=== PATIENT | female | born 1970 | race Caucasian/White ===

== ENCOUNTER 2021-10-17 14:28 | Emergency (ER) | payer OTHER, SELFPAY ==
--- NOTE | ~2021-10-17 | XR_ITS ---
EXAMINATION: XR chest 2V Exam Date/Time: 10/17/2021 14:57 CDT HISTORY: shortness of breath;recent pneumonia,hx of COPD,HTN, smoker Comparison: 08/11/2017. RESULT: Lines, tubes, and devices: None. Lungs and pleura: Emphysematous change, otherwise clear. Cardiomediastinal silhouette: Stable. Other: No acute osseous or upper abdominal finding. IMPRESSION: No acute cardiopulmonary process. Reviewed, dictated and finalized at location K.
[2021-10-17 14:29] VITALS: BP 114/78; PULSE 100; RESP 16; TEMP 36.3; O2SAT 100
[2021-10-17 14:40] VITALS: O2SAT 88; O2SAT 97
--- NOTE | 2021-10-17 14:40 | ECG_ITS ---
Measurements Intervals [place] Rate: 93 P: 73 TN: 129 QRS: 70 QRSD: 83 T: 65 QT: 357 QTc: 444 Interpretive Statements SINUS RHYTHM BASELINE ARTIFACT- I, III NORMAL ECG Electronically Signed On 10-17-2021 16:33:01 CDT by Levar Carbajal D.O.
[2021-10-17 14:52] LABS: Basophils Absolute Auto 0.1 K/mm3 (0.0-0.1); Basophils Percent Auto 1.5 % (0.2-1.2); Eosinophils Absolute Auto 0.4 K/mm3 (0-0.3); Eosinophils Percent Auto 8.9 % (0-4.4); Hematocrit 43.4 % (37.0-47.0); Hemoglobin 14.1 g/dL (12.0-15.0); Immature Granulocyte Absolute 0.01 K/mm3 (0.00-0.031); Immature Granulocyte Percent A 0.2 % (0-0.5); Immature Platelet Fraction Pct 10.4 % (0.9-11.2); Lymphocytes Absolute Auto 1.01 K/mm3 (0.9-3.2); Lymphocytes Percent Auto 21.4 % (18.3-44.2); Mean Corpuscular HGB Conc 32.5 g/dl (32-36); Mean Corpuscular Hemoglobin 31.1 pg (26-34); Mean Corpuscular Volume 95.8 fl (80-100); Mean Platelet Volume 11.5 fl (7.4-10.4); Monocytes Absolute Auto 0.4 K/mm3 (0.1-0.6); Monocytes Percent Auto 7.4 % (2.6-8.5); Neutrophils Absolute Auto 2.9 K/mm3 (1.3-6.7); Neutrophils Percent Auto 60.6 % (45.5-73.1); Platelet Count Result 132 k/mm3 (150-375); Red Blood Count 4.53 M/mm3 (4.2-5.4); White Blood Count 4.7 K/mm3 (4.5-10.0)
[2021-10-17 15:00] LABS: Alanine Aminotransferase 14 U/L (6-35); Alkaline Phosphatase 72 U/L (38-126); Anion Gap 6 mmol/L (8-16); Aspartate Amino Transferase 22 U/L (14-36); Bilirubin,Total 0.4 mg/dL (0.2-1.3); Blood Urea Nitrogen 8 mg/dL (7-17); Calcium 8.7 mg/dL (8.4-10.2); Carbon Dioxide 32 mmol/L (22-30); Chloride 105 mmol/L (98-107); Estimated CRCL calculation 61 ml/min; Estimated Glomerular Filt Rate > 60; Glucose 122 mg/dL (65-110); Potassium 3.8 mmol/L (3.4-5.0); Sodium 143 mmol/L (137-145)
[2021-10-17] MEDS: ALBUTEROL SULFATE NEB 2.5 MG/3 ML INH 15 MG INHALATION (15:10)
[2021-10-17] MEDS: IPRATROPIUM BR 0.02% INH SOLN 0.5 MG/2.5 ML VIAL 1 MG INHALATION (15:10)
[2021-10-17] MEDS: predniSONE 20 MG TABLET 40 MG PO (15:18)
[2021-10-17] MEDS: AZITHROMYCIN 250 MG TABLET 500 MG PO (15:18)
[2021-10-17 15:25] VITALS: PULSE 90
[2021-10-17 15:45] LABS: SARS-CoV-2 RNA PCR Negative
--- NOTE | 2021-10-17 16:49 | ED.SOB ---
HPI - SOB/Dyspnea General Chief Complaint: Upper Respiratory Infection Stated Complaint: short of breath Time Seen by Provider: 10/17/21 14:41 History of Present Illness HPI Narrative: 50-year-old female who states that the last 2 weeks she has been having productive cough, difficulty breathing. No fevers or chills, she says that someone at [place] told her she had pneumonia. She has not been able to take get any medications she says because the other doctor was needed did not want to give it to her Related Data Allergies Allergy/AdvReac Type Severity Reaction Status Date / Time bee venom protein (honey bee) Allergy Intermediate BREATHING Verified 10/17/21 14:41 DIFFICULTY Review of Systems Review of Systems: CONST: No fever. HEENT: No sore throat C/V: Chest tightness when she coughs RESP: Productive cough and wheezing GI: No nausea or vomiting : No dysuria. M/S: No joint pain. SKIN: No rash. NEURO: [No headache or focal numbness or weakness] PSYCH: [No depression] [facility] Past Medical History Medical History (Updated 10/17/21 @ 16:52 by Rita Villa MD) COPD (chronic obstructive pulmonary disease) Social History Social History (Updated 10/17/21 @ 16:52 by Rita Villa MD) Smoking status: Current every day smoker Exam Narrative: EXAMINATION OF ORGAN SYSTEMS/BODY AREAS: Constitutional: Vital signs per nursing GENERAL: Resting comfortably in bed HEAD: Normal with no signs of head trauma. EYES: EOMI, conjunctiva normal ENT: Hearing grossly intact LUNGS: Wheezing all lung geller HEART: [Regular rate and rhythm] ABD: [Soft], nontender EXT: Normal range of motion SKIN: [No rashes or lesions.] NEURO: [Alert and oriented x 3. No gross focal sensory or strength deficits.] PSYCH: Normal affect Course Vital Signs Vital signs: Vital Signs Temperature 97.3 F L 10/17/21 14:29 Pulse Rate 100 10/17/21 14:29 Respiratory Rate 16 10/17/21 14:29 Blood Pressure 114/78 10/17/21 14:29 Pulse Oximetry 100 10/17/21 14:29 Oxygen Delivery Room Air 10/17/21 14:29 Temperature 97.3 F L 10/17/21 14:29 Pulse Rate 90 10/17/21 15:25 Respiratory Rate 16 10/17/21 14:29 Blood Pressure 114/78 10/17/21 14:29 Pulse Oximetry 97 10/17/21 14:40 Oxygen Delivery Nasal Cannula 10/17/21 14:40 Oxygen Flow Rate 2 10/17/21 14:40 MDM - SOB/Dyspnea MDM Narrative Medical decision making narrative: ED COURSE AND MEDICAL DECISION MAKIN-year-old female with acute dyspnea and wheezing likely due to acute COPD exacerbation based on history and exam. Doubt ACS or PE as symptoms and exam were consistent with COPD. Patient hemodynamically stable. Nebulizer treatments are started and steroids given orally. Patient monitored in the ED for a couple of hours and on reevaluation is feeling significantly better. No respiratory distress or accessory muscle use. Good air movement bilateral lungs. Prescriptions for [albuterol and steroid course] provided. Azithromycin provided for COPD exacerbation. Patient is given strict return precautions and patient is discharged in stable/improved condition. Pulse oximetry interpretation: 94% on room air preintervention, 98% on room air post intervention Critical care time: None. Lab Data Result diagrams: 10/17/21 14:43 10/17/21 14:43 Labs: Lab Results 10/17/21 10/17/21 10/17/21 Range/Units 14:43 14:43 14:52 WBC 4.7 (4.5-10.0) K/mm3 RBC 4.53 (4.2-5.4) M/mm3 Hgb 14.1 (12.0-15.0) g/dL Hct 43.4 (37.0-47.0) % MCV 95.8 (80-100) fl MCH 31.1 (26-34) pg MCHC 32.5 (32-36) g/dl RDW 14.0 (11.5-14.5) % Plt Count 132 L (150-375) k/mm3 MPV 11.5 H (7.4-10.4) fl Immature Gran % (Auto) 0.2 (0-0.5) % Neut % (Auto) 60.6 (45.5-73.1) % Lymph % (Auto) 21.4 (18.3-44.2) % [place] % (Auto) 7.4 (2.6-8.5) % Eos % (Auto) 8.9 H (0-4.4) % Baso % (Auto) 1.5 H (0.2-1.2)
== END 2021-10-17 17:32 | disposition home or self-care (01) ==
PROVIDERS: Emergency Provider Emergency Medicine; PCP Internal Medicine
DX: J06.9 Acute upper respiratory infection, unspecified (principal); J44.1 Chronic obstructive pulmonary disease with (acute) exacerbation; Z20.822 Contact with and (suspected) exposure to COVID-19; F17.200 Nicotine dependence, unspecified, uncomplicated
CPT/HCPCS: 36415; 71046; 80053; 85025; 85055; 93005; 94640; 99284; A9270; C9803; J7512; U0003; U0005

== ENCOUNTER 2021-12-23 13:06 | Observation (INO) | payer OTHER, SELFPAY ==
[2021-12-23] VITALS (37 sets, daily range): BP systolic 96–140; BP diastolic 58–97; PULSE 69–106; RESP 12–30; TEMP 36.3–37.2; O2SAT 87–100; BMI 17.6
--- NOTE | ~2021-12-23 | XR_ITS ---
EXAMINATION: XR chest 2V DATE: 12/23/2021 13:51 INDICATION: Chest pain TECHNIQUE: Frontal and lateral views of the chest are obtained COMPARISON: 10/17/2021 FINDINGS: The lungs are free of acute opacities. There is moderate emphysema. No pleural effusion or pneumothorax. The cardiomediastinal silhouette is normal. There is mild thoracic spondylosis. IMPRESSION: 1. No acute cardiopulmonary abnormality. Reviewed, dictated and finalized at location A.
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
--- NOTE | 2021-12-23 13:18 | ECG_ITS ---
Measurements Intervals [place] Rate: 99 P: 79 [place]: 113 QRS: 80 QRSD: 82 T: 80 QT: 330 QTc: 425 Interpretive Statements SINUS RHYTHM WITH SHORT [place] INTERVAL BASELINE WANDER- V2 BORDERLINE T WAVE ABNORMALITY- ANTERIOR LEADS BORDERLINE ECG COMPARED TO ECG 10/17/2021 14:43:07 NO SIGNIFICANT CHANGES Electronically Signed On 12-23-2021 20:06:56 CDT by Levar Carbajal D.O.
[2021-12-23 13:32] LABS: Basophils Absolute Auto 0.1 K/mm3 (0.0-0.1); Basophils Percent Auto 0.7 % (0.2-1.2); Eosinophils Absolute Auto 0.4 K/mm3 (0-0.3); Hematocrit 43.4 % (37.0-47.0); Hemoglobin 14.4 g/dL (12.0-15.0); Immature Granulocyte Absolute 0.02 K/mm3 (0.00-0.031); Immature Granulocyte Percent A 0.3 % (0-0.5); Lymphocytes Absolute Auto 0.83 K/mm3 (0.9-3.2); Lymphocytes Percent Auto 11.4 % (18.3-44.2); Mean Corpuscular HGB Conc 33.2 g/dl (32-36); Mean Corpuscular Hemoglobin 31.2 pg (26-34); Mean Corpuscular Volume 93.9 fl (80-100); Mean Platelet Volume 11.3 fl (7.4-10.4); Monocytes Absolute Auto 0.8 K/mm3 (0.1-0.6); Monocytes Percent Auto 10.7 % (2.6-8.5); Neutrophils Absolute Auto 5.2 K/mm3 (1.3-6.7); Neutrophils Percent Auto 70.9 % (45.5-73.1); Platelet Count Result 173 k/mm3 (150-375); Red Blood Count 4.62 M/mm3 (4.2-5.4); Red Cell Distribution Width 13.9 % (11.5-14.5); White Blood Count 7.3 K/mm3 (4.5-10.0)
[2021-12-23 13:42] LABS: Prothrombin Time 12.9 Seconds (11.1-14.7)
[2021-12-23 13:43] LABS: Partial Thromboplastin Time 30.2 SECONDS (22.3-36.8)
[2021-12-23 13:47] LABS: Alanine Aminotransferase 14 U/L (6-35); Albumin Level 4.3 g/dL (3.5-5.1); Alkaline Phosphatase 68 U/L (38-126); Anion Gap 13 mmol/L (8-16); Aspartate Amino Transferase 22 U/L (14-36); Bilirubin,Total 0.6 mg/dL (0.2-1.3); Blood Urea Nitrogen 9 mg/dL (7-17); Calcium 8.9 mg/dL (8.4-10.2); Carbon Dioxide 26 mmol/L (22-30); Chloride 100 mmol/L (98-107); Estimated CRCL calculation 70 ml/min; Estimated Glomerular Filt Rate > 60; Glucose 103 mg/dL (65-110); Lipase 19 U/L (23-300); Potassium 3.7 mmol/L (3.4-5.0); Sodium 139 mmol/L (137-145)
[2021-12-23 13:59] LABS: Troponin I < 0.012 ng/mL (0.000-0.034)
[2021-12-23] MEDS: ONDANSETRON INJ 4 MG/2 ML VIAL IV PUSH (14:50)
[2021-12-23] MEDS: MORPHINE SULFATE (*CRX) 4 MG/ML INJ IV PUSH (14:50)
[2021-12-23 16:30] LABS: Erythrocyte Sedimentation Rate 21 mm/hr (0-20)
[2021-12-23 16:32] LABS: Troponin I < 0.012 ng/mL (0.000-0.034)
[2021-12-23 18:44] LABS: SARS-CoV-2 RNA PCR Negative
[2021-12-23 19:13] LABS: Troponin I < 0.012 ng/mL (0.000-0.034)
--- NOTE | 2021-12-23 20:19 | ADMGEN ---
This patient, Joya De Leon, was admitted to IMU Room 206-2009. Patient/family oriented to hospital policies and general routines including ID bracelet, bed and alarms, visiting hours, pain management, procedures, bathroom and other care routines, personal items, smoking policy, room service/diet, and visiting hours. Information on how to activate the Rapid Response Team has been discussed. Patient/Family are encouraged to report perceived risks to care and to ask questions if they do not understand what they are told or what they should do.
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
--- NOTE | 2021-12-23 21:09 | ADMGEN ---
This patient, Joya De Leon, was admitted to IMU Room 206-02. Patient/family oriented to hospital policies and general routines including ID bracelet, bed and alarms, visiting hours, pain management, procedures, bathroom and other care routines, personal items, smoking policy, room service/diet, and visiting hours. Information on how to activate the Rapid Response Team has been discussed. Patient/Family are encouraged to report perceived risks to care and to ask questions if they do not understand what they are told or what they should do.
[2021-12-24] VITALS (9 sets, daily range): BP systolic 97–114; BP diastolic 48–70; PULSE 70–93; RESP 14–16; TEMP 36.3–36.7; O2SAT 93–96
--- NOTE | 2021-12-24 | ECHO_ITS ---
Patient Info Name: Joya De Leon Age: 51 years : 1970 Gender: Female Ht: 65 in Wt: 103 lbs BSA: 1.45 m2 HR: 85 bpm BP: 110 / 70 mmHg Heart Rhythm: Sinus Rhythm Technical Quality: Fair Exam Date: 12/24/2021 11:58 AM Exam Location: [facility] Pulmonary Exam Room: [facility] Patient Status: Outpatient Admit Date: 12/23/2021 Staff Ordering Physician: Shruti Zuñiga DO Chemist Steroids: Evelyn Pickard RDCS Attending Provider: Dixon Kraft MD Referring Physician: Yogesh HERRON; Exam Type: CA echo doppler color flow Study Info Indications - pericarditis Complete two-dimensional, color flow and Doppler transthoracic echocardiogram is performed. Summary 1. Complete two-dimensional, color flow and Doppler transthoracic echocardiogram is performed. 2. Left ventricular systolic function is normal, estimated at 55-60%. 3. The left ventricular diastolic function is grade I diastolic dysfunction. 4. Right ventricular systolic function is normal. 5. There is small circumferential pericardial effusion. 6. No significant valvular disease. Left Ventricle Left ventricular chamber dimension is normal. Left ventricular systolic function is normal, estimated at 55-60%. There is no increased left ventricular wall thickness. The left ventricular diastolic function is grade I diastolic dysfunction. Right Ventricle Right ventricular chamber dimension is normal. Right ventricular systolic function is normal. Left Atria Left atrial chamber dimension is normal. Right Atria Right atrial chamber dimension is normal. Aortic Valve The aortic valve is not well visualized. There is no aortic valve stenosis. There is no aortic valve regurgitation. Pulmonic Valve The pulmonic valve is not well visualized. Mitral Valve The mitral valve has normal leaflets. There is no mitral valve stenosis. There is no mitral valve regurgitation. Tricuspid Valve The tricuspid valve leaflets are normal. There is no significant tricuspid valve stenosis. There is trace tricuspid valve regurgitation. Pericardium/Pleural There is small circumferential pericardial effusion. Inferior Vena Cava Dilated inferior vena cava with >50% collapse upon inspiration consistent with Empty right atrial pressure, Empty. Left Ventricular Outflow Tract Name Value Normal LVOT 2D LVOT Diameter 2.0 cm LVOT Doppler LVOT Peak Gradient 5 mmHg LVOT Mean Gradient 3 mmHg LVOT VTI 21 cm LVOT VTI/AV VTI Ratio 1.0 LVOT Stroke Volume 63 ml LVOT CO 15.6 l/min LVOT CI 10.8 l/min/m2 Pulmonic Valve Name Value Normal PV Doppler PV Peak Gradient 4 mmHg Josi
--- NOTE | 2021-12-24 05:43 | PC.NURSE ---
I HAVE MONITORED THE MEDICATION DISPENSING AND THE CHARTING DONE BY PURVI LY RN LICENSE PENDING AND I AGREE WITH EVERYTHING.
--- NOTE | 2021-12-24 08:02 | PM.IMPN ---
Progress Note: A&P Assessment and Plan (1) Acute pericardial effusion: Code(s): I30.9 - Acute pericarditis, unspecified Status: Acute Assessment and Plan: f/u echo, cardio c/s, cont NSAIDs (2) Chest pain: Code(s): R07.9 - Chest pain, unspecified Status: Acute Assessment and Plan: msk vs cardiac, cardio c/s pending, continue NSAIDs (3) Emphysematous COPD: Code(s): J43.9 - Emphysema, unspecified Status: Acute Assessment and Plan: stable (4) Narcotic abuse in remission: Code(s): F11.11 - Opioid abuse, in remission Status: Acute Assessment and Plan: Suboxone reordered while inpatient to prevent withdrawal Plan DVT prophylaxis with SCDs GI prophylaxis not indicated Code status full code Subjective Date/time seen: 12/24/21 08:02 Interval history: No overnight events noted. No chest pain or shortness of breath. No nausea, vomiting or diarrhea. No fevers or chills. Review of Systems Review of Systems: 12 point review of systems was assessed and was negative except as noted in the HPI Exam Narrative: General: No acute distress, alert and oriented per baseline HEENT: Atraumatic, normocephalic, mucous membranes moist CV: Regular rate and rhythm, S1, S2 Lungs: Clear to auscultation bilaterally, no rales or crackles noted, no wheezes, good air entry Abdomen: Soft, nontender, nondistended Extremities: Normal to inspection Skin: No rashes noted, no lesions or wounds seen Psych: Euthymic, normal affect Objective Data Vital Signs Vital Signs: Vital Signs - 24 hr 12/23/21 13:09 12/23/21 13:26 12/23/21 14:53 Temperature 99 F Pulse Rate 98 90 Respiratory Rate 25 H 16 Blood Pressure 140/97 H 125/87 Pulse Oximetry 98 98 92 Oxygen Delivery Room Air Room Air 12/23/21 18:07 12/23/21 13:14 12/23/21 13:15 Temperature Pulse Rate 89 Respiratory Rate 14 Blood Pressure 104/60 Pulse Oximetry 97 98 98 Oxygen Delivery 12/23/21 13:16 12/23/21 13:31 12/23/21 13:32 Temperature Pulse Rate 99 97 97 Respiratory Rate 16 14 16 Blood Pressure 140/97 H 125/87 Pulse Oximetry 100 95 95 Oxygen Delivery 12/23/21 13:53 12/23/21 14:00 12/23/21 14:15 Temperature Pulse Rate 95 98 95 Respiratory Rate 22 H 20 17 Blood Pressure Pulse Oximetry 93 95 93 Oxygen Delivery 12/23/21 14:37 12/23/21 14:53 12/23/21 15:11 Temperature Pulse Rate 90 91 94 Respiratory Rate 15 14 30 H Blood Pressure Pulse Oximetry 92 92 95 Oxygen Delivery 12/23/21 15:26 12/23/21 15:40 12/23/21 15:45 Temperature Pulse Rate 95 106 H 93 Respiratory Rate 15 19 15 Blood Pressure Pulse Oximetry 93 87 L 97 Oxygen Delivery 12/23/21 16:11 12/23/21 16:15 12/23/21 16:34 Temperature Pulse Rate 89 89 92 Respiratory Rate 16 15 14 Blood Pressure Pulse Oximetry 100 100 92 Oxygen Delivery 12/23/21 16:45 12/23/21 17:00 12/23/21 17:17 Temperature Pulse Rate 91 95 91 Respiratory Rate 14 13 15 Blood Pressure Pulse Oximetry 90 97 97 Oxygen Delivery 12/23/21 17:31 12/23/21 17:45 12/23/21 18:01 Temperature Pulse Rate 91 92 89 Respiratory Rate 13 15 13 Blood Pressure Pulse Oximetry 96 96 96 Oxygen Delivery 12/23/21 18:15 12/23/21 18:16 12/23/21 18:33 Temperature Pulse Rate 88 87 89 Respiratory Rate 13 13 12 Blood Pressure 96/76 L Pulse Oximetry 95 95 96 Oxygen Delivery 12/23/21 18:46 12/23/21 18:47 12/23/21 19:04 Temperature Pulse Rate 89 92 90 Respiratory Rate 13 20 18 Blood Pressure 108/81 108/81 Pulse Oximetry 97 97 Oxygen Delivery 12/23/21 19:57 12/23/21 20:10 12/23/21 23:45 Temperature 98.3 F 97.4 F L 98.2 F Pulse Rate 88 88 69 Respiratory Rate 16 16 16 Blood Pressure 102/86 105/77 105/58 L Pulse Oximetry 97 96 93 Oxygen Delivery 12/23/21 20:30 12/23/21 22:00 12/24/21 00:00 Temperature Pulse Rate 85 87 88
[2021-12-24] MEDS: NICOTINE (*PBKC) 14 MG PATCH 1 PATCH TRANSDERM (09:16)
[2021-12-24] MEDS: IBUPROFEN 600 MG TABLET PO (13:02)
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
[2021-12-24] MEDS: KETOROLAC 15 MG/ML VIAL (*BKC) IV PUSH (14:22)
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
== END 2021-12-24 18:00 | disposition home or self-care (01) ==
LOC: ANHED 16:10 → ANHIMU 12-24 08:27
PROVIDERS: Admitting Provider Internal Medicine; Emergency Provider Emergency Medicine; PCP Internal Medicine; Visit Provider Student in an Organized Health Care Education/Training Program
DX: I30.9 Acute pericarditis, unspecified (principal); R07.9 Chest pain, unspecified; J43.9 Emphysema, unspecified; F11.11 Opioid abuse, in remission; E11.9 Type 2 diabetes mellitus without complications; F17.210 Nicotine dependence, cigarettes, uncomplicated; R94.31 Abnormal electrocardiogram [ECG] [EKG]; F32.A Depression, unspecified; F41.9 Anxiety disorder, unspecified; I51.9 Heart disease, unspecified; F40.00 Agoraphobia, unspecified; Z20.822 Contact with and (suspected) exposure to COVID-19; Z86.19 Personal history of other infectious and parasitic diseases; Z87.01 Personal history of pneumonia (recurrent); Z79.51 Long term (current) use of inhaled steroids; Z79.82 Long term (current) use of aspirin; Z79.899 Other long term (current) drug therapy; Z82.49 Family history of ischemic heart disease and other diseases of the circulatory system
CPT/HCPCS: 36415; 71046; 71275; 74175; 80053; 83690; 84484; 85025; 85610; 85652; 85730; 93005; 93306; 96374; 96375; 99285; A9270; C9803; G0378; J1885; J2270; J2405; Q9967; U0003; U0005

== ENCOUNTER 2022-05-08 14:38 | Inpatient (IN) | payer OTHER, SELFPAY ==
[2022-05-08] VITALS (46 sets, daily range): BP systolic 72–116; BP diastolic 44–110; PULSE 90–113; RESP 13–25; TEMP 36.3–36.4; O2SAT 56–99; BMI 17.4
--- NOTE | ~2022-05-08 | XR_ITS ---
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 RESULT: Lines, tubes, and devices: None. Lungs and pleura: Lordotic and rotated positioning. Increased lung volume. Mid and lower lung reticul ar opacities bilaterally, with some reticulonodular opacities. Clear. Cardiomediastinal silhouette: Stable. Other: No acute osseous or upper abdominal finding. IMPRESSION: Pulmonary opacities likely represent interstitial pulmonary edema, overlying chronic emphysematous ch alex. Atypical infection/bronchitis could also be considered in the differential. Reviewed, dictated and finalized at location [facility]. L MACHINE BINDERY OPERATOR IMPRESSION: Pulmonary opacities likely represent interstitial pulmonary edema, overlying ch ronic emphysematous change. Atypical infection/bronchitis could also be conside red in the differential.
--- NOTE | ~2022-05-08 | CT_ITS ---
Clinical Indication: Hypoxia CT Scan of the Chest with Contrast: Technique: Contiguous sections were acquired throughout the chest after intravenous administration of 95 cc of Omnipaque 350. Dose reduction technique was used on this scan by utilizing automated exposu re control and iterative reconstruction technique. The dose-length product (DLP) was 164.56 mGy-cm. COMPARISON: 12/23/2021 Findings: Enlarged right hilar lymph node measures 2.3 x 1.6 cm (axial image 107). Mildly enlarged subcarinal a nd AP window lymph nodes are also present. No axillary lymphadenopathy. There is no filling defect in the pulmonary arterial tree to suggest pulmonary embolus. There is no evidence of aortic dissection or aneurysm. There is no evidence of pleural or pericardial effusion. Pleural-based pulmonary nodule at the right lung base measures 1.8 x 1.2 cm (axial image 197). There is severe COPD/emphysema throughout both lungs. No other consolidation or pulmonary nodule clearly id entified. Images through the upper abdomen reveal no abnormalities. Impression: No evidence of pulmonary embolus, aortic dissection, or aortic aneurysm. 1.8 x 1.2 cm pleural-based nodule at the right lung base. Neoplasm is suspected, although rounded ate lectasis could have a similar appearance. Consider PET scan and/or tissue sampling for further evalua tion. 2.3 x 1.6 cm right hilar lymph node, with mildly enlarged subcarinal AP window lymph nodes. No metast atic disease is suspected, versus the possibility of inflammatory/reactive lymph nodes. Again, consid er bronchoscopic tissue sampling to establish histologic diagnosis. Severe COPD/emphysema. Reviewed, dictated and finalized at [facility]. [employer] Impression: No evidence of pulmonary embolus, aortic dissection, or aortic aneurysm. 1.8 x 1.2 cm pleural-based nodule at the right lung base. Neoplasm is suspected , although rounded atelectasis could have a similar appearance. Consider PET sc an and/or tissue sampling for further evaluation. 2.3 x 1.6 cm right hilar lymph node, with mildly enlarged subcarinal AP window lymph nodes. No metastatic disease is suspected, versus the possibility of infl ammatory/reactive lymph nodes. Again, consider bronchoscopic tissue sampling to establish histologic diagnosis. Severe COPD/emphysema.
--- NOTE | 2022-05-08 14:48 | ECG_ITS ---
Measurements Intervals [place] Rate: 115 P: 80 MI: 114 QRS: 67 QRSD: 88 T: -1 QT: 336 QTc: 466 Interpretive Statements SINUS TACHYCARDIA WITH SHORT MI INTERVAL NONSPECIFIC T-WAVE CHANGES COMPARED TO ECG 12/23/2021 13:18:09 SINUS TACHYCARDIA NOW PRESENT Electronically Signed On 05-08-2022 18:42:29 INSTRUMENTAL TEACHER by Stephanie Kwok M.D.
[2022-05-08] MEDS: IPRATROPIUM BR 0.02% INH SOLN 0.5 MG/2.5 ML VIAL 1.5 MG INHALATION (14:51)
[2022-05-08] MEDS: ALBUTEROL SULFATE NEB 2.5 MG/3 ML INH 15 MG INHALATION (14:51)
[2022-05-08 15:05] LABS: Alveolar/Arterial O2 Gradient 275.6 mmHg; Base Excess ABG 6.3 mEq/l (+/-2.0); Fractional Inspired Oxygen 60 %; HCO3 ABG 35.4 mEq/l (22.0-26.0); Oxygen Content ABG 20.2 %vol (16.0-22.0); Oxygen Saturation ABG 93.3 % (95.0-100.0); Oxyhemoglobin 90.2 % THb (90.0-100.0); PO2 ABG 74.4 mmHg (80.0-100.0); PO2 FiO2 Ratio Arterial Blood 1.24 %; Total Hemoglobin 15.9 g/dL (12.0-18.0); pH ABG 7.318 (7.350-7.450)
[2022-05-08 15:08] LABS: Device NASAL CANNULA; Modified Allen's Test Pass; PCO2 ABG 70.7 mmHg (35.0-45.0); Site Drawn LEFT RADIAL
[2022-05-08 15:10] LABS: Basophils Absolute Auto 0.1 K/mm3 (0.0-0.1); Basophils Percent Auto 0.6 % (0.2-1.2); Eosinophils Absolute Auto 0.3 K/mm3 (0-0.3); Eosinophils Percent Auto 1.8 % (0-4.4); Hematocrit 49.8 % (37.0-47.0); Hemoglobin 15.7 g/dL (12.0-15.0); Immature Granulocyte Percent A 0.6 % (0-0.5); Lymphocytes Absolute Auto 0.67 K/mm3 (0.9-3.2); Lymphocytes Percent Auto 4.1 % (18.3-44.2); Mean Corpuscular HGB Conc 31.5 g/dl (32-36); Mean Corpuscular Volume 98.4 fl (80-100); Mean Platelet Volume 10.6 fl (7.4-10.4); Monocytes Absolute Auto 0.7 K/mm3 (0.1-0.6); Monocytes Percent Auto 4.4 % (2.6-8.5); Neutrophils Absolute Auto 14.3 K/mm3 (1.3-6.7); Neutrophils Percent Auto 88.5 % (45.5-73.1); Platelet Count Result 335 k/mm3 (150-375); Red Blood Count 5.06 M/mm3 (4.2-5.4); Red Cell Distribution Width 13.8 % (11.5-14.5); White Blood Count 16.2 K/mm3 (4.5-10.0)
[2022-05-08 15:22] LABS: Platelet Estimate Adequate (Adequate)
[2022-05-08 15:23] LABS: Alanine Aminotransferase 19 U/L (6-35); Albumin Level 4.5 g/dL (3.5-5.1); Alkaline Phosphatase 147 U/L (38-126); Anion Gap 8 mmol/L (8-16); Aspartate Amino Transferase 27 U/L (14-36); Bilirubin,Total 0.6 mg/dL (0.2-1.3); Blood Urea Nitrogen 11 mg/dL (7-17); Calcium 9.1 mg/dL (8.4-10.2); Carbon Dioxide 37 mmol/L (22-30); Chloride 94 mmol/L (98-107); Estimated CRCL calculation 47 ml/min; Estimated Glomerular Filt Rate > 60; Glucose 152 mg/dL (65-110); Potassium 3.8 mmol/L (3.4-5.0); Sodium 139 mmol/L (137-145)
[2022-05-08 15:24] LABS: Lactic Acid Reflex 2.7 mmol/L (0.7-2.0)
[2022-05-08 15:26] LABS: INR 1.1; Prothrombin Time 13.3 Seconds (11.1-14.7)
[2022-05-08 15:27] LABS: Partial Thromboplastin Time 28.1 SECONDS (22.3-36.8); Schistocytes None Seen (NORMAL)
--- NOTE | 2022-05-08 15:56 | ED.GENADULT ---
HPI - General Adult General Chief complaint: Altered Mental Status Stated complaint: ams/ D/T FENTANYL USE Time Seen by Provider: 05/08/22 14:44 History of Present Illness HPI narrative: Patient is a 51-year-old female who presents ER with shortness of breath and concern follow-up for mental status. Patient supposed be on home oxygen but does not have a condenser. Apparently she has also been using fentanyl. She used part of the button earlier this morning. Significant other reports that she did have some emesis earlier that was coming out of her mouth while she was confused. Patient presents stiles and not particularly responsive. Pulse oximeter in the 50s. History obtained from family not from patient. Related Data Allergies Allergy/AdvReac Type Severity Reaction Status Date / Time bee venom protein (honey bee) Allergy Intermediate BREATHING Verified 05/08/22 21:21 DIFFICULTY Review of Systems Review of Systems: All systems reviewed & are unremarkable except as noted in HPI and below (History obtained after patient perked up and was awake and receiving oxygen) Constitutional: Constitutional: Denies chills, Reports fatigue and Denies fever(s) Cardiovascular: Cardiovascular: Denies chest pain and Denies rapid heart rate Respiratory: Respiratory: Reports cough, Reports dyspnea and Reports wheezing Gastrointestinal: Gastrointestinal: Denies abdominal pain, Denies nausea and Denies vomiting PMFSH Past Medical History Medical History Agoraphobia Anxiety Depression Emphysematous COPD Hepatitis C virus infection cured after antiviral drug therapy Surgical History Surgical History No significant past surgical history Family History Family History Mother Cystic fibrosis Congestive heart failure Father Acute myocardial infarction Congestive heart failure Social History Social History Social History: She has smoked as much as a pack of cigarettes per day since she was teenager but cut down to half a pack of cigarettes per day 1 month ago. She is a recovering alcoholic but has not drink heavily since her late 20s. 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 She has 1 daughter and 1 son. Code status: Full code Surrogate decision maker: Marielena Hannah (daughter) Smoking packs per day: 0.5 Smoking cigarettes per day: 10.0 Years smoked: 39 Smoking pack-years: 19.50 Smoking status: Current every day smoker Tobacco type: cigarettes Second hand tobacco smoke exposure: Yes Alcohol intake: former Drinks per week: 30 Substance use: current Substance use type: opiates Other substance usage details: Fentanyl, Suboxone Last use: 05/08/22 Lack of Transportation: No Lack of Food: Never True Current Housing: I Do Not Have Housing Concerned About Future Housing: Decline to Answer Difficulty Paying Gas/Electric Bills: Decline to Answer Difficulty Paying for Meds: Decline to Answer Currently Unemployed: Decline to Answer Education: Decline to Answer Difficulty w/ Childcare or Family Care: Decline to Answer Additional living arrangements comments: She is currently living with family members. Additional occupation/education comments: She is currently unemployed. Spiritual care concerns: No Exam Narrative: GENERAL: Chronically ill-appearing, well-nourished, and moderate distress. HEAD: Normocephalic, atraumatic. EYES: PERRL and EOMI. ENT: Mucous membranes moist. NECK: Supple. CHEST: Diminished breath sounds throughout with the exception of the coarse breath sounds that are heard in the right middle and lower lobes. HEART: Tachycardic and regular. Normal peripheral pulses. A
[2022-05-08] MEDS: SODIUM CHLORIDE 0.9% IV 500 ML 999 ML (17:12)
[2022-05-08] MEDS: metroNIDAZOLE 500 MG/ISO 100ML 500 MG/100 ML BAG 100 MG IVPB ×2 (17:23→23:26)
--- NOTE | 2022-05-08 17:23 | PC.NURSE ---
pt took cpap off. standing at sink splashing into her mouth. monitor leads off. pt assisted back into bed and placed back on monitor.
[2022-05-08 18:08] LABS: Reflex Lactic Acid Yes or No Add Lactic
[2022-05-08 18:19] LABS: Alveolar/Arterial O2 Gradient 137.8 mmHg; Base Excess ABG 0.6 mEq/l (+/-2.0); Fractional Inspired Oxygen 40 %; HCO3 ABG 28.8 mEq/l (22.0-26.0); Oxygen Content ABG 17.2 %vol (16.0-22.0); Oxyhemoglobin 90.3 % THb (90.0-100.0); PO2 ABG 75.3 mmHg (80.0-100.0); PO2 FiO2 Ratio Arterial Blood 1.88 %; Total Hemoglobin 13.5 g/dL (12.0-18.0)
[2022-05-08 18:22] LABS: Device NON-INVASIVE VENT; Modified Allen's Test Pass; PCO2 ABG 62.7 mmHg (35.0-45.0); Site Drawn RIGHT RADIAL
[2022-05-08 18:23] LABS: Non-Invasive Expiratory Pressure 5 CMH2O; Non-Invasive Inspiratory Pressure 10 CMH2O; Non-Invasive Vent Rate 12 /MIN
--- NOTE | 2022-05-08 18:30 | PM.IMHP ---
H&P: HPI History of Present Illness Date/Time: 05/08/22 18:30 Chief Complaint: Shortness of breath and altered mental status. Narrative: This is a 51-year-old female smoker with COPD and polysubstance abuse who presented to the emergency department from home for evaluation of shortness of breath and altered mental status. She has a longstanding history of narcotic abuse and was clean and on Suboxone for quite some time before relapsing in November 2021. More recently she has been trying to cut back and hopes to once again quit and get back on Suboxone. Today she snorted a small amount of fentanyl which she got from a different source than usual and shortly thereafter her significant other noted that she seemed to be a bit confused. As the day progressed she started to feel more and more short of breath and she came in for evaluation. Initial SpO2 was 56% on room air and she was started on CPAP and was given a continuous nebulizer treatment with improvement in her shortness of breath. Initial ABG showed a pH of 7.318, pCO2 70.7, and bicarb 35.4. Chest x-ray showed chronic emphysematous changes and pulmonary opacities which may represent interstitial pulmonary edema or atypical infection/bronchitis. With further questioning she does endorse a cough productive of clear sputum which has been present for about 3 or 4 days and she indicates to me that she felt feverish several days ago but did not have a documented temperature. She also had nausea and couple of episodes of emesis the other day but that has since resolved. Due to her hypercarbia as she has been started on BiPAP and appears more comfortable. No sick contacts. She also denies headache, documented fever, chills, sweats, sinus congestion, sore throat, chest and pleuritic pain, sensations of racing heart, palpitations abdominal pain, and diarrhea. She is alert and oriented x4 at the time evaluation without focal findings. Review of Systems Review of Systems: Twelve systems were reviewed and are negative except for as per HPI. [facility] Past Medical History Medical History (Updated 05/08/22 @ 21:52 by Kiya Solorio PA-C) Agoraphobia Anxiety Deep venous thrombosis (2007) Depression Emphysematous COPD Hepatitis C virus infection cured after antiviral drug therapy Polysubstance abuse Tobacco dependence Surgical History Surgical History (Updated 05/08/22 @ 21:41 by Kiya Solorio PA-C) History of section Family History Family History Mother Cystic fibrosis Congestive heart failure Father Acute myocardial infarction Congestive heart failure Social History Social History (Updated 05/08/22 @ 21:44 by Kiya Solorio PA-C) Social History: She does not have a permanent residence. Stays with friends, family members, and significant other. She has 2 children, a son and daughter. Not currently working. She smoked a pack of cigarettes a day since she was a teenager. She is recovering alcoholic but has not drank heavily since her late 20s. She has a history of IV drug use many years ago. She continues to have problems with narcotic addiction, mainly snorting [place] all. She has been off and on Suboxone treatment since 2019. Code status: Full code Surrogate decision maker: Marielena Hannah (daughter). Lack of Transportation: No Lack of Food: Never True Current Housing: I Do Not Have Housing Concerned About Future Housing: Decline to Answer Difficulty Paying Gas/Electric Bills: Decline to Answer Difficulty Paying for Meds: Decline to Answer Currently Unemployed: Decline to Answer Education: Decline to Answer Difficulty w/ Childcare or Family Care: Decline to Answer Spiritual care concerns: No Meds Home Medications and Allergies Home Medications Medication Instructions Recorded Confirmed Type albuterol sulfate 90 mcg/actuation 2 inh inhalation QID PRN shortness 10/17
[2022-05-08 18:44] LABS: Influenza A QL RT-PCR Negative (Negative); Influenza B QL RT-PCR Negative (Negative); SARS-CoV-2 RNA PCR Negative
[2022-05-08] MEDS: NICOTINE (*PBKC) 14 MG PATCH 1 PATCH TRANSDERM (18:53)
[2022-05-08] MEDS: SODIUM CHLORIDE 0.9% IV 1,000 ML 125 ML IV CONT (19:18)
[2022-05-08] MEDS: IPRATROPIUM BR 0.02% INH SOLN 0.5 MG/2.5 ML VIAL INHALATION (19:41)
[2022-05-08] MEDS: ALBUTEROL SULFATE NEB 2.5 MG/3 ML INH INHALATION (19:41)
[2022-05-08 20:42] LABS: NT Pro B Type Natriuretic Pept 8570 pg/mL (19.9-100)
--- NOTE | 2022-05-08 21:15 | PC.NURSE ---
This patient, Joya De Leon, was admitted to IMU Room 211-01. Patient/family oriented to hospital policies and general routines including ID bracelet, bed and alarms, visiting hours, pain management, procedures, bathroom and other care routines, personal items, smoking policy, room service/diet, and visiting hours. Information on how to activate the Rapid Response Team has been discussed. Patient/Family are encouraged to report perceived risks to care and to ask questions if they do not understand what they are told or what they should do.
[2022-05-08 23:39] LABS: Base Excess ABG 3.3 mEq/l (+/-2.0); Carboxyhemoglobin 0.6 % THb (0-2.0); Fractional Inspired Oxygen 40 %; HCO3 ABG 29.7 mEq/l (22.0-26.0); Methemoglobin ABG 0.5 %THb (0-1.5); Oxygen Content ABG 17.6 %vol (16.0-22.0); Oxygen Saturation ABG 96.8 % (95.0-100.0); Oxyhemoglobin 95.1 % THb (90.0-100.0); PCO2 ABG 52.8 mmHg (35.0-45.0); PO2 ABG 93.5 mmHg (80.0-100.0); PO2 FiO2 Ratio Arterial Blood 2.34 %; Reduced Hemoglobin 3.8 %THb (0-5.0); Site Drawn RIGHT BRACHIAL; Total Hemoglobin 13.1 g/dL (12.0-18.0); pH ABG 7.368 (7.350-7.450)
[2022-05-08 23:40] LABS: Inspiratory Pressure 10 cmH2O
[2022-05-08 23:41] LABS: Expiratory Pressure 5 cmH2O
[2022-05-08 23:42] LABS: Device NON-INVASIVE VENT
[2022-05-08 23:55] LABS: Appearance Urine Clear (Clear); Bilirubin Urine 1+ (Negative); Blood Urine Negative (Negative); Color Urine Yellow (Yellow); Glucose Urine UA Negative (Negative); Ketones Urine Negative (Negative); Leukocyte Esterase Ur Negative LEU/UL (Negative); Nitrate Urine Negative (Negative); Protein Urine 2+ mg/dL (Negative); Specific Grav Ur >= 1.030 (1.001-1.035); Urobilinogen Urine 0.2 mg/dL (<2.0); pH Urine 5.5 (5.0-9.0)
[2022-05-08 23:59] LABS: Add Urine Microscopic? YES; Bacteria Urine Trace /hpf; Mucus Urine Moderate /lpf; Squamous Epithelial Cell Urine Many /hpf (Few)
[2022-05-09] VITALS (24 sets, daily range): BP systolic 105–143; BP diastolic 62–91; PULSE 80–111; RESP 18–20; TEMP 36.4–36.7; O2SAT 95–100; BMI 17.4
[2022-05-09] MEDS: ENOXAPARIN 60 MG/0.6 ML SYRINGE 45 MG SUB-Q (00:55)
[2022-05-09] MEDS: HYDROcodone/acetaminophen (*CRX) 5-325 MG TABLET 1 TAB PO ×3 (02:25→20:58)
[2022-05-09] MEDS: ONDANSETRON INJ 4 MG/2 ML VIAL IV PUSH ×2 (02:25→21:05)
[2022-05-09] MEDS: IPRATROPIUM BR 0.02% INH SOLN 0.5 MG/2.5 ML VIAL INHALATION ×3 (02:45→14:10)
[2022-05-09] MEDS: ALBUTEROL SULFATE NEB 2.5 MG/3 ML INH INHALATION ×3 (02:45→14:10)
[2022-05-09 04:32] LABS: Alanine Aminotransferase 14 U/L (6-35); Albumin Level 3.2 g/dL (3.5-5.1); Alkaline Phosphatase 90 U/L (38-126); Anion Gap 3 mmol/L (8-16); Aspartate Amino Transferase 20 U/L (14-36); Bilirubin,Total 0.4 mg/dL (0.2-1.3); Blood Urea Nitrogen 8 mg/dL (7-17); Calcium 7.6 mg/dL (8.4-10.2); Carbon Dioxide 30 mmol/L (22-30); Chloride 102 mmol/L (98-107); Estimated CRCL calculation 92 ml/min; Estimated Glomerular Filt Rate > 60; Glucose 112 mg/dL (65-110); Magnesium 1.8 mg/dL (1.6-2.3); Potassium 3.6 mmol/L (3.4-5.0); Sodium 135 mmol/L (137-145)
[2022-05-09] MEDS: SODIUM CHLORIDE 0.9% IV 1,000 ML 125 ML IV CONT ×2 (05:36→12:58)
[2022-05-09 06:18] LABS: Hematocrit 38.4 % (37.0-47.0); Hemoglobin 12.1 g/dL (12.0-15.0); Mean Corpuscular HGB Conc 31.5 g/dl (32-36); Mean Corpuscular Hemoglobin 30.6 pg (26-34); Mean Platelet Volume 10.6 fl (7.4-10.4); Platelet Count Result 191 k/mm3 (150-375); Red Blood Count 3.96 M/mm3 (4.2-5.4); Red Cell Distribution Width 13.7 % (11.5-14.5)
[2022-05-09 06:27] LABS: Thyroid Stimulating Hormone Reflex 0.845 uIU/mL (0.465-4.68)
[2022-05-09] MEDS: NICOTINE (*PBKC) 21 MG PATCH 1 PATCH TRANSDERM (09:21)
[2022-05-09] MEDS: metroNIDAZOLE 500 MG/ISO 100ML 500 MG/100 ML BAG 100 MG IVPB ×3 (09:22→23:38)
[2022-05-09] MEDS: LORazepam INJ (*CRX) 2 MG/ML VIAL 0.5 MG IV PUSH (12:57)
--- NOTE | 2022-05-09 13:36 | PM.IMPN ---
Progress Note: A&P Assessment and Plan (1) Acute respiratory failure with hypoxia and hypercapnia: Code(s): J96.01 - Acute respiratory failure with hypoxia; J96.02 - Acute respiratory failure with hypercapnia Status: Acute Assessment and Plan: SpO2 was in the 50s on presentation - patient was started on BiPAP due to hypercapnia and hypoxia - she has now been weaned to supplemental O2 per nasal cannula at 4 L and is maintaining adequate O2 saturations - suspect multifactorial respiratory failure secondary to narcotic use, pneumonia, COPD exacerbation, pulmonary edema - suspect some degree of chronic respiratory failure with polycythemia noted on labs - she will require home O2 eval prior to discharge - CTA of the chest is pending to rule out PE given hypoxia and history of DVT, though this is less likely at this time and patient is improving. patient was given 1 dose of therapeutic Lovenox on admission. Will await CTA results before administering any further anticoagulation - monitor O2 sats and wean oxygen as tolerated (2) Acute exacerbation of chronic obstructive pulmonary disease: Code(s): J44.1 - Chronic obstructive pulmonary disease with (acute) exacerbation Status: Acute Assessment and Plan: diffuse wheezing noted on exam - symptomatic improvement following albuterol and ipratropium nebs - given severity of wheezing, will add prednisone 40 mg daily - no changes in sputum production (3) Pneumonia: Code(s): J18.9 - Pneumonia, unspecified organism Status: Acute Assessment and Plan: CXR reveals pulmonary opacities which likely represent interstitial edema versus atypical infection - continue ceftriaxone, azithromycin, and Flagyl - supportive care to include bronchodilators, expectorants, incentive spirometry - COVID and influenza negative - urinary Legionella and pneumococcal antigens pending (4) Elevated brain natriuretic peptide (BNP) level: Code(s): R79.89 - Other specified abnormal findings of blood chemistry Status: Acute Assessment and Plan: BNP elevated at 8600 and CXR demonstrates findings of possible pulmonary edema - not a candidate for diuresis on admission given soft blood pressures - patient was rehydrated with IV fluids which will be discontinued at this time to avoid further volume overload as patient is now hemodynamically stable - echocardiogram is pending for further evaluation - monitor volume status (5) Transient confusion: Code(s): R41.0 - Disorientation, unspecified Status: Resolved Assessment and Plan: Likely secondary to narcotic use in addition to hypoxia /hypercapnia - patient is A&O x4 at this time (6) Polysubstance abuse: Code(s): F19.10 - Other psychoactive substance abuse, uncomplicated Status: Acute Assessment and Plan: Pt snorts fentanyl daily - endorses withdrawal symptoms - ativan as needed for anxiety/agitation - continue supportive care - care coordination to provided resources - patient was previously on Suboxone and will need follow-up with her PCP to consider restarting (7) Tobacco dependence: Code(s): F17.200 - Nicotine dependence, unspecified, uncomplicated Status: Acute Assessment and Plan: continue nicotine patch during admission Subjective Date/time seen: 05/09/22 13:36 Interval history: Date of service: 05/09/2022 Joya De Leon is a 51-year-old female with a history of did give abuse, tobacco dependence, hepatitis-C, COPD, anxiety, depression, DVT who is seen in follow-up for respiratory failure. patient admits to snorting fentanyl prior to presentation and following this was found by family to be confused and in respiratory distress. Patient states that she got her fentanyl from a different supplier and did not feel that it was clean. She has been using daily. states she stopped her Suboxone treatments 1-2 months
[2022-05-09] MEDS: predniSONE 20 MG TABLET 40 MG PO (15:13)
[2022-05-09] MEDS: LORazepam (*CRX) 1 MG TABLET PO ×2 (17:37→23:39)
--- NOTE | 2022-05-09 23:12 | ECHO_ITS ---
Patient Info Name: Joya De Leon Age: 51 years : 1970 Gender: Female Ht: 62 in Wt: 95 lbs BSA: 1.36 m2 HR: 107 bpm BP: 105 / 62 mmHg Heart Rhythm: Sinus Rhythm, Tachycardia Technical Quality: Fair Exam Date: 05/09/2022 2:18 PM Exam Location: [facility] Patient Status: Inpatient Admit Date: 05/08/2022 Staff Ordering Physician: Kiya Solorio PA-C Hospice/Home Health Aide: Ivanna Harrison RDCS Attending Provider: Celeste Heck DO Referring Physician: Osmin MCCAULEY; Exam Type: CA echo doppler color flow Study Info Indications - ELEVATED BNP - HYPOXIA Complete two-dimensional, color flow and Doppler transthoracic echocardiogram is performed. Summary 1. Complete two-dimensional, color flow and Doppler transthoracic echocardiogram is performed. 2. Normal left ventricular size and thickness with good contractility of all segments. Ejection fraction 65-70%. No segmental wall motion abnormalities. Normal diastolic function. Left ventricular strain is mildly diminished at -16% consistent with a degree of systolic dysfunction. 3. Mild right ventricular enlargement and hypokinesis. 4. Mild tricuspid regurgitation. 5. Mild pulmonary hypertension, RVSP 49 mmHg. 6. Mildly dilated inferior vena cava consistent with elevated right-sided pressures. 7. Sinus tachycardia. Left Ventricle Left ventricular chamber dimension is normal. Left ventricular systolic function is normal, estimated at 65-70%. There is no increased left ventricular wall thickness. Left ventricular septal wall motion is normal. The left ventricular diastolic function is normal. Global longitudinal strain is mildly elevated at -16 %. Right Ventricle Right ventricular chamber dimension is mildly enlarged. Right ventricular systolic function is reduced. Left Atria Left atrial chamber dimension is normal. Right Atria Right atrial chamber dimension is normal. Aortic Valve The aortic valve is trileaflet. There is no aortic valve sclerosis. There is no aortic valve stenosis. There is no aortic valve regurgitation. Pulmonic Valve The pulmonic valve is normal. There is no pulmonic valve stenosis. There is no pulmonic regurgitation. Mitral Valve The mitral valve has normal leaflets. There is no mitral valve stenosis. There is no mitral valve regurgitation. Tricuspid Valve The tricuspid valve leaflets are normal. There is no significant tricuspid valve stenosis. There is mild tricuspid valve regurgitation. Moderate pulmonary hypertension, estimated pulmonary arterial systolic pressure is 49 mmHg. Pericardium/Pleural The pericardium appears normal. There is no pericardial effusion. Inferior Vena Cava Dilated inferior vena cava with >50% collapse upon inspiration consistent with Empty right atrial pressure, 10 mmHg. Aorta The aortic root size at the sinus of Valsalva is normal. The prox ascending aorta size is normal. Left Ventricular Outflow Tract Name Value Normal LVOT 2D LVOT Diameter 1.9 cm LVOT Doppler LVOT Peak Gradient 10 mmHg LVOT Mean Gradient
--- NOTE | 2022-05-09 23:52 | PCRCNOTE ---
window of time for administration has passed. see next available administration.
[2022-05-10] VITALS (24 sets, daily range): BP systolic 133–145; BP diastolic 66–94; PULSE 86–115; RESP 18–20; TEMP 36.2–37.2; O2SAT 92–100
[2022-05-10] MEDS: IPRATROPIUM BR 0.02% INH SOLN 0.5 MG/2.5 ML VIAL INHALATION ×3 (02:26→13:10)
[2022-05-10] MEDS: ALBUTEROL SULFATE NEB 2.5 MG/3 ML INH INHALATION ×3 (02:26→13:10)
[2022-05-10] MEDS: HYDROcodone/acetaminophen (*CRX) 5-325 MG TABLET 1 TAB PO (04:27)
[2022-05-10 05:26] LABS: Hematocrit 35.2 % (37.0-47.0); Hemoglobin 11.6 g/dL (12.0-15.0); Mean Corpuscular Hemoglobin 30.9 pg (26-34); Mean Corpuscular Volume 93.9 fl (80-100); Mean Platelet Volume 10.8 fl (7.4-10.4); Platelet Count Result 205 k/mm3 (150-375); Red Blood Count 3.75 M/mm3 (4.2-5.4); Red Cell Distribution Width 13.6 % (11.5-14.5); White Blood Count 5.7 K/mm3 (4.5-10.0)
[2022-05-10 05:40] LABS: Anion Gap 2 mmol/L (8-16); Blood Urea Nitrogen 5 mg/dL (7-17); Calcium 8.3 mg/dL (8.4-10.2); Carbon Dioxide 35 mmol/L (22-30); Chloride 99 mmol/L (98-107); Estimated CRCL calculation 92 ml/min; Estimated Glomerular Filt Rate > 60; Glucose 120 mg/dL (65-110); Potassium 3.9 mmol/L (3.4-5.0); Sodium 136 mmol/L (137-145)
[2022-05-10] MEDS: NICOTINE (*PBKC) 21 MG PATCH 1 PATCH TRANSDERM (08:12)
[2022-05-10] MEDS: LORazepam (*CRX) 1 MG TABLET PO ×3 (08:12→20:10)
[2022-05-10] MEDS: predniSONE 20 MG TABLET 40 MG PO (08:13)
[2022-05-10] MEDS: metroNIDAZOLE 500 MG/ISO 100ML 500 MG/100 ML BAG 100 MG IVPB ×3 (08:14→23:53)
--- NOTE | 2022-05-10 09:52 | PM.IMPN ---
Progress Note: A&P Assessment and Plan (1) Acute respiratory failure with hypoxia and hypercapnia: Code(s): J96.01 - Acute respiratory failure with hypoxia; J96.02 - Acute respiratory failure with hypercapnia Status: Acute Assessment and Plan: SpO2 was in the 50s on presentation but has improved and she has been off BiPAP and on nasal cannula oxygen -she is currently on 3 L of oxygen. We tried to take her oxygen off this morning but her saturations dropped into the 70s - suspect multifactorial respiratory failure secondary to narcotic use, pneumonia, COPD exacerbation, pulmonary edema - suspect some degree of chronic respiratory failure with polycythemia noted on labs - she will require home O2 eval prior to discharge -CTA reviewed with Radiology. Dr. Bain states he does not think this is a neoplasm in suspect this is actually pneumonia. I agree since the patient is recently with her sick niece. Plan to repeat this in 6-8 weeks to ensure that abnormality has improved. If not, PCP may want to do a PET scan or biopsy -pneumococcal and mycoplasma antigen are pending. Will at RSV -will order pulmonary consult -continue albuterol, Atrovent, ceftriaxone, azithromycin and Flagyl (risk of aspiration due to drug use) (2) Acute exacerbation of chronic obstructive pulmonary disease: Code(s): J44.1 - Chronic obstructive pulmonary disease with (acute) exacerbation Status: Acute Assessment and Plan: diffuse wheezing noted on exam - symptomatic improvement following albuterol and ipratropium nebs -prednisone added 03/08. Would recommend tapering once she improves. - no changes in sputum production (3) Pneumonia: Code(s): J18.9 - Pneumonia, unspecified organism Status: Acute Assessment and Plan: As noted above - continue ceftriaxone, azithromycin, and Flagyl - supportive care to include bronchodilators, expectorants, incentive spirometry - COVID and influenza negative. Add RSV - urinary Legionella and pneumococcal antigens pending (4) Elevated brain natriuretic peptide (BNP) level: Code(s): R79.89 - Other specified abnormal findings of blood chemistry Status: Acute Assessment and Plan: BNP elevated at 8600 - echocardiogram is pending for further evaluation - monitor volume status (5) Transient confusion: Code(s): R41.0 - Disorientation, unspecified Status: Resolved Assessment and Plan: Likely secondary to narcotic use in addition to hypoxia /hypercapnia - patient is A&O x4 at this time (6) Polysubstance abuse: Code(s): F19.10 - Other psychoactive substance abuse, uncomplicated Status: Acute Assessment and Plan: Pt snorts fentanyl daily - endorses withdrawal symptoms - ativan as needed for anxiety/agitation - continue supportive care - care coordination to provided resources - patient was previously on Suboxone and will need follow-up with her PCP to consider restarting (7) Tobacco dependence: Code(s): F17.200 - Nicotine dependence, unspecified, uncomplicated Status: Acute Assessment and Plan: continue nicotine patch during admission Time Spent With Patient Time with patient: 25 - 35 minutes Subjective Date/time seen: 05/10/22 09:52 Interval history: Pt is a 51-year-old female here for respiratory failure secondary to pneumonia. Patient was seen today and states that her cough is getting better but she continues to have a cough. 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 Patient states that she also is anxious because she is afraid where her family will think about her doing fentanyl again. She has no thoughts of harming herself and states that she has a place to live and resources outpatient. She has no history of sleep apnea. No chest pain today. Review of Systems Review of Systems: All systems reviewed & are unremarkable exce
[2022-05-10 14:57] LABS: RSV RNA, RT-PCR Negative (Negative)
--- NOTE | 2022-05-10 17:31 | PC.NURSE ---
agree with student documentation assessment at 08 and 12 by rome britt student nurse from [facility]
--- NOTE | 2022-05-10 18:44 | PM.CNPUL ---
Assessment and Plan Assessment and plan (1) Acute respiratory failure with hypoxia and hypercapnia: Code(s): J96.01 - Acute respiratory failure with hypoxia; J96.02 - Acute respiratory failure with hypercapnia Status: Acute Assessment and Plan: Acute episode is better, pCO2 normal. Some of this may have been worsened by opioid with hypoventilation, but there is underlying chronic respiratory acidosis. Continue to treat COPD, arrange O2 for out patient use, out patient PET scan, tobacco cessation, cardiopulmonary rehab. Alpha-1 testing. (2) Acute exacerbation of chronic obstructive pulmonary disease: Code(s): J44.1 - Chronic obstructive pulmonary disease with (acute) exacerbation Status: Acute Assessment and Plan: She has severe COPD with diffuse areas of loss of lung tissue in the apices and bases. She is not on controller medications at this time. She is on short-acting albuterol and ipratropium. start COPD controller therapy which we will plan to continue as an out patient, Trelegy One puff daily, stop ipratropium nebs, and get PFTs maybe down the road alpha 1 testing; not ideal while sick but this is our chance to obtain testing (3) Lung nodule, solitary: Code(s): R91.1 - Solitary pulmonary nodule Status: Acute Assessment and Plan: 1.8 x 1.2 cm pleural-based nodule right lung base suspected bronchogenic carcinoma; she said that she would want to know if she has lung cancer. She also has subcarinal and AP window lymph nodes . Heavy smoker; she is at risk for lung cancer. PET scan as out patient We can follow this in the office when she returns for follow up. Bronchoscopy is not going to be able to get access to this nodule. She is at an increased risk for CT guided bx because of her need for O2 and COPD. (4) Tobacco dependence: Code(s): F17.200 - Nicotine dependence, unspecified, uncomplicated Status: Acute Assessment and Plan: Last tobacco was on the day of admission She is on nicotine replacement therapy, patches I spent 3 minutes talking to her about nicotine replacement and tobacco cessation. Patient is in discomfort from opioid with oral and this is not a good receptive time for her to discuss tobacco cessation Plan Out patient work up of RLL nodule which is suspicious for cancer, out patient PET scan COPD management- start triple long acting therapy; Simone is on formulary in the hospital, however with her insurance coverage, she may be required use Symbicort and Spiriva upon discharge. Stop ipratropium with LAMA in Trelegy. Tobacco cessation. Needs O2 evaluation before discharge; she needs O2 at baseline; she had polycythemia on admission, probably due to longstanding hypoxemia. She has compensatory metabolic alkalosis which suggests that she has had some chronic respiratory acid osis. She has mild pulmonary hypertension which is secondary to her underlying lung disease. Prednisone taper. Antibiotics- appropriate; she is able to take oral now, and had no positive urine antigens. She may have aspirated as a factor but hte real issue is the opioid use and loss of consciousness, so swallow study may not be essential. History of Present Illness History of Present Illness Consult date: 05/12/22 Requesting physician: Jewell Manuel PA-C Chief complaint: aspiration pneumonia,acute respiratory failure,hyp Narrative: Patient was seen 05/12/2022 at 10 am NEW: Joya De Leon is a 51-year-old female admitted with decreased level of consciousness
[2022-05-10] MEDS: ACETAMINOPHEN 325 MG TABLET 650 MG PO (20:10)
[2022-05-10] MEDS: diphenhydrAMINE HCl CAP 25 MG CAPSULE PO (20:45)
[2022-05-10] MEDS: ONDANSETRON INJ 4 MG/2 ML VIAL IV PUSH (21:53)
[2022-05-11] VITALS (20 sets, daily range): BP systolic 138–149; BP diastolic 73–97; PULSE 80–114; RESP 16–20; TEMP 36.6–36.9; O2SAT 90–100
[2022-05-11] MEDS: LORazepam INJ (*CRX) 2 MG/ML VIAL 1 MG IV PUSH ×4 (02:16→22:40)
[2022-05-11 05:58] LABS: Alveolar/Arterial O2 Gradient 46.4 mmHg; Base Excess ABG 9.2 mEq/l (+/-2.0); Carboxyhemoglobin 1.1 % THb (0-2.0); Fractional Inspired Oxygen 21 %; HCO3 ABG 32.5 mEq/l (22.0-26.0); Methemoglobin ABG 0.3 %THb (0-1.5); Oxygen Content ABG 17.7 %vol (16.0-22.0); Oxygen Saturation ABG 92.3 % (95.0-100.0); Oxyhemoglobin 89.3 % THb (90.0-100.0); PCO2 ABG 39.3 mmHg (35.0-45.0); PO2 ABG 56.3 mmHg (80.0-100.0); PO2 FiO2 Ratio Arterial Blood 2.68 %; Reduced Hemoglobin 9.3 %THb (0-5.0); Total Hemoglobin 14.1 g/dL (12.0-18.0)
[2022-05-11 05:59] LABS: Device ROOM AIR; Modified Allen's Test Pass; Site Drawn RIGHT RADIAL
[2022-05-11 06:18] LABS: Basophils Percent Auto 0.2 % (0.2-1.2); Hematocrit 38.5 % (37.0-47.0); Immature Granulocyte Absolute 0.09 K/mm3 (0.00-0.031); Immature Granulocyte Percent A 0.9 % (0-0.5); Lymphocytes Absolute Auto 0.76 K/mm3 (0.9-3.2); Lymphocytes Percent Auto 7.5 % (18.3-44.2); Mean Corpuscular HGB Conc 33.8 g/dl (32-36); Mean Corpuscular Volume 91.7 fl (80-100); Mean Platelet Volume 11.2 fl (7.4-10.4); Monocytes Absolute Auto 0.6 K/mm3 (0.1-0.6); Monocytes Percent Auto 5.6 % (2.6-8.5); Neutrophils Absolute Auto 8.8 K/mm3 (1.3-6.7); Neutrophils Percent Auto 85.8 % (45.5-73.1); Platelet Count Result 279 k/mm3 (150-375); Red Cell Distribution Width 13.8 % (11.5-14.5); White Blood Count 10.2 K/mm3 (4.5-10.0)
[2022-05-11 06:32] LABS: Anion Gap 3 mmol/L (8-16); Blood Urea Nitrogen 8 mg/dL (7-17); CRP 2.9 mg/dL (<1.0); Calcium 8.4 mg/dL (8.4-10.2); Carbon Dioxide 32 mmol/L (22-30); Chloride 96 mmol/L (98-107); Estimated CRCL calculation 76 ml/min; Estimated Glomerular Filt Rate > 60; Glucose 104 mg/dL (65-110); Potassium 3.2 mmol/L (3.4-5.0); Sodium 131 mmol/L (137-145)
[2022-05-11 06:34] LABS: Hemoglobin A1C 5.5 % (<5.7)
[2022-05-11 07:30] LABS: pH ABG 7.535 (7.350-7.450)
[2022-05-11] MEDS: predniSONE 20 MG TABLET 40 MG PO (08:25)
[2022-05-11] MEDS: NICOTINE (*PBKC) 21 MG PATCH 1 PATCH TRANSDERM (08:26)
[2022-05-11] MEDS: metroNIDAZOLE 500 MG/ISO 100ML 500 MG/100 ML BAG 100 MG IVPB (08:29)
[2022-05-11] MEDS: LOPERAMIDE HCL 2 MG CAPSULE PO ×2 (12:12→18:29)
[2022-05-11] MEDS: KCL 20 MEQ/SW 100 ML 100 ML 50 MEQ IVPB (13:00)
[2022-05-11] MEDS: IPRATROPIUM BR 0.02% INH SOLN 0.5 MG/2.5 ML VIAL INHALATION ×2 (14:02→20:21)
[2022-05-11] MEDS: ALBUTEROL SULFATE NEB 2.5 MG/3 ML INH INHALATION ×2 (14:02→20:21)
--- NOTE | 2022-05-11 16:18 | PM.IMPN ---
Progress Note: A&P Assessment and Plan (1) Acute respiratory failure with hypoxia and hypercapnia: Code(s): J96.01 - Acute respiratory failure with hypoxia; J96.02 - Acute respiratory failure with hypercapnia Status: Acute Assessment and Plan: SpO2 was in the 50s on presentation but has improved and she has been off BiPAP and on nasal cannula oxygen -she is currently on 2 L supplemental oxygen. she has not been able to tolerate previous attempts to wean oxygen. - suspect multifactorial respiratory failure secondary to narcotic use, pneumonia, COPD exacerbation, pulmonary edema - suspect some degree of chronic respiratory failure with polycythemia noted on labs - she will require home O2 eval prior to discharge - CTA evaluated which reveals severe COPD/ emphysema with no evidence of PE, pleural base nodule at the right lung base concerning for neoplasm versus rounded atelectasis and enlarged right hilar lymph node. Previous provider reviewed results with radiologist who feels that this nodule is more likely attributed to pneumonia rather than neoplasm. will need repeat CT scan in 6-8 weeks to ensure resolution. If persistent, patient may require PET scan or biopsy - appreciate pulmonology consultation and recommendations (2) Acute exacerbation of chronic obstructive pulmonary disease: Code(s): J44.1 - Chronic obstructive pulmonary disease with (acute) exacerbation Status: Acute Assessment and Plan: diffuse wheezing noted on exam - symptomatic improvement following albuterol and ipratropium nebs - continue prednisone started on 03/08 - no changes in sputum production (3) Pneumonia: Code(s): J18.9 - Pneumonia, unspecified organism Status: Acute Assessment and Plan: As noted above - continue ceftriaxone, azithromycin, and Flagyl ( patient at risk for aspiration given drug use) - supportive care to include bronchodilators, expectorants, incentive spirometry - COVID, influenza, RSV negative. - urinary Pneumococcal antigen negative. pending (4) Elevated brain natriuretic peptide (BNP) level: Code(s): R79.89 - Other specified abnormal findings of blood chemistry Status: Acute Assessment and Plan: BNP elevated at 8600 - echocardiogram Completed which revealed EF of 65-70% with left ventricular strain consistent with degree of systolic dysfunction - patient appears euvolemic on exam - monitor volume status (5) Transient confusion: Code(s): R41.0 - Disorientation, unspecified Status: Resolved Assessment and Plan: Likely secondary to narcotic use in addition to hypoxia /hypercapnia - patient is A&O x4 at this time (6) Polysubstance abuse: Code(s): F19.10 - Other psychoactive substance abuse, uncomplicated Status: Acute Assessment and Plan: Pt snorts fentanyl daily - endorses withdrawal symptoms - ativan as needed for anxiety/agitation - continue supportive care - care coordination to provide resources - patient was previously on Suboxone and hopes to restart this with her primary care provider. - patient has been evaluated by [facility] with referral for inpatient rehab services pending (7) Tobacco dependence: Code(s): F17.200 - Nicotine dependence, unspecified, uncomplicated Status: Acute Assessment and Plan: continue nicotine patch during admission (8) Fall: Code(s): W19.XXXA - Unspecified fall, initial encounter Status: Acute Assessment and Plan: patient had mechanical fall out of bed today. - Fortunately no injury sustained. did not hit head. No LOC - implement fall precautions patient endorses weakness and will proceed with PT/OT eval Subjective Date/time seen: 05/11/22 16:18 Interval history: Date of service: 05/10/2022 Joya De Leon is a 51-year-old female with a history of did give abuse, tobacco depe
[2022-05-11 16:19] LABS: Pneumococcal Antigen Urine Not Detected (Not Detected)
[2022-05-11] MEDS: AMOXICILLIN/CLAVULANATE K 875-125 MG TAB 1 TABLET PO (20:35)
[2022-05-11] MEDS: ONDANSETRON INJ 4 MG/2 ML VIAL IV PUSH (20:35)
[2022-05-11] MEDS: AZITHROMYCIN 250 MG TABLET 500 MG PO (20:35)
[2022-05-12] VITALS (18 sets, daily range): BP systolic 135–153; BP diastolic 86–102; PULSE 79–107; RESP 16–24; TEMP 36.6–37.2; O2SAT 91–97
[2022-05-12] MEDS: LOPERAMIDE HCL 2 MG CAPSULE PO (02:28)
[2022-05-12] MEDS: ONDANSETRON INJ 4 MG/2 ML VIAL IV PUSH (02:28)
[2022-05-12] MEDS: LORazepam INJ (*CRX) 2 MG/ML VIAL 1 MG IV PUSH ×3 (05:13→17:47)
[2022-05-12 05:28] LABS: Hematocrit 40.6 % (37.0-47.0); Hemoglobin 13.5 g/dL (12.0-15.0); Mean Corpuscular HGB Conc 33.3 g/dl (32-36); Mean Corpuscular Hemoglobin 30.8 pg (26-34); Mean Corpuscular Volume 92.5 fl (80-100); Mean Platelet Volume 10.7 fl (7.4-10.4); Platelet Count Result 288 k/mm3 (150-375); Red Blood Count 4.39 M/mm3 (4.2-5.4); White Blood Count 8.9 K/mm3 (4.5-10.0)
[2022-05-12 05:45] LABS: Anion Gap 2 mmol/L (8-16); Blood Urea Nitrogen 11 mg/dL (7-17); Calcium 8.4 mg/dL (8.4-10.2); Carbon Dioxide 32 mmol/L (22-30); Chloride 98 mmol/L (98-107); Estimated CRCL calculation 65 ml/min; Estimated Glomerular Filt Rate > 60; Glucose 106 mg/dL (65-110); Potassium 3.1 mmol/L (3.4-5.0); Sodium 132 mmol/L (137-145)
[2022-05-12] MEDS: IPRATROPIUM BR 0.02% INH SOLN 0.5 MG/2.5 ML VIAL INHALATION (08:26)
[2022-05-12] MEDS: predniSONE 20 MG TABLET 40 MG PO (09:55)
[2022-05-12] MEDS: NICOTINE (*PBKC) 21 MG PATCH 1 PATCH TRANSDERM (09:55)
[2022-05-12] MEDS: AMOXICILLIN/CLAVULANATE K 875-125 MG TAB 1 TABLET PO ×2 (09:55→20:21)
[2022-05-12 13:20] LABS: Mycoplasma IgM Antibody Titer 61 U/mL (<770)
--- NOTE | 2022-05-12 13:48 | PCOTNOTE ---
Attempted to see pt. for occupational therapy evaluation. Pt. refuses to participate at this time, and states she will not get out of bed until she is given Suboxone. Nursing aware.
[2022-05-12] MEDS: ALBUTEROL SULFATE NEB 2.5 MG/3 ML INH INHALATION ×2 (15:21→20:27)
[2022-05-12] MEDS: ACETAMINOPHEN 325 MG TABLET 650 MG PO (16:13)
--- NOTE | 2022-05-12 16:26 | PM.IMPN ---
Progress Note: A&P Assessment and Plan (1) Acute respiratory failure with hypoxia and hypercapnia: Code(s): J96.01 - Acute respiratory failure with hypoxia; J96.02 - Acute respiratory failure with hypercapnia Status: Acute Assessment and Plan: SpO2 was in the 50s on presentation but has improved and she has been off BiPAP and on nasal cannula oxygen -she is currently on 1 L supplemental oxygen. she has not been able to tolerate previous attempts to wean oxygen and has had episodes of desaturation with activity - suspect multifactorial respiratory failure secondary to narcotic use, pneumonia, COPD exacerbation, pulmonary edema - suspect some degree of chronic respiratory failure with polycythemia noted on labs And chronic respiratory acidosis on ABG - she will require home O2 eval prior to discharge - CTA evaluated which reveals severe COPD/ emphysema with no evidence of PE, pleural base nodule at the right lung base concerning for neoplasm versus rounded atelectasis and enlarged right hilar lymph node. Previous provider reviewed results with radiologist who feels that this nodule is more likely attributed to pneumonia rather than neoplasm, however she is at risk for lung cancer given her smoking history. She will need an outpatient PET scan per pulmonology recommendations. Not a candidate for bronchoscopy as this will not be able to access the nodule. - appreciate pulmonology consultation and recommendations (2) Acute exacerbation of chronic obstructive pulmonary disease: Code(s): J44.1 - Chronic obstructive pulmonary disease with (acute) exacerbation Status: Acute Assessment and Plan: diffuse wheezing noted on exam - symptomatic improvement following albuterol and ipratropium nebs - continue prednisone started on 03/08. will plan to discontinue tomorrow after 5 days of therapy - started on Trelegy once daily per pulmonology recommendations - will need outpatient PFTs (3) Pneumonia: Code(s): J18.9 - Pneumonia, unspecified organism Status: Acute Assessment and Plan: As noted above - patient was treated with IV ceftriaxone, azithromycin and Flagyl, given her risk of aspiration due to drug use - last dose of azithromycin is today - IV ceftriaxone and Flagyl have been discontinued and patient has been transition to p.o. Augmentin continue ceftriaxone, azithromycin, and Flagyl ( patient at risk for aspiration given drug use) - supportive care to include bronchodilators, expectorants, incentive spirometry - COVID, influenza, RSV negative. - urinary pneumococcal antigen negative. Legionella antigen pending (4) Elevated brain natriuretic peptide (BNP) level: Code(s): R79.89 - Other specified abnormal findings of blood chemistry Status: Acute Assessment and Plan: BNP elevated at 8600 - echocardiogram Completed which revealed EF of 65-70% with left ventricular strain consistent with degree of systolic dysfunction - patient appears euvolemic on exam - monitor volume status (5) Transient confusion: Code(s): R41.0 - Disorientation, unspecified Status: Resolved Assessment and Plan: Likely secondary to narcotic use in addition to hypoxia /hypercapnia - patient is A&O x4 at this time (6) Polysubstance abuse: Code(s): F19.10 - Other psychoactive substance abuse, uncomplicated Status: Acute Assessment and Plan: Pt snorts fentanyl daily - endorses withdrawal symptoms - ativan as needed for anxiety/agitation - continue supportive care - care coordination to provide resources - patient was previously on Suboxone and hopes to restart this with her primary care provider. - patient has been evaluated by [facility] with referral for inpatient rehab services pending (7) Tobacco dependence: Code(s): F17.200 - Nicotine dependence, unspecified, uncomplicated Status: Acute Assessm
--- NOTE | 2022-05-12 17:21 | PC.NURSE ---
Significant other Nicholas Garcia, phone [phone]
--- NOTE | 2022-05-12 18:13 | PC.NURSE ---
This patient, Joya De Leon, was transferred to [ 325] on 05/12/22 at 1813. Personal belongings sent with patient. Report given to [ Evelyn PIZARRO]. Appropriate documentation sent with patient.
[2022-05-12] MEDS: AZITHROMYCIN 250 MG TABLET 500 MG PO (20:22)
[2022-05-12] MEDS: POTASSIUM CHLORIDE 20 MEQ TABLET 40 MEQ PO (22:43)
[2022-05-13] VITALS (14 sets, daily range): BP systolic 123–129; BP diastolic 90–97; PULSE 87–128; RESP 14–24; TEMP 36.3–37.1; O2SAT 91–94
[2022-05-13 07:18] LABS: Legionella pneumophila Ag Ur Not Detected (Not Detected)
[2022-05-13 07:28] LABS: Hematocrit 46.8 % (37.0-47.0); Mean Corpuscular HGB Conc 34.2 g/dl (32-36); Mean Corpuscular Hemoglobin 30.5 pg (26-34); Mean Corpuscular Volume 89.3 fl (80-100); Mean Platelet Volume 10.3 fl (7.4-10.4); Platelet Count Result 317 k/mm3 (150-375); Red Blood Count 5.24 M/mm3 (4.2-5.4); Red Cell Distribution Width 13.8 % (11.5-14.5); White Blood Count 11.7 K/mm3 (4.5-10.0)
[2022-05-13 07:44] LABS: Anion Gap 4 mmol/L (8-16); Blood Urea Nitrogen 9 mg/dL (7-17); Calcium 8.7 mg/dL (8.4-10.2); Carbon Dioxide 30 mmol/L (22-30); Chloride 98 mmol/L (98-107); Estimated CRCL calculation 78 ml/min; Estimated Glomerular Filt Rate > 60; Glucose 101 mg/dL (65-110); Potassium 3.7 mmol/L (3.4-5.0); Sodium 132 mmol/L (137-145)
[2022-05-13] MEDS: ALBUTEROL SULFATE NEB 2.5 MG/3 ML INH INHALATION ×3 (08:13→21:18)
[2022-05-13] MEDS: NICOTINE (*PBKC) 21 MG PATCH 1 PATCH TRANSDERM (08:26)
[2022-05-13] MEDS: HYDROcodone/acetaminophen (*CRX) 5-325 MG TABLET 1 TAB PO ×2 (08:26→20:37)
[2022-05-13] MEDS: predniSONE 20 MG TABLET 40 MG PO (08:26)
[2022-05-13] MEDS: AMOXICILLIN/CLAVULANATE K 875-125 MG TAB 1 TABLET PO ×2 (08:26→20:36)
[2022-05-13] MEDS: LORazepam INJ (*CRX) 2 MG/ML VIAL 1 MG IV PUSH ×2 (08:32→20:37)
[2022-05-13] MEDS: FLUTICASONE/UMECLIDIN/VILANTER 100-62.5-25 MCG ELLIPTA 1 PUFF INHALATION (13:38)
--- NOTE | 2022-05-13 14:21 | HOMEO2EVAL ---
Evaluation was performed at [facility] Home Oxygen Evaluation RC: Home Oxygen (O2) Evaluation Start: 05/13/22 08:25 Freq: ONCE Status: Active Protocol: RPE Activity Type Activity Date Activity User E-sign Co-sign Detail Recorded Client Recorded Date Recorded By Document 05/13/22 13:15 [email or web address] [email or web address] 05/13/22 14:21 GABRIELE Document 05/13/22 13:20 GABRIELE [email or web address] 05/13/22 14:21 GABRIELE Document 05/13/22 13:30 GABRIELE [email or web address] 05/13/22 14:21 GABRIELE 05/13/22 05/13/22 05/13/22 13:15 13:20 13:30 Home O2 Evaluation [Oxygen] -Test Phase Resting Exercise Resting -Oxygen Delivery Room Air Room Air Room Air [Pulse Oximetry] -Pulse Oximetry (90-100 %) 94 92 93 [Pulse Rate] -Pulse Rate (60-100 beats/min) 101 H 128 H 98 [Exercise] -Ambulation Distance (feet) 300 -Ambulation Distance (meters) 91.43 [Comments] -Home Oxygen Evaluation Comments No home O2 needed at this time [Charges] -Treatment Charges O2 Evaluation - Inpatient
--- NOTE | 2022-05-13 14:22 | PCRCNOTE ---
Home o2 eval completed, no home o2 needed. RN notified
--- NOTE | 2022-05-13 16:05 | PM.IMPN ---
Progress Note: A&P Assessment and Plan (1) Acute respiratory failure with hypoxia and hypercapnia: Code(s): J96.01 - Acute respiratory failure with hypoxia; J96.02 - Acute respiratory failure with hypercapnia Status: Acute Assessment and Plan: SpO2 was in the 50s on presentation but has improved and she has been off BiPAP and on nasal cannula oxygen -she has been sick testing to room air and is maintaining adequate O2 sats - suspect multifactorial respiratory failure secondary to narcotic use, pneumonia, COPD exacerbation, pulmonary edema - suspect some degree of chronic respiratory failure with polycythemia noted on labs And chronic respiratory acidosis on ABG - home O2 eval completed today with ongoing oxygen requirements - CTA evaluated which reveals severe COPD/emphysema with no evidence of PE, pleural based nodule at the right lung base concerning for neoplasm versus rounded atelectasis and enlarged right hilar lymph node. Previous provider reviewed results with radiologist who feels that this nodule is more likely attributed to pneumonia rather than neoplasm, however she is at risk for lung cancer given her smoking history. She will need an outpatient PET scan per pulmonology recommendations. Not a candidate for bronchoscopy as this will not be able to access the nodule. - appreciate pulmonology consultation and recommendations (2) Acute exacerbation of chronic obstructive pulmonary disease: Code(s): J44.1 - Chronic obstructive pulmonary disease with (acute) exacerbation Status: Acute Assessment and Plan: diffuse wheezing noted on exam on presentation - symptomatic improvement following albuterol and ipratropium nebs - completed 5 day course of prednisone - started on Trelegy once daily per pulmonology recommendations - will need outpatient PFTs (3) Pneumonia: Code(s): J18.9 - Pneumonia, unspecified organism Status: Acute Assessment and Plan: As noted above - patient was treated with IV ceftriaxone, azithromycin and Flagyl, given her risk of aspiration due to drug use - completed 5 days of azithromycin on 05/12 - IV ceftriaxone and Flagyl have been discontinued and patient has been transitioned to p.o. Augmentin - supportive care to include bronchodilators, expectorants, incentive spirometry - COVID, influenza, RSV negative. - urinary pneumococcal and legionella antigens negative (4) Elevated brain natriuretic peptide (BNP) level: Code(s): R79.89 - Other specified abnormal findings of blood chemistry Status: Acute Assessment and Plan: BNP elevated at 8600 - echocardiogram completed which revealed EF of 65-70% with left ventricular strain consistent with degree of systolic dysfunction - patient appears euvolemic on exam - monitor volume status (5) Transient confusion: Code(s): R41.0 - Disorientation, unspecified Status: Resolved Assessment and Plan: Likely secondary to narcotic use in addition to hypoxia /hypercapnia - patient is A&O x4 at this time (6) Polysubstance abuse: Code(s): F19.10 - Other psychoactive substance abuse, uncomplicated Status: Acute Assessment and Plan: Pt snorts fentanyl daily - endorses withdrawal symptoms - ativan as needed for anxiety/agitation - continue supportive care - care coordination to provide resources - patient was previously on Suboxone and hopes to restart this with her primary care provider. - patient has been evaluated by [facility] with referral for inpatient rehab services pending. Awaiting further information with hopeful plans to discharge to inpatient facility (7) Tobacco dependence: Code(s): F17.200 - Nicotine dependence, unspecified, uncomplicated Status: Acute Assessment and Plan: continue nicotine patch during admission (8) Fall: Code(s): W19.XXXA - Unspecified fall, initial encounter
--- NOTE | 2022-05-13 16:12 | PM.PNPUL ---
Progress Note: A&P Assessment and Plan (1) Acute respiratory failure with hypoxia and hypercapnia: Code(s): J96.01 - Acute respiratory failure with hypoxia; J96.02 - Acute respiratory failure with hypercapnia Status: Acute Assessment and Plan: Resolved. Now on room air. Home O2 study shows she does not need O2 with rest or exertion. Most of this episode was overdose with snorted fentanyl. She has chronic respiratory acidosis. Continue to treat COPD, does not need O2 for out patient use out patient PET scan, tobacco cessation, cardiopulmonary rehab after discharge and follow up in the office Alpha-1 testing was sent. (2) Acute exacerbation of chronic obstructive pulmonary disease: Code(s): J44.1 - Chronic obstructive pulmonary disease with (acute) exacerbation Status: Acute Assessment and Plan: She has severe COPD with diffuse areas of loss of lung tissue in the apices and bases. She is not on controller medications at this time. She is on short-acting albuterol and ipratropium. continue COPD controller therapy which we will plan to continue as an out patient, Trelegy One puff daily, no ipratropium nebs, and get PFTs maybe down the road alpha 1 testing; not ideal while sick but this is our chance to obtain testing (3) Lung nodule, solitary: Code(s): R91.1 - Solitary pulmonary nodule Status: Acute Assessment and Plan: 1.8 x 1.2 cm pleural-based nodule right lung base suspected bronchogenic carcinoma; she said that she would want to know if she has lung cancer. She also has subcarinal and AP window lymph nodes . Heavy smoker; she is at risk for lung cancer. PET scan as out patient We can follow this in the office when she returns for follow up. Bronchoscopy is not going to be able to get access to this nodule. She is at an increased risk for CT guided bx because of her need for O2 and COPD. (4) Tobacco dependence: Code(s): F17.200 - Nicotine dependence, unspecified, uncomplicated Status: Acute Assessment and Plan: Last tobacco was on the day of admission She is on nicotine replacement therapy, patches Plan Out patient work up of RLL nodule which is suspicious for cancer, out patient PET scan COPD management- continue triple long acting therapy; Simone is on formulary in the hospital, however with her insurance coverage, she may be required use Symbicort and Spiriva upon discharge. Tobacco cessation; this is mueller to her recovery. She has compensatory metabolic alkalosis which suggests that she has had some chronic respiratory acid osis. She has mild pulmonary hypertension which is secondary to her underlying lung disease. Prednisone taper. Antibiotics- appropriate; she is able to take oral now, and had no positive urine antigens. She may have aspirated as a factor but the real issue is the opioid use and loss of consciousness, so swallow study may not be essential. d/w Mary Petty PA-C Patient might be going to inpatient rehab tomorrow Subjective Date/time seen: 05/13/22 16:12 Interval history: Hospital follow up : Joya De Leon is a 51-year-old female is seen in follow up for lung nodule ion the right base, COPD. She had a Home O2 study today Feb 17dya, required NO supplemental O2 at rest or with exertion. She was admitted with acute hypercapnic hypoxemic respiratory failure after snorting fentanyl, was unconscious, has aspiration pneumonia; treated with Narcan and placed on BiPAP with supplemental oxygen.? finally, she is weaned off O2.
[2022-05-13] MEDS: ACETAMINOPHEN 325 MG TABLET 650 MG PO (20:36)
[2022-05-14] VITALS (11 sets, daily range): BP systolic 116–137; BP diastolic 81–95; PULSE 78–104; RESP 16–20; TEMP 36.1–37.2; O2SAT 91–100
[2022-05-14] MEDS: ALBUTEROL SULFATE NEB 2.5 MG/3 ML INH INHALATION ×4 (03:11→21:28)
[2022-05-14] MEDS: LORazepam INJ (*CRX) 2 MG/ML VIAL 1 MG IV PUSH ×4 (05:41→22:11)
[2022-05-14 07:45] LABS: Hematocrit 47.3 % (37.0-47.0); Hemoglobin 15.8 g/dL (12.0-15.0); Mean Corpuscular HGB Conc 33.4 g/dl (32-36); Mean Corpuscular Hemoglobin 30.3 pg (26-34); Mean Corpuscular Volume 90.6 fl (80-100); Mean Platelet Volume 10.6 fl (7.4-10.4); Platelet Count Result 265 k/mm3 (150-375); Red Blood Count 5.22 M/mm3 (4.2-5.4); White Blood Count 8.2 K/mm3 (4.5-10.0)
[2022-05-14 07:56] LABS: Anion Gap 5 mmol/L (8-16); Blood Urea Nitrogen 12 mg/dL (7-17); Calcium 8.7 mg/dL (8.4-10.2); Carbon Dioxide 29 mmol/L (22-30); Chloride 98 mmol/L (98-107); Estimated CRCL calculation 77 ml/min; Estimated Glomerular Filt Rate > 60; Glucose 91 mg/dL (65-110); Potassium 3.4 mmol/L (3.4-5.0); Sodium 132 mmol/L (137-145)
[2022-05-14] MEDS: AMOXICILLIN/CLAVULANATE K 875-125 MG TAB 1 TABLET PO ×2 (08:27→21:00)
[2022-05-14] MEDS: NICOTINE (*PBKC) 21 MG PATCH 1 PATCH TRANSDERM (08:28)
[2022-05-14] MEDS: FLUTICASONE/UMECLIDIN/VILANTER 100-62.5-25 MCG ELLIPTA 1 PUFF INHALATION (09:00)
[2022-05-14] MEDS: LOPERAMIDE HCL 2 MG CAPSULE PO (11:50)
--- NOTE | 2022-05-14 14:23 | PM.IMPN ---
Progress Note: A&P Assessment and Plan (1) Acute respiratory failure with hypoxia and hypercapnia: Code(s): J96.01 - Acute respiratory failure with hypoxia; J96.02 - Acute respiratory failure with hypercapnia Status: Acute Assessment and Plan: SpO2 was in the 50s on presentation and patient required BiPAP initially -patient has been weaned to room air and is maintaining adequate O2 sats -O2 eval completed on 05/13/2022 and patient has no ongoing oxygen requirements - suspect multifactorial respiratory failure secondary to narcotic use, pneumonia, COPD exacerbation, pulmonary edema - suspect some degree of chronic respiratory failure with polycythemia noted on labs And chronic respiratory acidosis on ABG - home O2 eval completed today with ongoing oxygen requirements - CTA evaluated which reveals severe COPD/emphysema with no evidence of PE, pleural based nodule at the right lung base concerning for neoplasm versus rounded atelectasis and enlarged right hilar lymph node. Previous provider reviewed results with radiologist who feels that this nodule is more likely attributed to pneumonia rather than neoplasm, however she is at risk for lung cancer given her smoking history. She will need an outpatient PET scan per pulmonology recommendations. Not a candidate for bronchoscopy as this will not be able to access the nodule. - appreciate pulmonology consultation and recommendations (2) Acute exacerbation of chronic obstructive pulmonary disease: Code(s): J44.1 - Chronic obstructive pulmonary disease with (acute) exacerbation Status: Acute Assessment and Plan: diffuse wheezing noted on exam on presentation - symptomatic improvement following albuterol and ipratropium nebs - completed 5 day course of prednisone on 05/13 - started on Trelegy once daily per pulmonology recommendations - will need outpatient PFTs (3) Pneumonia: Code(s): J18.9 - Pneumonia, unspecified organism Status: Acute Assessment and Plan: As noted above - patient was treated with IV ceftriaxone, azithromycin and Flagyl, given her risk of aspiration due to drug use - completed 5 days of azithromycin on 05/12 - IV ceftriaxone and Flagyl have been discontinued and patient has been transitioned to p.o. Augmentin to complete a 7 day course - supportive care to include bronchodilators, expectorants, incentive spirometry - COVID, influenza, RSV negative. - urinary pneumococcal and legionella antigens negative (4) Elevated brain natriuretic peptide (BNP) level: Code(s): R79.89 - Other specified abnormal findings of blood chemistry Status: Acute Assessment and Plan: BNP elevated at 8600 - echocardiogram completed which revealed EF of 65-70% with left ventricular strain consistent with degree of systolic dysfunction - patient is euvolemic on exam - monitor volume status (5) Transient confusion: Code(s): R41.0 - Disorientation, unspecified Status: Resolved Assessment and Plan: Likely secondary to narcotic use in addition to hypoxia /hypercapnia - patient is A&O x4 at this time (6) Polysubstance abuse: Code(s): F19.10 - Other psychoactive substance abuse, uncomplicated Status: Acute Assessment and Plan: Pt snorts fentanyl daily -previously endorsed withdrawal symptoms - ativan as needed for anxiety/agitation - continue supportive care - care coordination to provide resources - patient was previously on Suboxone and hopes to restart this with her primary care provider. - patient has been evaluated by [facility] with referral for inpatient rehab services pending. Awaiting further information with hopeful plans to discharge to inpatient facility pending bed availability (7) Tobacco dependence: Code(s): F17.200 - Nicotine dependence, unspecified, uncomplicated Status: Acute Assessment and Plan: continue nicotine pa
[2022-05-15] VITALS (8 sets, daily range): BP systolic 101–114; BP diastolic 70–80; PULSE 90–106; RESP 16–20; TEMP 36.1–36.6; O2SAT 94–100
[2022-05-15] MEDS: ALBUTEROL SULFATE NEB 2.5 MG/3 ML INH INHALATION ×3 (01:42→21:15)
[2022-05-15] MEDS: LORazepam INJ (*CRX) 2 MG/ML VIAL 1 MG IV PUSH ×4 (03:45→20:39)
[2022-05-15] MEDS: AMOXICILLIN/CLAVULANATE K 875-125 MG TAB 1 TABLET PO (09:02)
[2022-05-15] MEDS: NICOTINE (*PBKC) 21 MG PATCH 1 PATCH TRANSDERM (09:02)
[2022-05-15] MEDS: FLUTICASONE/UMECLIDIN/VILANTER 100-62.5-25 MCG ELLIPTA 1 PUFF INHALATION (10:30)
--- NOTE | 2022-05-15 14:35 | PM.IMPN ---
Progress Note: A&P Assessment and Plan (1) Acute respiratory failure with hypoxia and hypercapnia: Code(s): J96.01 - Acute respiratory failure with hypoxia; J96.02 - Acute respiratory failure with hypercapnia Status: Acute Assessment and Plan: SpO2 was in the 50s on presentation and patient required BiPAP initially -patient has been weaned to room air and is maintaining adequate O2 sats -O2 eval completed on 05/13/2022 and patient has no ongoing oxygen requirements - suspect multifactorial respiratory failure secondary to narcotic use, pneumonia, COPD exacerbation, pulmonary edema - suspect some degree of chronic respiratory failure with polycythemia noted on labs And chronic respiratory acidosis on ABG - home O2 eval completed today with ongoing oxygen requirements - CTA evaluated which reveals severe COPD/emphysema with no evidence of PE, pleural based nodule at the right lung base concerning for neoplasm versus rounded atelectasis and enlarged right hilar lymph node. Previous provider reviewed results with radiologist who feels that this nodule is more likely attributed to pneumonia rather than neoplasm, however she is at risk for lung cancer given her smoking history. She will need an outpatient PET scan per pulmonology recommendations. Not a candidate for bronchoscopy as this will not be able to access the nodule. - appreciate pulmonology consultation and recommendations (2) Acute exacerbation of chronic obstructive pulmonary disease: Code(s): J44.1 - Chronic obstructive pulmonary disease with (acute) exacerbation Status: Acute Assessment and Plan: diffuse wheezing noted on exam on presentation - symptomatic improvement following albuterol and ipratropium nebs - completed 5 day course of prednisone on 05/13 - started on Trelegy once daily per pulmonology recommendations - will need outpatient PFTs (3) Pneumonia: Code(s): J18.9 - Pneumonia, unspecified organism Status: Acute Assessment and Plan: As noted above - patient was treated with IV ceftriaxone, azithromycin and Flagyl, given her risk of aspiration due to drug use - completed 5 days of azithromycin on 05/12 - IV ceftriaxone and Flagyl have been discontinued and patient has been transitioned to p.o. Augmentin to complete a 7 day course - supportive care to include bronchodilators, expectorants, incentive spirometry - COVID, influenza, RSV negative. - urinary pneumococcal and legionella antigens negative (4) Elevated brain natriuretic peptide (BNP) level: Code(s): R79.89 - Other specified abnormal findings of blood chemistry Status: Acute Assessment and Plan: BNP elevated at 8600 - echocardiogram completed which revealed EF of 65-70% with left ventricular strain consistent with degree of diastolic dysfunction - patient is euvolemic on exam - monitor volume status (5) Transient confusion: Code(s): R41.0 - Disorientation, unspecified Status: Resolved Assessment and Plan: Likely secondary to narcotic use in addition to hypoxia /hypercapnia - patient is A&O x4 at this time (6) Polysubstance abuse: Code(s): F19.10 - Other psychoactive substance abuse, uncomplicated Status: Acute Assessment and Plan: Pt snorts fentanyl daily -previously endorsed withdrawal symptoms - ativan as needed for anxiety/agitation - continue supportive care - care coordination to provide resources - patient has been evaluated by [facility] with referral for inpatient rehab services pending. Awaiting further information with hopeful plans to discharge to inpatient facility pending bed availability (7) Tobacco dependence: Code(s): F17.200 - Nicotine dependence, unspecified, uncomplicated Status: Acute Assessment and Plan: continue nicotine patch during admission (8) Fall: Code(s): W19.XXXA - Unspecified fall, initial enco
--- NOTE | 2022-05-15 16:27 | PCRCNOTE ---
Window of time for administration has passed. See next scheduled administration.
[2022-05-16 05:54] LABS: Hematocrit 48.6 % (37.0-47.0); Hemoglobin 15.9 g/dL (12.0-15.0); Immature Platelet Fraction Pct 14.3 % (0.9-11.2); Mean Corpuscular HGB Conc 32.7 g/dl (32-36); Mean Corpuscular Hemoglobin 30.8 pg (26-34); Mean Corpuscular Volume 94.2 fl (80-100); Mean Platelet Volume 11.5 fl (7.4-10.4); Platelet Count Result 121 k/mm3 (150-375); Red Blood Count 5.16 M/mm3 (4.2-5.4); Red Cell Distribution Width 14.5 % (11.5-14.5); White Blood Count 7.5 K/mm3 (4.5-10.0)
[2022-05-16] MEDS: LORazepam INJ (*CRX) 2 MG/ML VIAL 1 MG IV PUSH (05:57)
[2022-05-16 06:00] VITALS: BP 112/75; PULSE 87; RESP 14; TEMP 36.2; O2SAT 94
[2022-05-16 06:06] LABS: Anion Gap 7 mmol/L (8-16); Blood Urea Nitrogen 11 mg/dL (7-17); Calcium 8.7 mg/dL (8.4-10.2); Carbon Dioxide 22 mmol/L (22-30); Chloride 104 mmol/L (98-107); Estimated CRCL calculation 64 ml/min; Estimated Glomerular Filt Rate > 60; Glucose 90 mg/dL (65-110); Potassium 3.8 mmol/L (3.4-5.0); Sodium 133 mmol/L (137-145)
[2022-05-16] MEDS: NICOTINE (*PBKC) 21 MG PATCH 1 PATCH TRANSDERM (08:48)
[2022-05-16] MEDS: FLUTICASONE/UMECLIDIN/VILANTER 100-62.5-25 MCG ELLIPTA 1 PUFF INHALATION (09:20)
[2022-05-16 09:21] VITALS: O2SAT 94
--- NOTE | 2022-05-16 12:40 | PM.DS ---
DS: Admitting Diagnosis Discharge Date 05/16/2022 Admitting Diagnosis Acute respiratory failure DS: Discharge Diagnosis Discharge Diagnosis (1) Acute respiratory failure with hypoxia and hypercapnia: Code(s): J96.01 - Acute respiratory failure with hypoxia; J96.02 - Acute respiratory failure with hypercapnia Status: Acute Assessment and Plan: SpO2 was in the 50s on presentation and patient required BiPAP initially -patient was weaned to room air and maintained adequate O2 sats -O2 eval completed on 05/13/2022 and patient had no ongoing oxygen requirements - suspect multifactorial respiratory failure secondary to narcotic use, pneumonia, COPD exacerbation, pulmonary edema - suspect some degree of chronic respiratory failure with polycythemia noted on labs and chronic respiratory acidosis on ABG - CTA evaluated which reveaed severe COPD/emphysema with no evidence of PE, pleural based nodule at the right lung base concerning for neoplasm versus rounded atelectasis and enlarged right hilar lymph node. Previous provider reviewed results with radiologist who feels that this nodule is more likely attributed to pneumonia rather than neoplasm, however she is at risk for lung cancer given her smoking history. She will need an outpatient PET scan per pulmonology recommendations. Not a candidate for bronchoscopy as this will not be able to access the nodule. - seen in consultation by pulmonology during admission. She will need outpatient follow-up for PET scan and PFTs (2) Acute exacerbation of chronic obstructive pulmonary disease: Code(s): J44.1 - Chronic obstructive pulmonary disease with (acute) exacerbation Status: Acute Assessment and Plan: diffuse wheezing noted on exam on presentation - symptomatic improvement following albuterol and ipratropium nebs - completed 5 day course of prednisone on 05/13 - started on Trelegy once daily per pulmonology recommendations - will need outpatient PFTs (3) Pneumonia: Code(s): J18.9 - Pneumonia, unspecified organism Status: Acute Assessment and Plan: As noted above - patient was treated with IV ceftriaxone, azithromycin and Flagyl, given her risk of aspiration due to drug use - completed 5 days of azithromycin on 05/12 - IV ceftriaxone and Flagyl discontinued and patient was transitioned to p.o. Augmentin and completed a 7 day course - supportive care provided to include bronchodilators, expectorants, incentive spirometry - COVID, influenza, RSV negative. - urinary pneumococcal and legionella antigens negative (4) Elevated brain natriuretic peptide (BNP) level: Code(s): R79.89 - Other specified abnormal findings of blood chemistry Status: Acute Assessment and Plan: BNP elevated at 8600 - echocardiogram completed which revealed EF of 65-70% with left ventricular strain consistent with degree of diastolic dysfunction - patient remained euvolemic on exam (5) Transient confusion: Code(s): R41.0 - Disorientation, unspecified Status: Resolved Assessment and Plan: Resolved - Likely secondary to narcotic use in addition to hypoxia /hypercapnia (6) Polysubstance abuse: Code(s): F19.10 - Other psychoactive substance abuse, uncomplicated Status: Acute Assessment and Plan: Pt snorts fentanyl daily - endorsed withdrawal symptoms during admission and supportive care was provided -patient evaluated by care coordination and by [facility]. Referral made for inpatient rehab at [facility]. Patient agreeable. No bed available and patient opted for return home with her daughter while awaiting bed placement. (7) Tobacco dependence: Code(s): F17.200 - Nicotine dependence, unspecified, uncomplicated Status: Acute Assessment and Plan: Nicotine patch provided during admission -smoking cessation is imperative. -patient motivated to quit smo
--- NOTE | 2022-05-16 13:10 | PCNFU ---
Nutrition Follow-Up Complete: Suboptimal po intake related to reduced appetite as evidenced by pt report and noted weight loss with a low BMI Goal:PO intake greater than 50% of meals and supplements Pt current nutrition is Heart Healthy, Ensure Enlive BID. Nutrition recommendation: Continue with current plan of care Last recorded weight is 44 kg - stable. Bowel Motility: +BM 05/15 Labs Reviewed: NA:133, Cr:0.6 Meds Noted: zofran Skin: WNL Additional Notes: pt continues on a heart healthy diet, intake good at 75-100% most meals. Wt stable, supplements in place, possible Discharge today. Monitor intake, wt, labs. Follow up in 7 days.
== END 2022-05-16 13:15 | disposition home or self-care (01) | DRG 133 ==
LOC: ANHED 17:30 → ANHIMU 20:45 → ANH3MEDSUR 05-12 18:13
PROVIDERS: Physician Assistant; Admitting Provider Student in an Organized Health Care Education/Training Program; Emergency Provider Emergency Medicine; PCP Internal Medicine; Visit Provider Physician Assistant
DX: J96.21 Acute and chronic respiratory failure with hypoxia (principal); J69.0 Pneumonitis due to inhalation of food and vomit; J96.22 Acute and chronic respiratory failure with hypercapnia; J43.9 Emphysema, unspecified; F11.13 Opioid abuse with withdrawal; Z20.822 Contact with and (suspected) exposure to COVID-19; F32.A Depression, unspecified; F41.9 Anxiety disorder, unspecified; D75.1 Secondary polycythemia; R91.1 Solitary pulmonary nodule; W06.XXXA Fall from bed, initial encounter; F17.210 Nicotine dependence, cigarettes, uncomplicated; W19.XXXA Unspecified fall, initial encounter; Z86.19 Personal history of other infectious and parasitic diseases; Z86.718 Personal history of other venous thrombosis and embolism; Z68.1 Body mass index [BMI] 19.9 or less, adult
CPT/HCPCS: 36415; 36600; 71045; 71275; 80048; 80053; 81001; 82375; 82805; 83036; 83050; 83605; 83735; 83880; 84443; 85025; 85027; 85055; 85610; 85730; 86140; 86738; 87040; 87086; 87449; 87634; 87636; 87899; 93005; 93306; 94618; 94640; 94668; 96365; 96367; 97161; 99291; A9270; J0456; J0696; J1650; J2060; J2405; J3480; J7030; J7040; J7512; Q9967

== ENCOUNTER 2022-06-21 09:24 | Inpatient (IN) | payer OTHER, SELFPAY ==
[2022-06-21] VITALS (19 sets, daily range): BP systolic 85–131; BP diastolic 46–86; PULSE 85–102; RESP 13–27; TEMP 36.3–37.8; O2SAT 87–100; BMI 16.9
--- NOTE | ~2022-06-21 | XR_ITS ---
Clinical Indication: Shortness of breath PA and lateral views of the chest: Comparison: 05/08/2022 Findings: COPD pattern is present. Questionable minimal residual haziness in the right lung base.. C ardiomediastinal silhouette is within normal limits. Bones and soft tissues are unremarkable. Impression: COPD. Possible minimal residual haziness the right lung base. Bibasilar airspace disease is improved from p rior exam. Reviewed, dictated and finalized at location M. Impression: COPD. Possible minimal residual haziness the right lung base. Bibasilar airspace dise ase is improved from prior exam.
--- NOTE | ~2022-06-21 | CT_ITS ---
CT Scan of the Chest without Contrast: Clinical Indication: Right lower lobe pulmonary nodule Technique: Contiguous sections were acquired throughout the chest without intravenous contrast. Dose reduction technique was used on this scan by utilizing automated exposure control and iterative recon struction technique. The dose-length product (DLP) was 165.04 mGy-cm. COMPARISON: 05/09/2022 Findings: There is no evidence of any significant mediastinal, hilar or axillary lymphadenopathy. The mediastin al soft tissues appear normal. There is no evidence of pleural or pericardial effusion. Previously noted right basilar pulmonary nodule is noted completely resolved, compatible with resolve d infection/atelectasis. Severe emphysema again noted. Images through the upper abdomen reveal no abnormalities. Impression: Right basilar pulmonary nodule is nearly completely resolved, therefore consistent with resolving inf ection/atelectasis. Severe emphysema. Reviewed, dictated and finalized at [facility]. Impression: Right basilar pulmonary nodule is nearly completely resolved, therefore consist ent with resolving infection/atelectasis. Severe emphysema.
--- NOTE | 2022-06-21 09:26 | ECG_ITS ---
Measurements Intervals [place] Rate: 97 P: 81 AR: 118 QRS: 83 QRSD: 84 T: 119 QT: 354 QTc: 450 Interpretive Statements SINUS RHYTHM WITH SHORT AR INTERVAL RSR' IN V1 OR V2, PROBABLY NORMAL VARIANT BORDERLINE ST-T WAVE ABNORMALITY- INF/HIGH LAT LEADS BASELINE ARTIFACT- II, III BORDERLINE ECG COMPARED TO ECG 05/08/2022 14:50:05 SINUS RHYTHM NOW PRESENT Electronically Signed On 06-21-2022 10:25:33 CDT by Levar Carbajal D.O.
[2022-06-21 09:51] LABS: Basophils Percent Auto 0.3 % (0.2-1.2); Eosinophils Percent Auto 0.3 % (0-4.4); Hematocrit 39.8 % (37.0-47.0); Hemoglobin 12.5 g/dL (12.0-15.0); Immature Granulocyte Absolute 0.01 K/mm3 (0.00-0.031); Immature Granulocyte Percent A 0.3 % (0-0.5); Immature Platelet Fraction Pct 10.2 % (0.9-11.2); Lymphocytes Absolute Auto 0.67 K/mm3 (0.9-3.2); Lymphocytes Percent Auto 19.6 % (18.3-44.2); Mean Corpuscular HGB Conc 31.4 g/dl (32-36); Mean Corpuscular Hemoglobin 30.2 pg (26-34); Mean Corpuscular Volume 96.1 fl (80-100); Mean Platelet Volume 11.3 fl (7.4-10.4); Monocytes Absolute Auto 0.2 K/mm3 (0.1-0.6); Neutrophils Absolute Auto 2.6 K/mm3 (1.3-6.7); Neutrophils Percent Auto 74.5 % (45.5-73.1); Platelet Count Result 114 k/mm3 (150-375); Red Blood Count 4.14 M/mm3 (4.2-5.4); Red Cell Distribution Width 14.8 % (11.5-14.5); White Blood Count 3.4 K/mm3 (4.5-10.0)
[2022-06-21 09:59] LABS: Anion Gap 5 mmol/L (8-16); Blood Urea Nitrogen 6 mg/dL (7-17); Carbon Dioxide 34 mmol/L (22-30); Chloride 100 mmol/L (98-107); Sodium 139 mmol/L (137-145)
[2022-06-21 10:00] LABS: Alanine Aminotransferase 18 U/L (6-35); Albumin Level 4.4 g/dL (3.5-5.1); Alkaline Phosphatase 59 U/L (38-126); Aspartate Amino Transferase 27 U/L (14-36); Bilirubin,Total 0.6 mg/dL (0.2-1.3); Calcium 8.8 mg/dL (8.4-10.2); Estimated CRCL calculation 81 ml/min; Estimated Glomerular Filt Rate > 60; Glucose 101 mg/dL (65-110)
[2022-06-21 10:31] LABS: Influenza A QL RT-PCR Negative (Negative); Influenza B QL RT-PCR Negative (Negative); RSV RNA, RT-PCR Negative (Negative); SARS-CoV-2 RNA PCR Negative
--- NOTE | 2022-06-21 11:41 | ED.SOB ---
HPI - SOB/Dyspnea General Chief Complaint: Shortness of Breath/Dyspnea Stated Complaint: low O2, High HR Time Seen by Provider: 06/21/22 11:19 History of Present Illness HPI Narrative: 51-year-old female presents to the emergency room today for complaints of wheezing and shortness of breath that has been more severe since yesterday. She has been having a lot of problems with shortness of breath and wheezing since her admission in April. She denies having any fever or chills. She has a pulse oximeter at home and says that her O2 sats are dropping down to 82% at times. She does have nebulizer at home and did give herself a breathing treatment this morning around 330. She says that she quit smoking after her admission in April and is using nicotine patches. She does not have home oxygen at this point. Related Data Allergies Allergy/AdvReac Type Severity Reaction Status Date / Time bee venom protein (honey bee) Allergy Intermediate BREATHING Verified 05/08/22 21:21 DIFFICULTY Review of Systems Review of Systems: CONSTITUTIONAL: Denies fever, chills, or sweats. EYES: Denies visual changes, redness, or discharge. ENT: Denies rhinorrhea, congestion, sore throat, or otalgia. CARDIOVASCULAR: Denies chest pain, palpitations, or edema. RESPIRATORY: as per HPI GASTROINTESTINAL: Denies abdominal pain, nausea, vomiting, or diarrhea. GENITOURINARY: Denies dysuria or hematuria. SKIN: Denies rash or itching. MUSCULOSKELETAL: Denies back pain, joint pain, or myalgia. NEUROLOGIC: Denies headache, numbness, dizziness, or weakness. PSYCHIATRIC: Denies anxiety or depression. [facility] Past Medical History Medical History Agoraphobia Anxiety Deep venous thrombosis (2007) Depression Emphysematous COPD Hepatitis C virus infection cured after antiviral drug therapy Polysubstance abuse Tobacco dependence Surgical History Surgical History History of section Family History Family History Mother Cystic fibrosis Congestive heart failure Father Acute myocardial infarction Congestive heart failure Social History Social History (Reviewed 06/21/22 @ 14:05 by CALVIN Ornelas Social History: She does not have a permanent residence. Stays with friends, family members, and significant other. She has 2 children, a son and daughter. Not currently working. She smoked a pack of cigarettes a day since she was a teenager. She is recovering alcoholic but has not drank heavily since her late 20s. She has a history of IV drug use many years ago. She continues to have problems with narcotic addiction, mainly snorting [place] all. She has been off and on Suboxone treatment since 2019. Code status: Full code Surrogate decision maker: Marielena Hannah (daughter). Lack of Transportation: No Lack of Food: Never True Current Housing: I Do Not Have Housing Concerned About Future Housing: Decline to Answer Difficulty Paying Gas/Electric Bills: Decline to Answer Difficulty Paying for Meds: Decline to Answer Currently Unemployed: Decline to Answer Education: Decline to Answer Difficulty w/ Childcare or Family Care: Decline to Answer Spiritual care concerns: No Exam Narrative: GENERAL: Well-appearing, well-nourished, and in no acute distress. HEAD: Normocephalic, atraumatic. EYES: PERRLA and EOMI. NECK: Supple. No adenopathy or masses. No carotid bruits or JVD CHEST: expiratory wheezing noted bilaterally, respirations non-labored at rest HEART: Regular rate and rhythm. No murmur heard. Normal peripheral pulses. ABDOMEN: Soft, nontender, nondistended, normal active bowel sounds. EXTREMITIES: Normal range of motion. No edema. SKIN: Warm, dry, no rash. NEURO: No focal deficits. Alert and oriented x3. PSYCH: Normal mood and affect.
[2022-06-21] MEDS: LEVALBUTEROL NEB 1.25 MG/3 ML INHALATION ×2 (12:14→19:58)
[2022-06-21] MEDS: IPRATROPIUM BR 0.02% INH SOLN 0.5 MG/2.5 ML VIAL INHALATION ×2 (12:14→19:58)
[2022-06-21] MEDS: ACETAMINOPHEN 325 MG TABLET 650 MG PO (12:17)
[2022-06-21] MEDS: methylPREDNISolone SOD SUCC 125 MG VIAL IV PUSH (12:20)
[2022-06-21] MEDS: SODIUM CHLORIDE 0.9% IV 1,000 ML 999 ML IV CONT (12:21)
[2022-06-21 12:31] LABS: NT Pro B Type Natriuretic Pept 403 pg/mL (19.9-100); Troponin I < 0.012 ng/mL (0.000-0.034)
--- NOTE | 2022-06-21 15:00 | PM.IMHP ---
H&P: HPI History of Present Illness Date/Time: 06/21/22 15:00 Chief Complaint: Shortness of breath. Narrative: This is a 51-year-old female with COPD and history of polysubstance abuse presented to the emergency department for evaluation of shortness of breath. She is known to myself and the hospitalist service from an admission in mid April 2022 for acute respiratory failure with hypoxia and hypercapnia secondary to acute COPD exacerbation. She was treated with BiPAP and weaned from oxygen; oxygen evaluation completed a few days before discharge showed no ongoing oxygen requirements. Chest CT at that time revealed severe COPD/emphysema and a pleural place nodule at the right lung base and outpatient PET scan was recommended. Since that time she quit smoking and purportedly stopped using narcotics; she has been on low-dose Suboxone since that time. Now that she and her significant other are clean, there are no longer homeless and they have been staying with her brother and niece. Her niece is in grade school and has frequent URI symptoms. Over the last week the patient has developed a subjective fever, chills, sweats, runny nose, and cough productive of clear phlegm. She has also had increasing dyspnea and wheezing on lesser and lesser exertion. Her rescue inhaler and nebulizer treatments have not afforded much benefit. She has been taking tele home for her symptoms but nothing else. SpO2 was 87% on room air on arrival to triage and she is currently on 2 L nasal cannula. Temperature was 100.1?, blood pressure was stable. Pertinent labs include a WBC count of 3.4, hemoglobin 12.5, hematocrit 39.8, platelets 114, normal electrolytes, serum carbon dioxide 34, troponin less than 0.012, proBNP 403. She tested negative for influenza, RSV, and COVID. Chest x-ray showed possible minimal residual haziness in the right lung base though bibasilar airspace disease is improved from radiographs taken last month. In the ED she was given a dose of Solu-Medrol 125 mg IV push and a nebulizer treatment with some improvement. She is being admitted in this setting for further treatment of COPD exacerbation in the setting of probable viral infection. Currently she has no specific complaints aside from that of fatigue. She denies headache, neck ache, sore throat, chest pain, pleuritic pain, nausea, vomiting, and diarrhea. Review of Systems Review of Systems: Twelve systems were reviewed and are negative except for as per HPI. [facility] Past Medical History Medical History Agoraphobia Anxiety Deep venous thrombosis (2007) Depression Emphysematous COPD Hepatitis C virus infection cured after antiviral drug therapy Polysubstance abuse Tobacco dependence Surgical History Surgical History History of section Family History Family History Mother Cystic fibrosis Congestive heart failure Father Acute myocardial infarction Congestive heart failure Social History Social History (Updated 06/21/22 @ 15:20 by Kiya Solorio PA-C) Social History: Currently staying with her brother and niece. She has 2 children, a son and daughter. Not currently working. She smoked a pack of cigarettes a day since she was a teenager and quit in April 2022. She is recovering alcoholic but has not drank heavily since her late 20s. She has a history of IV drug use many years ago. She continues to have problems with narcotic addiction but has been sober since April 2022 and she is currently on low-dose Suboxone. Code status: Full code Surrogate decision maker: Marielena Hannah (daughter). Lack of Transportation: No Lack of Food: Never True Current Housing: I Do Not Have Housing Concerned About Future Housing: Decline to Answer Difficulty Paying Gas/Electric Bills: Decline to Answer Difficul
--- NOTE | 2022-06-21 16:08 | ADMGEN ---
This patient, Joya De Leon, was admitted to [facility] Surg Room 302-01. Patient/family oriented to hospital policies and general routines including ID bracelet, bed and alarms, visiting hours, pain management, procedures, bathroom and other care routines, personal items, smoking policy, room service/diet, and visiting hours. Information on how to activate the Rapid Response Team has been discussed. Patient/Family are encouraged to report perceived risks to care and to ask questions if they do not understand what they are told or what they should do.
[2022-06-21] MEDS: methylPREDNISolone SOD SUCC 40 MG VIAL IV PUSH (17:13)
[2022-06-21] MEDS: AZITHROMYCIN 250 MG TABLET 500 MG PO (17:13)
[2022-06-21] MEDS: guaiFENesin 12 HR 600 MG TABCR PO (20:15)
[2022-06-21] MEDS: LORazepam (*CRX) 1 MG TABLET PO (22:08)
[2022-06-22] VITALS (11 sets, daily range): BP systolic 104–125; BP diastolic 69–92; PULSE 85–99; RESP 16–22; TEMP 36–36.2; O2SAT 91–96
[2022-06-22] MEDS: methylPREDNISolone SOD SUCC 40 MG VIAL IV PUSH ×5 (01:00→23:51)
[2022-06-22] MEDS: IPRATROPIUM BR 0.02% INH SOLN 0.5 MG/2.5 ML VIAL INHALATION ×4 (02:00→19:33)
[2022-06-22] MEDS: LEVALBUTEROL NEB 1.25 MG/3 ML INHALATION ×4 (02:00→19:33)
[2022-06-22 06:08] LABS: Anion Gap 6 mmol/L (8-16); Blood Urea Nitrogen 8 mg/dL (7-17); Calcium 8.9 mg/dL (8.4-10.2); Carbon Dioxide 28 mmol/L (22-30); Chloride 104 mmol/L (98-107); Estimated CRCL calculation 125 ml/min; Estimated Glomerular Filt Rate > 60; Glucose 152 mg/dL (65-110); Potassium 3.6 mmol/L (3.4-5.0); Sodium 138 mmol/L (137-145)
[2022-06-22 06:20] LABS: Hemoglobin 11.4 g/dL (12.0-15.0); Immature Platelet Fraction Pct 11.3 % (0.9-11.2); Mean Corpuscular HGB Conc 31.7 g/dl (32-36); Mean Corpuscular Hemoglobin 30.7 pg (26-34); Mean Platelet Volume 11.9 fl (7.4-10.4); Platelet Count Result 111 k/mm3 (150-375); Red Blood Count 3.71 M/mm3 (4.2-5.4); Red Cell Distribution Width 14.6 % (11.5-14.5); White Blood Count 2.9 K/mm3 (4.5-10.0)
[2022-06-22 07:14] LABS: Thyroid Stimulating Hormone Reflex 0.279 uIU/mL (0.465-4.68)
[2022-06-22 07:42] LABS: Free T4 Free Thyroxine Reflex 0.92 ng/dL (0.78-2.19)
[2022-06-22 08:41] LABS: Total Triiodothyronine (T3) 0.78 NG/ML (0.97-1.69)
[2022-06-22] MEDS: ENOXAPARIN 40 MG/0.4 ML SYRINGE SUB-Q (08:56)
[2022-06-22] MEDS: AZITHROMYCIN 250 MG TABLET PO (08:56)
[2022-06-22] MEDS: guaiFENesin 12 HR 600 MG TABCR PO ×2 (08:56→20:54)
--- NOTE | 2022-06-22 16:16 | PM.IMPN ---
Progress Note: A&P Assessment and Plan (1) Acute exacerbation of COPD with asthma: Code(s): J44.1 - Chronic obstructive pulmonary disease with (acute) exacerbation; J45.901 - Unspecified asthma with (acute) exacerbation Status: Acute (2) Viral upper respiratory infection: Code(s): J06.9 - Acute upper respiratory infection, unspecified Status: Acute (3) Hypoxia: Code(s): R09.02 - Hypoxemia Status: Acute (4) Thrombocytopenia: Code(s): D69.6 - Thrombocytopenia, unspecified Status: Acute Plan The patient presented to the emergency department for evaluation of shortness of breath and URI symptoms as detailed in HPI. Labs, imaging, EKG, and all reports were personally reviewed. SpO2 was 87% on room air and she is currently on 2 L nasal cannula and maintaining her sats in the mid 90s. Workup today is consistent with viral URI and acute COPD exacerbation. Continue scheduled bronchodilators and Solu-Medrol. Chest x-ray shows improving infiltrates compared to radiographs obtained last month and I do not think she has active bacterial pneumonia. Given increasing shortness of breath and productive cough however she has been started on azithromycin. Wean oxygen as tolerated. May need home O2 evaluation prior to discharge. Platelet count is mildly low at 114,000 which is a new finding for her. May very well be related to viral infection. Monitor for now. Her home medications will be reviewed and resumed as appropriate. 06/22/2022 interval history: Patient is a 51-year-old female ex-smoker now presents with a cough and shortness of breath is found to have a severe COPD patient is treated with methylprednisone and bronchodilator, x-rays also suspicious and patient is being treated azithromycin and Rocephin, patient states feeling little better compared to when she arrived, will continue present management and reassess tomorrow and further recommendation to follow Subjective Date/time seen: 06/22/22 16:16 HPI-Narrative: This is a 51-year-old female with COPD and history of polysubstance abuse presented to the emergency department for evaluation of shortness of breath. She is known to myself and the hospitalist service from an admission in mid April 2022 for acute respiratory failure with hypoxia and hypercapnia secondary to acute COPD exacerbation. She was treated with BiPAP and weaned from oxygen; oxygen evaluation completed a few days before discharge showed no ongoing oxygen requirements. Chest CT at that time revealed severe COPD/emphysema and a pleural place nodule at the right lung base and outpatient PET scan was recommended. Since that time she quit smoking and purportedly stopped using narcotics; she has been on low-dose Suboxone since that time. Now that she and her significant other are clean, there are no longer homeless and they have been staying with her brother and niece. Her niece is in grade school and has frequent URI symptoms. Over the last week the patient has developed a subjective fever, chills, sweats, runny nose, and cough productive of clear phlegm. She has also had increasing dyspnea and wheezing on lesser and lesser exertion. Her rescue inhaler and nebulizer treatments have not afforded much benefit. She has been taking tele home for her symptoms but nothing else. SpO2 was 87% on room air on arrival to triage and she is currently on 2 L nasal cannula. Temperature was 100.1?, blood pressure was stable. Pertinent labs include a WBC count of 3.4, hemoglobin 12.5, hematocrit 39.8, platelets 114, normal electrolytes, serum carbon dioxide 34, troponin less than 0.012, proBNP 403. She tested negative for influenza, RSV, and COVID. Chest x-ray showed possible minimal residual haziness in the right lung base though bibasilar airspace disease is improved from radiographs taken last month. In the ED she was given a dose of Solu-Medrol 125 mg IV push and a nebulizer treatment with some improvement. She is being admitte
[2022-06-22] MEDS: FLUTICASONE/SALMETEROL 115-21 MCG INHALER 1 PUFF 2 PUFF INHALATION (19:33)
[2022-06-22] MEDS: LORazepam (*CRX) 1 MG TABLET PO (20:57)
[2022-06-23] VITALS (15 sets, daily range): BP systolic 114–123; BP diastolic 59–80; PULSE 65–99; RESP 18–20; TEMP 36.2–36.4; O2SAT 82–97; BMI 17.2
[2022-06-23] MEDS: methylPREDNISolone SOD SUCC 40 MG VIAL IV PUSH (05:58)
[2022-06-23] MEDS: FLUTICASONE/SALMETEROL 115-21 MCG INHALER 1 PUFF 2 PUFF INHALATION (07:42)
[2022-06-23] MEDS: IPRATROPIUM BR 0.02% INH SOLN 0.5 MG/2.5 ML VIAL INHALATION ×4 (07:42→19:34)
[2022-06-23] MEDS: LEVALBUTEROL NEB 1.25 MG/3 ML INHALATION ×4 (07:42→19:35)
[2022-06-23 08:02] LABS: Hematocrit 35.7 % (37.0-47.0); Hemoglobin 11.4 g/dL (12.0-15.0); Mean Corpuscular HGB Conc 31.9 g/dl (32-36); Mean Corpuscular Hemoglobin 31.1 pg (26-34); Mean Corpuscular Volume 97.5 fl (80-100); Mean Platelet Volume 11.9 fl (7.4-10.4); Platelet Count Result 148 k/mm3 (150-375); Red Blood Count 3.66 M/mm3 (4.2-5.4); Red Cell Distribution Width 15.1 % (11.5-14.5); White Blood Count 10.4 K/mm3 (4.5-10.0)
[2022-06-23 08:11] LABS: Anion Gap 6 mmol/L (8-16); Blood Urea Nitrogen 16 mg/dL (7-17); Calcium 8.7 mg/dL (8.4-10.2); Carbon Dioxide 31 mmol/L (22-30); Chloride 102 mmol/L (98-107); Estimated CRCL calculation 82 ml/min; Estimated Glomerular Filt Rate > 60; Glucose 119 mg/dL (65-110); Magnesium 2.3 mg/dL (1.6-2.3); Sodium 139 mmol/L (137-145)
[2022-06-23] MEDS: AZITHROMYCIN 250 MG TABLET PO (08:19)
[2022-06-23] MEDS: NICOTINE (*PBKC) 21 MG PATCH 21 PATCH TRANSDERM (08:19)
[2022-06-23] MEDS: ASPIRIN 81 MG ENTERIC TABLET PO (08:19)
[2022-06-23] MEDS: guaiFENesin 12 HR 600 MG TABCR PO ×2 (08:19→20:42)
[2022-06-23] MEDS: ENOXAPARIN 40 MG/0.4 ML SYRINGE SUB-Q (08:20)
--- NOTE | 2022-06-23 09:25 | PM.CNPUL ---
Assessment and Plan Assessment and plan (1) Acute exacerbation of COPD with asthma: Code(s): J44.1 - Chronic obstructive pulmonary disease with (acute) exacerbation; J45.901 - Unspecified asthma with (acute) exacerbation Status: Acute Assessment and Plan: patient with a 20 pack year history of tobacco use, quit to 02/2023, emphysema on her CT scan of the chest, I have no PFTs. home O2 assessment on 05/13/2022 demonstrated rest room air saturation 94%. Exercise room air saturation 92%. ABG on room air on 05/11/2022 was 7.54/39/56. Echocardiogram on 05/09/2022 with an LVEF of 65-70, mild right ventricular enlargement and hypokinesis, mild tricuspid regurgitation with RVSP of 49. Baseline she can walk 1 block. This is her 2nd inpatient hospitalization for COPD exacerbation since 05/08/2022 Currently patient presents with worsening shortness of breath, wheezing, phlegm production, chills over the last 6 weeks and acutely worse over the last 3-4 days. Patient is treated with steroids, bronchodilators and azithromycin and is improved and back to her baseline at this time. I do believe this is a COPD exacerbation. The patient currently has wheezing and I will decrease her steroids from Solu-Medrol 40 Q 6 to 20 q.6h. she is clinically improved. I will increase levalbuterol 1.25 mg and ipratropium 0.5 mg nebulized from q.6 hours to q.4 hours. patient is on azithromycin (started 06/21, day 3) and I will continue this. Currently the patient is on room air, I will perform overnight oximetry on room air tonight. Will repeat home O2 assessment prior to discharge. I will send alpha 1 anti trypsin phenotype and level. patient is not smoking and currently not exposed to secondhand smoke as her significant other smokes outside. Will follow with you. (2) Lung nodule, solitary: Code(s): R91.1 - Solitary pulmonary nodule Status: Acute Assessment and Plan: 05/09/2022 CT compared to 12/23/2021: Enlarged right hilar lymph node measures 2.3 x 1.6 cm (axial image 107). Mildly enlarged subcarinal and AP window lymph nodes are also present. No axillary lymphadenopathy. There is no filling defect in the pulmonary arterial tree to suggest pulmonary embolus. There is no evidence of aortic dissection or aneurysm. There is no evidence of pleural or pericardial effusion. Pleural-based pulmonary nodule at the right lung base measures 1.8 x 1.2 cm (axial image 197). There is severe COPD/emphysema throughout both lungs. No other consolidation or pulmonary nodule clearly identified. I will repeat CT scan of the chest without contrast to reassess her right lower lobe nodule and lymphadenopathy. History of Present Illness History of Present Illness Consult date: 06/23/22 Chief complaint: COPD Exacerbation Narrative: 06/23/2022: This is a new pulmonary consult for COPD exacerbation with hypoxemia 51-year-old with a history of tobacco use, substance abuse, COPD with severe emphysema on her CT scan from 12/23/2021 presented to the emergency room on 328 with 2 days worsening shortness of breath, dyspnea on exertion, wheezing and saturations 82% measured at home. Patient presented to the emergency room with expiratory wheezes, room air saturations 87%, white blood cell count 3.4 with eosinophils 0.3%, creatinine 0.5, BNP 403, troponin negative, influenza, [place] id and RSV RT PCR studies negative and a chest x-ray that demonstrated improved bibasilar infiltrates. Patient was treated for COPD exacerbation with Solu-Medrol, bronchodilators and ceftriaxone and azithromycin. Patient felt better on 06/22 and remained on 2 L nasal cannula oxygen. Of note, patient was previously admitted 05/08/2022 through 05/16/2022 for altered mental status, hypercarbic and hypoxemic respiratory failure after snorting fentanyl ( 7.32/71/74 on 8 L nasal cannula). Pulmonary was consulted. CT angiogram was negative for PE and there is a pleural base
[2022-06-23] MEDS: methylPREDNISolone SOD SUCC 40 MG VIAL 20 MG IV PUSH ×2 (11:05→17:31)
--- NOTE | 2022-06-23 14:40 | PM.IMPN ---
Progress Note: A&P Assessment and Plan (1) Acute exacerbation of COPD with asthma: Code(s): J44.1 - Chronic obstructive pulmonary disease with (acute) exacerbation; J45.901 - Unspecified asthma with (acute) exacerbation Status: Acute (2) Viral upper respiratory infection: Code(s): J06.9 - Acute upper respiratory infection, unspecified Status: Acute (3) Hypoxia: Code(s): R09.02 - Hypoxemia Status: Acute (4) Thrombocytopenia: Code(s): D69.6 - Thrombocytopenia, unspecified Status: Acute Plan The patient presented to the emergency department for evaluation of shortness of breath and URI symptoms as detailed in HPI. Labs, imaging, EKG, and all reports were personally reviewed. SpO2 was 87% on room air and she is currently on 2 L nasal cannula and maintaining her sats in the mid 90s. Workup today is consistent with viral URI and acute COPD exacerbation. Continue scheduled bronchodilators and Solu-Medrol. Chest x-ray shows improving infiltrates compared to radiographs obtained last month and I do not think she has active bacterial pneumonia. Given increasing shortness of breath and productive cough however she has been started on azithromycin. Wean oxygen as tolerated. May need home O2 evaluation prior to discharge. Platelet count is mildly low at 114,000 which is a new finding for her. May very well be related to viral infection. Monitor for now. Her home medications will be reviewed and resumed as appropriate. 06/23/2022 interval history: Patient is a 51-year-old female ex-smoker now presents with a cough and shortness of breath is found to have a severe COPD patient is treated with methylprednisone and bronchodilator, x-rays also suspicious for pneumonia and patient is being treated azithromycin and Rocephin, patient states feeling little better compared to when she arrived, however continue to desaturate with ambulating to bath room and requires sometime to catch her breath, will consult hide washer further recommendation, will continue present management and reassess tomorrow and further recommendation to follow Subjective Date/time seen: 06/23/22 14:40 06/23/2022 interval history: Patient is a 51-year-old female ex-smoker now presents with a cough and shortness of breath is found to have a severe COPD patient is treated with methylprednisone and bronchodilator, x-rays also suspicious for pneumonia and patient is being treated azithromycin and Rocephin, patient states feeling little better compared to when she arrived, however continue to desaturate with ambulating to bath room and requires sometime to catch her breath, will consult hide washer further recommendation, will continue present management and reassess tomorrow and further recommendation to follow Exam Narrative: Under nourished Patient is comfortable, NAD HEENT: eyes are clear and none icteric LUNGS: Bilateral poor air entry with rhonchi and wheezing HEART: RR S1S2 ABD: Not distended. Lower extremities: no edema SKIN: nonjaundiced Neuro: grossly intact. Objective Data Vital Signs Vital Signs: Vital Signs - 24 hr 06/22/22 19:41 06/22/22 19:41 06/22/22 20:00 Temperature Pulse Rate 92 92 94 Respiratory Rate 18 18 18 Blood Pressure Pulse Oximetry 94 Oxygen Delivery Nasal Cannula Oxygen Flow Rate 2 Fraction of Inspired Oxygen 06/22/22 22:00 06/22/22 20:00 06/23/22 05:15 Temperature 97.0 F L 97.2 F L Pulse Rate 91 91 80 Respiratory Rate 16 16 18 Blood Pressure 104/69 120/77 Pulse Oximetry 91 91 97 Oxygen Delivery Nasal Cannula Oxygen Flow Rate 2 Fraction of Inspired Oxygen 06/23/22 07:47 06/23/22 07:48 06/23/22 07:58 Temperature Pulse Rate 73 83 Respiratory Rate 18 18 Blood Pressure Pulse Oximetry 96 Oxygen Delivery Nasal Cannula Oxygen Flow Rate 2 Fraction of Inspired Oxygen 06/23/22 08:19 06/23/22 08:25 06/23/22 10:16 Temperature Pulse Rate
[2022-06-23] MEDS: LORazepam (*CRX) 1 MG TABLET PO (20:42)
[2022-06-23] MEDS: ALPRAZolam (*CRX) 0.5 MG TABLET PO (20:42)
[2022-06-24] VITALS (15 sets, daily range): BP systolic 130–143; BP diastolic 81–92; PULSE 78–96; RESP 16–20; TEMP 36.1–36.9; O2SAT 86–93
[2022-06-24] MEDS: methylPREDNISolone SOD SUCC 40 MG VIAL 20 MG IV PUSH ×3 (00:08→13:27)
[2022-06-24] MEDS: IPRATROPIUM BR 0.02% INH SOLN 0.5 MG/2.5 ML VIAL INHALATION ×3 (05:03→12:34)
[2022-06-24] MEDS: LEVALBUTEROL NEB 1.25 MG/3 ML INHALATION ×3 (05:03→12:34)
[2022-06-24 07:51] LABS: Hematocrit 35.7 % (37.0-47.0); Hemoglobin 11.3 g/dL (12.0-15.0); Mean Corpuscular HGB Conc 31.7 g/dl (32-36); Mean Corpuscular Hemoglobin 30.7 pg (26-34); Mean Platelet Volume 11.3 fl (7.4-10.4); Platelet Count Result 166 k/mm3 (150-375); Red Blood Count 3.68 M/mm3 (4.2-5.4); Red Cell Distribution Width 15.2 % (11.5-14.5); White Blood Count 9.9 K/mm3 (4.5-10.0)
[2022-06-24 08:13] LABS: Anion Gap 6 mmol/L (8-16); Blood Urea Nitrogen 19 mg/dL (7-17); Calcium 8.7 mg/dL (8.4-10.2); Carbon Dioxide 30 mmol/L (22-30); Chloride 102 mmol/L (98-107); Estimated CRCL calculation 80 ml/min; Estimated Glomerular Filt Rate > 60; Glucose 123 mg/dL (65-110); Magnesium 2.3 mg/dL (1.6-2.3); Potassium 3.7 mmol/L (3.4-5.0); Sodium 138 mmol/L (137-145)
[2022-06-24] MEDS: AZITHROMYCIN 250 MG TABLET PO (08:43)
[2022-06-24] MEDS: ASPIRIN 81 MG ENTERIC TABLET PO (08:43)
[2022-06-24] MEDS: ENOXAPARIN 40 MG/0.4 ML SYRINGE SUB-Q (08:43)
[2022-06-24] MEDS: guaiFENesin 12 HR 600 MG TABCR PO (08:43)
--- NOTE | 2022-06-24 09:52 | PM.PNPUL ---
Progress Note: A&P Assessment and Plan (1) Acute exacerbation of COPD with asthma: Code(s): J44.1 - Chronic obstructive pulmonary disease with (acute) exacerbation; J45.901 - Unspecified asthma with (acute) exacerbation Status: Acute Assessment and Plan: patient with a 20 pack year history of tobacco use, quit to 02/2023, emphysema on her CT scan of the chest, I have no PFTs. home O2 assessment on 05/13/2022 demonstrated rest room air saturation 94%. Exercise room air saturation 92%. ABG on room air on 05/11/2022 was 7.54/39/56. Echocardiogram on 05/09/2022 with an LVEF of 65-70, mild right ventricular enlargement and hypokinesis, mild tricuspid regurgitation with RVSP of 49. Baseline she can walk 1 block. This is her 2nd inpatient hospitalization for COPD exacerbation since 05/08/2022 Currently patient presents with worsening shortness of breath, wheezing, phlegm production, chills over the last 6 weeks and acutely worse over the last 3-4 days. Patient is treated with steroids, bronchodilators and azithromycin and is improved and back to her baseline at this time. I do believe this is a COPD exacerbation. The patient currently has wheezing and I will decrease her steroids from Solu-Medrol 40 Q 6 to 20 q.6h. she is clinically improved. I will increase levalbuterol 1.25 mg and ipratropium 0.5 mg nebulized from q.6 hours to q.4 hours. patient is on azithromycin (started 06/21, day 3) and I will continue this. Currently the patient is on room air, I will perform overnight oximetry on room air tonight. Will repeat home O2 assessment prior to discharge. I will send alpha 1 anti trypsin phenotype and level. patient is not smoking and currently not exposed to secondhand smoke as her significant other smokes outside. 06/24 The patient tells me that she is breathing back at her baseline. She has no cough, a small amount of phlegm, no hemoptysis and no wheezing. Room air saturations are 89%. White blood cell count 9.9 creatinine 0.5. Patient had an overnight oximetry on room air with an average saturation of 85%, low saturation 80%, time with saturation less than or equal to 88% was 362 minutes, oxygen desaturation index was 1.5. Alpha 1 phenotype and level are pending. From a pulmonary perspective patient is ready to be discharged on these Pulmonary medications: Prednisone 40 mg PO Q day X 3 days Azithromycin 250 mg PO Q day X 1 day Dulera 100-5 at 2 puffs b.i.d.. Muscarinic antagonist that insurance will cover (incruse ellipta 62.5 at 1 puffs Q day, spireva 18 mics at 1 puff Q day or spireva respimat 2.5 mics at 2 puff Q day) Rescue albuterol 2 puffs q.4 hours p.r.n. shortness of breath or wheezing Oxygen at rest and with ambulation per formal home O2 assessment which I have ordered Oxygen 3 L nasal cannula at night. Patient should follow up with her previously scheduled pulmonary appointment on 07/12 at 11:30 a.m. She will need outpatient PFTs and an overnight oximetry on 3 L to ensure adequate oxygenation. Discussed with Dr. Delgadillo, call with questions (2) Lung nodule, solitary: Code(s): R91.1 - Solitary pulmonary nodule Status: Acute Assessment and Plan: 05/09/2022 CT compared to 12/23/2021: Enlarged right hilar lymph node measures 2.3 x 1.6 cm (axial image 107). Mildly enlarged subcarinal and AP window lymph nodes are also present. No axillary lymphadenopathy. There is no filling defect in the pulmonary arterial tree to suggest pulmonary embolus. There is no evidence of aortic dissection or aneurysm. There is no evidence of pleural or pericardial effusion. Pleural-based pulmonary nodule at the right lung base measures 1.8 x 1.2 cm (axial image 197). There is severe COPD/emphysema throughout both lungs. No other consolidation or pulmonary nodule clearly identified. I will repeat CT scan of the chest without contrast to reassess her right lower lobe nodule and lymphadenopathy.
[2022-06-24] MEDS: NICOTINE (*PBKC) 21 MG PATCH 1 PATCH TRANSDERM (10:41)
[2022-06-24] MEDS: ALPRAZolam (*CRX) 0.5 MG TABLET PO (10:44)
--- NOTE | 2022-06-24 13:13 | HOMEO2EVAL ---
Evaluation was performed at [facility] Home Oxygen Evaluation RC: Home Oxygen (O2) Evaluation Start: 06/24/22 09:51 Freq: ONCE Status: Active Protocol: RPE Activity Type Activity Date Activity User E-sign Co-sign Detail Recorded Client Recorded Date Recorded By Document 06/24/22 12:45 DJO [email or web address] 06/24/22 13:13 DJO Document 06/24/22 12:50 [email or web address] [email or web address] 06/24/22 13:13 DJO Document 06/24/22 12:52 [email or web address] [email or web address] 06/24/22 13:13 DJO Document 06/24/22 12:53 [email or web address] [email or web address] 06/24/22 13:13 DJO Document 06/24/22 13:00 [email or web address] [email or web address] 06/24/22 13:13 DJO 06/24/22 06/24/22 06/24/22 12:45 12:50 12:52 Home O2 Evaluation [Oxygen] -Test Phase Resting Exercise Exercise -Oxygen Delivery Room Air Room Air Nasal Cannula -Oxygen Flow Rate (L/min) 1 [Pulse Oximetry] -Pulse Oximetry (90-100 %) 91 86 L 87 L [Pulse Rate] -Pulse Rate (60-100 beats/min) 78 96 [Comments] -Home Oxygen Evaluation Comments [Charges] -Treatment Charges O2 Evaluation - Inpatient 06/24/22 06/24/22 12:53 13:00 Home O2 Evaluation [Oxygen] -Test Phase Exercise Resting -Oxygen Delivery Nasal Cannula Room Air -Oxygen Flow Rate (L/min) 2 [Pulse Oximetry] -Pulse Oximetry (90-100 %) 90 92 [Pulse Rate] -Pulse Rate (60-100 beats/min) 82 [Comments] -Home Oxygen Evaluation Comments Pt requires 2 Liters home O2 with activity/ exertion [Charges] -Treatment Charges
--- NOTE | 2022-06-24 13:33 | PCRCNOTE ---
Home O2 eval done, set up with [facility]. tank in room for transport home
--- NOTE | 2022-06-24 13:36 | PM.DS ---
DS: Admitting Diagnosis Discharge Date 06/24/2022 Admitting Diagnosis Short of breath DS: Discharge Diagnosis Discharge Diagnosis (1) Acute exacerbation of COPD with asthma: Code(s): J44.1 - Chronic obstructive pulmonary disease with (acute) exacerbation; J45.901 - Unspecified asthma with (acute) exacerbation Status: Acute (2) Viral upper respiratory infection: Code(s): J06.9 - Acute upper respiratory infection, unspecified Status: Acute (3) Hypoxia: Code(s): R09.02 - Hypoxemia Status: Acute (4) Thrombocytopenia: Code(s): D69.6 - Thrombocytopenia, unspecified Status: Acute Plan The patient presented to the emergency department for evaluation of shortness of breath and URI symptoms as detailed in HPI. Labs, imaging, EKG, and all reports were personally reviewed. SpO2 was 87% on room air and she is currently on 2 L nasal cannula and maintaining her sats in the mid 90s. Workup today is consistent with viral URI and acute COPD exacerbation. Continue scheduled bronchodilators and Solu-Medrol. Chest x-ray shows improving infiltrates compared to radiographs obtained last month and I do not think she has active bacterial pneumonia. Given increasing shortness of breath and productive cough however she has been started on azithromycin. Wean oxygen as tolerated. May need home O2 evaluation prior to discharge. Platelet count is mildly low at 114,000 which is a new finding for her. May very well be related to viral infection. Monitor for now. Her home medications will be reviewed and resumed as appropriate. 06/23/2022 interval history: Patient is a 51-year-old female ex-smoker now presents with a cough and shortness of breath is found to have a severe COPD patient is treated with methylprednisone and bronchodilator, x-rays also suspicious for pneumonia and patient is being treated azithromycin and Rocephin, patient states feeling little better compared to when she arrived, however continue to desaturate with ambulating to bath room and requires sometime to catch her breath, will consult residential instructor further recommendation, will continue present management and reassess tomorrow and further recommendation to follow DS: Summary Hospital Course Reason for hospitalization: Shortness of breath. Narrative: This is a 51-year-old female with COPD and history of polysubstance abuse presented to the emergency department for evaluation of shortness of breath. She is known to myself and the hospitalist service from an admission in mid April 2022 for acute respiratory failure with hypoxia and hypercapnia secondary to acute COPD exacerbation. She was treated with BiPAP and weaned from oxygen; oxygen evaluation completed a few days before discharge showed no ongoing oxygen requirements. Chest CT at that time revealed severe COPD/emphysema and a pleural place nodule at the right lung base and outpatient PET scan was recommended. Since that time she quit smoking and purportedly stopped using narcotics; she has been on low-dose Suboxone since that time. Now that she and her significant other are clean, there are no longer homeless and they have been staying with her brother and niece. Her niece is in grade school and has frequent URI symptoms. Over the last week the patient has developed a subjective fever, chills, sweats, runny nose, and cough productive of clear phlegm. She has also had increasing dyspnea and wheezing on lesser and lesser exertion. Her rescue inhaler and nebulizer treatments have not afforded much benefit. She has been taking tele home for her symptoms but nothing else. SpO2 was 87% on room air on arrival to triage and she is currently on 2 L nasal cannula. Temperature was 100.1?, blood pressure was stable. Pertinent labs include a WBC count of 3.4, hemoglobin 12.5, hematocrit 39.8, platelets 114, normal electrolytes, serum carbon dioxide 34, troponin less than 0.012, proBNP 403. She tested negative for influenza, RSV, a
[2022-06-28 20:36] LABS: Alpha-1-Antitrypsin, QN 179 mg/dL (83-199)
== END 2022-06-24 16:00 | disposition home or self-care (01) | DRG 140 ==
LOC: ANHED 14:08 → ANH3MEDSUR 15:24
PROVIDERS: Emergency Medicine; Internal Medicine Pulmonary Disease; Physician Assistant; Admitting Provider Chiropractor; Emergency Provider Nurse Practitioner Family; PCP Internal Medicine; Visit Provider Family Medicine
DX: J43.9 Emphysema, unspecified (principal); J18.9 Pneumonia, unspecified organism; J45.901 Unspecified asthma with (acute) exacerbation; J06.9 Acute upper respiratory infection, unspecified; R09.02 Hypoxemia; R91.1 Solitary pulmonary nodule; Z20.822 Contact with and (suspected) exposure to COVID-19; Z86.718 Personal history of other venous thrombosis and embolism; Z86.19 Personal history of other infectious and parasitic diseases; Z59.01 Sheltered homelessness; Z87.891 Personal history of nicotine dependence; Z68.1 Body mass index [BMI] 19.9 or less, adult
CPT/HCPCS: 36415; 71046; 71250; 80048; 80053; 82103; 82104; 83735; 83880; 84439; 84443; 84480; 84484; 85025; 85027; 85055; 87070; 87077; 87186; 87205; 87637; 93005; 94618; 94640; 94668; 94762; 96361; 96372; 96374; 96376; 99285; A9270; G0378; G0379; J1650; J2920; J2930; J7030

== ENCOUNTER 2023-01-19 14:17 | Outpatient (CLI) | payer OTHER, SELFPAY ==
--- NOTE | 2023-01-19 | ECG_ITS ---
Measurements Intervals Elliott Rate: 66 P: 82 NV: 141 QRS: 77 QRSD: 83 T: 72 QT: 399 QTc: 418 Interpretive Statements SINUS RHYTHM T-WAVE INVERSION PRESENT IN V2 WHICH MAY BE A FEMININE VARIANT IS NEW COMPARED TO THE PRIOR TRACING. COMPARED TO ECG 06/21/2022 09:33:34 OTHERWISE nO SIGNIFICANT CHANGES Electronically Signed On 01-19-2023 19:58:48 CDT by Stephanie Kwok M.D.
--- NOTE | ~2023-01-19 | XR_ITS ---
XR chest 2V 01/19/2023 14:39 Indication: Pneumonia Procedure: 2 view chest Comparison: Comparison to multiple prior studies sequentially, with oldest reviewed study dated 10/17. Findings: Heart size normal. No focal air space disease, pulmonary edema, pleural effusion or suspect ed pneumothorax. The lungs are hyperinflated which is consistent with, but not diagnostic of chronic obstructive pulmonary disease. No acute osseous abnormality. Impression: 1: No acute cardiopulmonary disease. Reviewed, dictated and finalized at location L. Impression: 1: No acute cardiopulmonary disease.
== END 2023-01-19 14:18 | disposition home or self-care (01) ==
PROVIDERS: PCP Internal Medicine; Visit Provider Internal Medicine
DX: R07.9 Chest pain, unspecified (principal)
CPT/HCPCS: 71046; 93005

== ENCOUNTER 2023-03-28 05:25 | Inpatient (IN) | payer OTHER, SELFPAY ==
[2023-03-28] VITALS (14 sets, daily range): BP systolic 98–126; BP diastolic 68–80; PULSE 79–108; RESP 16–30; TEMP 36.2–37.8; O2SAT 91–96
--- NOTE | ~2023-03-28 | CT_ITS ---
EXAMINATION: CTA chest PE protocol DATE: 03/31/2023 15:22 INDICATION: Pulmonary emboli. TECHNIQUE: Computed tomography angiography (CTA) of the chest was performed with 100 mL Omnipaque-350 intravenous contrast timed to evaluate the pulmonary arteries. Coronal maximum intensity projection 3D-reconstructions were created by the technologist. Automated exposure control and iterative reconst ruction technique were employed. The dose-length product was 169.21 mGy-cm. COMPARISON: Chest CT 06/23/2022 FINDINGS: There is severe emphysema. No pleural effusion. The heart size is normal. There is a chroni c trace pericardial effusion. There is no pulmonary embolus. There is moderate cervical spondylosis a nd mild thoracic spondylosis. IMPRESSION: 1. No pulmonary embolus. 2. Severe emphysema. Reviewed, dictated and finalized at location E. ATION OFFICER
--- NOTE | ~2023-03-28 | XR_ITS ---
Clinical Indication: Shortness of breath PA and lateral views of the chest: Comparison: 01/19/2023 Findings: The lungs are clear, without evidence of focal consolidation or pleural effusion. Probable COPD. Cardiomediastinal silhouette is within normal limits. Bones and soft tissues are unremarkable. Impression: COPD. Reviewed, dictated and finalized at location . OR QUALITATIVE RESEARCHER Impression: COPD.
--- NOTE | 2023-03-28 05:30 | ECG_ITS ---
Measurements Intervals [place] Rate: 108 P: 76 HI: 122 QRS: 77 QRSD: 100 T: 76 QT: 312 QTc: 419 Interpretive Statements SINUS TACHYCARDIA INCOMPLETE RIGHT BUNDLE BRANCH BLOCK DELAYED PRECORDIAL R/S TRANSITION BASELINE WANDER- I, V3, V6 ABNORMAL ECG COMPARED TO ECG 01/19/2023 14:55:45 SINUS TACHYCARDIA NOW PRESENT Electronically Signed On 03-28-2023 7:35:14 [employer]NT FI[employer]FIGHTER by Levar Carbajal D.O.
[2023-03-28 05:52] LABS: Basophils Percent Auto 0.5 % (0.2-1.2); Eosinophils Percent Auto 0.2 % (0-4.4); Hematocrit 44.8 % (37.0-47.0); Hemoglobin 14.1 g/dL (12.0-15.0); Immature Granulocyte Absolute 0.01 K/mm3 (0.00-0.031); Immature Granulocyte Percent A 0.2 % (0-0.5); Immature Platelet Fraction Pct 11.4 % (0.9-11.2); Lymphocytes Percent Auto 4.7 % (18.3-44.2); Mean Corpuscular HGB Conc 31.5 g/dl (32-36); Mean Corpuscular Hemoglobin 31.1 pg (26-34); Mean Corpuscular Volume 98.9 fl (80-100); Mean Platelet Volume 11.3 fl (7.4-10.4); Monocytes Absolute Auto 0.2 K/mm3 (0.1-0.6); Monocytes Percent Auto 5.4 % (2.6-8.5); Neutrophils Absolute Auto 3.8 K/mm3 (1.3-6.7); Platelet Count Result 109 k/mm3 (150-375); Red Blood Count 4.53 M/mm3 (4.2-5.4); Red Cell Distribution Width 13.1 % (11.5-14.5); White Blood Count 4.3 K/mm3 (4.5-10.0)
[2023-03-28 05:59] LABS: Alanine Aminotransferase 13 U/L (6-35); Albumin Level 4.1 g/dL (3.5-5.1); Alkaline Phosphatase 67 U/L (38-126); Anion Gap 8 mmol/L (8-16); Aspartate Amino Transferase 26 U/L (14-36); Bilirubin,Total 0.7 mg/dL (0.2-1.3); Blood Urea Nitrogen 3 mg/dL (7-17); Calcium 8.6 mg/dL (8.4-10.2); Carbon Dioxide 28 mmol/L (22-30); Chloride 101 mmol/L (98-107); Estimated CRCL calculation 101 ml/min; Estimated Glomerular Filt Rate > 60; Glucose 125 mg/dL (65-110); Sodium 137 mmol/L (137-145)
[2023-03-28 06:26] LABS: Influenza A QL RT-PCR Negative (Negative); Influenza B QL RT-PCR Negative (Negative); RSV RNA, RT-PCR Positive (Negative); SARS-CoV-2 RNA PCR Negative (Negative)
--- NOTE | 2023-03-28 07:11 | PC.NURSE ---
Report given to JUAREZ Jamison at this time.
--- NOTE | 2023-03-28 07:32 | ED.SOB ---
HPI - SOB/Dyspnea General Chief Complaint: Shortness of Breath/Dyspnea Stated Complaint: ambrose, sob Time Seen by Provider: 03/28/23 07:25 Source: patient and family Mode of arrival: EMS Limitations: no limitations History of Present Illness HPI Narrative: 52 years old white female, history of of COPD, does not take oxygen at home. Came to the ED by ambulance complaining of shortness of breath, headache, body aches, coughing started 3 days ago. Patient quit smoking yesterday. Related Data Home Medications Medication Instructions Recorded Confirmed aspirin 81 mg capsule 81 mg PO DAILY 06/21/22 11/29/22 mometasone-formoterol HFA 100 2 inh inhalation BID 06/21/22 11/29/22 mcg-5 mcg/actuation aerosol inhaler (Dulera) buprenorphine 8 mg-naloxone 2 mg 4 film sublingual DAILY 07/12/22 11/29/22 sublingual film amoxicillin 875 mg-potassium tablet PO 11/29/22 11/29/22 clavulanate 125 mg tablet lorazepam 1 mg tablet mg PO 11/29/22 11/29/22 paroxetine HCl 20 mg tablet mg PO 11/29/22 11/29/22 Allergies Allergy/AdvReac Type Severity Reaction Status Date / Time bee venom protein (honey bee) Allergy Intermediate BREATHING Verified 03/28/23 05:35 DIFFICULTY Review of Systems Review of Systems: All systems reviewed & are unremarkable except as noted in HPI and below PMFSH Past Medical History Medical History Agoraphobia Anxiety Deep venous thrombosis (2007) Depression Emphysematous COPD Hepatitis C virus infection cured after antiviral drug therapy Polysubstance abuse Tobacco dependence Surgical History Surgical History History of section Family History Family History Mother Cystic fibrosis Congestive heart failure Father Acute myocardial infarction Congestive heart failure Social History Social History Social History: Currently staying with her brother and niece. She has 2 children, a son and daughter. Not currently working. She smoked a pack of cigarettes a day since she was a teenager and quit in April 2022. She is recovering alcoholic but has not drank heavily since her late 20s. She has a history of IV drug use many years ago. She continues to have problems with narcotic addiction but has been sober since April 2022 and she is currently on low-dose Suboxone. Code status: Full code Surrogate decision maker: Marielena Hannah (daughter). 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: [employer]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 Gender identity (if verbalized by the patient): Female Sexual Orientation (if Verbalized by the Patient): Straight or Heterosexual Spiritual care concerns: No Exam Narrative: General appearance: Well-developed, malnourished Skin: Normal color Head: Normocephalic, nontraumatic Eyes: Clear conjunctiva ENT: Oropharynx normal, ears normal, nose normal Neck: Supple, nontender Chest and respiratory: Severe diminution of air entry bilaterally, scattered wheezing Heart: Regular rate/rhythm Abdomen: Soft, nontender, no organomegaly, quiet bowel sounds Vascular: Normal peripheral pulses, normal capillary refill. Musculoskeletal: Normal range of motion, nontender back Neurologic: Alert
[2023-03-28 08:27] LABS: Alveolar/Arterial O2 Gradient 62.3 mmHg; Base Excess ABG 4.8 mEq/l (+/-2.0); Fractional Inspired Oxygen 28 %; HCO3 ABG 32.5 mEq/l (22.0-26.0); Oxygen Content ABG 18.4 %vol (16.0-22.0); Oxyhemoglobin 89.8 % THb (90.0-100.0); PO2 ABG 64.8 mmHg (80.0-100.0); PO2 FiO2 Ratio Arterial Blood 2.31 %; Total Hemoglobin 14.6 g/dL (12.0-18.0); pH ABG 7.341 (7.350-7.450)
[2023-03-28 08:28] LABS: Device NASAL CANNULA; Modified Allen's Test Pass; PCO2 ABG 61.5 mmHg (35.0-45.0); Site Drawn LEFT RADIAL
[2023-03-28] MEDS: methylPREDNISolone SOD SUCC 125 MG VIAL IV PUSH (08:56)
[2023-03-28] MEDS: ACETAMINOPHEN 500 MG TABLET 1000 MG PO (09:08)
[2023-03-28] MEDS: IPRATROPIUM BR 0.02% INH SOLN 0.5 MG/2.5 ML VIAL INHALATION ×3 (09:26→22:21)
[2023-03-28] MEDS: ALBUTEROL SULFATE NEB 2.5 MG/3 ML INH INHALATION ×3 (09:26→22:21)
[2023-03-28] MEDS: methylPREDNISolone SOD SUCC 125 MG VIAL 60 MG IV PUSH ×2 (12:04→18:41)
--- NOTE | 2023-03-28 12:34 | PC.NURSE ---
Lunch tray ordered for patient
--- NOTE | 2023-03-28 14:08 | PC.NURSE ---
Notified RN of admission assessment.
--- NOTE | 2023-03-28 15:12 | PM.IMHP ---
H&P: HPI History of Present Illness Date/Time: 03/28/23 15:15 Chief Complaint: Shortness of breath. Narrative: This is a 52-year-old female smoker with history of chronic obstructive pulmonary disease and polysubstance abuse (clean for nearly a year if not longer) who presented to the emergency department for evaluation of shortness of breath. The patient provides the following history. She has not been feeling well for 3 days with generalized malaise, body aches, headache, cough, sore throat, and increasing shortness of breath from her baseline. She has not had a fever to her knowledge but temperature on arrival was 100.1? F. She has a portable oxygen tank at home and noted that her SpO2 was in the 80s on her usual 2 L and she called 911. She denies chest pain, pleuritic pain, syncope, near syncope, vomiting (though she does have dry heaves), and diarrhea. Preliminary workup in the ED was significant for a WBC count of 4.3, platelet 109, and is pretty unremarkable CMP. She tested positive for RSV. ABG showed a pH of 7.341, pCO2 61.5, PO2 64.8, bicarb 32.5. Chest x-ray showed evidence of COPD. Interventions thus far include IV methylprednisolone and a DuoNeb which have helped. She is being admitted in this setting for further treatment. She tells me that she quit smoking as of last week. Review of Systems Review of Systems: Twelve systems were reviewed and are negative except for as per HPI. [facility] Past Medical History Medical History Agoraphobia Anxiety Deep venous thrombosis (2007) Depression Emphysematous COPD Hepatitis C virus infection cured after antiviral drug therapy Polysubstance abuse Tobacco dependence Surgical History Surgical History History of section Family History Family History Mother Cystic fibrosis Congestive heart failure Father Acute myocardial infarction Congestive heart failure Social History Social History (Updated 03/29/23 @ 01:00 by Kiya Solorio PA-C) Social History: Currently staying with her boyfriend in a trailer. She has 2 children, a son and daughter. Not currently working. She smoked a pack of cigarettes a day since she was a teenager and quit lastly. She is recovering alcoholic but has not drank heavily since her late 20s. She has a history of IV drug use many years ago but has been sober since April 2022. Surrogate decision maker: Marielena Hannah (daughter). Code status: Full code Smoking packs per day: 1 Smoking cigarettes per day: 20.0 Years smoked: 37 Smoking pack-years: 37.00 Smoking status: Former smoker Tobacco type: cigarettes Smoking end date: 04/28/22 Alcohol intake: never Substance use: former Substance use type: does not use Other substance usage details: fentanyl Do You Feel Safe in your Home?: No Lack of Transportation: YES Lack of Food: Sometimes True Current Housing: I Have Housing Concerned About Future Housing: YES Difficulty Paying Gas/Electric Bills: YES Difficulty Paying for Meds: No Currently Unemployed: No Education: High School Diploma/GED Difficulty w/ Childcare or Family Care: No Living arrangements: other Additional living arrangements comments: significant other Occupation/Education: unemployed Spiritual care concerns: No Meds Home Medications and Allergies Home Medications Medication Instructions Recorded Confirmed Type albuterol sulfate 2.5 mg/3 mL 2.5 mg (3 mL) inhalation Q6H PRN 05/17/22 03/28/23 Rx (0.083 %) solution for nebulization shortness of breath or wheezing #75 mL aspirin 81 mg capsule 81 mg PO DAILY 06/21/22 03/28/23 History albuterol sulfate 90 mcg/actuation 1 inh inhalation Q4-6H PRN 06/24/22 03/28/23 Rx breath activated powder shortness of breath or wheezing #1 inhaler,sen
[2023-03-28] MEDS: guaiFENesin 12 HR 600 MG TABCR PO (20:32)
[2023-03-29] VITALS (17 sets, daily range): BP systolic 80–141; BP diastolic 50–78; PULSE 82–114; RESP 16–22; TEMP 36.5–36.8; O2SAT 91–99
[2023-03-29] MEDS: methylPREDNISolone SOD SUCC 125 MG VIAL 60 MG IV PUSH ×5 (00:40→23:23)
[2023-03-29] MEDS: ALBUTEROL SULFATE NEB 2.5 MG/3 ML INH INHALATION ×4 (04:20→20:11)
[2023-03-29] MEDS: IPRATROPIUM BR 0.02% INH SOLN 0.5 MG/2.5 ML VIAL INHALATION ×4 (04:20→20:10)
[2023-03-29 06:56] LABS: Hematocrit 43.9 % (37.0-47.0); Hemoglobin 13.7 g/dL (12.0-15.0); Mean Corpuscular HGB Conc 31.2 g/dl (32-36); Mean Corpuscular Hemoglobin 31.1 pg (26-34); Mean Corpuscular Volume 99.8 fl (80-100); Mean Platelet Volume 12.3 fl (7.4-10.4); Platelet Count Result 112 k/mm3 (150-375); Red Cell Distribution Width 12.9 % (11.5-14.5); White Blood Count 7.2 K/mm3 (4.5-10.0)
[2023-03-29 07:18] LABS: Anion Gap 14 mmol/L (8-16); Blood Urea Nitrogen 9 mg/dL (7-17); Calcium 9.2 mg/dL (8.4-10.2); Carbon Dioxide 28 mmol/L (22-30); Chloride 98 mmol/L (98-107); Estimated CRCL calculation 101 ml/min; Estimated Glomerular Filt Rate > 60; Glucose 150 mg/dL (65-110); Magnesium 1.8 mg/dL (1.6-2.3); Potassium 3.6 mmol/L (3.4-5.0); Sodium 140 mmol/L (137-145)
--- NOTE | 2023-03-29 07:46 | PM.IMPN ---
Progress Note: A&P Assessment and Plan (1) Respiratory failure with hypoxia and hypercapnia: Code(s): J96.91 - Respiratory failure, unspecified with hypoxia; J96.92 - Respiratory failure, unspecified with hypercapnia Status: Acute (2) COPD (chronic obstructive pulmonary disease): Code(s): J44.9 - Chronic obstructive pulmonary disease, unspecified Status: Acute (3) Thrombocytopenia: Code(s): D69.6 - Thrombocytopenia, unspecified Status: Acute (4) Acute respiratory failure with hypoxia and hypercapnia: Code(s): J96.01 - Acute respiratory failure with hypoxia; J96.02 - Acute respiratory failure with hypercapnia Status: Acute (5) COPD exacerbation: Code(s): J44.1 - Chronic obstructive pulmonary disease with (acute) exacerbation Status: Acute (6) Tobacco abuse disorder: Code(s): Z72.0 - Tobacco use Status: Acute Plan Respiratory failure with hypoxia an hypercapnia: ABG, still with hypoxia hypercapnia -continuous SpO2 monitoring -pulmonology consult prior to discharge for outpatient formal PFTs Respiratory failure Chronic obstructive pulmonary disease with acute exacerbation -continue scheduled bronchodilators -continue Solu-Medrol continue Augmentin p.o RSV: Positive as evidenced by viral PCR -continue telemetry monitoring -oxygen titration therapy maintain SpO2 above 93% Thrombocytopenia: Platelet count low/ stable - monitor CBC,CMP daily Tobacco dependence: - order nicotine patch q 24 hrs p.r.n continue home medications: clonazepam p.r.n. for anxiety VTE Prophylaxis VTE prophylaxis: pharmacologic ordered (Monitor platelets daily) Subjective Date/time seen: 03/29/23 07:46 Interval history: Chief Complaint: Shortness of breath. Narrative: This is a 52-year-old female smoker with history of chronic obstructive pulmonary disease and polysubstance abuse (clean for nearly a year if not longer) who presented to the emergency department for evaluation of shortness of breath. The patient provides the following history. She has not been feeling well for 3 days with generalized malaise, body aches, headache, cough, sore throat, and increasing shortness of breath from her baseline. She has not had a fever to her knowledge but temperature on arrival was 100.1? F. She has a portable oxygen tank at home and noted that her SpO2 was in the 80s on her usual 2 L and she called 911. She denies chest pain, pleuritic pain, syncope, near syncope, vomiting (though she does have dry heaves), and diarrhea. Preliminary workup in the ED was significant for a WBC count of 4.3, platelet 109, and is pretty unremarkable CMP. She tested positive for RSV. ABG showed a pH of 7.341, pCO2 61.5, PO2 64.8, bicarb 32.5. Chest x-ray showed evidence of COPD. Interventions thus far include IV methylprednisolone and a DuoNeb which have helped. She is being admitted in this setting for further treatment. She tells me that she quit smoking as of last week. 03/29/2022: pt seen this a.m by the bedside, she denies any overnight events. Denies any SOB, chest pain, n/v at this time. She reports continued chronic cough this a.m, admits to hx of smoking, request a nicotine patch, pt states she may have some increased anxiety with hospital course, and has requested Ativan. p.r.n for anxiety. Review of Systems Review of Systems: Twelve systems were reviewed and are negative except for as per HPI. Exam Narrative: General:?Thin female sitting up in bed in no distress. Weight: 49 kg. BMI: 20.4. HEENT:??PERRL, EOMI. Sclera anicteric.? Oral mucosa moist. Neck:??Supple. No lymphadenopathy or JVD. Respiratory:?She has conversational dyspnea, speaking in 3 to 4 word sentences. He does not appear in acute respiratory distress. Lung sounds are diminished throughout with diffuse and expiratory wheezing and prolonged expiratory phase. Cardiovascular:?Regular rate and rhythm with normal
[2023-03-29] MEDS: AMOXICILLIN/CLAVULANATE K 875-125 MG TAB 1 TABLET PO ×2 (09:28→20:30)
[2023-03-29] MEDS: guaiFENesin 12 HR 600 MG TABCR PO ×2 (09:28→20:30)
[2023-03-29] MEDS: ASPIRIN 81 MG CHEWABLE TABLET PO (09:28)
[2023-03-29] MEDS: NICOTINE (*PBKC) 21 MG PATCH 1 PATCH TRANSDERM (12:43)
[2023-03-29 13:36] LABS: Anion Gap 7 mmol/L (8-16); Blood Urea Nitrogen 10 mg/dL (7-17); Calcium 9.4 mg/dL (8.4-10.2); Carbon Dioxide 34 mmol/L (22-30); Chloride 96 mmol/L (98-107); Estimated CRCL calculation 101 ml/min; Estimated Glomerular Filt Rate > 60; Glucose 190 mg/dL (65-110); Potassium 3.6 mmol/L (3.4-5.0); Sodium 137 mmol/L (137-145)
[2023-03-29] MEDS: SODIUM CHLORIDE 0.9% IV 500 ML IV CONT (13:52)
--- NOTE | 2023-03-29 14:46 | PCRCNOTE ---
Window of time for administration has passed. See next scheduled administration.
[2023-03-29 21:17] LABS: Glucose Point of Care 292 mg/dl (65-105)
[2023-03-30] VITALS (16 sets, daily range): BP systolic 100–111; BP diastolic 56–72; PULSE 70–105; RESP 16–22; TEMP 36.1–36.5; O2SAT 95–99
[2023-03-30] MEDS: IPRATROPIUM BR 0.02% INH SOLN 0.5 MG/2.5 ML VIAL INHALATION ×5 (01:10→20:29)
[2023-03-30] MEDS: ALBUTEROL SULFATE NEB 2.5 MG/3 ML INH INHALATION ×5 (01:10→20:29)
[2023-03-30] MEDS: methylPREDNISolone SOD SUCC 125 MG VIAL 60 MG IV PUSH (05:31)
[2023-03-30 05:59] LABS: Glucose Point of Care 150 mg/dl (65-105)
[2023-03-30] MEDS: FLUTICASONE PROPIONATE 0.05% NA SPR 16 GM BTL (*BKC) 1 SPRAY NASAL (06:45)
[2023-03-30 07:21] LABS: Hematocrit 42.3 % (37.0-47.0); Hemoglobin 13.2 g/dL (12.0-15.0); Immature Platelet Fraction Pct 12.5 % (0.9-11.2); Mean Corpuscular HGB Conc 31.2 g/dl (32-36); Mean Corpuscular Hemoglobin 31.3 pg (26-34); Mean Corpuscular Volume 100.2 fl (80-100); Platelet Count Result 134 k/mm3 (150-375); Red Blood Count 4.22 M/mm3 (4.2-5.4); Red Cell Distribution Width 13.3 % (11.5-14.5); White Blood Count 11.7 K/mm3 (4.5-10.0)
[2023-03-30 07:36] LABS: Alanine Aminotransferase 15 U/L (6-35); Albumin Level 3.8 g/dL (3.5-5.1); Alkaline Phosphatase 57 U/L (38-126); Anion Gap 9 mmol/L (8-16); Aspartate Amino Transferase 19 U/L (14-36); Bilirubin,Total 0.4 mg/dL (0.2-1.3); Blood Urea Nitrogen 16 mg/dL (7-17); Calcium 9.1 mg/dL (8.4-10.2); Carbon Dioxide 34 mmol/L (22-30); Chloride 97 mmol/L (98-107); Estimated CRCL calculation 83 ml/min; Estimated Glomerular Filt Rate > 60; Glucose 147 mg/dL (65-110); Potassium 4.1 mmol/L (3.4-5.0); Sodium 140 mmol/L (137-145)
[2023-03-30 07:56] LABS: Band Neutrophils Percent 17 % (0-6); Lymphocytes Absolute Manual 0.11 K/mm3 (1.1-4.5); Neutrophils Absolute Manual 11.58 K/mm3 (1.7-7.2); Neutrophils Percent Manual 82 % (46-73); Total Cells Counted 100
[2023-03-30 07:57] LABS: Schistocytes None Seen (NORMAL)
[2023-03-30] MEDS: AMOXICILLIN/CLAVULANATE K 875-125 MG TAB 1 TABLET PO ×2 (08:15→21:58)
[2023-03-30] MEDS: ENOXAPARIN 40 MG/0.4 ML SYRINGE SUB-Q (08:16)
[2023-03-30] MEDS: NICOTINE (*PBKC) 21 MG PATCH 1 PATCH TRANSDERM (08:20)
[2023-03-30] MEDS: ASPIRIN 81 MG CHEWABLE TABLET PO (08:20)
[2023-03-30] MEDS: guaiFENesin 12 HR 600 MG TABCR PO ×2 (08:20→21:58)
[2023-03-30] MEDS: clonazePAM (*CRX) 0.5 MG TABLET 1 MG PO (08:55)
[2023-03-30 11:12] LABS: Glucose Point of Care 132 mg/dl (65-105)
[2023-03-30] MEDS: predniSONE 20 MG TABLET 60 MG PO (12:47)
[2023-03-30 17:25] LABS: Glucose Point of Care 165 mg/dl (65-105)
--- NOTE | 2023-03-30 18:00 | PM.IMPN ---
Progress Note: A&P Assessment and Plan (1) Respiratory failure with hypoxia and hypercapnia: Code(s): J96.91 - Respiratory failure, unspecified with hypoxia; J96.92 - Respiratory failure, unspecified with hypercapnia Status: Acute (2) Narcotic abuse in remission: Code(s): F11.11 - Opioid abuse, in remission Status: Acute (3) Tobacco dependence: Code(s): F17.200 - Nicotine dependence, unspecified, uncomplicated Status: Acute (4) Polysubstance abuse: Code(s): F19.10 - Other psychoactive substance abuse, uncomplicated Status: Acute (5) Respiratory syncytial virus (RSV): Code(s): B33.8 - Other specified viral diseases Status: Acute (6) COPD exacerbation: Code(s): J44.1 - Chronic obstructive pulmonary disease with (acute) exacerbation Status: Acute Plan Plan resolved: Respiratory failure with hypoxia an hypercapnia:? pt is currently back to baseline chronic O2 use -continuous SpO2 monitoring -pulmonology consult prior to discharge for outpatient formal PFTs Respiratory failure Chronic obstructive pulmonary disease with acute exacerbation -continue scheduled bronchodilators -deescalate steroids to p.o., in preparation for discharge ?continue Augmentin p.o RSV:??Positive as evidenced by? viral PCR -continue telemetry monitoring -oxygen titration therapy maintain SpO2 above 93% ?Thrombocytopenia:? Hemoglobin stable, platelet count 134 - monitor CBC,CMP daily Tobacco dependence: - order nicotine patch q 24 hrs p.r.n continue home medications: clonazepam p.r.n. for anxiety VTE Prophylaxis VTE prophylaxis: pharmacologic ordered (Monitor platelets daily) Patient has improved, will plan to discharge patient to home in the a.m. with PT recommendations Subjective Date/time seen: 03/30/23 18:00 Interval history: Narrative: This is a 52-year-old female smoker with history of chronic obstructive pulmonary disease and polysubstance abuse (clean for nearly a year if not longer) who presented to the emergency department for evaluation of shortness of breath. The patient provides the following history. She has not been feeling well for 3 days with generalized malaise, body aches, headache, cough, sore throat, and increasing shortness of breath from her baseline. She has not had a fever to her knowledge but temperature on arrival was 100.1? F. She has a portable oxygen tank at home and noted that her SpO2 was in the 80s on her usual 2 L and she called 911. She denies chest pain, pleuritic pain, syncope, near syncope, vomiting (though she does have dry heaves), and diarrhea. Preliminary workup in the ED was significant for a WBC count of 4.3, platelet 109, and is pretty unremarkable CMP. She tested positive for RSV. ABG showed a pH of 7.341, pCO2 61.5, PO2 64.8, bicarb 32.5. Chest x-ray showed evidence of COPD. Interventions thus far include IV methylprednisolone and a DuoNeb which have helped. She is being admitted in this setting for further treatment. She tells me that she quit smoking as of last week. 03/29/2023:?pt seen this a.m by the bedside, she denies any overnight events. Denies any SOB, chest pain, n/v at this time.? She reports continued chronic cough? this a.m, admits to hx of smoking, request a nicotine patch, pt states she may have some increased anxiety with hospital course, and has requested Ativan. p.r.n for anxiety. 03/30/2023: pt seen today, she is up in the bed, in no acute distress, she denies any overnight events. Reports she is concerned for weakness and would like assistance with a shower today, in order to see if she will be able to do at home without any injury. she denies any dizziness, SOB, chest pain, n/v. Pt reports she would prefer to be evaluated prior to being discharged at this time. Review of Systems Review of Systems: Twelve systems were reviewed and are negative except for as per HPI. Exam Narrative: General:?Thin fema
[2023-03-30] MEDS: hydrOXYzine HCL 12.5 MG TABLET PO (21:58)
[2023-03-31] VITALS (16 sets, daily range): BP systolic 120–134; BP diastolic 82–90; PULSE 74–102; RESP 18–22; TEMP 36.3–36.4; O2SAT 93–98
[2023-03-31] MEDS: ALBUTEROL SULFATE NEB 2.5 MG/3 ML INH INHALATION ×6 (01:42→20:31)
[2023-03-31] MEDS: IPRATROPIUM BR 0.02% INH SOLN 0.5 MG/2.5 ML VIAL INHALATION ×6 (01:42→20:36)
[2023-03-31] MEDS: hydrOXYzine HCL 12.5 MG TABLET PO (05:29)
[2023-03-31 05:43] LABS: Basophils Percent Auto 0.3 % (0.2-1.2); Hematocrit 39.9 % (37.0-47.0); Hemoglobin 12.6 g/dL (12.0-15.0); Immature Granulocyte Absolute 0.36 K/mm3 (0.00-0.031); Lymphocytes Absolute Auto 1.21 K/mm3 (0.9-3.2); Lymphocytes Percent Auto 10.1 % (18.3-44.2); Mean Corpuscular HGB Conc 31.6 g/dl (32-36); Mean Corpuscular Hemoglobin 31.3 pg (26-34); Mean Platelet Volume 11.4 fl (7.4-10.4); Monocytes Absolute Auto 0.5 K/mm3 (0.1-0.6); Monocytes Percent Auto 3.8 % (2.6-8.5); Neutrophils Absolute Auto 9.9 K/mm3 (1.3-6.7); Neutrophils Percent Auto 82.8 % (45.5-73.1); Platelet Count Result 145 k/mm3 (150-375); Red Blood Count 4.03 M/mm3 (4.2-5.4); Red Cell Distribution Width 13.3 % (11.5-14.5)
[2023-03-31 06:05] LABS: Alanine Aminotransferase 14 U/L (6-35); Albumin Level 3.6 g/dL (3.5-5.1); Alkaline Phosphatase 59 U/L (38-126); Anion Gap 6 mmol/L (8-16); Aspartate Amino Transferase 18 U/L (14-36); Bilirubin,Total 0.3 mg/dL (0.2-1.3); Blood Urea Nitrogen 19 mg/dL (7-17); Carbon Dioxide 36 mmol/L (22-30); Chloride 98 mmol/L (98-107); Estimated CRCL calculation 70 ml/min; Estimated Glomerular Filt Rate > 60; Glucose 98 mg/dL (65-110); Potassium 4.2 mmol/L (3.4-5.0); Sodium 140 mmol/L (137-145)
[2023-03-31 08:30] LABS: Glucose Point of Care 130 mg/dl (65-105)
[2023-03-31] MEDS: ASPIRIN 81 MG CHEWABLE TABLET PO (08:58)
[2023-03-31] MEDS: guaiFENesin 12 HR 600 MG TABCR PO ×2 (08:58→20:01)
[2023-03-31] MEDS: AMOXICILLIN/CLAVULANATE K 875-125 MG TAB 1 TABLET PO ×2 (08:58→20:01)
[2023-03-31] MEDS: ENOXAPARIN 40 MG/0.4 ML SYRINGE SUB-Q (09:03)
[2023-03-31] MEDS: NICOTINE (*PBKC) 21 MG PATCH 1 PATCH TRANSDERM (09:03)
[2023-03-31] MEDS: clonazePAM (*CRX) 0.5 MG TABLET 1 MG PO (09:08)
--- NOTE | 2023-03-31 11:51 | P.DS_ITS ---
DS: Admitting Diagnosis Discharge Date 03/31/2023 DS: Summary Time Spent with Patient Time attestation: Total time spent providing and/or coordinating discharge services: DS: Data Data Completed and Pending Labs on day of discharge: Labs from last 24 hours 03/31/23 03/30/23 03/29/23 05:14 17:20 23:20 WBC 12.0 H RBC 4.03 L Hgb 12.6 Hct 39.9 MCV 99.0 MCH 31.3 MCHC 31.6 L RDW 13.3 Plt Count 145 L MPV 11.4 H Immature Gran % (Auto) 3.0 H Neut % (Auto) 82.8 H Lymph % (Auto) 10.1 L [place] % (Auto) 3.8 Eos % (Auto) 0.0 Baso % (Auto) 0.3 Lymph # (Auto) 1.21 [place] # (Auto) 0.5 Eos # (Auto) 0.0 Baso # (Auto) 0.0 Abs Immat Gran (auto) 0.36 H Absolute Neuts (auto) 9.9 H Absolute Nucleated RBC 0.0 Nucleated RBC % 0.0 Sodium 140 Potassium 4.2 Chloride 98 Carbon Dioxide 36 H Anion Gap 6 L BUN 19 H Creatinine 0.60 L Estim Creat Clear Calc 70 Estimated GFR > 60 Glucose 98 POC Capillary Glucose 165 H 130 H Calcium 9.0 Total Bilirubin 0.3 AST 18 ALT 14 Alkaline Phosphatase 59 Total Protein 6.0 L Albumin 3.6 Discharge Plan Discharge Discharge Medications: No Action aspirin 81 mg Capsule 81 mg PO DAILY levalbuterol HCl 1.25 mg/3 mL Solution For Nebulization 1.25 mg inhalation Q4HRT Qty: 75 0RF albuterol sulfate 90 mcg/actuation aero powdr breath act w/sensor 1 inh inhalation Q4-6H PRN (Reason: shortness of breath or wheezing) Qty: 1 0RF albuterol sulfate 2.5 mg /3 mL (0.083 %) solution for nebulization 2.5 mg inhalation Q6H PRN (Reason: shortness of breath or wheezing) Qty: 75 0RF estradiol 0.01 % (0.1 mg/gram) cream 1 g vaginal 2XW PRN (Reason: Pain) Rx Instructions: for pain during sex clonazepam 1 mg tablet 1 mg PO DAILY PRN (Reason: Anxiety) nitroglycerin 0.4 mg tablet, sublingual 0.4 mg sublingual Q5MIN MDD 3 fluticasone propionate 50 mcg/actuation [place],Suspension 1 spray INTRANASAL DAILY PRN (Reason: Dryness) phenazopyridine 200 mg PO DAILY Date of admission: 03/28/23 10:14 Primary Care Provider: Aroldo Salvador Admitting Provider: Celeste Heck Attending physician on admission: Celeste Heck Condition: Guarded Prognosis
[2023-03-31] MEDS: predniSONE 20 MG TABLET 60 MG PO (13:01)
--- NOTE | 2023-03-31 14:42 | PM.IMPN ---
Progress Note: A&P Assessment and Plan (1) Respiratory failure with hypoxia and hypercapnia: Code(s): J96.91 - Respiratory failure, unspecified with hypoxia; J96.92 - Respiratory failure, unspecified with hypercapnia Status: Acute (2) Narcotic abuse in remission: Code(s): F11.11 - Opioid abuse, in remission Status: Acute (3) Tobacco dependence: Code(s): F17.200 - Nicotine dependence, unspecified, uncomplicated Status: Acute (4) Polysubstance abuse: Code(s): F19.10 - Other psychoactive substance abuse, uncomplicated Status: Acute (5) Respiratory syncytial virus (RSV): Code(s): B33.8 - Other specified viral diseases Status: Acute (6) COPD exacerbation: Code(s): J44.1 - Chronic obstructive pulmonary disease with (acute) exacerbation Status: Acute Plan Plan resolved: Respiratory failure with hypoxia an hypercapnia:? pt is currently back to baseline chronic O2 use -continuous SpO2 monitoring -pulmonology consult prior to discharge for outpatient formal PFTs Respiratory failure: History of emphysema Chronic obstructive pulmonary disease with acute exacerbation -continue scheduled bronchodilators -deescalate steroids to p.o., in preparation for discharge ?continue Augmentin p.o RSV:??Positive as evidenced by? viral PCR -continue telemetry monitoring -oxygen titration therapy maintain SpO2 above 93% ?Thrombocytopenia:? Hemoglobin stable, platelet count 134 - monitor CBC,CMP daily Tobacco dependence: - order nicotine patch q 24 hrs p.r.n continue home medications: clonazepam p.r.n. for anxiety VTE Prophylaxis VTE prophylaxis: pharmacologic ordered (Monitor platelets daily) CT reveals severe emphysema, would like to consult pulmonology for outpatient plan and recommendation Patient has improved, will plan to discharge patient to home in the a.m. physical therapy revealed patient is independent and safe for discharge. I added sputum culture for collection Subjective Date/time seen: 03/31/23 14:42 Interval history: Interval history: Narrative: This is a 52-year-old female smoker with history of chronic obstructive pulmonary disease and polysubstance abuse (clean for nearly a year if not longer) who presented to the emergency department for evaluation of shortness of breath. The patient provides the following history. She has not been feeling well for 3 days with generalized malaise, body aches, headache, cough, sore throat, and increasing shortness of breath from her baseline. She has not had a fever to her knowledge but temperature on arrival was 100.1? F. She has a portable oxygen tank at home and noted that her SpO2 was in the 80s on her usual 2 L and she called 911. She denies chest pain, pleuritic pain, syncope, near syncope, vomiting (though she does have dry heaves), and diarrhea. Preliminary workup in the ED was significant for a WBC count of 4.3, platelet 109, and is pretty unremarkable CMP. She tested positive for RSV. ABG showed a pH of 7.341, pCO2 61.5, PO2 64.8, bicarb 32.5. Chest x-ray showed evidence of COPD. Interventions thus far include IV methylprednisolone and a DuoNeb which have helped. She is being admitted in this setting for further treatment. She tells me that she quit smoking as of last week. 03/29/2023:?pt seen this a.m by the bedside, she denies any overnight events. Denies any SOB, chest pain, n/v at this time.? She reports continued chronic cough? this a.m, admits to hx of smoking, request a nicotine patch, pt states she may have some increased anxiety with hospital course, and has requested Ativan. p.r.n for anxiety. 03/30/2023:?pt seen today, she is up in the bed, in no acute distress, she denies any overnight events. Reports she is concerned for weakness and would like assistance with a shower today, in order to see if she will be able to do at home without any injury. she denies any dizziness, SOB, chest pain, n/v. Pt repor
--- NOTE | 2023-03-31 21:22 | PC.NURSE ---
informed LUDIN Sarmiento that patient is requesting xanax for anxiety and to help her sleep, no Xanax ordered, awaiting LUDIN Sarmiento to possible order something of the patient.
[2023-03-31] MEDS: MELATONIN 3 MG TABLET PO (22:29)
[2023-04-01] VITALS (14 sets, daily range): BP systolic 112–125; BP diastolic 72–83; PULSE 66–94; RESP 14–22; TEMP 35.8–36.4; O2SAT 87–98
[2023-04-01] MEDS: IPRATROPIUM BR 0.02% INH SOLN 0.5 MG/2.5 ML VIAL INHALATION ×4 (00:26→11:13)
[2023-04-01] MEDS: ALBUTEROL SULFATE NEB 2.5 MG/3 ML INH INHALATION ×4 (00:26→11:13)
[2023-04-01 06:33] LABS: Basophils Absolute Auto 0.1 K/mm3 (0.0-0.1); Basophils Percent Auto 0.9 % (0.2-1.2); Hematocrit 38.5 % (37.0-47.0); Hemoglobin 12.2 g/dL (12.0-15.0); Immature Granulocyte Absolute 0.49 K/mm3 (0.00-0.031); Immature Granulocyte Percent A 6.3 % (0-0.5); Immature Platelet Fraction Pct 11.3 % (0.9-11.2); Lymphocytes Absolute Auto 1.24 K/mm3 (0.9-3.2); Lymphocytes Percent Auto 15.9 % (18.3-44.2); Mean Corpuscular HGB Conc 31.7 g/dl (32-36); Mean Corpuscular Hemoglobin 31.4 pg (26-34); Mean Corpuscular Volume 99.2 fl (80-100); Mean Platelet Volume 11.6 fl (7.4-10.4); Monocytes Absolute Auto 0.4 K/mm3 (0.1-0.6); Monocytes Percent Auto 5.4 % (2.6-8.5); Neutrophils Absolute Auto 5.6 K/mm3 (1.3-6.7); Neutrophils Percent Auto 71.5 % (45.5-73.1); Platelet Count Result 135 k/mm3 (150-375); Red Blood Count 3.88 M/mm3 (4.2-5.4); Red Cell Distribution Width 13.2 % (11.5-14.5); White Blood Count 7.8 K/mm3 (4.5-10.0)
[2023-04-01 06:36] LABS: Alanine Aminotransferase 13 U/L (6-35); Albumin Level 3.3 g/dL (3.5-5.1); Alkaline Phosphatase 57 U/L (38-126); Anion Gap 4 mmol/L (8-16); Aspartate Amino Transferase 18 U/L (14-36); Bilirubin,Total 0.4 mg/dL (0.2-1.3); Blood Urea Nitrogen 18 mg/dL (7-17); Calcium 8.5 mg/dL (8.4-10.2); Carbon Dioxide 36 mmol/L (22-30); Chloride 96 mmol/L (98-107); Estimated CRCL calculation 83 ml/min; Estimated Glomerular Filt Rate > 60; Glucose 91 mg/dL (65-110); Sodium 136 mmol/L (137-145)
[2023-04-01 08:51] LABS: Atypical Lymphocytes Present; Platelet Estimate Decreased (Adequate); Schistocytes None Seen (NORMAL)
[2023-04-01] MEDS: ENOXAPARIN 40 MG/0.4 ML SYRINGE SUB-Q (09:22)
[2023-04-01] MEDS: AMOXICILLIN/CLAVULANATE K 875-125 MG TAB 1 TABLET PO (09:22)
[2023-04-01] MEDS: guaiFENesin 12 HR 600 MG TABCR PO (09:22)
[2023-04-01] MEDS: ASPIRIN 81 MG CHEWABLE TABLET PO (09:24)
[2023-04-01] MEDS: NICOTINE (*PBKC) 21 MG PATCH 1 PATCH TRANSDERM (09:24)
[2023-04-01] MEDS: predniSONE 20 MG TABLET 60 MG PO (09:24)
[2023-04-01] MEDS: clonazePAM (*CRX) 0.5 MG TABLET 1 MG PO (09:27)
--- NOTE | 2023-04-01 12:27 | PM.CNPUL ---
Assessment and Plan Assessment and plan (1) Acute on chronic respiratory failure with hypoxia and hypercapnia: Code(s): J96.21 - Acute and chronic respiratory failure with hypoxia; J96.22 - Acute and chronic respiratory failure with hypercapnia Status: Acute Assessment and Plan: This patient has had hypercapnic episodes in the past. On this admission her bicarbonate was elevated showing that she has chronic hypercapnia. She was hypoxemic. On 2 L her PO2 was in the 60s. At home she tells me she has not been using oxygen regularly. Her last office visit in June she was supposed to use 2 L with exertion and did not need oxygen at rest but currently she is worse. She was admitted on March 28, has improved significantly, I saw her today March. She can go home on oxygen 2 L at rest with her saturation currently 92% and 2 L with exertion. She has not exerted herself in the hospital. If her saturation drops below 88% she in turn this up to 3 L a minute. We will follow her up in the office with PFTs, repeat home oxygen evaluation, alpha-1 antitrypsin testing and referral for cardiopulmonary rehab. She has asymmetric severe emphysema, she might be a candidate for surgical intervention, possibly endobronchial valve, depending on what she wants to consider. Stopping smoking is a prerequisite for any surgical evaluation. (2) COPD (chronic obstructive pulmonary disease): Code(s): J44.9 - Chronic obstructive pulmonary disease, unspecified Status: Acute Assessment and Plan: Longstanding severe COPD, now with exacerbation due to RSV. no PFTs in the system. She has not been on controller medication prior to this admission. In the spring she was using Dulera 100, 2 puffs twice a day and Spiriva HandiHaler 18 mcg 1 puff daily. These are covered by her insurance so these need to be restarted. She may continue to use her albuterol rescue inhaler q.6 hours p.r.n. shortness of breath. (3) Respiratory syncytial virus (RSV): Code(s): B33.8 - Other specified viral diseases Status: Acute Assessment and Plan: (+) RSV swab on admission; she has continued wheezing which is often seen with RSV. She does not have infiltrates on CXR or CT A. There is no specific treatment, supportive care. (4) Tobacco dependence: Code(s): F17.200 - Nicotine dependence, unspecified, uncomplicated Status: Acute Assessment and Plan: Long history of smoking, smokes cigarettes up until 2 days prior to this admission, smaller amount, 3-4 per day. She has smoked since her teens. Talked about tobacco cessation 3-5 minutes; avoiding second hand smoke from her significant other Juan who smokes, wants to quit but not maybe ready to do so yet. (5) Emphysematous COPD: Code(s): J43.9 - Emphysema, unspecified Status: Acute Plan Ok to go home on these medications 1) Prednisone 60 mg tomorrow, decrease to 50 mg Q am starting MondayApr 03, decreased for 10 mg every 3 days until complete. Controller medication: she was not taking any controller medication for COPD at home, only albuterol when short of breath. Previously has used Dulera 100, 2 puffs bid and Spiriva Handihaler 18 mcg once a day 2) mometasone-formoterol HFA 100 mcg-5 mcg/actuation aerosol inhaler (Dulera) 2 inh inhalation BID ; she was on it in the spring. tiotropium bromide 18 mcg capsule with inhalation device (Spiriva with HandiHaler) 1 cap inhalation DAILY #30 inhalations ; was o nthis in the spring albuterol sulfate 90 mcg/actuation breath activated powder inhaler,sensor 1 inh inhalation Q4-6H PRN shortness of breath or wheezing #1 ea - continue using p.r.n. 3) office
--- NOTE | 2023-04-01 14:40 | PM.DS ---
DS: Admitting Diagnosis Discharge Date 04/01/2023 Admitting Diagnosis Acute hypoxic respiratory failure DS: Discharge Diagnosis Discharge Diagnosis (1) Acute on chronic respiratory failure with hypoxia and hypercapnia: Code(s): J96.21 - Acute and chronic respiratory failure with hypoxia; J96.22 - Acute and chronic respiratory failure with hypercapnia Status: Acute (2) Emphysematous COPD: Code(s): J43.9 - Emphysema, unspecified Status: Acute (3) Respiratory syncytial virus (RSV): Code(s): B33.8 - Other specified viral diseases Status: Acute (4) COPD exacerbation: Code(s): J44.1 - Chronic obstructive pulmonary disease with (acute) exacerbation Status: Acute (5) Tobacco abuse disorder: Code(s): Z72.0 - Tobacco use Status: Acute (6) Severe persistent reactive airways dysfunction syndrome with acute exacerbation: Code(s): J68.3 - Other acute and subacute respiratory conditions due to chemicals, gases, fumes and vapors Status: Acute DS: Summary Hospital Course Reason for hospitalization: This is a 52-year-old female smoker with history of chronic obstructive pulmonary disease and polysubstance abuse (clean for nearly a year if not longer) who presented to the emergency department for evaluation of shortness of breath.? Hospital Course: ?The patient provides the following history. She has not been feeling well for 3 days with generalized malaise, body aches, headache, cough, sore throat, and increasing shortness of breath from her baseline. She has not had a fever to her knowledge but temperature on arrival was 100.1? F. She has a portable oxygen tank at home and noted that her SpO2 was in the 80s on her usual 2 L and she called 911. She denies chest pain, pleuritic pain, syncope, near syncope, vomiting (though she does have dry heaves), and diarrhea. Preliminary workup in the ED was significant for a WBC count of 4.3, platelet 109, and is pretty unremarkable CMP. She tested positive for RSV. ABG showed a pH of 7.341, pCO2 61.5, PO2 64.8, bicarb 32.5. Chest x-ray showed evidence of COPD. Interventions thus far include IV methylprednisolone and a DuoNeb which have helped. She is being admitted in this setting for further treatment. She tells me that she quit smoking as of last week. 03/29/2022:?pt seen this a.m by the bedside, she denies any overnight events. Denies any SOB, chest pain, n/v at this time.? She reports continued chronic cough? this a.m, admits to hx of smoking, request a nicotine patch, pt states she may have some increased anxiety with hospital course, and has requested Ativan. p.r.n for anxiety. 03/30/2023:?pt seen today, she is up in the bed, in no acute distress, she denies any overnight events. Reports she is concerned for weakness and would like assistance with a shower today, in order to see if she will be able to do at home without any injury. she denies any dizziness, SOB, chest pain, n/v. Pt reports she would prefer to be evaluated prior to being discharged at this time. 03/31/2023:??Patient seen by the bedside this morning, she is resting with eyes closed, she denies any overnight events.? During exam patient with moderate coughing episode, wet nonproductive cough is appreciated.? She denies any chest pain, nausea vomiting or shortness of breath at this time. pt was seen and evaluated by pulmonary see HPI below: (1) Acute on chronic respiratory failure with hypoxia and hypercapnia: ?Code(s): J96.21 - Acute and chronic respiratory failure with hypoxia; J96.22 - Acute and chronic respiratory failure with hypercapnia ?Status:?Acute ?Assessment and Plan: This patient has had hypercapnic episodes in the past.? On this admission her bicarbonate was elevated showing that she has chronic hypercapnia.? She was hypoxemic.? On 2 L her PO2 was in the 60s.? At home she tells me she has not been using oxygen regularly.? Her last office visit in June she was suppose
--- NOTE | 2023-04-01 15:43 | PCRCNOTE ---
HOME OXYGEN EVALUATION COMPLETE. PT. REQUIRES 1LPM OXYGEN WITH ACTIVITY. R.N. NOTIFIED OF RESULTS.
--- NOTE | 2023-04-01 17:02 | HOMEO2EVAL ---
Evaluation was performed at [facility] Home Oxygen Evaluation RC: Home Oxygen (O2) Evaluation Start: 04/01/23 14:42 Freq: ONCE Status: Active Protocol: RPE Activity Type Activity Date Activity User E-sign Co-sign Detail Recorded Client Recorded Date Recorded By Document 04/01/23 15:05 [facility] [email or web address] 04/01/23 15:43 [facility] Document 04/01/23 15:08 [facility] [email or web address] 04/01/23 15:43 [facility] Document 04/01/23 15:11 [facility] [email or web address] 04/01/23 15:43 [facility] 04/01/23 04/01/23 04/01/23 15:05 15:08 15:11 Home O2 Evaluation [Oxygen] -Test Phase Resting Exercise Exercise -Oxygen Delivery Room Air Room Air Nasal Cannula -Oxygen Flow Rate (L/min) 1 -Fraction of Inspired Oxygen (%) 21 21 [Pulse Oximetry] -Pulse Oximetry (90-100 %) 91 87 L 91 [Pulse Rate] -Pulse Rate (60-100 beats/min) 87 90 89 [Evaluation] -Activity Tolerance Good Good [Exercise] -Ambulation Distance (feet) 200 -Ambulation Distance (meters) 60.95 [Comments] -Home Oxygen Evaluation Comments PLACED ON 1LPM PT. REQUIRES O2 VIA NASAL 1LPM OXYGEN CANNULA. WITH ACTIVITY. [Charges] -Evaluation Charges O2 Evaluation by ISELA
--- NOTE | 2023-04-01 18:00 | PCRCNOTE ---
Window of time for administration has passed. See next scheduled administration.
--- NOTE | 2023-04-01 18:24 | PCRCNOTE ---
HOME OXYGEN EVALUATION RESULTS AND NEW ORDER WERE FAXED TO [facility]. PT. ALREADY HAD A TANK TO DISCHARGE WITH AND ANOTHER ONE AT HOME. PT. ALSO BARBOSA A CONCENTRATOR AT HOME. SPOKE WITH THE ANSWERING SERVICE (DARLENE); WHO STATED WOULD RELAY THE MESSAGE..
--- NOTE | 2023-04-01 18:44 | PC.NURSE ---
Pt is A&O4 female who discharged home with self care. Pt had visitor at bed side that took her home in private vehicle. Pt was educated on discharge instructions. Pt verbalizes understanding. Pt IV was removed, tip intact, pt tolerated well. Pt to go home on 1L O2 with activity and room air at rest. Pt was monitored for any changes in status while here.
== END 2023-04-01 18:05 | disposition home or self-care (01) | DRG 133 ==
LOC: ANHED 08:46 → ANH3MEDSUR 10:54
PROVIDERS: Emergency Medicine; Physician Assistant; Admitting Provider Student in an Organized Health Care Education/Training Program; Emergency Provider Emergency Medicine; PCP Internal Medicine; Visit Provider Nurse Practitioner
DX: J96.91 Respiratory failure, unspecified with hypoxia (principal); J96.22 Acute and chronic respiratory failure with hypercapnia; J96.21 Acute and chronic respiratory failure with hypoxia; B97.4 Respiratory syncytial virus as the cause of diseases classified elsewhere; J43.9 Emphysema, unspecified; J68.3 Other acute and subacute respiratory conditions due to chemicals, gases, fumes and vapors; D69.6 Thrombocytopenia, unspecified; F41.9 Anxiety disorder, unspecified; F32.A Depression, unspecified; F11.11 Opioid abuse, in remission; R19.7 Diarrhea, unspecified; Z79.82 Long term (current) use of aspirin; Z99.81 Dependence on supplemental oxygen; Z87.891 Personal history of nicotine dependence; Z20.822 Contact with and (suspected) exposure to COVID-19; Z86.718 Personal history of other venous thrombosis and embolism
CPT/HCPCS: 36415; 36600; 71046; 71275; 80048; 80053; 82805; 82948; 83735; 85025; 85027; 85055; 87070; 87077; 87186; 87205; 87637; 93005; 94618; 94640; 94667; 96374; 97161; 99285; A9270; J1650; J2930; J7040; J7512; Q9967

== ENCOUNTER 2023-05-18 14:19 | Observation (INO) | payer OTHER, SELFPAY ==
[2023-05-18] VITALS (15 sets, daily range): BP systolic 101–124; BP diastolic 64–81; PULSE 85–96; RESP 15–24; TEMP 36.4–36.9; O2SAT 90–100; BMI 18.7
--- NOTE | ~2023-05-18 | XR_ITS ---
EXAMINATION: XR chest 2V DATE: 05/18/2023 15:23 INDICATION: Shortness of breath and weakness TECHNIQUE: PA and lateral views of the chest were obtained. COMPARISON: Chest radiograph dated 03/28/[address] dated 03/31/2023 FINDINGS: Upper expansion of lungs with increased lucency and architectural distortion in the upper lung zones and mild flattening of the diaphragm consistent with severe emphysema better appreciated on the prior CT. No focal airspace opacities, pulmonary edema, pleural effusion or pneumothorax. Heart size is no rmal. Mild thoracic spondylosis. IMPRESSION: 1. Severe emphysema. No other acute cardiopulmonary disease. Reviewed, dictated and finalized at location A. ORATE DEVELOPMENT ANALYST
--- NOTE | ~2023-05-18 | US_ITS ---
US right upper quadrant INDICATION: Nausea. PROCEDURE: Realtime right upper abdominal ultrasound. COMPARISON: No prior studies for comparison. FINDINGS: The pancreas is normal without focal mass or pancreatic ductal dilation. Liver echotexture is normal without focal mass or intrahepatic biliary dilatation. There is normal directional flow i n the portal vein. The gallbladder is normal without stones, gallbladder wall thickening or pericholecystic fluid. Gallb ladder is contracted. Common bile duct measures 2 mm. No sonographic Morgan's sign. Right renal echo texture is normal without hydronephrosis, contour deforming mass or renal calculi. IMPRESSION: 1: Normal limited abdominal ultrasound. Reviewed, dictated and finalized at location A. MAN OR SUPERVISOR AND OPERATOR
--- NOTE | 2023-05-18 14:53 | ECG_ITS ---
Measurements Intervals [place] Rate: 89 P: 81 VT: 130 QRS: 80 QRSD: 86 T: 77 QT: 359 QTc: 437 Interpretive Statements SINUS RHYTHM NORMAL ELECTROCARDIOGRAM COMPARED TO ECG 03/28/2023 05:34:23 HEART RATE IS SLIGHTLY REDUCED AND INCOMPLETE RIGHT BUNDLE CONDUCTION IS NOT SEEN Electronically Signed On 05-19-2023 12:19:08 OPERATIONS RESEARCH ENGINEER by Vj Rowe M.D.
[2023-05-18 15:23] LABS: Basophils Percent Auto 0.9 % (0.2-1.2); Eosinophils Absolute Auto 0.1 K/mm3 (0-0.3); Eosinophils Percent Auto 1.8 % (0-4.4); Hematocrit 45.9 % (37.0-47.0); Hemoglobin 14.4 g/dL (12.0-15.0); Immature Granulocyte Absolute 0.01 K/mm3 (0.00-0.031); Immature Granulocyte Percent A 0.3 % (0-0.5); Immature Platelet Fraction Pct 11.2 % (0.9-11.2); Lymphocytes Absolute Auto 0.69 K/mm3 (0.9-3.2); Lymphocytes Percent Auto 20.5 % (18.3-44.2); Mean Corpuscular HGB Conc 31.4 g/dl (32-36); Mean Corpuscular Hemoglobin 31.1 pg (26-34); Mean Corpuscular Volume 99.1 fl (80-100); Mean Platelet Volume 11.6 fl (7.4-10.4); Monocytes Absolute Auto 0.4 K/mm3 (0.1-0.6); Monocytes Percent Auto 12.2 % (2.6-8.5); Neutrophils Absolute Auto 2.2 K/mm3 (1.3-6.7); Neutrophils Percent Auto 64.3 % (45.5-73.1); Platelet Count Result 115 k/mm3 (150-375); Red Blood Count 4.63 M/mm3 (4.2-5.4); Red Cell Distribution Width 13.7 % (11.5-14.5); White Blood Count 3.4 K/mm3 (4.5-10.0)
--- NOTE | 2023-05-18 15:38 | ED.SOB ---
HPI - SOB/Dyspnea General Chief Complaint: Shortness of Breath/Dyspnea Stated Complaint: nausea Time Seen by Provider: 05/18/23 15:15 Source: patient and family Mode of arrival: ambulatory Limitations: no limitations History of Present Illness HPI Narrative: 52 years old white female came to the emergency room by private car complaining of shortness of breath, chest tightness, headache, coughing, weakness, nausea been going since April 01 since she was diagnosed of RSV. Patient was hospitalized at that time and was discharge with constant nausea. History of COPD, hypoglycemia, CVA, patient does smoke cigarettes, denies alcohol or drug use. Related Data Home Medications Medication Instructions Recorded Confirmed aspirin 81 mg capsule 81 mg PO DAILY 06/21/22 03/28/23 estradiol 0.01% (0.1 mg/gram) 1 g vaginal 2XW PRN Pain 03/28/23 03/28/23 vaginal cream fluticasone propionate 50 1 spray intranasal DAILY PRN 03/28/23 03/28/23 mcg/actuation nasal Dryness spray,suspension nitroglycerin 0.4 mg sublingual 0.4 mg sublingual Q5MIN 03/28/23 03/28/23 tablet phenazopyridine 200 mg PO DAILY 03/28/23 03/28/23 Allergies Allergy/AdvReac Type Severity Reaction Status Date / Time bee venom protein (honey bee) Allergy Intermediate BREATHING Verified 03/28/23 13:22 DIFFICULTY Review of Systems Review of Systems: All systems reviewed & are unremarkable except as noted in HPI and below PMFSH Past Medical History Medical History Agoraphobia Anxiety Deep venous thrombosis (2007) Depression Emphysematous COPD Hepatitis C virus infection cured after antiviral drug therapy Polysubstance abuse Tobacco dependence Surgical History Surgical History History of section Family History Family History Mother Cystic fibrosis Congestive heart failure Father Acute myocardial infarction Congestive heart failure Social History Social History Social History: Currently staying with her boyfriend in a trailer. She has 2 children, a son and daughter. Not currently working. She smoked a pack of cigarettes a day since she was a teenager and quit lastly. She is recovering alcoholic but has not drank heavily since her late 20s. She has a history of IV drug use many years ago but has been sober since April 2022. Surrogate decision maker: Marielena Hannah (daughter). Code status: Full code Smoking packs per day: 1 Smoking cigarettes per day: 20.0 Years smoked: 37 Smoking pack-years: 37.00 Smoking status: Former smoker Tobacco type: cigarettes Smoking end date: 04/28/22 Alcohol intake: never Substance use: former Substance use type: does not use Other substance usage details: fentanyl Do You Feel Safe in your Home?: No Lack of Transportation: YES Lack of Food: Sometimes True Current Housing: I Have Housing Concerned About Future Housing: YES Difficulty Paying Gas/Electric Bills: YES Difficulty Paying for Meds: No Currently Unemployed: No Education: High School Diploma/GED Difficulty w/ Childcare or Family Care: No Living arrangements: other Additional living arrangements comments: significant other Occupation/Education: unemployed Spiritual care concerns: No Exam Narrative: General appearance: Well-developed, well-nourished Skin: Normal color Head: Normocephalic, nontraumatic Eyes: Clear conjunctiva ENT: Oropharynx normal, ears normal, nose normal Neck: Supple, nontender Chest and respiratory: Airway patent, no respiratory distress, no accessory muscle use severe diffuse wheezing and rhonchi bilaterally with diminution of air entry Heart: Regular rate/rhythm Abdomen: Soft, nontender, no organomegaly, quiet bowel sounds Vascular: Normal peripheral pulse
[2023-05-18] MEDS: IPRATROPIUM 0.5 MG/ALBUTEROL SULFATE 2.5 MG AMPUL.NEB 3 ML INHALATION ×4 (15:53→21:05)
[2023-05-18 15:59] LABS: Alveolar/Arterial O2 Gradient 35.5 mmHg; Base Excess ABG 3.4 mEq/l (+/-2.0); Fractional Inspired Oxygen 21 %; HCO3 ABG 29.4 mEq/l (22.0-26.0); PCO2 ABG 50.4 mmHg (35.0-45.0); PO2 ABG 53.9 mmHg (80.0-100.0); PO2 FiO2 Ratio Arterial Blood 2.57 %; Total Hemoglobin 13.4 g/dL (12.0-18.0); pH ABG 7.384 (7.350-7.450)
[2023-05-18 16:00] LABS: Device ROOM AIR; Modified Allen's Test Pass; Oxygen Saturation ABG 87.1 % (95.0-100.0); Oxyhemoglobin 84.9 % THb (90.0-100.0); Site Drawn LEFT RADIAL
[2023-05-18] MEDS: methylPREDNISolone SOD SUCC 125 MG VIAL IV PUSH (16:17)
[2023-05-18 16:31] LABS: Prothrombin Time 13.3 Seconds (11.1-14.7)
[2023-05-18 16:32] LABS: Partial Thromboplastin Time 31.8 SECONDS (22.3-36.8)
[2023-05-18 16:33] LABS: D Dimer 0.39 ug/mL (<0.48)
[2023-05-18 16:37] LABS: Alanine Aminotransferase 16 U/L (6-35); Albumin Level 3.9 g/dL (3.5-5.1); Alkaline Phosphatase 62 U/L (38-126); Anion Gap 6 mmol/L (8-16); Aspartate Amino Transferase 23 U/L (14-36); Bilirubin,Total 0.4 mg/dL (0.2-1.3); Blood Urea Nitrogen 10 mg/dL (7-17); Calcium 8.8 mg/dL (8.4-10.2); Carbon Dioxide 28 mmol/L (22-30); Chloride 104 mmol/L (98-107); Estimated CRCL calculation 86 ml/min; Estimated Glomerular Filt Rate > 60; Glucose 111 mg/dL (65-110); Potassium 3.7 mmol/L (3.4-5.0); Sodium 138 mmol/L (137-145)
[2023-05-18 16:43] LABS: NT Pro B Type Natriuretic Pept 259 pg/mL (19.9-100); Troponin I < 0.012 ng/mL (0.000-0.034)
[2023-05-18 17:06] LABS: Influenza A QL RT-PCR Negative (Negative); Influenza B QL RT-PCR Negative (Negative); RSV RNA, RT-PCR Negative (Negative); SARS-CoV-2 RNA PCR Negative (Negative)
--- NOTE | 2023-05-18 23:13 | ADMGEN ---
This patient, Joya De Leon, was admitted to [facility] Surg Room 315-01. Patient/family oriented to hospital policies and general routines including ID bracelet, bed and alarms, visiting hours, pain management, procedures, bathroom and other care routines, personal items, smoking policy, room service/diet, and visiting hours. Information on how to activate the Rapid Response Team has been discussed. Patient/Family are encouraged to report perceived risks to care and to ask questions if they do not understand what they are told or what they should do.
[2023-05-19] VITALS (12 sets, daily range): BP systolic 93–124; BP diastolic 59–84; PULSE 82–103; RESP 16–20; TEMP 35.9–37.5; O2SAT 90–96
[2023-05-19] MEDS: methylPREDNISolone SOD SUCC 125 MG VIAL 60 MG IV PUSH ×2 (00:39→06:15)
[2023-05-19] MEDS: IPRATROPIUM 0.5 MG/ALBUTEROL SULFATE 2.5 MG AMPUL.NEB 3 ML INHALATION ×4 (02:30→20:27)
--- NOTE | 2023-05-19 08:41 | PM.IMHP ---
H&P: HPI History of Present Illness Date/Time: 05/19/23 08:41 Chief Complaint: Shortness of breath Narrative: 52 years old white female came to the emergency room by private car complaining of shortness of breath, chest tightness, headache, coughing, weakness, nausea been going since April 01 since she was diagnosed of RSV.? Patient was hospitalized at that time and was discharge with constant nausea.? History of COPD, hypoglycemia, CVA, patient does smoke cigarettes, denies alcohol or drug use. Nausea is somewhat better today. Still has breathing issue with shortness of breath and cough Review of Systems Review of Systems: - CONSTITUTIONAL: Denies weight loss, fever and chills. - HEENT: Denies changes in vision and hearing - RESPIRATORY: Denies SOB and cough. - CV: Denies palpitations and CP. - GI: Denies abdominal pain, nausea, vomiting and diarrhea. - : Denies dysuria and urinary frequency. - MSK: Denies myalgia and joint pain. - SKIN: Denies rash and pruritus. - NEUROLOGICAL: Denies headache and syncope. - PSYCHIATRIC: Denies recent changes in mood. Denies anxiety and depression. [facility] Past Medical History Medical History Agoraphobia Anxiety Deep venous thrombosis (2007) Depression Emphysematous COPD Hepatitis C virus infection cured after antiviral drug therapy Polysubstance abuse Tobacco dependence Surgical History Surgical History History of section Family History Family History Mother Cystic fibrosis Congestive heart failure Father Acute myocardial infarction Congestive heart failure Social History Social History Social History: Currently staying with her boyfriend in a trailer. She has 2 children, a son and daughter. Not currently working. She smoked a pack of cigarettes a day since she was a teenager and quit lastly. She is recovering alcoholic but has not drank heavily since her late 20s. She has a history of IV drug use many years ago but has been sober since April 2022. Surrogate decision maker: Marielena Hannah (daughter). Code status: Full code Smoking packs per day: 1 Smoking cigarettes per day: 20.0 Years smoked: 37 Smoking pack-years: 37.00 Smoking status: Former smoker Tobacco type: cigarettes Smoking end date: 04/28/22 Alcohol intake: never Substance use: never Substance use type: does not use Other substance usage details: fentanyl Do You Feel Safe in your Home?: No Lack of Transportation: YES Lack of Food: Sometimes True Current Housing: I Have Housing Concerned About Future Housing: YES Difficulty Paying Gas/Electric Bills: YES Difficulty Paying for Meds: No Currently Unemployed: No Education: High School Diploma/GED Difficulty w/ Childcare or Family Care: No Living arrangements: other Additional living arrangements comments: significant other Occupation/Education: unemployed Spiritual care concerns: No Meds Home Medications and Allergies Home Medications Medication Instructions Recorded Confirmed Type aspirin 81 mg capsule 81 mg PO DAILY 06/21/22 05/19/23 History albuterol sulfate 90 mcg/actuation 1 inh inhalation Q4-6H PRN 06/24/22 05/19/23 Rx breath activated powder shortness of breath or wheezing #1 inhaler,sensor ea fluticasone propionate 50 1 spray intranasal DAILY PRN 03/28/23 05/19/23 History mcg/actuation nasal Dryness spray,suspension nitroglycerin 0.4 mg sublingual 0.4 mg sublingual Q5MIN 03/28/23 05/19/23 History tablet clonazepam 1 mg tablet 1 mg PO DAILY PRN Anxiety #7 tabs 04/01/23 05/19/23 Rx guaifenesin 600 mg tablet, 600 mg PO Q12HR #30 tabs 04/01/23 05/19/23 Rx extended release 12 hr (Mucus Relief ER) mometasone-formoterol HFA 100 2 pu
[2023-05-19] MEDS: NICOTINE (*PBKC) 21 MG PATCH 1 PATCH TRANSDERM (10:15)
[2023-05-19 13:18] LABS: Appearance Urine Cloudy (Clear); Bacteria Urine Rare /hpf; Bilirubin Urine Negative (Negative); Blood Urine Negative (Negative); Color Urine Yellow (Yellow); Glucose Urine UA 1+ mg/dL (Negative); Ketones Urine Trace mg/dL (Negative); Leukocyte Esterase Ur Negative LEU/UL (NEGATIVE); Nitrate Urine Negative (Negative); Non Pathogenic Casts 0-2; Protein Urine Negative (Negative); RBC Urine 0-2 /hpf (0-2); Squamous Epithelial Cell Urine None seen /hpf (Few); Urobilinogen Urine 0.2 mg/dL (<2.0); WBC Urine 0-5 /hpf (0-3)
[2023-05-19 13:55] LABS: Add Urine Microscopic? YES
[2023-05-19] MEDS: ASPIRIN 81 MG CHEWABLE TABLET PO (17:12)
[2023-05-19] MEDS: predniSONE 20 MG TABLET 60 MG PO (17:12)
[2023-05-19] MEDS: FLUTICASONE/SALMETEROL 115-21 MCG INHALER 1 PUFF 2 PUFF INHALATION (20:27)
[2023-05-19] MEDS: guaiFENesin 12 HR 600 MG TABCR PO (20:48)
[2023-05-19] MEDS: clonazePAM (*CRX) 0.5 MG TABLET 1 MG PO (20:48)
[2023-05-20] VITALS (8 sets, daily range): BP systolic 97–103; BP diastolic 68–75; PULSE 80–97; RESP 16–20; TEMP 36.4–36.6; O2SAT 92–97
[2023-05-20] MEDS: IPRATROPIUM 0.5 MG/ALBUTEROL SULFATE 2.5 MG AMPUL.NEB 3 ML INHALATION ×3 (02:49→13:06)
[2023-05-20] MEDS: ACETAMINOPHEN 500 MG TABLET 1000 MG PO (06:11)
[2023-05-20 06:15] LABS: Basophils Percent Auto 0.1 % (0.2-1.2); Hematocrit 40.1 % (37.0-47.0); Hemoglobin 12.7 g/dL (12.0-15.0); Immature Granulocyte Absolute 0.14 K/mm3 (0.00-0.031); Immature Granulocyte Percent A 0.9 % (0-0.5); Lymphocytes Absolute Auto 0.69 K/mm3 (0.9-3.2); Lymphocytes Percent Auto 4.6 % (18.3-44.2); Mean Corpuscular HGB Conc 31.7 g/dl (32-36); Mean Corpuscular Hemoglobin 31.3 pg (26-34); Mean Corpuscular Volume 98.8 fl (80-100); Monocytes Absolute Auto 0.5 K/mm3 (0.1-0.6); Monocytes Percent Auto 3.2 % (2.6-8.5); Neutrophils Absolute Auto 13.8 K/mm3 (1.3-6.7); Neutrophils Percent Auto 91.2 % (45.5-73.1); Platelet Count Result 148 k/mm3 (150-375); Red Blood Count 4.06 M/mm3 (4.2-5.4); Red Cell Distribution Width 13.9 % (11.5-14.5); White Blood Count 15.1 K/mm3 (4.5-10.0)
[2023-05-20 06:23] LABS: Alanine Aminotransferase 16 U/L (6-35); Alkaline Phosphatase 58 U/L (38-126); Anion Gap 5 mmol/L (8-16); Aspartate Amino Transferase 19 U/L (14-36); Bilirubin,Total 0.4 mg/dL (0.2-1.3); Blood Urea Nitrogen 15 mg/dL (7-17); Calcium 9.4 mg/dL (8.4-10.2); Carbon Dioxide 29 mmol/L (22-30); Chloride 103 mmol/L (98-107); Estimated CRCL calculation 88 ml/min; Estimated Glomerular Filt Rate > 60; Glucose 119 mg/dL (65-110); Magnesium 2.2 mg/dL (1.6-2.3); Potassium 4.3 mmol/L (3.4-5.0); Sodium 137 mmol/L (137-145)
[2023-05-20 07:02] LABS: Hypochromasia 1+ (NORMAL); Schistocytes None Seen (NORMAL)
[2023-05-20] MEDS: UMECLIDINIUM BROMIDE 62.5 MCG ELLIPTA 1 PUFF INHALATION (07:28)
[2023-05-20] MEDS: FLUTICASONE/SALMETEROL 115-21 MCG INHALER 1 PUFF 2 PUFF INHALATION (07:47)
[2023-05-20] MEDS: guaiFENesin 12 HR 600 MG TABCR PO (07:50)
[2023-05-20] MEDS: ASPIRIN 81 MG CHEWABLE TABLET PO (07:50)
[2023-05-20] MEDS: NICOTINE (*PBKC) 21 MG PATCH 1 PATCH TRANSDERM (07:51)
[2023-05-20] MEDS: predniSONE 20 MG TABLET 60 MG PO (07:51)
[2023-05-20] MEDS: clonazePAM (*CRX) 0.5 MG TABLET 1 MG PO (09:51)
--- NOTE | 2023-05-20 13:33 | PM.DS ---
DS: Admitting Diagnosis Discharge Date 05/20/2023 Admitting Diagnosis Shortness of breath DS: Discharge Diagnosis Discharge Diagnosis (1) Acute exacerbation of chronic obstructive pulmonary disease: Code(s): J44.1 - Chronic obstructive pulmonary disease with (acute) exacerbation Status: Acute DS: Summary Hospital Course Hospital Course: Patient presented with shortness of breath.? She has underlying history of COPD.? She was hypoxic in room air 87% needing oxygen supplementation.? Chest x-ray with severe emphysema with no acute abnormality.? Treated at COPD exacerbation with Solu-Medrol and DuoNeb with improvement.? Labs unremarkable D-dimer negative troponin negative BNP 259 RSV COVID influenza negative ABG 7.38/50/53/29.? Pulmonary consultation on 04/01/2023 reviewed.? She had hypercapnic episodes in the past.? She was sent home on home oxygen she has asymmetric severe emphysema she might be a candidate for surgical intervention continued tobacco abuse. She had RSV infection in March 2023.? Echo 05/09/2022:? EF 65-70% normal diastolic function.? Mild pulmonary hypertension with RVSP of 49 mm Hg mild right ventricular enlargement and hypokinesis.? Mild TR. Nausea on and off.? Intermittent pain and right upper quadrant. This resolved with supportive treatment Improved clinically and was switched to oral steroid have be sent home on it. Time Spent with Patient Time attestation: Total time spent providing and/or coordinating discharge services: 35 minutes Exam Narrative: General appearance: Well-developed, well-nourished Skin: Normal color Head: Normocephalic, nontraumatic Eyes: Clear conjunctiva ENT: Oropharynx normal, ears normal, nose normal Neck: Supple, nontender Chest and respiratory: Airway patent, no respiratory distress, no accessory muscle use bilaterally with diminution of air entry Heart: Regular rate/rhythm Abdomen: Soft, nontender, no organomegaly, quiet bowel sounds Vascular: Normal peripheral pulses, normal capillary refill. Musculoskeletal: Normal range of motion, nontender back Neurologic: Alert and oriented ?3, TOOL INSPECTOR is normal as tested, no gross motor deficit DS: Data Data Completed and Pending Labs on day of discharge: Labs from last 24 hours 05/20/23 05/19/23 05:39 13:04 WBC 15.1 H RBC 4.06 L Hgb 12.7 Hct 40.1 MCV 98.8 MCH 31.3 MCHC 31.7 L RDW 13.9 Plt Count 148 L MPV 12.0 H Immature Gran % (Auto) 0.9 H Neut % (Auto) 91.2 H Lymph % (Auto) 4.6 L [place] % (Auto) 3.2 Eos % (Auto) 0.0 Baso % (Auto) 0.1 L Lymph # (Auto) 0.69 L [place] # (Auto) 0.5 Eos # (Auto) 0.0 Baso # (Auto) 0.0 Abs Immat Gran (auto) 0.14 H Absolute Neuts (auto) 13.8 H Absolute Nucleated RBC 0.0 Nucleated RBC % 0.0 Platelet Estimate Slightly decreased Hypochromasia 1+ Schistocytes None seen Sodium 137 Potassium 4.3 Chloride 103 Carbon Dioxide 29 Anion Gap 5 L BUN 15 D Creatinine 0.50 L Estim Creat Clear Calc 88 Estimated GFR > 60 Glucose 119 H Calcium 9.4 Magnesium 2.2 Total Bilirubin 0.4 AST 19 ALT 16 Alkaline Phosphatase 58 Total Protein 7.0 Albumin 4.0 Urine Color Yellow Urine Appearance Cloudy H Urine pH 6.0 Ur Specific [place] 1.020 Urine Protein Negative Urine Glucose (UA) 1+ H Urine Ketones Trace H Ur Blood (Man) Negative Urine Nitrate Negative Urine Bilirubin Negative Urine Urobilinogen 0.2 Ur Leukocyte Esterase Negative Urine RBC 0-2 Urine WBC 0-5 Ur Squamous Epith Cells None seen Urine Bacteria Rare Urine Casts 0-2 Preliminary micro results at discharge 05/18/23 16:07 Blood Culture - Preliminary Blood 05/18/23 16:06 Blood Culture - Preliminary Blood Imaging Radiologist's impression: ITS Impressions Chest X-Ray 05/18/23 15:34 IMPRESSION: 1. Severe emphysema. No other acute cardiopulmonary disease. Discharge Plan Discharge
== END 2023-05-20 14:45 | disposition home or self-care (01) ==
LOC: ANHED 17:50 → ANH3MEDSUR 22:13
PROVIDERS: Emergency Medicine; Admitting Provider Family Medicine; Emergency Provider Emergency Medicine; PCP Internal Medicine; Visit Provider Internal Medicine
DX: J44.1 Chronic obstructive pulmonary disease with (acute) exacerbation (principal); F41.9 Anxiety disorder, unspecified; F32.A Depression, unspecified; F10.21 Alcohol dependence, in remission; F19.11 Other psychoactive substance abuse, in remission; Z86.718 Personal history of other venous thrombosis and embolism; Z86.73 Personal history of transient ischemic attack (TIA), and cerebral infarction without residual deficits; Z87.891 Personal history of nicotine dependence; Z79.51 Long term (current) use of inhaled steroids; Z79.82 Long term (current) use of aspirin; Z79.52 Long term (current) use of systemic steroids; Z79.890 Hormone replacement therapy; Z79.899 Other long term (current) drug therapy
CPT/HCPCS: 36415; 36600; 71046; 76705; 80053; 81001; 82805; 83735; 83880; 84484; 85025; 85055; 85380; 85610; 85730; 87040; 87637; 93005; 94640; 96374; 99285; A9270; G0378; G0379; J2930; J7512

== ENCOUNTER 2023-06-25 10:29 | Emergency (ER) | payer OTHER, SELFPAY ==
--- NOTE | ~2023-06-25 | CT_ITS ---
EXAMINATION: CT brain wo con DATE: 06/25/2023 11:34 INDICATION: Right occipital headache. Dizziness. TECHNIQUE: Computed tomography (CT) of the head was performed without intravenous contrast. The mA wa s adjusted according to patient size. Iterative reconstruction technique was employed. Exam dose: 52 9.67 mGy-cm total exam DLP. COMPARISON: July 12, 2016 CT brain FINDINGS: No intracranial mass lesion or hemorrhage, midline shift or mass effect or cerebrovascular accident is detected. Normal ventricular size. The there is mildly compressive thickening of the sphenoid sinuses. The remaining included paranasal sinuses, largely excluding the maxillary sinuses, are unremarkable. The mastoid air cells are normally developed and aerated. No fracture or bone destruction of the cranial vault. IMPRESSION: No significant intracranial abnormality Reviewed, dictated and finalized at [facility]. Reviewed, dictated and finalized at location A.
--- NOTE | ~2023-06-25 | XR_ITS ---
XR chest 2V DATE: 06/25/2023 11:08 INDICATION: Chest pain. COPD. TECHNIQUE: PA and lateral views COMPARISON: May 18, 2023 2 view chest March 31, 2023 CTA chest FINDINGS: Prominent emphysematous changes are noted particularly in the upper lung zones bilateral up per lobe bullous change. Patchy mild infiltrates are suggested in the mid and lower lung zones. Small pleural effusions are suggested. Normal heart size. No hilar or mediastinal enlargement. Osteopenia. IMPRESSION: Bullous emphysema Mild infiltrate and/or atelectasis in the mid and lower lung zones Osteopenia Reviewed, dictated and finalized at location A.
--- NOTE | 2023-06-25 10:34 | ECG_ITS ---
Measurements Intervals [place] Rate: 91 P: 70 ND: 131 QRS: 70 QRSD: 88 T: 66 QT: 347 QTc: 427 Interpretive Statements SINUS RHYTHM BASELINE ARTIFACT- V5 NORMAL ECG COMPARED TO ECG 05/18/2023 15:01:32 NO SIGNIFICANT CHANGES Electronically Signed On 06-25-2023 11:03:18 CDT by Levar Carbajal D.O.
[2023-06-25 10:40] VITALS: BP 117/61; PULSE 94; RESP 17; TEMP 36.9; O2SAT 99
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
[2023-06-25 10:59] LABS: Basophils Absolute Auto 0.1 K/mm3 (0.0-0.1); Basophils Percent Auto 0.4 % (0.2-1.2); Eosinophils Percent Auto 0.1 % (0-4.4); Hematocrit 40.6 % (37.0-47.0); Hemoglobin 12.9 g/dL (12.0-15.0); Immature Granulocyte Absolute 0.06 K/mm3 (0.00-0.031); Immature Granulocyte Percent A 0.4 % (0-0.5); Lymphocytes Absolute Auto 0.81 K/mm3 (0.9-3.2); Lymphocytes Percent Auto 5.8 % (18.3-44.2); Mean Corpuscular HGB Conc 31.8 g/dl (32-36); Mean Corpuscular Hemoglobin 30.9 pg (26-34); Mean Corpuscular Volume 97.4 fl (80-100); Mean Platelet Volume 11.3 fl (7.4-10.4); Monocytes Absolute Auto 0.7 K/mm3 (0.1-0.6); Monocytes Percent Auto 4.9 % (2.6-8.5); Neutrophils Absolute Auto 12.3 K/mm3 (1.3-6.7); Neutrophils Percent Auto 88.4 % (45.5-73.1); Platelet Count Result 182 k/mm3 (150-375); Red Blood Count 4.17 M/mm3 (4.2-5.4); Red Cell Distribution Width 13.4 % (11.5-14.5)
[2023-06-25 11:10] LABS: Alanine Aminotransferase 14 U/L (6-35); Alkaline Phosphatase 94 U/L (38-126); Anion Gap 6 mmol/L (4-12); Aspartate Amino Transferase 17 U/L (14-36); Bilirubin,Total 0.6 mg/dL (0.2-1.3); Blood Urea Nitrogen 8 mg/dL (7-17); Calcium 9.2 mg/dL (8.4-10.2); Carbon Dioxide 33 mmol/L (22-30); Chloride 97 mmol/L (98-107); Estimated CRCL calculation 153 ml/min; Estimated Glomerular Filt Rate > 60; Glucose 169 mg/dL (65-110); Lipase 26 U/L (23-300); Potassium 3.6 mmol/L (3.4-5.0); Sodium 136 mmol/L (137-145)
[2023-06-25 11:14] LABS: Partial Thromboplastin Time 37.6 Seconds (22.3-36.8)
[2023-06-25 11:21] LABS: Troponin I < 0.012 ng/mL (0.000-0.034)
[2023-06-25 12:12] VITALS: BP 111/75; PULSE 89; RESP 18; TEMP 36.6; O2SAT 99
== END 2023-06-25 12:21 | disposition home or self-care (01) ==
PROVIDERS: Emergency Provider Emergency Medicine; PCP Internal Medicine
DX: F41.1 Generalized anxiety disorder (principal); F32.A Depression, unspecified; J44.9 Chronic obstructive pulmonary disease, unspecified; Z86.718 Personal history of other venous thrombosis and embolism; Z87.442 Personal history of urinary calculi
CPT/HCPCS: 36415; 70450; 71046; 80053; 83690; 84484; 85025; 85610; 85730; 93005; 99284

== ENCOUNTER 2023-07-21 10:22 | Outpatient (CLI) | payer OTHER, SELFPAY ==
[2023-07-21 10:40] VITALS: PULSE 96; O2SAT 92
[2023-07-21 10:43] VITALS: PULSE 113; O2SAT 86
[2023-07-21 10:44] VITALS: O2SAT 87
[2023-07-21 10:46] VITALS: PULSE 118; O2SAT 90
[2023-07-21 10:55] VITALS: PULSE 91; O2SAT 93
--- NOTE | 2023-07-21 12:01 | HOMEO2EVAL ---
Evaluation was performed at [facility] Home Oxygen Evaluation RC: Home Oxygen (O2) Evaluation Start: 07/21/23 11:58 Freq: Status: Active Protocol: RPE Activity Type Activity Date Activity User E-sign Co-sign Detail Recorded Client Recorded Date Recorded By Document 07/21/23 10:40 GABRIELE [email or web address] 07/21/23 12:01 GABRIELE Document 07/21/23 10:43 GABRIELE [email or web address] 07/21/23 12:01 GABRIELE Document 07/21/23 10:44 GABRIELE [email or web address] 07/21/23 12:01 GABRIELE Document 07/21/23 10:46 GABRIELE [email or web address] 07/21/23 12:01 GABRIELE Document 07/21/23 10:55 GABRIELE [email or web address] 07/21/23 12:01 GABRIELE 07/21/23 07/21/23 07/21/23 10:40 10:43 10:44 Home O2 Evaluation [Oxygen] -Test Phase Resting Exercise Exercise -Oxygen Delivery Room Air Room Air Nasal Cannula -Oxygen Flow Rate (L/min) 1 [Pulse Oximetry] -Pulse Oximetry (90-100 %) 92 86 L 87 L [Pulse Rate] -Pulse Rate (60-100 beats/min) 96 113 H [Comments] -Home Oxygen Evaluation Comments [Charges] -Evaluation Charges O2 Evaluation by Pulmonary 07/21/23 07/21/23 10:46 10:55 Home O2 Evaluation [Oxygen] -Test Phase Exercise Resting -Oxygen Delivery Nasal Cannula Room Air -Oxygen Flow Rate (L/min) 2 [Pulse Oximetry] -Pulse Oximetry (90-100 %) 90 93 [Pulse Rate] -Pulse Rate (60-100 beats/min) 118 H 91 [Comments] -Home Oxygen Evaluation Comments Pt requires 2 L home O2 with activity [Charges] -Evaluation Charges
--- NOTE | 2023-07-21 12:02 | PCRCNOTE ---
Home O2 eval faxed to office staff, increase in needs from 1 l with activity to 2 l with activity
--- NOTE | 2023-07-21 14:03 | WPDPFTINT ---
PFT Procedure Performed PFT Procedure Performed Spirometry with Pre/Post Bronchodilator Plethysmography (Lung Vol) Diffusing Cap (DLCO) Flow Vol Loop PFT Interpretation This is a pulmonary function test with pre and post-bronchodilator spirometry, plethysmography and diffusing capacity. The test was performed and results interpreted in accordance with the 2019 and 2005 ATS/ERS Task Force guidelines respectively using the Global Lung Function Initiative-2012 reference equations. Patient demonstrated good effort and cooperation. Reproducibility criteria were met. The quality of the pre bronchodilator spirometry maneuver was Grade A and post bronchodilator spirometry maneuver was Grade A. Findings: Spirometry: There is decreased maximal expiratory airflow at all lung volumes with concave expiratory flow tracing. The contour the inspiratory flow tracing is normal. The pre bronchodilator FVC is 2.07 L, 68% predicted. The pre bronchodilator FEV1 is 0.59 L, 24% predicted. The pre bronchodilator FEV1: FVC ratio is 28%. The post bronchodilator FVC is 2.11 L, representing a 2% increase. The post bronchodilator FEV1 is 0.62 L, representing a 5% increase. The post bronchodilator FEV1: FVC ratio is 29%. Plethysmography: The total lung capacity is 5.38 L, 117% predicted. The functional residual capacity is 3.96 L, 115% predicted. The residual volume is 2.99 L, 178% predicted. The residual volume: Total lung capacity ratio is 56%. Diffusing capacity: The diffusing capacity unadjusted for hemoglobin and carboxyhemoglobin is 5.6, 26% predicted. The diffusing capacity adjusted for alveolar volume is 2.32, 49% predicted. Impression: There is a very severe obstructive abnormality. There is no significant improvement after inhaling a single dose of albuterol. The increase in residual volume to total lung volume ratio is consistent with hyperinflation from an obstructive abnormality. The diffusing capacity unadjusted for hemoglobin and carboxyhemoglobin is severely decreased and remains moderately decreased when adjusted for alveolar volume. There are no prior studies for comparison
== END 2023-07-21 10:23 | disposition home or self-care (01) ==
LOC: ANHPFT 10:24
PROVIDERS: PCP Internal Medicine; Visit Provider Internal Medicine Critical Care Medicine
DX: J44.9 Chronic obstructive pulmonary disease, unspecified (principal); Z99.81 Dependence on supplemental oxygen; R94.2 Abnormal results of pulmonary function studies
CPT/HCPCS: 94060; 94618; 94726; 94729

== ENCOUNTER 2023-11-28 13:30 | Outpatient (RCR) | payer OTHER, SELFPAY ==
[2023-08-01 09:24] VITALS: PULSE 82
== END 2023-11-28 23:59 | disposition home or self-care (01) ==
LOC: ANHCPREHAB 13:30
PROVIDERS: PCP Internal Medicine; Visit Provider Internal Medicine Critical Care Medicine
DX: J44.9 Chronic obstructive pulmonary disease, unspecified (principal)
CPT/HCPCS: 94625

== ENCOUNTER 2023-12-29 13:30 | Outpatient (RCR) | payer OTHER, SELFPAY | END 2024-03-18 07:44 | disposition home or self-care (01) | LOC: ANHCPREHAB 13:30 | PROVIDERS: PCP Internal Medicine; Visit Provider Internal Medicine Critical Care Medicine | DX: J44.9 Chronic obstructive pulmonary disease, unspecified (principal) | CPT/HCPCS: 94625 ==

== ENCOUNTER 2024-06-16 12:04 | Emergency (ER) | payer OTHER, SELFPAY ==
[2024-06-16] VITALS (11 sets, daily range): BP systolic 95–142; BP diastolic 58–95; PULSE 67–84; RESP 12–22; TEMP 36.5–36.7; O2SAT 93–98
--- NOTE | ~2024-06-16 | XR_ITS ---
CHEST RADIOGRAPH, PA AND LATERAL CLINICAL HISTORY: chest pain . COMPARISON: 06/25/2023 TECHNIQUE: PA and lateral views of the chest. FINDINGS The cardiomediastinal silhouette is unremarkable. The lungs are clear. Improved aeration when compared with previous examination dated 06/25/2023 IMPRESSION: No focal infiltrate or effusion. Reviewed, dictated and finalized at location A.
--- OUTSIDE RECORDS SUMMARY | 2024-06-16 12:07 | XMS_ITS ---
Author Organization [facility] Address [address] [place] [address] Care Team Providers Care Radiation Protection Specialist Name Role Phone Aroldo Salvador Primary Care Provider Alfredo Godinez Unavailable [phone] May Hernandez Unavailable [phone] Medications Medication SIG (Take, Route, Fr equency, Duration) Notes Start Date End Date Status hydrOXYzine HCl 25 MG 1-2 tablets Orally at bedtime for 30 days As needed 02/06/2024 Active PARoxetine HCl 10 MG 1 tablet in the mor nathanael Orally Once a day for 30 days 02/09/2023 Active Social History Sex Assigned At : Social History Observation Description Sex Assigned At Female Encounters Encounter Location Date Provider Diagnosis [facility] [address] [place] [address] 02/06/2024 May Hernandez Major depression F32.9 Assessments Encounter Date Diagnosis (ICD Code) Assessment Notes Treatment Notes Treatment Clinical Notes Section Notes 02/06/2024 Major depression (ICD-10 - F32.9) Plan Of Treatment Medication Medication Name Sig Start Date Stop Date Notes hydrOXYzine HCl 25 MG 1-2 tablets Orally at bedtime for 30 days 02/06/2024 PARoxetine HCl 10 MG 1 tablet in the mor nathanael Orally Once a day for 30 days 02/09/2023 Progress Notes * Joya BALDERRAMA ADOB:[birth year] (53 yo F)Acc No.[id number]:02/06/2024 Patient: Joya JAY :1970 A ge:53 Y S ex:Female Address:[address] [place] [address], [id number] * Refills Start PARoxetine HCl Tablet, 10 MG, Orally, 30 Tablet, 1 tablet in the morning, Once a day, 30 days, Refills=0 Start hydrOXYzine HCl Tablet, 25 MG, Orally, 60, 1-2 tablets, at bedtime, 30 days, Refills=0 * true * Date: Generated for Cong shepard/Chloe/Akshatitting on: 0 06/16/2024 12:07 PM CDT
--- OUTSIDE RECORDS SUMMARY | 2024-06-16 12:07 | XMS_ITS | CONTINUITY OF CARE DOCUMENT ---
Author Name sandy delgado Address Unknown Organization [facility] Address [address] [place] [address] Phone [phone] Care Team Providers Care Contingents Supervisor Name Role Phone sandy delgado Unavailable Unavailable INSURANCE PROVIDERS Payer name Policy type / Coverage type [place] red [employer] Medicaid 0 [id number]
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
--- OUTSIDE RECORDS SUMMARY | 2024-06-16 12:07 | XMS_ITS | Patient Health Record ---
Author Organization [facility], [facility] Address [address] [place] [address] Care Team Providers Care Lan Support Specialist Name Role Phone Bertram Galindo Unavailable [phone] Reason For Referral No Information Medications Medication SIG (Take, Route, Fr equency, Duration) Notes Start Date End Date Status [place] 5-325mg take 1 tablet by ora ORAL 06/30/2014 Active KlonoPIN 0.5mg take 1 Tablet by ora ORAL 5 Active Problems Problem Type SNOMED Code ICD Code Onset Dates Problem Status W/U Status Risk Notes Problem Viral hepatitis type C (17550329) Unspecified viral hepatitis C without hepatic coma (070.70) 0 confirmed Prince Problem Acute alcoholic intoxication in alcoholism (912204750) Other and unspecified alcohol dependence, unspecified drunkenness (303.90) 0 confirmed Prince Problem Nondependent mixed drug abuse (142267595) Other, mixed, or unspecified nondependent drug abuse, unspecified (305.90) 0 confirmed Prince Problem Exposure to sexually transmissible disorder (event) (984899961) Contact with or exposure to venereal diseases (V01.6) 0 confirmed Prince Plan Of Treatment No Information Insurance Providers Payer Name Payer Address Payer Phone Subscriber Number Group Number Insured Name Patient Relationship to Insured Coverage Start Date Coverage End Date [facility] [address] [phone] [id number] Joya De Leon Self - patient is the insured
--- NOTE | 2024-06-16 12:09 | ECG_ITS ---
Test Date: 2024-06-16 12:14:51 Measurements Intervals Orestes Rate: 76 P: 79 NM: 135 QRS: 78 QRSD: 84 T: 74 QT: 386 QTc: 434 Interpretive Statements SINUS RHYTHM No previous ECG available for comparison Electronically Signed On 06-16-2024 13:36:28 CDT by Evita Dumont M.D.
[2024-06-16 12:30] LABS: Eosinophils Absolute Auto 0.1 K/mm3 (0-0.3); Eosinophils Percent Auto 2.4 % (0-4.4); Hematocrit 44.3 % (37.0-47.0); Hemoglobin 14.4 g/dL (12.0-15.0); Immature Granulocyte Absolute 0.01 K/mm3 (0.00-0.031); Immature Granulocyte Percent A 0.3 % (0-0.5); Immature Platelet Fraction Pct 8.8 % (0.9-11.2); Lymphocytes Absolute Auto 0.56 K/mm3 (0.9-3.2); Mean Corpuscular HGB Conc 32.5 g/dl (32-36); Mean Corpuscular Hemoglobin 31.2 pg (26-34); Mean Corpuscular Volume 95.9 fl (80-100); Mean Platelet Volume 11.5 fl (7.4-10.4); Monocytes Absolute Auto 0.3 K/mm3 (0.1-0.6); Monocytes Percent Auto 9.5 % (2.6-8.5); Neutrophils Percent Auto 67.8 % (45.5-73.1); Platelet Count Result 113 k/mm3 (150-375); Red Blood Count 4.62 M/mm3 (4.2-5.4); Red Cell Distribution Width 13.2 % (11.5-14.5); White Blood Count 2.9 K/mm3 (4.5-10.0)
[2024-06-16 12:37] LABS: Alanine Aminotransferase 15 U/L (6-35); Albumin Level 4.4 g/dL (3.5-5.1); Alkaline Phosphatase 86 U/L (38-126); Anion Gap 8 mmol/L (4-12); Aspartate Amino Transferase 23 U/L (14-36); Bilirubin,Total 0.5 mg/dL (0.2-1.3); Blood Urea Nitrogen 8 mg/dL (7-17); Calcium 9.3 mg/dL (8.4-10.2); Carbon Dioxide 31 mmol/L (22-30); Chloride 99 mmol/L (98-107); Estimated CRCL calculation 66 ml/min; Estimated Glomerular Filt Rate > 60; Glucose 90 mg/dL (65-110); Lipase 41 U/L (23-300); Sodium 138 mmol/L (137-145)
[2024-06-16 12:45] LABS: INR 0.9; Partial Thromboplastin Time 28.5 Seconds (22.3-36.8); Prothrombin Time 12.7 Seconds (11.1-14.7)
[2024-06-16 12:49] LABS: Troponin I < 0.012 ng/mL (0.000-0.034)
--- NOTE | 2024-06-16 15:08 | ED.CHESTPAIN ---
HPI - Chest Pain General Chief Complaint: Chest Pain Stated Complaint: chest pain x4d Time Seen by Provider: 06/16/24 15:07 Source: patient Mode of arrival: ambulatory Limitations: no limitations History of Present Illness HPI narrative: 53 YEARS OLD WHITE FEMALE CAME TO THE ED WITH LEFT CHEST ACHING AND DISCOMFORT STARTED 4 DAYS AGO, IS STEADY, DENIES AGGRAVATING OR RELIEVING FACTORS, FEVER, CHILLS, NAUSEA, VOMITING, SHORTNESS OF BREATH. Related Data Home Medications ?Medication ?Instructions ?Recorded ?Confirmed ?Last Taken ?Type aspirin 81 mg capsule 81 mg PO DAILY 06/21/22 09/06/23 03/27/23 History fluticasone propionate 50 1 spray intranasal DAILY PRN 03/28/23 09/06/23 03/28/23 History mcg/actuation nasal Dryness spray,suspension nitroglycerin 0.4 mg sublingual 0.4 mg sublingual Q5MIN 03/28/23 09/06/23 Unknown History tablet Allergies Allergy/AdvReac Type Severity Reaction Status Date / Time bee venom protein (honey bee) Allergy Intermediate BREATHING Verified 06/16/24 12:05 DIFFICULTY Review of Systems Review of Systems: All systems reviewed & are unremarkable except as noted in HPI and below PMFSH Past Medical History Medical History Tobacco dependence Deep venous thrombosis (2007) Polysubstance abuse Hepatitis C virus infection cured after antiviral drug therapy Emphysematous COPD Agoraphobia Depression Anxiety Surgical History Surgical History History of section Family History Family History Mother Cystic fibrosis Congestive heart failure Father Acute myocardial infarction Congestive heart failure Social History Social History Social History: Currently staying with her boyfriend in a trailer. She has 2 children, a son and daughter. Not currently working. She smoked a pack of cigarettes a day since she was a teenager and quit lastly. She is recovering alcoholic but has not drank heavily since her late 20s. She has a history of IV drug use many years ago but has been sober since April 2022. Surrogate decision maker: Marielenalucie Hannah (daughter). Code status: Full code Smoking packs per day: 1 Smoking cigarettes per day: 20.0 Years smoked: 37 Smoking pack-years: 37.00 Smoking status: Former smoker Tobacco type: cigarettes Second hand tobacco smoke exposure: Yes (significant other) Smoking end date: 04/28/22 Alcohol intake: never Substance use: never Substance use type: does not use Other substance usage details: fentanyl Do You Feel Safe in your Home?: No Lack of Transportation: YES Lack of Food: Sometimes True Current Housing: I Have Housing Concerned About Future Housing: YES Difficulty Paying Gas/Electric Bills: YES Difficulty Paying for Meds: No Currently Unemployed: No Education: High School Diploma/GED Difficulty w/ Childcare or Family Care: No Living arrangements: other Additional living arrangements comments: significant other Occupation/Education: unemployed Spiritual care concerns: No Exam Narrative: CONSTITUTIONAL: DENIES FEVER, CHILLS, OR SWEATS. EYES: DENIES VISUAL CHANGES, REDNESS, OR DISCHARGE. ENT: DENIES RHINORRHEA, CONGESTION, SORE THROAT, OR OTALGIA. CARDIOVASCULAR: DENIES CHEST PAIN, PALPITATIONS, OR EDEMA. RESPIRATORY: DENIES COUGH OR DYSPNEA. GASTROINTESTINAL: DENIES ABDOMINAL PAIN, NAUSEA, VOMITING, OR DIARRHEA. GENITOURINARY: DENIES DYSURIA OR HEMATURIA. SKIN: LEFT UPPER CHEST AND LEFT UPPER BACK RASH. MUSCULOSKELETAL: DENIES BACK PAIN, JOINT PAIN, OR MYALGIA. NEUROLOGIC: DENIES HEADACHE, NUMBNESS, OR WEAKNESS. PSYCHIATRIC: DENIES ANXIETY OR DEPRESSION. Course Vital Signs Vital signs: Vital Signs Temperature 36.7 C 06/16/24 12:23 Pulse Rate 72 06/16/24 12:23 Respiratory Rate 15 06/16/24 12:23 Blood Pressure 131/77 06/16/24 12:23 Pulse Oximetry 96 06/16/24 12:23 Temperature 36.5 C 06/16/24 12:26 Pulse Rate 70 06/16/24 17:04 Respiratory Rate 17 06/16/24 17:04 Blood Pressure 125/95 H 06/16/24 16:03 Pulse Oximetry 93 06/16/24 17:04 Oxygen Delivery Room Air 06/16/24 15:09 MDM - Chest Pain MDM Narrative Medical decision making narrative: PATIENT PRESENTS WITH LEFT CHEST PAIN, STEADY FOR THE LAST 4 DAYS VITAL SIGNS ARE STABLE PHYSICAL EXAMINATION SHOWING RASH AT THE LEFT CHEST AND LEFT UPPER BACK AND LEFT ARM BED CONSISTENT WITH SHINGLES DIFFERENTIAL DIAGNOSIS SHINGLES, LESS LIKELY CORONARY ARTERY DISEASE, PNEUMONIA, PLEURISY, CHEST WALL MUSCLE PAIN BLOOD WORKUP TODAY INCLUDES CBC, CMP, TROPONIN SHOWED NO WBC OF 2.9 CONSISTENT WITH VIRAL INFECTION, PLATELET 113, D-DIMER 0.76, OTHERWISE WITHIN NORMAL LIMIT CHEST X-RAY SHOWED NO ACUTE ABNORMALITIES EKG SHOWED NORMAL SINUS RHYTHM, NO PREVIOUS EKG AVAILABLE FOR COMPARISON DIAGNOSIS IS SHINGLES DISCHARGED ON VALTREX, COMMON LOTION [id number], TYLENOL, IBUPROFEN NEEDED THE PT WAS DISCHARGED TO HOME.THE PT,S CONDITION UPON DISCHARGE WAS FAIR,EDUCATION WAS PROVIDED TO THE PT IN REFERENCE TO THE FINAL IMPRESSION,DISCHARGE STUDY RESULTS,TREATMENT,PROGNOSIS AND NEED FOR FOLLOW UP . Differential Diagnosis Differential diagnosis: Likely other ( ABOVE) Medical Records Data Attestation: I reviewed the patient's medical records. Lab Data Attestation: I reviewed the patient's lab results. 06/16/24 12:21 06/16/24 12:21 Labs: Lab Results 06/16/24 06/16/24 Range/Units 12:21 15:41 WBC 2.9 L (4.5-10.0) K/mm3 RBC 4.62 (4.2-5.4) M/mm3 Hgb 14.4 (12.0-15.0) g/dL Hct 44.3 (37.0-47.0) % MCV 95.9 (80-100) fl MCH 31.2 (26-34) pg MCHC 32.5 (32-36) g/dl RDW 13.2 (11.5-14.5) % Plt Count 113 L (150-375) k/mm3 MPV 11.5 H (7.4-10.4) fl Immature Gran % (Auto) 0.3 (0-0.5) % Neut % (Auto) 67.8 (45.5-73.1) % Lymph % (Auto) 19.0 (18.3-44.2) % Haakon % (Auto) 9.5 H (2.6-8.5) % Eos % (Auto) 2.4 (0-4.4) % Baso % (Auto) 1.0 (0.2-1.2) % Lymph # (Auto) 0.56 L (0.9-3.2) K/mm3 Haakon # (Auto) 0.3 (0.1-0.6) K/mm3 Eos # (Auto) 0.1 (0-0.3) K/mm3 Baso # (Auto) 0.0 (0.0-0.1) K/mm3 Abs Immat Gran (auto) 0.01 (0.00-0.031) K/mm3 Absolute Neuts (auto) 2.0 (1.3-6.7) K/mm3 Absolute Nucleated RBC 0.000 (0.0-0.012) K/mm3 Nucleated RBC % 0.0 (0.0-0.2) % % Immature Plt Fraction 8.8 (0.9-11.2) % PT 12.7 (11.1-14.7) Seconds INR 0.9 APTT 28.5 (22.3-36.8) Seconds D-Dimer 0.76 H (<0.48) ug/mL Sodium 138 (137-145) mmol/L Potassium 4.0 (3.4-5.0) mmol/L Chloride 99 (98-107) mmol/L Carbon Dioxide 31 H (22-30) mmol/L Anion Gap 8 (4-12) mmol/L BUN 8 (7-17) mg/dL Creatinine 0.64 L (0.7-1.0) mg/dL Estim Creat Clear Calc 66 ml/min Estimated GFR > 60 (59 - ) Glucose 90 (65-110) mg/dL Calcium 9.3 (8.4-10.2) mg/dL Total Bilirubin 0.5 (0.2-1.3) mg/dL AST 23 (14-36) U/L ALT 15 (6-35) U/L Alkaline Phosphatase 86 (38-126) U/L Troponin I < 0.012 < 0.012 (0.000-0.034) ng/mL Total Protein 7.0 (6.3-8.2) g/dL Albumin 4.4 (3.5-5.1) g/dL Lipase 41 (23-300) U/L Imaging Data Radiologist's impression: Impressions Chest X-Ray 06/16/24 13:53 IMPRESSION: No focal infiltrate or effusion. ECG Data EKG #1: Attestation: I personally reviewed and interpreted this ECG as follows: ECG completion date: 06/16/24 ECG completion time: 17:35 Interpretation: NORMAL SINUS RHYTHM AT 76 BEATS PER MINUTE, NO PREVIOUS EKG AVAILABLE FOR COMPARISON Critical Care Time Critical Care Time Critical Care Time: No Discharge Plan Discharge Clinical Impression: Gabrieleramirezgeorge Patient Disposition: Home, Self-Care Condition: Stable Instructions: Charles (ED) Additional Instructions: RETURN IF SYMPTOMS ARE WORSENING , CALL YOUR FAMILY PHYSICIAN FOR APPOINTMENT, TAKE TYLENOL, IBUPROFEN NEEDED FOR ACHES AND PAIN, CONTINUE HOME MEDICATIONS. [id number] CALAMINE LOTION Patient Language: Italian Prescriptions: New valacyclovir [Valtrex] 1 gram tablet 1,000 mg PO Q8H Qty: 21 0RF No Action fluticasone fur. 100 mcg-umeclid 62.5 mcg-vilant 25 mcg inhalat.powder 100-62.5-25 mcg blister with device 0RF aspirin 81 mg Capsule 81 mg PO DAILY albuterol sulfate 90 mcg/actuation aero powdr breath act w/sensor 1 inh inhalation Q4-6H PRN (Reason: shortness of breath or wheezing) Qty: 1 0RF nitroglycerin 0.4 mg tablet, sublingual 0.4 mg sublingual Q5MIN MDD 3 fluticasone propionate 50 mcg/actuation [place],Suspension 1 spray INTRANASAL DAILY PRN (Reason: Dryness) guaifenesin [Mucus Relief ER] 600 mg Tablet Extended Release 12hr 600 mg PO Q12HR Qty: 30 0RF clonazepam 1 mg tablet 1 mg PO DAILY PRN (Reason: Anxiety) Qty: 7 0RF [place] Nasal 0.65 % aerosol,spray 2 spray intranasal Q4H PRN (Reason: nasal congestion) Qty: 44 0RF Serevent Diskus 50 mcg/dose blister with device 2 inh inhalation Q12H Qty: 60 5RF Rx Instructions: Rinse and spit after use. Anoro Ellipta 62.5-25 mcg/actuation blister with device 1 inh inhalation Q24H 30 Days Qty: 60 5RF estradiol 0.01 % (0.1 mg/gram) cream 1 g vaginal 2XW PRN (Reason: Pain) Qty: 42.5 0RF Follow-up/Referrals: Aroldo Salvador MD [Primary Care Provider] - Quality HEART score for chest pain patients History: slightly suspicious ECG: normal Age: > 45 and < 65 years Risk factors: 1 or 2 risk factors Troponin: < or = to 1x normal limit Heart score: 2
--- NOTE | 2024-06-16 15:13 | ECG_ITS ---
Test Date: 2024-06-16 15:16:31 Measurements Intervals Norris Rate: 65 P: 82 MI: 146 QRS: 79 QRSD: 92 T: 76 QT: 415 QTc: 434 Interpretive Statements SINUS RHYTHM WITH SINUS ARRHYTHMIA Compared to ECG 06/16/2024 12:14:51 No significant changes Electronically Signed On 06-17-2024 16:33:33 CDT by Gilmer Barrientos M.D.
--- NOTE | 2024-06-16 15:25 | PC.NURSE ---
stuck patient x2 for 3 hour troponin level. patient is difficult draw, JUAREZ Browne notified and will try to obtain blood sample.
--- OUTSIDE RECORDS SUMMARY | 2024-06-16 15:26 | XMS_ITS | Patient Health Record ---
Author Organization [facility] Address [address] [place] [address] Care Team Providers Care Client Solutions Specialist Name Role Phone Madeleine Aroldo Primary Care Provider Alfredo Godinez Unavailable [phone] May Hernandez Unavailable [phone] Lauerl Rangel Unavailable [phone] Allergies No Known Allergies Reason For Referral No Information Medications Medication SIG (Take, Route, Frequency, Duration) Notes Start Date End Date Status Levalbuterol HCl 0.63 MG/3ML 3 mL as needed Inhalation every 6 hrs shortness of breath Active Albuterol Sulfate HFA 108 (90 Base) MCG/ACT 2 puff Inhalation every 4 hrs shortness of breath Active Mometasone Furo-Formoterol Fum 50-5 MCG/ACT 2 puffs Inhalation Twice a day 05/08/2023 Active hydrOXYzine HCl 25 MG 1-2 tablets Orally at bedtime for 30 days As needed 02/06/2024 Active LORazepam 0.5 MG 1 tablet Orally twice a day As needed anxiety Not-Taking Aspirin 81 81 MG 1 tablet Orally Once a day Active PARoxetine HCl 10 MG 1 tablet in the mor nathanael Orally Once a day for 30 days 02/09/2023 Active Immunizations Vaccine Route Administration Date Status Comme nts Tdap IM Intramuscular 11/05/2020 Administered Pt ricardo erated injection well. Pt voiced no questions or concerns. Social History Tobacco Use: Social History Observation Description Date Details (start date - stop date) Never Smoker NA - NA Sex Assigned At : Social History Observation Description Sex Assigned At Female Dont use, Tobacco Use/Smoking Question Answer Notes Are you a former smoker When did you start smoking? 03/27/2023 Alcohol Screen (Audit-C) Question Answer Notes Did you have a drink containing alcohol in the p ast year? No Tobacco Control (Standard) Question Answer Notes Tobacco use: Nonsmoker Section Notes: Problems Problem Type SNOMED Code ICD Code Onset Dates Problem Status W/U Status Risk Notes Problem Tobacco user (511110831) Nicotine dependence, unspecified, uncomplicated (F17.200) Active confirmed Problem 192964466 Migraine without aura, not intractable, without status migrainosus (G43.009) Active confirmed Problem 2995395596293 Chronic obstructive pulmonary disease with (acute) exacerbation (J44.1) Active confirmed Problem 098533398 Unspecified asth ma with (acute) exacerbation (J45.901) Active confirmed Problem 949312969 Other intermodal dispatcher (current) drug therapy (Z79.899) Active confirmed Problem Insomnia (663179767) Insomnia (G47.00) Active confirmed Problem Anxiety (59495187) Anxiety (F41.9) 020 Active confirmed Problem Generalized anxiety disorder (31435677) RAHEEM (generalized anxiety disorder) (F41.1) Active confirmed Problem 961246691 Panic disorder (F41.0) Active confirmed per history Problem 695623329 Hepatitis C antibody test positive (R76.8) Active confirmed Problem Bipolar disorder (53166592) Bipolar disorder (F31.9) 021 Active confirmed Problem 65408619 Chronic fatigue (R53.82) Active confirmed Problem Physical examination, complete (27661214) Physical exam (Z00.00) Active confirmed Problem Tobacco user (692511670) Cigarette nicotine dependence without complication (F17.210) Active confirmed Problem Major depressive disorder (838454513) MDD (major depressive disorder) (F32.9) Active confirmed Problem Gastroesophageal reflux disease (586269177) Gastroesophageal reflux disease, esophagitis presence not specified (K21.9) Active confirmed Problem 93750376 Chronic obstructive pulmonary disease, unspecified COPD type (J44.9) Active confirmed Problem 98381094 Dysphagia, unspecified type (R13.10) Active confirmed Problem Adjustment disorder (95430557) Trauma and stressor-related disorder (F43.9) Active confirmed Problem Tobacco use (593294027) Tobacco use disorder (F17.200) Active confirmed Problem 31818553 Oropharyngeal dysphagia (R13.12) Active confirmed Problem Mental disorder caused by drug (418513625) Opioid use disorder (F11.99) Active confirmed Problem 28536915 Myalgia (M79.10) 019 Active confirmed Problem 526660195 History of drug abuse (F19.11) Active confirmed Vital Signs Heart Rate 88 /min 01/23/2024 Respiratory Rate 16 /min 01/23/2024 Blood pressure diastolic 80 mm Hg 01/23/2024 Oximetry 93 % 01/23/2024 Height 61 in 01/23/2024 Blood pressure systolic 122 mm Hg 01/23/2024 Weight 114.2 lbs 01/23/2024 BMI 21.58 kg/m2 01/23/2024 Encounters Encounter Location Date Provider Diagnosis [facility] [address] [place] [address] 08/11/2023 Aroldo Salvador Chronic obstructive pulmonary disease with (acute) exacerbation J44.1 and Nicotine dependence, unspecified, uncomplicated F17.[address] [place] [address] 01/23/2024 Aroldo Salvador 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 and Leg cramps R25.2 [facility] [address], [place] [address] 02/06/2024 May Hernandez RAHEEM (generalized anxiety disorder) F41.1 ; MDD (major depressive disorder) F32.9 and Insomnia G47.00 [facility] [address], [place] [address] 10/04/2023 Aroldo Salvador [facility] [address], [place] [address] 01/22/2024 Aroldo Salvador [facility] [address], [place] [address] 01/23/2024 Laurel Rangel [facility] [address], [place] [address] 02/06/2024 May Hernandez Major depression F32.9 Assessments Encounter Date Diagnosis (ICD Code) Assessment Notes Treatment Notes Treatment Clinical Notes Section Notes 01/23/2024 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 AVOID JAW CLAMPING AND TEETH GRINDING. 02/06/2024 RAHEEM (generalized anxiety disorder) (ICD-10 - F41.1) 02/06/2024 MDD (major depressive disorder) (ICD-10 - F32.9) Restart Paroxetine. Antidepressant education - reviewed side effects which may include increased risk of suicide, anxiety, sleep disturbance, nausea, dry mouth, increased bruising, sexual dysfunction, igor, wt gain, and serotonin syndrome. Call for problems with medication, side effects or need for dosage change. 02/06/2024 Major depression (ICD-10 - F32.9) 08/11/2023 Nicotine dependence, unspecified, uncomplicated (ICD-10 - F17.200) 08/11/2023 Chronic obstructive pulmonary disease with (acute) exacerbation (ICD-10 - J44.1) 01/23/2024 Leg cramps (ICD-10 - R25.2) BEDTIME STRETCHES AND PRN SUGAR FREE TONIC WATER 1/2-1 CUP 02/06/2024 Insomnia (ICD-10 - G47.00) Begin hydroxyzine. Take as prescribed. Reviewed purpose (reduce anxiety and/or promote sleep), benefits, and risks - including sedation and dry mouth. Call for problems with medication, side effects or need for dosage change. 02/06/2024 Other May self-administer medications or be administered own oral medications per [place] protocols. Provided informed consent with understanding of [...] May Hernandez PMHNP-BC to: [x] consider utilizing therapist/counselor /outreach and education social worker/psychologist , referral given [] continue with therapist/counselor /outreach and education social worker/psychologist Psychoeducation: -Treatment options discussed in detail with patient/guardian verbalizing understanding of treatment rationales. -Side effects and benefits of all medications prescribed discussed at length between psychiatric prescribing provider and patient/guardian along with the risks associated of [id number] interactions, including but not limited to prescription [...] engaged in treatment plan with May Hernandez [facility]. -Perceiving complete understanding of rationale by patient/guardian and willingness to adhere to formulated plan of care by prescriber with patient/guardian buy-in, willingness to participate actively in plan of care and willing to take charge of own care. -Although geared for female patients, all patients/guardians are informed by prescribing provider of risks of medications that could potentially be taken by female/women within their [place] of influence and that women who use [...] a should occur, to consult with provider, FELT MACHINE MECHANIC and/or Nurse Bus And Trolley Dispatcher to determine if prescribed medications should or should not be continued. -Instructions regarding both the medical/pharmacolog ical and non-pharmacologic aspects of the treatments employed [...] handling stress, was discussed. Plan Of Treatment No Information Insurance Providers Payer Name Payer Address Payer Phone Subscriber Number Group Number Insured Name Patient Relationship to Insured Coverage Start Date Coverage End Date [facility] Attn Claims Department [address] [address] [id number] Moises Joya Self - patient is the insured 9 [facility] [employer] [employer] Attn Claims Department [address] [address] [id number] CindyweslyStephanieJoya Self - patient is the insured 9 [employer] Attn Claims Department [address] [address] [id number] CindyweslyStephanieJoya Self - patient is the insured 0 [facility] [employer] [employer] [employer] Attn Claims Department [address] [address] [id number] Moises Joya Self - patient is the insured 2 Medical (General) History Medical History History ICD Code Anxiety Panic Hepatitis C GERD COPD substance abuse- heroine adenomatous colon polyp Addisons disease Surgical History Surgery Date(Month/Year) c section Hospitalization History Reason Date(Month/Year) Pneumonia 04/2022 Respiratory failure 04/2022 [place] - paranoia 07/03/2020 childhood hospitalizations for behaviors
--- OUTSIDE RECORDS SUMMARY | 2024-06-16 15:27 | XMS_ITS | CONTINUITY OF CARE DOCUMENT ---
Author Name sandy delgado Address Unknown Organization [facility] Address [address] [place] [address] Phone [phone] Care Team Providers Care Software Developer Manager Name Role Phone sandy delgado Unavailable Unavailable INSURANCE PROVIDERS Payer name Policy type / Coverage type [place] red [employer] Medicaid 0 [id number]
[2024-06-16 15:29] LABS: D Dimer 0.76 ug/mL (<0.48)
[2024-06-16 16:13] LABS: Troponin I < 0.012 ng/mL (0.000-0.034)
== END 2024-06-16 17:38 | disposition home or self-care (01) ==
PROVIDERS: Emergency Medicine; Emergency Provider Emergency Medicine; PCP Internal Medicine
DX: B02.9 Zoster without complications (principal); Z79.82 Long term (current) use of aspirin; Z86.718 Personal history of other venous thrombosis and embolism; F41.8 Other specified anxiety disorders; Z87.891 Personal history of nicotine dependence
CPT/HCPCS: 36415; 71046; 80053; 83690; 84484; 85025; 85055; 85380; 85610; 85730; 93005; 99284

== ENCOUNTER 2024-08-01 19:08 | Inpatient (IN) | payer OTHER, SELFPAY ==
[2024-08-01] VITALS (32 sets, daily range): BP systolic 93–130; BP diastolic 55–90; PULSE 82–110; RESP 10–28; TEMP 36.9; O2SAT 85–100
--- NOTE | ~2024-08-01 | XR_ITS ---
EXAMINATION: XR chest 1V portable DATE: 08/05/2024 09:22 INDICATION: COPD TECHNIQUE: frontal view of the chest was obtained. COMPARISON: Chest radiograph and CT dated 08/01/2024 FINDINGS: Severe emphysema with increased lucency and architectural distortion in the bilateral upper lung zone s. No focal airspace opacities, pulmonary edema, pleural effusion or pneumothorax. The cardiomediasti nal silhouette is normal. Visualized bones and soft tissues are unremarkable. IMPRESSION: 1. Emphysema Reviewed, dictated and finalized at location A. IMPRESSION: 1. Emphysema
--- NOTE | ~2024-08-01 | XR_ITS ---
CHEST RADIOGRAPH, PA AND LATERAL CLINICAL HISTORY: sob . COMPARISON: 06/16/2024 TECHNIQUE: PA and lateral views of the chest. FINDINGS The cardiomediastinal silhouette is unremarkable. Hyperexpansion is present. The lungs are clear. IMPRESSION: No focal infiltrate or effusion. Reviewed, dictated and finalized at location A.
--- NOTE | ~2024-08-01 | CT_ITS ---
EXAMINATION: CTA chest PE protocol DATE: 08/01/2024 21:32 CDT INDICATION: Shortness of breath TECHNIQUE: Computed tomographic angiography (CTA) of the chest was performed with 100 mL Omnipaque-35 0 intravenous contrast. The dose-length product was 240.17 mGy-cm. Maximum intensity projection 3D-re constructions of the aorta and other arteries were constructed by the technologist on a separate work station. COMPARISON: 03/31/2023 FINDINGS/OBSERVATIONS: PULMONARY ARTERIES: No filling defect is identified within the main or proximal pulmonary artery. The main pulmonary artery is not enlarged. THORACIC AORTA: No aneurysmal dilatation or dissection is present. The great vessels are intact LUNGS: Severe panlobular bullous emphysematous disease is identified, consistent with patient's histo ry. MEDIASTINUM: No morphologically suspicious or pathologically enlarged lymph nodes are identified with in the mediastinum or bilateral axilla. BONES OF THE CHEST: No acute fracture. No significant degenerative disease. No lytic or blastic lesions. HEART: The heart is of normal size, without pericardial effusion. IMPRESSION: No pulmonary embolus. No thoracic aortic dissection. Severe panlobular bullous emphysema, as detailed above. Reviewed, dictated and finalized at location A.
--- NOTE | ~2024-08-01 | CT_ITS ---
Non-contrast Head CT History: CVA COMPARISON: 08/01/2024 Technique: Axial non-contrast imaging of the brain was performed. Dose reduction technique was used on this scan by utilizing automated exposure control and iterative reconstruction technique. The dose -length product (DLP) was 908.00 mGy-cm. Findings: There is no evidence of intracranial hemorrhage, mass lesion, or acute infarct. Brain par enchyma appears normal. The ventricles and subarachnoid spaces are normal in size. The calvarium ap pears normal. The visualized paranasal sinuses and mastoid air cells are clear. Impression: No significant abnormality seen. Reviewed, dictated and finalized at location . Impression: No significant abnormality seen.
--- NOTE | ~2024-08-01 | CT_ITS ---
History: Shortness of breath and altered mental status PROCEDURE: CT head without contrast. COMPARISON: 06/25/2023 TECHNIQUE: Axial imaging of the head performed from the skull base to the vertex without IV contrast. Sagittal a nd coronal reformations obtained. DLP: 605 mGy-cm FINDINGS: The ventricles are normal in size, shape and position. There is no mass, mass effect or midline shift. There is no abnormal extra-axial fluid collection or intracranial hemorrhage. Visualized paranasal sinuses are clear. The mastoid air cells are well aerated. No acute displaced fractures within the overlying cranium. Impression: No acute intracranial hemorrhage or suspicious mass effect. Reviewed, dictated and finalized at location A. Impression: No acute intracranial hemorrhage or suspicious mass effect.
--- OUTSIDE RECORDS SUMMARY | 2024-08-01 19:10 | XMS_ITS | Patient Health Record ---
Author Organization [facility], [facility] Address [address] [place] [address] Care Team Providers Care Electron Beam Welder Setter Name Role Phone Bertram Galindo Unavailable [phone] Reason For Referral No Information Medications Medication SIG (Take, Route, Fr equency, Duration) Notes Start Date End Date Status [place] 5-325mg take 1 tablet by ora ORAL 06/30/2014 Active KlonoPIN 0.5mg take 1 Tablet by ora ORAL 5 Active Problems Problem Type SNOMED Code ICD Code Onset Dates Problem Status W/U Status Risk Notes Problem Viral hepatitis type C (82384745) Unspecified viral hepatitis C without hepatic coma (070.70) 0 confirmed [place] Problem Acute alcoholic intoxication in alcoholism (064102732) Other and unspecified alcohol dependence, unspecified drunkenness (303.90) 0 confirmed [place] Problem Nondependent mixed drug abuse (491963891) Other, mixed, or unspecified nondependent drug abuse, unspecified (305.90) 0 confirmed [place] Problem Exposure to sexually transmissible disorder (event) (837431581) Contact with or exposure to venereal diseases (V01.6) 0 confirmed [place] Plan Of Treatment No Information Insurance Providers Payer Name Payer Address Payer Phone Subscriber Number Group Number Insured Name Patient Relationship to Insured Coverage Start Date Coverage End Date [facility] [address] [phone] [id number] Joya De Leon Self - patient is the insured
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
--- OUTSIDE RECORDS SUMMARY | 2024-08-01 19:11 | XMS_ITS | CONTINUITY OF CARE DOCUMENT ---
Author Name sandy delgado Address Unknown Organization [facility] Address [address] [place] [address] Phone [phone] Care Team Providers Care Catia Designer Name Role Phone sandy delgado Unavailable Unavailable INSURANCE PROVIDERS Payer name Policy type / Coverage type [place] red libertarian [employer]ILY [employer] Medicaid 0 [id number]
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
--- NOTE | 2024-08-01 19:18 | ECG_ITS ---
Test Date: 2024-08-01 19:20:05 Measurements Intervals [place] Rate: 87 P: 84 DE: 138 QRS: 80 QRSD: 86 T: 82 QT: 347 QTc: 419 Interpretive Statements SINUS RHYTHM POSSIBLE LEFT ATRIAL ENLARGEMENT [-0.1mV P-WAVE IN V1/V2] Compared to ECG 06/16/2024 15:16:31 Sinus arrhythmia no longer present Electronically Signed On 08-02-2024 12:08:29 CDT by Evita Dumont M.D.
--- OUTSIDE RECORDS SUMMARY | 2024-08-01 19:25 | XMS_ITS | CONTINUITY OF CARE DOCUMENT ---
Author Name sandy delgado Address Unknown Organization [facility] Address [address] [address] [place] [address] Phone [phone] Care Team Providers Care Surgical Assistant Name Role Phone sandy delgado Unavailable Unavailable INSURANCE PROVIDERS Payer name Policy type / Coverage type [place] red green party ID [employer] AND FAMILY SERVICES Medicaid 0 [id number]
[2024-08-01 19:49] LABS: Basophils Percent Auto 0.3 % (0.2-1.2); Hematocrit 44.7 % (37.0-47.0); Immature Granulocyte Absolute 0.01 K/mm3 (0.00-0.031); Immature Granulocyte Percent A 0.3 % (0-0.5); Immature Platelet Fraction Pct 10.9 % (0.9-11.2); Lymphocytes Absolute Auto 0.48 K/mm3 (0.9-3.2); Lymphocytes Percent Auto 14.6 % (18.3-44.2); Mean Corpuscular HGB Conc 31.3 g/dl (32-36); Mean Corpuscular Hemoglobin 30.8 pg (26-34); Mean Corpuscular Volume 98.5 fl (80-100); Mean Platelet Volume 11.9 fl (7.4-10.4); Monocytes Absolute Auto 0.3 K/mm3 (0.1-0.6); Monocytes Percent Auto 8.2 % (2.6-8.5); Neutrophils Absolute Auto 2.5 K/mm3 (1.3-6.7); Neutrophils Percent Auto 76.6 % (45.5-73.1); Platelet Count Result 124 k/mm3 (150-375); Red Blood Count 4.54 M/mm3 (4.2-5.4); Red Cell Distribution Width 13.2 % (11.5-14.5); White Blood Count 3.3 K/mm3 (4.5-10.0)
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
[2024-08-01 20:10] LABS: Alanine Aminotransferase 18 U/L (6-35); Albumin Level 4.2 g/dL (3.5-5.1); Alkaline Phosphatase 70 U/L (38-126); Anion Gap 8 mmol/L (4-12); Aspartate Amino Transferase 26 U/L (14-36); Bilirubin,Total 0.5 mg/dL (0.2-1.3); Blood Urea Nitrogen 9 mg/dL (7-17); Carbon Dioxide 33 mmol/L (22-30); Chloride 96 mmol/L (98-107); Estimated CRCL calculation 99 ml/min; Estimated Glomerular Filt Rate > 60; Glucose 119 mg/dL (65-110); Potassium 3.7 mmol/L (3.4-5.0); Sodium 137 mmol/L (137-145)
[2024-08-01] MEDS: IPRATROPIUM 0.5 MG/ALBUTEROL SULFATE 2.5 MG AMPUL.NEB 3 ML INHALATION ×3 (20:16→20:17)
[2024-08-01] MEDS: methylPREDNISolone SOD SUCC 125 MG VIAL IV PUSH (20:16)
[2024-08-01] MEDS: SODIUM CHLORIDE 0.9% IV 1,000 ML 999 ML IV CONT (20:17)
[2024-08-01 20:30] LABS: Creatine Kinase 34 U/L (30-135); Magnesium 1.9 mg/dL (1.6-2.3)
[2024-08-01 20:43] LABS: Troponin I < 0.012 ng/mL (0.000-0.034)
[2024-08-01 20:44] LABS: Lactic Acid Reflex 1.1 mmol/L (0.7-2.0)
[2024-08-01 20:49] LABS: Prothrombin Time 13.4 Seconds (11.1-14.7)
[2024-08-01 20:50] LABS: Partial Thromboplastin Time 32.5 Seconds (22.3-36.8)
[2024-08-01 20:58] LABS: D Dimer 0.74 ug/mL (<0.48)
[2024-08-02] VITALS (56 sets, daily range): BP systolic 86–138; BP diastolic 50–93; PULSE 81–108; RESP 12–30; TEMP 36.1–36.9; O2SAT 92–100; BMI 19.1
[2024-08-02 01:09] LABS: Alveolar/Arterial O2 Gradient 62.6 mmHg; Base Excess ABG -0.2 mEq/l (+/-2.0); Device NASAL CANNULA; Fractional Inspired Oxygen 28 %; HCO3 ABG 27.2 mEq/l (22.0-26.0); Modified Allen's Test Pass; Oxygen Content ABG 18.2 %vol (16.0-22.0); Oxygen Saturation ABG 92.4 % (95.0-100.0); Oxyhemoglobin 91.3 % THb (90.0-100.0); PO2 FiO2 Ratio Arterial Blood 2.54 %; Site Drawn LEFT RADIAL; Total Hemoglobin 14.2 g/dL (12.0-18.0); pH ABG 7.304 (7.350-7.450)
[2024-08-02] MEDS: IPRATROPIUM 0.5 MG/ALBUTEROL SULFATE 2.5 MG AMPUL.NEB 3 ML INHALATION ×4 (01:45→20:52)
--- NOTE | 2024-08-02 02:11 | PC.NURSE ---
pt ambulatory with steady gait to use bathroom and provide ua/uds. pt mildly wheezy after ambulation back to bed.
[2024-08-02] MEDS: SODIUM CHLORIDE 0.9% IV 1,000 ML 999 ML IV CONT (02:16)
[2024-08-02 02:22] LABS: Add Urine Microscopic? NO; Appearance Urine Clear (Clear); Bilirubin Urine Negative (Negative); Blood Urine Negative (Negative); Color Urine Yellow (Yellow); Glucose Urine UA Negative (Negative); Ketones Urine Negative (Negative); Leukocyte Esterase Ur Negative LEU/UL (Negative); Nitrate Urine Negative (Negative); Protein Urine Negative (Negative); Specific Grav Ur > 1.045 (1.001-1.035); pH Urine 5.5 (5.0-9.0)
[2024-08-02 02:37] LABS: Amphetamine Screen Urine Negative (Negative); Barbiturate Screen Urine Negative (Negative); Benzodiazepines Screen Urine Positive (Negative); Cannabinoid Screen Urine Negative (Negative); Cocaine Screen Urine Negative (Negative); Methadone Screen Urine Negative (Negative); Opiate Screen Urine Negative (Negative); Phencyclidine Screen Urine Negative (Negative)
[2024-08-02] MEDS: SODIUM CHLORIDE 0.9% IV 1,000 ML 125 ML IV CONT ×2 (02:53→11:59)
[2024-08-02 02:55] LABS: Influenza A QL RT-PCR Negative (Negative); Influenza B QL RT-PCR Negative (Negative); RSV RNA, RT-PCR Negative (Negative); SARS-CoV-2 RNA PCR Negative (Negative)
[2024-08-02] MEDS: ALBUMIN HUMAN 25% 25 GM/100 ML 100 ML IVPB (03:03)
--- NOTE | 2024-08-02 08:05 | P.HP_ITS ---
H&P: HPI History of Present Illness Date/Time: 08/02/24 08:05 Chief Complaint: Shortness of breath Narrative: Is a 53-year-old female with a past medical history of COPD,CVA, anxiety, spoke chronic smoker yesterday here due to shortness of breath and altered mental status for past couple of days. Patient is a poor historian. Initially patient reported she is not a smoker and quit smoking last year May 2023 due to prolonged hospitalization due to COPD exacerbation. Later patient confessed to smoking few cigarettes daily. Patient also has a past medical history of CVA. Pertinent ED labs: WBC 3.3, hemoglobin 14, hematocrit 44.7, platelet 124, sodium 137, potassium 3.7, chloride 96, her med dioxide 33, creatinine 0.4, GFR greater than 60 ABG: PH is 7.3, CO2 56, O2 71, HC03 27.2 Chest CTA: No pulmonary embolus. No thoracic aortic dissection. Severe panlobular bullous emphysema Head CT:No significant abnormality seen As mentioned above patient is a poor historian. Metabolic encephalopathy possibly due to CO2 retention. Order Vitamin B12,TSH,ammonia,Syphilis and HIV to rule out infectious and other metabolic causes. Patient reports she use 2L O2 baseline. In regards to pulmonary medication patient unable to verify the medication.Discussed with pulmonology and will treated as COPD exacerbation and will be placed on AVAPS tonight and ABG in the morning. Review of Systems Review of Systems: All systems reviewed & are unremarkable except as noted in HPI and below Constitutional: Constitutional: Reports no additional constitutional complaints Eyes: Eyes: Reports no additional eye complaints ENT: Reports system reviewed and no additional complaints, except as documented Cardiovascular: Cardiovascular: Reports no additional cardiovascular complaints Respiratory: Respiratory: Reports no additional respiratory complaints Gastrointestinal: Gastrointestinal: Reports no additional gastrointestinal complaints Musculoskeletal: Musculoskeletal: Reports no additional musculoskeletal complaints Neurologic: Reports system reviewed and no additional complaints, except as documented Psychiatric: Psychiatric: Reports no additional psychiatric complaints Endocrine: Endocrine: Reports no additional endocrine complaints Hematologic/Lymphatic: Hematologic/Lymphatic: Reports no additional hematologic/lymphatic complaints Allergic/Immunologic: Allergic/Immunologic: Reports no additional allergic/immunologic complaints [facility] Past Medical History Medical History Tobacco dependence Deep venous thrombosis (2007) Polysubstance abuse Hepatitis C virus infection cured after antiviral drug therapy Emphysematous COPD Agoraphobia Depression Anxiety Surgical History Surgical History History of section Family History Family History (Updated 08/02/24 @ 04:36 by Keon Tidwell RN) Mother Congestive heart failure Cystic fibrosis COPD (chronic obstructive pulmonary disease) Father Acute myocardial infarction Congestive heart failure Social History Social History Social History: Currently staying with her boyfriend in a trailer. She has 2 children, a son and daughter. Not currently working. She smoked a pack of cigarettes a day since she was a teenager and quit lastly. She is recovering alcoholic but has not drank heavily since her late 20s. She has a history of IV drug use many years ago but has been sober since April 2022. Surrogate decision maker: Marielena Hannah (daughter). Code status: Full code Smoking packs per day: 2 Smoking cigarettes per day: 40.0 Years smoked: 39 Smoking pack-years: 78.00 Smoking status: Former smoker Tobacco type: cigarettes Second hand tobacco smoke exposure: Yes (significant other) Smoking end date: 04/28/22 Alcohol intake: never Substance use: never Substance use type: does not use Other substance usage details: fentanyl Do You Feel Safe in your Home?: Yes Lack of Transportation: No Lack of Food: Sometimes True Current Housing: I Have Housing Concerned About Future Housing: No Difficulty Paying Gas/Electric Bills: YES Difficulty Paying for Meds: YES Currently Unemployed: No Education: Grade School Difficulty w/ Childcare or Family Care: No Living arrangements: other Additional living arrangements comments: significant other Occupation/Education: unemployed Spiritual care concerns: No Meds Home Medications and Allergies Home Medications Medication Instructions Recorded Confirmed Type aspirin 81 mg capsule 81 mg PO DAILY 06/21/22 08/02/24 History albuterol sulfate 90 mcg/actuation 1 inh inhalation Q4-6H PRN 06/24/22 08/02/24 Rx breath activated powder shortness of breath or wheezing #1 inhaler,sensor ea fluticasone propionate 50 1 spray intranasal DAILY PRN 03/28/23 08/02/24 History mcg/actuation nasal Dryness spray,suspension nitroglycerin 0.4 mg sublingual 0.4 mg sublingual Q5MIN 03/28/23 08/02/24 History tablet clonazepam 1 mg tablet 1 mg PO DAILY PRN Anxiety #7 tabs 04/01/23 08/02/24 Rx fluticasone fur. 100 mcg-umeclid 100-62.5-25 mcg Blister With 09/06/23 08/02/24 Sample 62.5 mcg-vilant 25 mcg Device#1 Samples inhalat.powder (Trelegy Ellipta) umeclidinium 62.5 mcg-vilanterol 1 inh inhalation Q24H COPD 1 month 09/07/23 08/02/24 Rx 25 mcg/actuation powdr for #60 ea inhalation (Anoro Ellipta) estradiol 0.01% (0.1 mg/gram) 1 g vaginal 2XW PRN Pain #42.5 03/11/24 08/02/24 Rx vaginal cream grams valacyclovir 1 gram tablet 1,000 mg PO Q8H #21 tabs 06/16/24 08/02/24 Rx (Valtrex) Allergies Allergy/AdvReac Type Severity Reaction Status Date / Time bee venom protein (honey bee) Allergy Intermediate BREATHING Verified 08/01/24 19:09 DIFFICULTY Vital Signs Vital Signs - 24 hr 08/01/24 19:14 08/01/24 19:18 08/01/24 19:20 Temperature 98.4 F Pulse Rate 90 88 Respiratory Rate 10 L 13 Blood Pressure 130/90 Pulse Oximetry 96 93 95 Oxygen Delivery Room Air Nasal Cannula Oxygen Flow Rate 2 08/01/24 19:30 08/01/24 19:31 08/01/24 19:58 Temperature Pulse Rate 93 91 99 Respiratory Rate 16 28 H Blood Pressure 104/80 Pulse Oximetry 96 96 85 L Oxygen Delivery Oxygen Flow Rate 08/01/24 20:00 08/01/24 20:02 08/01/24 20:15 Temperature Pulse Rate 91 91 84 Respiratory Rate 14 16 14 Blood Pressure 113/79 Pulse Oximetry 92 92 95 Oxygen Delivery Oxygen Flow Rate 08/01/24 20:17 08/01/24 20:20 08/01/24 20:21 Temperature Pulse Rate 87 86 82 Respiratory Rate 17 15 16 Blood Pressure 99/69 L Pulse Oximetry 93 96 Oxygen Delivery Oxygen Flow Rate 08/01/24 20:30 08/01/24 20:31 08/01/24 20:52 Temperature Pulse Rate 84 83 94 Respiratory Rate 16 17 15 Blood Pressure 107/68 Pulse Oximetry 100 100 97 Oxygen Delivery Oxygen Flow Rate 08/01/24 21:10 08/01/24 21:15 08/01/24 21:36 Temperature Pulse Rate 104 H 96 103 H Respiratory Rate 23 H 28 H 15 Blood Pressure 115/71 Pulse Oximetry 90 100 100 Oxygen Delivery Oxygen Flow Rate 08/01/24 21:40 08/01/24 21:45 08/01/24 22:00 Temperature Pulse Rate 87 110 H 95 Respiratory Rate 16 26 H 17 Blood Pressure Pulse Oximetry 98 Oxygen Delivery Oxygen Flow Rate 08/01/24 22:01 08/01/24 22:15 08/01/24 22:30 Temperature Pulse Rate 98 94 95 Respiratory Rate 12 12 14 Blood Pressure 101/67 Pulse Oximetry 98 99 Oxygen Delivery Oxygen Flow Rate 08/01/24 22:31 08/01/24 22:45 08/01/24 23:00 Temperature Pulse Rate 97 98 93 Respiratory Rate 14 22 H 21 H Blood Pressure 93/55 L Pulse Oximetry Oxygen Delivery Oxygen Flow Rate 08/01/24 23:01 08/01/24 23:15 08/01/24 23:30 Temperature Pulse Rate 89 90 96 Respiratory Rate 14 17 23 H Blood Pressure 98/64 L Pulse Oximetry 97 Oxygen Delivery Oxygen Flow Rate 08/01/24 23:31 08/01/24 23:45 08/02/24 00:00 Temperature Pulse Rate 96 91 90 Respiratory Rate 17 13 20 Blood Pressure 103/80 Pulse Oximetry Oxygen Delivery Oxygen Flow Rate 08/02/24 00:01 08/02/24 00:15 08/02/24 00:56 Temperature Pulse Rate 90 89 88 Respiratory Rate 16 17 30 H Blood Pressure 103/67 Pulse Oximetry Oxygen Delivery Oxygen Flow Rate 08/02/24 01:00 08/02/24 01:01 08/02/24 01:15 Temperature Pulse Rate 90 93 87 Respiratory Rate 21 H 19 13 Blood Pressure 86/62 L Pulse Oximetry 96 97 99 Oxygen Delivery Oxygen Flow Rate 08/02/24 01:16 08/02/24 01:30 08/02/24 01:31 Temperature Pulse Rate 89 86 88 Respiratory Rate 18 12 15 Blood Pressure 86/50 L Pulse Oximetry 98 99 99 Oxygen Delivery Oxygen Flow Rate 08/02/24 01:45 08/02/24 01:48 08/02/24 01:49 Temperature Pulse Rate 93 89 84 Respiratory Rate 28 H 24 H 15 Blood Pressure 101/64 Pulse Oximetry 100 Oxygen Delivery Oxygen Flow Rate 08/02/24 02:00 08/02/24 02:01 08/02/24 02:07 Temperature Pulse Rate 95 93 102 H Respiratory Rate 24 H 16 24 H Blood Pressure Pulse Oximetry 99 100 92 Oxygen Delivery Oxygen Flow Rate 08/02/24 02:08 08/02/24 02:09 08/02/24 02:15 Temperature Pulse Rate 101 H 99 97 Respiratory Rate 28 H 23 H 25 H Blood Pressure 125/68 97/61 L Pulse Oximetry 98 99 99 Oxygen Delivery Oxygen Flow Rate 08/02/24 02:16 08/02/24 02:17 08/02/24 02:30 Temperature Pulse Rate 96 91 91 Respiratory Rate 22 H 22 H 13 Blood Pressure 92/57 L Pulse Oximetry 98 97 Oxygen Delivery Oxygen Flow Rate 08/02/24 02:31 08/02/24 02:45 08/02/24 02:46 Temperature Pulse Rate 91 91 93 Respiratory Rate 13 12 17 Blood Pressure 86/56 L Pulse Oximetry 98 98 98 Oxygen Delivery Oxygen Flow Rate 08/02/24 03:00 08/02/24 03:01 08/02/24 03:15 Temperature Pulse Rate 96 94 89 Respiratory Rate 16 15 17 Blood Pressure 86/58 L Pulse Oximetry 99 99 97 Oxygen Delivery Oxygen Flow Rate 08/02/24 03:15 08/02/24 03:21 08/02/24 03:30 Temperature Pulse Rate 89 87 86 Respiratory Rate 21 H 14 18 Blood Pressure 96/73 L 93/60 L Pulse Oximetry 96 97 98 Oxygen Delivery BiPAP Oxygen Flow Rate 08/02/24 03:31 08/02/24 03:43 08/02/24 03:45 Temperature 97.9 F Pulse Rate 86 87 88 Respiratory Rate 13 16 13 Blood Pressure 93/60 L Pulse Oximetry 97 96 98 Oxygen Delivery Oxygen Flow Rate 08/02/24 03:46 08/02/24 04:10 08/02/24 04:20 Temperature 97.2 F L Pulse Rate 85 91 81 Respiratory Rate 14 23 H 16 Blood Pressure 93/62 L 108/62 Pulse Oximetry 98 96 92 Oxygen Delivery BiPAP Oxygen Flow Rate 08/02/24 05:00 08/02/24 06:00 Temperature Pulse Rate 81 Respiratory Rate Blood Pressure Pulse Oximetry 92 Oxygen Delivery Nasal Cannula Oxygen Flow Rate 2 Exam Narrative: GENERAL: Ill-appearing, well-nourished, non-toxic, in no acute distress. HEAD: Normocephalic, atraumatic. NECK: Supple. No adenopathy, no masses. RESPIRATORY: Airway patent, respirations mildly labored. Wheezing to all lobes, + rales, - rhonchi CARDIOVASCULAR: Regular rate and rhythm without murmurs, rubs, or gallops. Peripheral pulses 2+ and equal bilaterally. ABDOMINAL: Soft, nontender, nondistended, no hepatosplenomegaly. Normoactive BS. MUSCULOSKELETAL: Moves all extremities. Strength/ROM intact without gross deformities. SKIN: Warm, dry, normal color. No rashes. NEURO: A&O X3. Speech clear. Cranial nerves II-XII intact. No ataxic movements. Periods of intermittent confusion. PSYCHIATRIC: Appropriate mood and affect. Normal interaction. Const: General: cooperative, healthy appearing and comfortable Orientation/consciousness: oriented to person, oriented to place and oriented to time Other: no distress HENMT: Head: normal to inspection Ears: hearing grossly normal bilaterally Eyes: General: appearance normal, both eyes and all related structures Neck: Neck: normal visual inspection Chest: Chest palpation & inspection: normal inspection of the chest Resp: Effort & Inspection: normal respiratory effort and able to speak in complete sentences Auscultation: no crackles, no rales, no rhonchi, wheezes and diminished lung sounds Cardio: Jugular venous distension: no JVD GI: Inspection: normal to inspection Skin: General skin exam: normal color Neuro: General: oriented to person, oriented to place and oriented to time Extrem: General: normal to inspection Psych: Appearance: grossly normal H&P: Results Labs Labs: Short CBC 08/01/24 Range/Units 19:39 WBC 3.3 L (4.5-10.0) K/mm3 Hgb 14.0 (12.0-15.0) g/dL Hct 44.7 (37.0-47.0) % Plt Count 124 L (150-375) k/mm3 BMP 08/01/24 19:39 Sodium 137 Potassium 3.7 Chloride 96 L Carbon Dioxide 33 H BUN 9 Creatinine 0.42 L Glucose 119 H Calcium 9.0 Cardiac Enzymes 08/01/24 Range/Units 19:39 Total Creatine Kinase 34 (30-135) U/L Troponin I < 0.012 (0.000-0.034) ng/mL Liver Function 08/01/24 Range/Units 19:39 Total Bilirubin 0.5 (0.2-1.3) mg/dL AST 26 (14-36) U/L ALT 18 (6-35) U/L Alkaline Phosphatase 70 (38-126) U/L Albumin 4.2 (3.5-5.1) g/dL Urine 08/02/24 Range/Units 02:08 Urine Color Yellow (Yellow) Urine Appearance Clear (Clear) Urine pH 5.5 (5.0-9.0) Ur Specific [place] > 1.045 H (1.001-1.035) Urine Protein Negative (Negative) mg/dL Urine Glucose (UA) Negative (Negative) mg/dL Assessment and Plan Assessment and plan (1) Acute exacerbation of chronic obstructive pulmonary disease: Code(s): J44.1 - Chronic obstructive pulmonary disease with (acute) exacerbation Status: Acute Assessment and Plan: -Last exacerbation May 2023 -CVA comorbid condition -Pulmonology workup with as OP -Home 2L O2 -Chronic Smoking Hx,1PPD -COPD Exacerbation requiring BiPAP at ED -Gold grade 4 group E COPD -ECHO ordered -Started on Azithromycin -Negative for Influenza and COVID -Ordered Nasal MRSA -Methylprednisone 60 mg IV q 6hrs -On Guaifenesin -Methylprednisone 20mg IV q 6HRS -Cornet flutter valve -CT chest: panlobular emphysema (2) Respiratory failure with hypoxia and hypercapnia: Code(s): J96.91 - Respiratory failure, unspecified with hypoxia; J96.92 - Respiratory failure, unspecified with hypercapnia Status: Acute Assessment and Plan: Unable to tolearte BiPAP AVAPS mode and adjusted the settings to come for resulting in a rate of 14, tidal volume 450, EPAP 5, minimal inspiratory pressure 6, maximum inspiratory pressure 25, inspiratory time 1.0, rise of 5 and 28% FiO2. AVAPS settings as above and obtain an ABG prior to removal and an overnight oximetry. (3) Tobacco dependence: Code(s): F17.200 - Nicotine dependence, unspecified, uncomplicated Status: Acute Assessment and Plan: Nicotine patch (4) Metabolic encephalopathy: Code(s): G93.41 - Metabolic encephalopathy Status: Acute Assessment and Plan: Ordered B12, TSH, ammonia, syphilis, HIV Order urine drug screen CT negative Possibly due to hypercapnia Neurochecks q.4 hours Hospitalist MIPS Advance Care Plan I have confirmed that the patient's Advanced Care Plan is present, code status is documented, or surrogate decision maker is listed in patient medical record.: Yes Medication Reconciliation I have utilized all available resources to obtain, update and review the patients current medications (includes all prescriptions, OTC, herbals, cannabis, and nutritional supplements).: Yes
[2024-08-02] MEDS: UMECLIDINIUM/VILANTEROL 62.5-25 MCG ELLIPTA 1 PUFF INHALATION (09:03)
[2024-08-02] MEDS: ASPIRIN 81 MG ENTERIC TABLET PO (09:13)
[2024-08-02] MEDS: valACYclovir HCL 500 MG TABLET 1000 MG PO ×2 (09:13→13:45)
--- NOTE | 2024-08-02 09:38 | P.CONPL_ITS ---
Assessment and Plan Assessment and plan (1) Acute exacerbation of chronic obstructive pulmonary disease: Code(s): J44.1 - Chronic obstructive pulmonary disease with (acute) exacerbation Status: Acute Assessment and Plan: Gold grade 4 group E COPD patient with 76 pack years, quit 05/2024, alpha 1 anti trypsin genotype MM. PFT 07/21/2023: shows very severe obstruction, FEV1 is 0.59 L, 24% predicted. FEV1:FVC raio 28%, TLC is 117% predicted. RV is 2.99 L, 178% predicted. RV/TLC is 56%. DLCO Uncorrected 26%, DLCO corrected for alveolar volume 47%. CT scan of the chest from 02/10/2017 with panlobular emphysema more severe at the apices and CT scan more recently on 08/01/2024 with progression of severe panlobular emphysema worse in the apices. Chronic hypoxemic respiratory failure requiring 2 L nasal cannula at rest and with activity. ABG on room air 05/18/2023 with pH 7.38/50.4/54. 08/02/2024: Patient presented to the hospital with COPD exacerbation with hypoxemic and hypercarbic respiratory failure with a blood gas of 7.30/56/71 and treated with BiPAP, steroids, and bronchodilators. CT angiogram of the chest negative for PE or focal consolidations. No evidence of fluid overload on exam. The patient remains confused. She tells me in spells her last name, knows she is at [facility], tells me it is July 07, 2024, knows Estefany is the POTUS, name is a pen, cap and hold her correctly. Overall she says that she is breathing about the same as yesterday. Her cough is the same, shortness of breath is the same, minimal phlegm that is white with no blood. She says she is not wheezing. When I enter the room she was on 2 L nasal cannula with saturations 94%. I decreased her to room air and after 11 minutes her saturations were 89% and I returned her to 2 L. Plan: I will continue to treat for COPD exacerbation. She still has wheezing at this time. I will place her on Solu-Medrol 20 mg IV q.6, day 2 of steroids. I will occur increase her DuoNebs to q.4 hours. I will discontinue Anoro Ellipta she is on maximal doses of beta agonist and muscarinic antagonist with the DuoNebs q.4 hours. Patient has difficulty expectorating and I will add guaifenesin 1200 mg p.o. b.i.d. and a Cornet flutter valve. Will add azithromycin to treat possible tracheobronchitis. No evidence of pneumonia on CT scan. Pulmonary inpatient services will resume on 08/05/2024. Call with questions. Discussed with Dr. Finney. (2) Respiratory failure with hypoxia and hypercapnia: Code(s): J96.91 - Respiratory failure, unspecified with hypoxia; J96.92 - Respiratory failure, unspecified with hypercapnia Status: Acute Assessment and Plan: patient with gold grade 4 group E COPD with hypoxic respiratory failure requiring 2 L nasal cannula at night. Patient presented to the hospital 08/02/24 with COPD and blood gas on 2 L 7.30/56/71. Previous ABG 05/18/2023 with pH of 7.38/50/54. 08/02/2024: patient wore BiPAP last night but said it was uncomfortable due to pressures and she could not sleep with the machine on. Her settings were rate of 18, pressures 12/6. The patient could not tolerate BiPAP and I placed her on noninvasive ventilation with the AVAPS mode and adjusted the settings to come for resulting in a rate of 14, tidal volume 450, EPAP 5, minimal inspiratory pressure 6, maximum inspiratory pressure 25, inspiratory time 1.0, rise of 5 and 28% FiO2. Plan: The patient feels she will need the noninvasive ventilation tonight. AVAPS settings as above and obtain an ABG prior to removal and an overnight oximetry. (3) Cognitive changes: Code(s): R41.89 - Other symptoms and signs involving cognitive functions and awareness Status: Acute Assessment and Plan: The patient remains confused. She tells me in spells her last name, knows she is at [facility], tells me it is July 07, 2024, knows Estefany is the POTUS, name is a pen, cap and hold her correctly. the patient also told me she was concerned that somebody was trying to poison her at home. I asked her if she was in physical danger and she told me the doctors may be looking in 1 direction but the danger may be directly behind me. Patient would not elaborate when I asked her for more details. I have asked dilated this conversation to the patient's bedside nurse, charge nurse and memory care program resident. History of Present Illness History of Present Illness Consult date: 08/02/24 Chief complaint: COPD exacerbation Narrative: this is a new pulmonary consult for COPD exacerbation 53-year-old with a history of DVT 2007, depression, anxiety, polysubstance abuse, hepatitis-C virus cured with treatment, COPD with hypoxemic respiratory failure on 2 L nasal cannula. 09/06/2023: patient followed in the Pulmonary [facility] in last seen on 09/06/2023: she presented with a next empty oxygen tank. She looked amazing, not sick, more coherent in pulmonary rehab for the last month. She is lifting weights and using a treadmill. Feels better using oxygen. using trelegy 100. Usually wears 2 L nasal cannula Tobacco use: 2 packs per day from age 15 to May of 2024, 76 pack year, exposed to secondhand smoke from her mother. Denies vaping, she did snort cocaine for multiple years last use 2007. Denies vaping. Since the last visit, she had PFT 07/21/2023; 07/21/2023 PFT shows extremely severe COPD, FEV1 is 0.59 L, 24% predicted. TLC is 117% predicted. RV is 2.99 L, 178% predicted. RV/TLC is 56%. DLCO 26%. CAT score = 9/40; this is a low score, consistent with few COPD symptoms. She never coughs. She has very minimal sputum production. She has no chest tightness. She is somewhat short of breath walking up hills or flight of stairs. She is just barely limited doing activities around her home. She is confident leaving her home despite her lung condition. She sleeps mostly soundly but wakes with a dry mouth. She has more energy on this visit than she had previously. Plan: Continue trelegy 100 (samples given), Serevent and Anoro will prescribe to because trilogy was denied. Smoked for years, tells me she quit smoking tobacco in early March 2023; Her significant other, Nicholas, smokes tobacco and marijuana, usually outside, not in the house. She needs to avoid all exposure to smoke including second hand smokes as well as particulate matter from smoke. 12/29/2023: completed pulmonary rehab, session 35, exercise 42 minutes on 2 L oxygen with saturations 94%. MTS 4.12 for 30 minutes and 4.25 for 3 minutes on the treadmill. 08/01/2024: Patient presented to the emergency room with altered mental status, shortness of breath, Coughing, wheezing, chest pain. Patient tells me she was exposed to sick grandchildren on July 25, 2024. She had been ill for the last several days and she was sleeping for 3 days straight. Endorsed only using oxygen at night. Blood pressure 130/90, heart rate 90, room air saturation 96%. Mildly labored with wheezing all lobes. Periods of intermittent confusion. White blood cell count 3.3, eosinophils 0%, platelets 124, creatinine 0.42, serum bicarb 33, lactic acid 1.1, troponin negative, COVID, influenza, RSV RT PCR studies negative, urine tox screen positive for benzodiazepines (on clonazepam 1 mg PO Q day PRN). ABG on 2 L nasal cannula 7.30/56/71. CT angiogram of the chest showed no pulmonary embolism, severe panlobular bullous emphysema throughout all lung geller and worse in the apices (progression of emphysema since 01/31/2017). Patient was treated for COPD exacerbation with Solu-Medrol, bronchodilators, and noninvasive ventilation with BiPAP rate of 18, pressures 12/6 and 28% FiO2. 08/02/24: The patient remains confused. She tells me in spells her last name, knows she is at [facility], tells me it is July 07, 2024, knows Estefany is the POTUS, name is a pen, cap and hold her correctly. Overall she says that she is breathing about the same as yesterday. Her cough is the same, shortness of breath is the same, minimal phlegm that is white with no blood. She says she is not wheezing. When I enter the room she was on 2 L nasal cannula with saturations 94%. I decreased her to room air and after 11 minutes her saturations were 89% and I returned her to 2 L. DATA: 08/01/24: EXAMINATION: CTA chest PE protocol INDICATION: Shortness of breath COMPARISON: 03/31/2023 FINDINGS/OBSERVATIONS: PULMONARY ARTERIES: No filling defect is identified within the main or proximal pulmonary artery. The main pulmonary artery is not enlarged. THORACIC AORTA: No aneurysmal dilatation or dissection is present. The great vessels are intact LUNGS: Severe panlobular bullous emphysematous disease is identified, consistent with patient's history. MEDIASTINUM: No morphologically suspicious or pathologically enlarged lymph nodes are identified within the mediastinum or bilateral axilla. BONES OF THE CHEST: No acute fracture. No significant degenerative disease. No lytic or blastic lesions. HEART: The heart is of normal size, without pericardial effusion. IMPRESSION: No pulmonary embolus. No thoracic aortic dissection. Severe panlobular bullous emphysema, as detailed above. 07/21/2023 PFT: This is a pulmonary function test with pre and post-bronchodilator spirometry, plethysmography and diffusing capacity. The test was performed and results interpreted in accordance with the 2019 and 2005 ATS/ERS Task Force guidelines respectively using the Global Lung Function Initiative-2012 reference equations. Patient demonstrated good effort and cooperation. Reproducibility criteria were met. The quality of the pre bronchodilator spirometry maneuver was Grade A and post bronchodilator spirometry maneuver was Grade A. Findings: Spirometry: There is decreased maximal expiratory airflow at all lung volumes with concave expiratory flow tracing. The contour the inspiratory flow tracing is normal. The pre bronchodilator FVC is 2.07 L, 68% predicted. The pre bronchodilator FEV1 is 0.59 L, 24% predicted. The pre bronchodilator FEV1: FVC ratio is 28%. The post bronchodilator FVC is 2.11 L, representing a 2% increase. The post bronchodilator FEV1 is 0.62 L, representing a 5% increase. The post bronchodilator FEV1: FVC ratio is 29%. Plethysmography: The total lung capacity is 5.38 L, 117% predicted. The functional residual capacity is 3.96 L, 115% predicted. The residual volume is 2.99 L, 178% predicted. The residual volume: Total lung capacity ratio is 56%. Diffusing capacity: The diffusing capacity unadjusted for hemoglobin and carboxyhemoglobin is 5.6, 26% predicted. The diffusing capacity adjusted for alveolar volume is 2.32, 49% predicted. Impression: There is a very severe obstructive abnormality. There is no significant improvement after inhaling a single dose of albuterol. The increase in residual volume to total lung volume ratio is consistent with hyperinflation from an obstructive abnormality. The diffusing capacity unadjusted for hemoglobin and carboxyhemoglobin is severely decreased and remains moderately decreased when adjusted for alveolar volume. 05/18/2023: ABG room air 7.38/50.4/53.9. * 06/25/2023 CXR; Bullous emphysema; Mild infiltrate and/or atelectasis in the mid and lower lung zones. Osteopenia * ABG * 06/24/2022 Alpha 1 antitrypsin level was normal 179 and her genotype is PI:MM normal. * 05/09/2022 -echo; Complete two-dimensional, color flow and Doppler transthoracic echocardiogram is performed. 2. Normal left ventricular size and thickness with good contractility of all segments. Ejection fraction 65-70%. No segmental wall motion abnormalities. Normal diastolic function. Left ventricular strain is mildly diminished at -16% consistent with a degree of systolic dysfunction. 3. Mild right ventricular enlargement and hypokinesis. 4. Mild tricuspid regurgitation. 5. Mild pulmonary hypertension, RVSP 49 mmHg. 6. Mildly dilated inferior vena cava consistent with elevated right-sided pressures. 7. Sinus tachycardia. 06/24/2022: Alpha 1 antitrypsin phenotype is MM, with an alpha 1 anti trypsin level of 179, normal. 02/10/2017: EXAMINATION: CTA CHEST (PULMONARY ART) INDICATION: Sudden onset of shortness of breath. History of asthma, COPD. COMPARISON: 01/31/2017 portable AP chest FINDINGS: Diagnostic contrast opacification of the pulmonary arteries. No evidence of pulmonary embolism. No thoracic aortic aneurysm or dissection. No hilar or mediastinal mass lesion or lymphadenopathy. Normal size and homogeneous enhancement of the thyroid gland. Normal heart size. No pericardial or pleural effusion. The adrenal glands and included upper abdominal structures are unremarkable. There is a fat containing foramen of Bochdalek hernia on the right. Emphysematous changes are noted throughout both lungs. There is bilateral dependent lower lobe discoid atelectasis and/or scarring. IMPRESSION: No evidence of pulmonary embolism. Emphysema. Bilateral discoid atelectasis and/or scarring in the dependent lower lobes Review of Systems 2 Constitutional: Constitutional: Reports no additional constitutional complaints Eyes: Eyes: Reports no additional eye complaints ENT: Reports system reviewed and no additional complaints, except as documented Cardiovascular: Cardiovascular: Reports no additional cardiovascular complaints Respiratory: Respiratory: Reports no additional respiratory complaints Gastrointestinal: Gastrointestinal: Reports no additional gastrointestinal complaints Musculoskeletal: Musculoskeletal: Reports no additional musculoskeletal complaints Neurologic: Reports system reviewed and no additional complaints, except as documented Psychiatric: Psychiatric: Reports no additional psychiatric complaints Endocrine: Endocrine: Reports no additional endocrine complaints Hematologic/Lymphatic: Hematologic/Lymphatic: Reports no additional hematologic/lymphatic complaints Allergic/Immunologic: Allergic/Immunologic: Reports no additional allergic/immunologic complaints [facility] Past Medical History Medical History Tobacco dependence Deep venous thrombosis (2007) Polysubstance abuse Hepatitis C virus infection cured after antiviral drug therapy Emphysematous COPD Agoraphobia Depression Anxiety Surgical History Surgical History History of section Family History Family History (Updated 08/02/24 @ 04:36 by Keon Tidwell RN) Mother Congestive heart failure Cystic fibrosis COPD (chronic obstructive pulmonary disease) Father Acute myocardial infarction Congestive heart failure Social History Social History Social History: Currently staying with her boyfriend in a trailer. She has 2 children, a son and daughter. Not currently working. She smoked a pack of cigarettes a day since she was a teenager and quit lastly. She is recovering alcoholic but has not drank heavily since her late 20s. She has a history of IV drug use many years ago but has been sober since April 2022. Surrogate decision maker: Marielena Hannah (daughter). Code status: Full code Smoking packs per day: 2 Smoking cigarettes per day: 40.0 Years smoked: 39 Smoking pack-years: 78.00 Smoking status: Former smoker Tobacco type: cigarettes Second hand tobacco smoke exposure: Yes (significant other) Smoking end date: 04/28/22 Alcohol intake: never Substance use: never Substance use type: does not use Other substance usage details: fentanyl Do You Feel Safe in your Home?: Yes Lack of Transportation: No Lack of Food: Sometimes True Current Housing: I Have Housing Concerned About Future Housing: No Difficulty Paying Gas/Electric Bills: YES Difficulty Paying for Meds: YES Currently Unemployed: No Education: Grade School Difficulty w/ Childcare or Family Care: No Living arrangements: other Additional living arrangements comments: significant other Occupation/Education: unemployed Spiritual care concerns: No Meds Home Medications and Allergies Home Medications Medication Instructions Recorded Confirmed Type aspirin 81 mg capsule 81 mg PO DAILY 06/21/22 08/02/24 History albuterol sulfate 90 mcg/actuation 1 inh inhalation Q4-6H PRN 06/24/22 08/02/24 Rx breath activated powder shortness of breath or wheezing #1 inhaler,sensor ea fluticasone propionate 50 1 spray intranasal DAILY PRN 03/28/23 08/02/24 History mcg/actuation nasal Dryness spray,suspension nitroglycerin 0.4 mg sublingual 0.4 mg sublingual Q5MIN 03/28/23 08/02/24 History tablet clonazepam 1 mg tablet 1 mg PO DAILY PRN Anxiety #7 tabs 04/01/23 08/02/24 Rx fluticasone fur. 100 mcg-umeclid 100-62.5-25 mcg Blister With 09/06/23 08/02/24 Sample 62.5 mcg-vilant 25 mcg Device#1 Samples inhalat.powder (Trelegy Ellipta) umeclidinium 62.5 mcg-vilanterol 1 inh inhalation Q24H COPD 1 month 09/07/23 08/02/24 Rx 25 mcg/actuation powdr for #60 ea inhalation (Anoro Ellipta) estradiol 0.01% (0.1 mg/gram) 1 g vaginal 2XW PRN Pain #42.5 03/11/24 08/02/24 Rx vaginal cream grams valacyclovir 1 gram tablet 1,000 mg PO Q8H #21 tabs 06/16/24 08/02/24 Rx (Valtrex) Allergies Allergy/AdvReac Type Severity Reaction Status Date / Time bee venom protein (honey bee) Allergy Intermediate BREATHING Verified 08/01/24 19:09 DIFFICULTY Vital Signs Vital Signs - 24 hr 08/01/24 19:14 08/01/24 19:18 08/01/24 19:20 Temperature 36.9 C Pulse Rate 90 88 Respiratory Rate 10 L 13 Blood Pressure 130/90 Pulse Oximetry 96 93 95 Oxygen Delivery Room Air Nasal Cannula Oxygen Flow Rate 2 08/01/24 19:30 08/01/24 19:31 08/01/24 19:58 Temperature Pulse Rate 93 91 99 Respiratory Rate 16 28 H Blood Pressure 104/80 Pulse Oximetry 96 96 85 L Oxygen Delivery Oxygen Flow Rate 08/01/24 20:00 08/01/24 20:02 08/01/24 20:15 Temperature Pulse Rate 91 91 84 Respiratory Rate 14 16 14 Blood Pressure 113/79 Pulse Oximetry 92 92 95 Oxygen Delivery Oxygen Flow Rate 08/01/24 20:17 08/01/24 20:20 08/01/24 20:21 Temperature Pulse Rate 87 86 82 Respiratory Rate 17 15 16 Blood Pressure 99/69 L Pulse Oximetry 93 96 Oxygen Delivery Oxygen Flow Rate 08/01/24 20:30 08/01/24 20:31 08/01/24 20:52 Temperature Pulse Rate 84 83 94 Respiratory Rate 16 17 15 Blood Pressure 107/68 Pulse Oximetry 100 100 97 Oxygen Delivery Oxygen Flow Rate 08/01/24 21:10 08/01/24 21:15 08/01/24 21:36 Temperature Pulse Rate 104 H 96 103 H Respiratory Rate 23 H 28 H 15 Blood Pressure 115/71 Pulse Oximetry 90 100 100 Oxygen Delivery Oxygen Flow Rate 08/01/24 21:40 08/01/24 21:45 08/01/24 22:00 Temperature Pulse Rate 87 110 H 95 Respiratory Rate 16 26 H 17 Blood Pressure Pulse Oximetry 98 Oxygen Delivery Oxygen Flow Rate 08/01/24 22:01 08/01/24 22:15 08/01/24 22:30 Temperature Pulse Rate 98 94 95 Respiratory Rate 12 12 14 Blood Pressure 101/67 Pulse Oximetry 98 99 Oxygen Delivery Oxygen Flow Rate 08/01/24 22:31 08/01/24 22:45 08/01/24 23:00 Temperature Pulse Rate 97 98 93 Respiratory Rate 14 22 H 21 H Blood Pressure 93/55 L Pulse Oximetry Oxygen Delivery Oxygen Flow Rate 08/01/24 23:01 08/01/24 23:15 08/01/24 23:30 Temperature Pulse Rate 89 90 96 Respiratory Rate 14 17 23 H Blood Pressure 98/64 L Pulse Oximetry 97 Oxygen Delivery Oxygen Flow Rate 08/01/24 23:31 08/01/24 23:45 08/02/24 00:00 Temperature Pulse Rate 96 91 90 Respiratory Rate 17 13 20 Blood Pressure 103/80 Pulse Oximetry Oxygen Delivery Oxygen Flow Rate 08/02/24 00:01 08/02/24 00:15 08/02/24 00:56 Temperature Pulse Rate 90 89 88 Respiratory Rate 16 17 30 H Blood Pressure 103/67 Pulse Oximetry Oxygen Delivery Oxygen Flow Rate 08/02/24 01:00 08/02/24 01:01 08/02/24 01:15 Temperature Pulse Rate 90 93 87 Respiratory Rate 21 H 19 13 Blood Pressure 86/62 L Pulse Oximetry 96 97 99 Oxygen Delivery Oxygen Flow Rate 08/02/24 01:16 08/02/24 01:30 08/02/24 01:31 Temperature Pulse Rate 89 86 88 Respiratory Rate 18 12 15 Blood Pressure 86/50 L Pulse Oximetry 98 99 99 Oxygen Delivery Oxygen Flow Rate 08/02/24 01:45 08/02/24 01:48 08/02/24 01:49 Temperature Pulse Rate 93 89 84 Respiratory Rate 28 H 24 H 15 Blood Pressure 101/64 Pulse Oximetry 100 Oxygen Delivery Oxygen Flow Rate 08/02/24 02:00 08/02/24 02:01 08/02/24 02:07 Temperature Pulse Rate 95 93 102 H Respiratory Rate 24 H 16 24 H Blood Pressure Pulse Oximetry 99 100 92 Oxygen Delivery Oxygen Flow Rate 08/02/24 02:08 08/02/24 02:09 08/02/24 02:15 Temperature Pulse Rate 101 H 99 97 Respiratory Rate 28 H 23 H 25 H Blood Pressure 125/68 97/61 L Pulse Oximetry 98 99 99 Oxygen Delivery Oxygen Flow Rate 08/02/24 02:16 08/02/24 02:17 08/02/24 02:30 Temperature Pulse Rate 96 91 91 Respiratory Rate 22 H 22 H 13 Blood Pressure 92/57 L Pulse Oximetry 98 97 Oxygen Delivery Oxygen Flow Rate 08/02/24 02:31 08/02/24 02:45 08/02/24 02:46 Temperature Pulse Rate 91 91 93 Respiratory Rate 13 12 17 Blood Pressure 86/56 L Pulse Oximetry 98 98 98 Oxygen Delivery Oxygen Flow Rate 08/02/24 03:00 08/02/24 03:01 08/02/24 03:15 Temperature Pulse Rate 96 94 89 Respiratory Rate 16 15 17 Blood Pressure 86/58 L Pulse Oximetry 99 99 97 Oxygen Delivery Oxygen Flow Rate 08/02/24 03:15 08/02/24 03:21 08/02/24 03:30 Temperature Pulse Rate 89 87 86 Respiratory Rate 21 H 14 18 Blood Pressure 96/73 L 93/60 L Pulse Oximetry 96 97 98 Oxygen Delivery BiPAP Oxygen Flow Rate 08/02/24 03:31 08/02/24 03:43 08/02/24 03:45 Temperature 36.6 C Pulse Rate 86 87 88 Respiratory Rate 13 16 13 Blood Pressure 93/60 L Pulse Oximetry 97 96 98 Oxygen Delivery Oxygen Flow Rate 08/02/24 03:46 08/02/24 04:10 08/02/24 04:20 Temperature 36.2 C L Pulse Rate 85 91 81 Respiratory Rate 14 23 H 16 Blood Pressure 93/62 L 108/62 Pulse Oximetry 98 96 92 Oxygen Delivery BiPAP Oxygen Flow Rate 08/02/24 05:00 08/02/24 06:00 08/02/24 08:00 Temperature 36.5 C Pulse Rate 81 93 Respiratory Rate 12 Blood Pressure 109/67 Pulse Oximetry 92 95 Oxygen Delivery Nasal Cannula Oxygen Flow Rate 2 08/02/24 08:20 08/02/24 08:24 08/02/24 08:39 Temperature Pulse Rate 88 90 Respiratory Rate 18 18 Blood Pressure Pulse Oximetry 98 Oxygen Delivery Nasal Cannula Oxygen Flow Rate 5 08/02/24 08:49 Temperature Pulse Rate Respiratory Rate Blood Pressure Pulse Oximetry 93 Oxygen Delivery Nasal Cannula Oxygen Flow Rate 2 Exam 2 Const: General: cooperative, healthy appearing and comfortable O rientation/consciousness: oriented to person and oriented to place Other: no distress HENMT: Head: normal to inspection Ears: hearing grossly normal bilaterally Eyes: General: appearance normal, both eyes and all related structures Neck: Neck: normal visual inspection Chest: Chest palpation & inspection: normal inspection of the chest Resp: Effort & Inspection: normal respiratory effort and able to speak in complete sentences Auscultation: no crackles, no rales, no rhonchi, wheezes and diminished lung sounds Cardio: Jugular venous distension: no JVD GI: Inspection: normal to inspection GI Palp: No abdominal tenderness Skin: General skin exam: normal color Neuro: General: oriented to person, oriented to place and oriented to time Extrem: General: normal to inspection Psych: Appearance: grossly normal Results Laboratory Findings 08/01/24 19:39 08/01/24 19:39 ABG, PT/INR, D-dimer: ABG ABG pH 7.304 (7.350-7.450) L 08/02/24 01:01 ABG pCO2 56.0 mmHg (35.0-45.0) H 08/02/24 01:01 ABG pO2 71.0 mmHg (80.0-100.0) L 08/02/24 01:01 ABG O2 Saturation 92.4 % (95.0-100.0) L 08/02/24 01:01 PT/INR, D-dimer PT 13.4 Seconds (11.1-14.7) 08/01/24 19:39 INR 1.0 08/01/24 19:39 D-Dimer 0.74 ug/mL (<0.48) H 08/01/24 19:39 Abnormal lab findings: Abnormal Labs 08/01/24 08/02/24 08/02/24 19:39 01:01 02:08 WBC 3.3 L MCHC 31.3 L Plt Count 124 L MPV 11.9 H Neut % (Auto) 76.6 H Lymph % (Auto) 14.6 L Lymph # (Auto) 0.48 L D-Dimer 0.74 H ABG pH 7.304 L ABG pCO2 56.0 H ABG pO2 71.0 L ABG HCO3 27.2 H ABG O2 Saturation 92.4 L Chloride 96 L Carbon Dioxide 33 H Creatinine 0.42 L Glucose 119 H Ur Specific [place] > 1.045 H U Benzodiazepines Scrn Positive A Diagnostic Findings Additional studies: ITS Impressions Chest X-Ray 08/01/24 20:17 IMPRESSION: No focal infiltrate or effusion. Head CT 08/01/24 21:06 Impression: No acute intracranial hemorrhage or suspicious mass effect. Chest CTA 08/01/24 21:32 IMPRESSION: No pulmonary embolus. No thoracic aortic dissection. Severe panlobular bullous emphysema, as detailed above. Head CT 08/02/24 10:48 Impression: No significant abnormality seen.
--- NOTE | 2024-08-02 12:38 | ECHO_ITS ---
Patient Info Name: Joya De Leon Age: 53 years : 1970 Gender: Female Ht: 62 in Wt: 104 lbs BSA: 1.43 m2 HR: 94 bpm BP: 115 / 64 mmHg Technical Quality: Fair Exam Date: 08/02/2024 2:54 PM Exam Location: Echo Lab Patient Status: Inpatient Admit Date: 08/02/2024 Staff Ordering Physician: Vj Call MD Trust Evaluation Supervisor: Savanah Pickering RDCS Attending Provider: Shruti Zuñiga DO Referring Physician: Jakub ORTIZ; Exam Type: CA echo doppler color flow Study Info Indications - LV, RV function, pulmonary pressures Complete two-dimensional, color flow and Doppler transthoracic echocardiogram is performed. Summary 1. Complete two-dimensional, color flow and Doppler transthoracic echocardiogram is performed. 2. Left ventricular systolic function is normal, estimated at 65-70%. 3. The left ventricular diastolic function is normal. 4. Right ventricular chamber dimension is normal. 5. Right ventricular systolic function is normal. 6. There is mild to moderate tricuspid valve regurgitation. 7. Mild pulmonary hypertension, estimated pulmonary arterial systolic pressure is 37 mmHg. 8. There is small pericardial effusion. Left Ventricle Left ventricular chamber dimension is normal. Left ventricular systolic function is normal, estimated at 65-70%. There is no increased left ventricular wall thickness. Left ventricular septal wall motion is normal. The left ventricular diastolic function is normal. Right Ventricle Right ventricular chamber dimension is normal. Right ventricular systolic function is normal. Left Atria Left atrial chamber dimension is normal. Right Atria Right atrial chamber dimension is normal. Aortic Valve The aortic valve is trileaflet. There is no aortic valve sclerosis. There is no aortic valve stenosis. There is no aortic valve regurgitation. Pulmonic Valve The pulmonic valve is normal. There is no pulmonic valve stenosis. There is no pulmonic regurgitation. Mitral Valve The mitral valve has normal leaflets. There is no mitral valve stenosis. There is no mitral valve regurgitation. Tricuspid Valve The tricuspid valve leaflets are normal. There is no significant tricuspid valve stenosis. There is mild to moderate tricuspid valve regurgitation. Mild pulmonary hypertension, estimated pulmonary arterial systolic pressure is 37 mmHg. Pericardium/Pleural The pericardium appears normal. There is small pericardial effusion. Inferior Vena Cava Normal inferior vena cava with >50% collapse upon inspiration consistent with Empty right atrial pressure, 5 mmHg. Aorta The aortic root size at the sinus of Valsalva is normal. The prox ascending aorta size is normal. Left Ventricular Outflow Tract Name Value Normal LVOT 2D LVOT Diameter 1.9 cm LVOT Doppler LVOT Peak Gradient 7 mmHg LVOT Mean Gradient 4 mmHg LVOT VTI 25 cm LVOT VTI/AV VTI Ratio 1.0 LVOT Stroke Volume 70 ml LVOT CO 15.0 l/min LVOT CI 10.5 l/min/m2 Pulmonic Valve Name Value Normal PV Doppler PV Peak Gradient 4 mmHg Mitral Valve Name Value Normal MV Doppler MV Decel Hubbard 600 cm/s2 MV PHT 39 ms MV Area (PHT) 5.6 cm2 4.0-5.0 MV Diastolic Function MV E Peak Velocity 81 cm/s MV A Peak Velocity 78 cm/s MV E/A 1.0 MV Decel Time 135 ms MV Annular TDI MV E/e' (Septal) 7.7 <=8.0 MV E/e' (Lateral) 6.0 <=8.0 MV E/e' (Average) 6.8 Tricuspid Valve Name Value Normal TV Regurgitation Doppler TR Peak Velocity 282 cm/s TR Peak Gradient 28 mmHg Estimated PAP/RSVP RA Pressure 5 mmHg <=5 PA Systolic Pressure 37 mmHg <36 RV Systolic Pressure 37 mmHg <36 Aorta Name Value Normal Ascending Aorta Ao Root Diameter (MM) 2.9 cm Ao Root Diam Index (MM) 2.0 cm/m2 Aortic Valve Name Value Normal AV Doppler AV Peak Velocity 136 cm/s AV Peak Gradient 7 mmHg AV Mean Gradient 5 mmHg AV VTI 26 cm AV Area (Cont Eq VTI) 2.7 cm2 >=3.0 AV Area (Cont Eq Jose) 2.7 cm2 AV Regurgitation 2D LVOT Area 2.8 cm2 Ventricles Name Value Normal LV Dimensions 2D/MM IVS Diastolic Thickness (2D) 0.9 cm 0.6-1.0 LVID Diastole (2D) 3.7 cm 3.8-5.2 LVIW Diastolic Thickness (2D) 0.6 cm 0.6-0.9 LVID Systole (2D) 2.7 cm 2.2-3.5 LVOT Diameter 1.9 cm LV Mass (2D Cubed) 78.64 g 67.00-162.00 LV Mass Index (2D Cubed) 55 g/m2 43-95 Relative Wall Thickness (2D) 0.35 LV Fractional Shortening/Ejection Fraction 2D/MM LV Fractional Shortening (2D) 27 % 27-45 LV EF (2D Teicholz) 54 % 54-74 LV Diastolic Volume (4C MOD) 53 ml LV EF (4C MOD) 77 % LV Diastolic Volume (2C MOD) 51 ml LV EF (2C MOD) 67 % LV Diastolic Volume (BP MOD) 55 ml 46-106 LV Diastolic Volume Index (BP MOD) 39 ml/m2 29-61 LV Systolic Volume (BP MOD) 16 ml 14-42 LV Systolic Volume Index (BP MOD) 11 ml/m2 8-24 LV EF (BP MOD) 70 % 54-74 LV Diastolic Length (4C) 6.9 cm LV Systolic Length (4C) 5.1 cm LV Stroke Volume (4C MOD) 41 ml RV Dimensions 2D/MM RVID Diastole (2D) 3.8 cm 2.5-3.5 Atria Name Value Normal LA Dimensions LA Volume (4C A-L) 19 ml LA Volume (BP A-L) 18 ml RA Dimensions RA Area (4C) 8.8 cm2 <=18.0 Report Signatures
[2024-08-02] MEDS: AZITHROMYCIN 500 MG/NS 250 ML 500 MG/250 ML BAG 250 MG IVPB (13:41)
[2024-08-02] MEDS: clonazePAM (*CRX) 0.5 MG TABLET 1 MG PO (13:41)
[2024-08-02 15:52] LABS: Hematocrit 33.6 % (37.0-47.0); Hemoglobin 10.4 g/dL (12.0-15.0); Immature Platelet Fraction Pct 11.3 % (0.9-11.2); Mean Corpuscular Hemoglobin 31.3 pg (26-34); Mean Corpuscular Volume 101.2 fl (80-100); Mean Platelet Volume 11.9 fl (7.4-10.4); Platelet Count Result 105 k/mm3 (150-375); Red Blood Count 3.32 M/mm3 (4.2-5.4); Red Cell Distribution Width 13.6 % (11.5-14.5)
[2024-08-02 16:00] LABS: Alanine Aminotransferase 16 U/L (6-35); Albumin Level 3.6 g/dL (3.5-5.1); Alkaline Phosphatase 50 U/L (38-126); Anion Gap 4 mmol/L (4-12); Aspartate Amino Transferase 24 U/L (14-36); Bilirubin,Total 0.2 mg/dL (0.2-1.3); Blood Urea Nitrogen 5 mg/dL (7-17); Calcium 8.1 mg/dL (8.4-10.2); Carbon Dioxide 32 mmol/L (22-30); Chloride 106 mmol/L (98-107); Estimated CRCL calculation 86 ml/min; Estimated Glomerular Filt Rate > 60; Glucose 78 mg/dL (65-110); Potassium 3.8 mmol/L (3.4-5.0); Sodium 142 mmol/L (137-145)
[2024-08-02 16:00] LABS: Ammonia < 9 umol/L (9-30)
[2024-08-02 16:35] LABS: Syphilis IgG/IgM Antibody Negative (Negative)
[2024-08-02 16:39] LABS: Thyroid Stimulating Hormone Reflex 0.281 uIU/mL (0.465-4.68)
[2024-08-02 16:41] LABS: HIV 1/2 Ab P24 Ag Result Negative (Negative)
[2024-08-02 17:06] LABS: Folic Acid 6.9 ng/mL (2.76->20)
[2024-08-02 17:15] LABS: Free T4 Free Thyroxine Reflex 0.91 ng/dL (0.78-2.19)
[2024-08-02] MEDS: NICOTINE (*PBKC) 14 MG PATCH 1 PATCH TRANSDERM (17:21)
[2024-08-02] MEDS: methylPREDNISolone SOD SUCC 40 MG VIAL 20 MG IV PUSH ×2 (17:22→23:50)
[2024-08-02] MEDS: guaiFENesin 12 HR 600 MG TABCR 1200 MG PO (20:14)
[2024-08-02 20:45] LABS: MRSA (PCR) DETECTED (NOT DETECTE)
[2024-08-02 22:58] LABS: Amphetamine Screen Urine Negative (Negative); Barbiturate Screen Urine Negative (Negative); Benzodiazepines Screen Urine Negative (Negative); Cannabinoid Screen Urine Negative (Negative); Cocaine Screen Urine Negative (Negative); Methadone Screen Urine Negative (Negative); Opiate Screen Urine Negative (Negative); Phencyclidine Screen Urine Negative (Negative)
[2024-08-03] VITALS (25 sets, daily range): BP systolic 112–135; BP diastolic 63–86; PULSE 60–110; RESP 14–24; TEMP 36.3–36.8; O2SAT 93–100
--- NOTE | 2024-08-03 02:07 | PCRCNOTE ---
Patient did not receive 00:00 updraft treatment due to being on an overnight oximetry study. This RT will administer treatment upon removal of study @ approx 8611.
[2024-08-03] MEDS: IPRATROPIUM 0.5 MG/ALBUTEROL SULFATE 2.5 MG AMPUL.NEB 3 ML INHALATION ×4 (05:06→16:15)
[2024-08-03 05:13] LABS: Alveolar/Arterial O2 Gradient 70.4 mmHg; Base Excess ABG 2.1 mEq/l (+/-2.0); Fractional Inspired Oxygen 28 %; HCO3 ABG 29.3 mEq/l (22.0-26.0); Oxygen Content ABG 14.6 %vol (16.0-22.0); Oxygen Saturation ABG 88.4 % (95.0-100.0); Oxyhemoglobin 89.9 % THb (90.0-100.0); PCO2 ABG 58.5 mmHg (35.0-45.0); PO2 ABG 60.2 mmHg (80.0-100.0); PO2 FiO2 Ratio Arterial Blood 2.15 %; Total Hemoglobin 11.5 g/dL (12.0-18.0); pH ABG 7.317 (7.350-7.450)
[2024-08-03 05:14] LABS: Device BIPAP; Site Drawn RIGHT BRACHIAL
[2024-08-03 05:15] LABS: Expiratory Pressure 5 cmH2O
[2024-08-03] MEDS: methylPREDNISolone SOD SUCC 40 MG VIAL 20 MG IV PUSH ×4 (06:08→23:51)
[2024-08-03 06:25] LABS: Hematocrit 36.4 % (37.0-47.0); Mean Corpuscular HGB Conc 30.2 g/dl (32-36); Mean Corpuscular Hemoglobin 30.6 pg (26-34); Mean Corpuscular Volume 101.4 fl (80-100); Platelet Count Result 107 k/mm3 (150-375); Red Blood Count 3.59 M/mm3 (4.2-5.4); Red Cell Distribution Width 13.7 % (11.5-14.5); White Blood Count 5.2 K/mm3 (4.5-10.0)
[2024-08-03 06:49] LABS: Alanine Aminotransferase 15 U/L (6-35); Albumin Level 3.8 g/dL (3.5-5.1); Alkaline Phosphatase 54 U/L (38-126); Anion Gap 5 mmol/L (4-12); Aspartate Amino Transferase 25 U/L (14-36); Bilirubin,Total 0.3 mg/dL (0.2-1.3); Blood Urea Nitrogen 7 mg/dL (7-17); Calcium 8.6 mg/dL (8.4-10.2); Carbon Dioxide 32 mmol/L (22-30); Chloride 103 mmol/L (98-107); Estimated CRCL calculation 123 ml/min; Estimated Glomerular Filt Rate > 60; Glucose 121 mg/dL (65-110); Potassium 3.9 mmol/L (3.4-5.0); Sodium 140 mmol/L (137-145)
[2024-08-03] MEDS: NICOTINE (*PBKC) 14 MG PATCH 1 PATCH TRANSDERM (09:15)
[2024-08-03] MEDS: MUPIROCIN 2% OINT 22 GM TUBE 1 APPLIC EACH NARE ×2 (09:15→20:43)
[2024-08-03] MEDS: AZITHROMYCIN 500 MG/NS 250 ML 500 MG/250 ML BAG 250 MG IVPB (09:15)
[2024-08-03] MEDS: guaiFENesin 12 HR 600 MG TABCR 1200 MG PO ×2 (09:15→20:35)
[2024-08-03] MEDS: ASPIRIN 81 MG ENTERIC TABLET PO (09:15)
[2024-08-03] MEDS: SODIUM CHLORIDE 0.9% IV 1,000 ML 125 ML IV CONT ×3 (10:56→18:31)
--- NOTE | 2024-08-03 16:07 | P.PNIM_ITS ---
Progress Note: A&P Assessment and Plan (1) Acute exacerbation of chronic obstructive pulmonary disease: Code(s): J44.1 - Chronic obstructive pulmonary disease with (acute) exacerbation Status: Acute Assessment and Plan: -Last exacerbation May 2023 -CVA comorbid condition -Pulmonology workup with as OP -Home 2L O2 -Chronic Smoking Hx,1PPD -COPD Exacerbation requiring BiPAP at ED -Gold grade 4 group E COPD -ECHO ordered -Started on Azithromycin -Negative for Influenza and COVID -Ordered Nasal MRSA -Methylprednisone 60 mg IV q 6hrs -On Guaifenesin -Methylprednisone 20mg IV q 6HRS -Cornet flutter valve -CT chest: panlobular emphysema (2) Respiratory failure with hypoxia and hypercapnia: Code(s): J96.91 - Respiratory failure, unspecified with hypoxia; J96.92 - Respiratory failure, unspecified with hypercapnia Status: Acute Assessment and Plan: Unable to tolearte BiPAP AVAPS mode and adjusted the settings to come for resulting in a rate of 14, tidal volume 450, EPAP 5, minimal inspiratory pressure 6, maximum inspiratory pressure 25, inspiratory time 1.0, rise of 5 and 28% FiO2. AVAPS settings as above and obtain an ABG prior to removal and an overnight oximetry. (3) Tobacco dependence: Code(s): F17.200 - Nicotine dependence, unspecified, uncomplicated Status: Acute Assessment and Plan: Nicotine patch (4) Metabolic encephalopathy: Code(s): G93.41 - Metabolic encephalopathy Status: Acute Assessment and Plan: Ordered B12, TSH, ammonia, syphilis, HIV Order urine drug screen CT negative Possibly due to hypercapnia Neurochecks q.4 hours Subjective Date/time seen: 08/03/24 16:07 Interval history: Patient reports doing well. Patient is currently on AVAPS mode with rate 20 and tell what limb 500 and will repeat ABG tomorrow. Review of Systems Review of Systems: All systems reviewed & are unremarkable except as noted in HPI and below Constitutional: Constitutional: Reports no additional constitutional complaints Eyes: Eyes: Reports no additional eye complaints ENT: Reports system reviewed and no additional complaints, except as documented Cardiovascular: Cardiovascular: Reports no additional cardiovascular c omplaints Respiratory: Respiratory: Reports no additional respiratory complaints Gastrointestinal: Gastrointestinal: Reports no additional gastrointestinal complaints Musculoskeletal: Musculoskeletal: Reports no additional musculoskeletal complaints Neurologic: Reports system reviewed and no additional complaints, except as documented Psychiatric: Psychiatric: Reports no additional psychiatric complaints Endocrine: Endocrine: Reports no additional endocrine complaints Hematologic/Lymphatic: Hematologic/Lymphatic: Reports no additional hematologic/lymphatic complaints Allergic/Immunologic: Allergic/Immunologic: Reports no additional allergic/immunologic complaints Exam Narrative: GENERAL: Ill-appearing, well-nourished, non-toxic, in no acute distress. HEAD: Normocephalic, atraumatic. NECK: Supple. No adenopathy, no masses. RESPIRATORY: Airway patent, respirations mildly labored. Wheezing to all lobes, + rales, - rhonchi CARDIOVASCULAR: Regular rate and rhythm without murmurs, rubs, or gallops. Peripheral pulses 2+ and equal bilaterally. ABDOMINAL: Soft, nontender, nondistended, no hepatosplenomegaly. Normoactive BS. MUSCULOSKELETAL: Moves all extremities. Strength/ROM intact without gross deformities. SKIN: Warm, dry, normal color. No rashes. NEURO: A&O X3. Speech clear. Cranial nerves II-XII intact. No ataxic movements. Periods of intermittent confusion. PSYCHIATRIC: Appropriate mood and affect. Normal interaction. Const: General: cooperative, healthy appearing and comfortable Orientation/consciousness: oriented to person, oriented to place and oriented to time Other: no distress HENMT: Head: normal to inspection Ears: hearing grossly normal bilaterally Eyes: General: appearance normal, both eyes and all related structures Neck: Neck: normal visual inspection Chest: Chest palpation & inspection: normal inspection of the chest Resp: Effort & Inspection: normal respiratory effort and able to speak in complete sentences Auscultation: no crackles, no rales, no rhonchi, wheezes and diminished lung sounds Cardio: Jugular venous distension: no JVD GI: Inspection: normal to inspection Skin: General skin exam: normal color Neuro: General: oriented to person, oriented to place and oriented to time Extrem: General: normal to inspection Psych: Appearance: grossly normal Objective Data Vital Signs Vital Signs: Vital Signs - 24 hr 08/02/24 18:00 08/02/24 20:00 08/02/24 20:00 Temperature 98.4 F Pulse Rate 90 88 Respiratory Rate 18 Blood Pressure 105/56 L Pulse Oximetry 97 95 Oxygen Delivery Nasal Cannula Oxygen Flow Rate 2 Fraction of Inspired Oxygen 08/02/24 20:00 08/02/24 20:52 08/02/24 21:04 Temperature Pulse Rate 90 90 Respiratory Rate 18 Blood Pressure Pulse Oximetry 95 Oxygen Delivery Nasal Cannula Oxygen Flow Rate 2 Fraction of Inspired Oxygen 08/02/24 21:04 08/02/24 22:00 08/02/24 22:25 Temperature Pulse Rate 94 99 88 Respiratory Rate 18 Blood Pressure Pulse Oximetry 95 Oxygen Delivery BiPAP Oxygen Flow Rate Fraction of Inspired Oxygen 28 08/02/24 22:25 08/03/24 00:00 08/03/24 00:00 Temperature Pulse Rate 88 78 Respiratory Rate 24 H Blood Pressure Pulse Oximetry 95 95 Oxygen Delivery BiPAP BiPAP Oxygen Flow Rate Fraction of Inspired Oxygen 08/03/24 02:00 08/03/24 02:02 08/03/24 04:00 Temperature Pulse Rate 65 60 Respiratory Rate 15 Blood Pressure Pulse Oximetry 95 Oxygen Delivery BiPAP BiPAP Oxygen Flow Rate Fraction of Inspired Oxygen 08/03/24 04:00 08/03/24 04:00 08/03/24 04:55 Temperature 97.8 F Pulse Rate 70 72 63 Respiratory Rate 20 14 Blood Pressure 121/63 Pulse Oximetry 100 97 Oxygen Delivery BiPAP Oxygen Flow Rate Fraction of Inspired Oxygen 08/03/24 05:06 08/03/24 05:14 08/03/24 06:00 Temperature Pulse Rate 79 82 82 Respiratory Rate 18 18 Blood Pressure Pulse Oximetry Oxygen Delivery Oxygen Flow Rate Fraction of Inspired Oxygen 08/03/24 07:49 08/03/24 07:49 08/03/24 08:00 Temperature Pulse Rate 74 93 Respiratory Rate 18 20 Blood Pressure Pulse Oximetry 93 Oxygen Delivery Nasal Cannula Oxygen Flow Rate 2 Fraction of Inspired Oxygen 08/03/24 08:00 08/03/24 08:00 08/03/24 08:00 Temperature 98.0 F Pulse Rate 92 94 Respiratory Rate 24 H Blood Pressure 115/70 Pulse Oximetry 100 100 Oxygen Delivery Nasal Cannula Oxygen Flow Rate 2 Fraction of Inspired Oxygen 08/03/24 10:00 08/03/24 11:32 08/03/24 11:41 Temperature Pulse Rate 90 91 100 Respiratory Rate 20 20 Blood Pressure Pulse Oximetry Oxygen Delivery Oxygen Flow Rate Fraction of Inspired Oxygen 08/03/24 11:57 08/03/24 12:00 08/03/24 12:00 Temperature 97.3 F L Pulse Rate 102 H 105 H Respiratory Rate 24 H 20 Blood Pressure 133/77 Pulse Oximetry 96 97 97 Oxygen Delivery BiPAP Nasal Cannula Oxygen Flow Rate 2 Fraction of Inspired Oxygen 08/03/24 12:00 08/03/24 13:02 08/03/24 14:00 Temperature Pulse Rate 110 H 91 Respiratory Rate Blood Pressure Pulse Oximetry 94 Oxygen Delivery Nasal Cannula Oxygen Flow Rate 2 Fraction of Inspired Oxygen Intake/Output Intake/Output: Intake & Output 07/31/24 08/01/24 08/02/24 08/03/24 23:59 23:59 23:59 23:59 Intake Total 1000 4180 1465 Output Total 750 1000 Balance 1000 3430 465 Meds/Results Medications: Active Medications Generic Name Dose Route Start Last Admin Trade Name Freq PRN Reason Stop Dose Admin Albuterol 1 puff 08/02/24 08:13 Albuterol Sulfate (*Sp) Aerosol 1 Puff INHALATION Q4-6H PRN shortness of breath or wheezing Albuterol/Ipratropium 3 ml 08/02/24 16:00 08/03/24 11:32 Ipratropium 0.5 Mg/Albuterol Sulfate 2.5 Mg Ampul.Neb 3 Ml INHALATION 3 ml Q4HRT HOMAR Administration Aspirin 81 mg 08/02/24 09:00 08/03/24 09:15 Aspirin 81 Mg Enteric Tablet PO 09/01/24 08:59 81 mg DAILY HOMAR Administration Clonazepam 1 mg 08/02/24 08:13 08/02/24 13:41 Clonazepam (*Crx) 0.5 Mg Tablet PO 1 mg DAILY PRN Administration Anxiety Estradiol 1 applic 08/02/24 08:13 Estradiol Vaginal Cream 42.5 Gm VAGINAL PRN PRN Pain Fluticasone Propionate 1 spray 08/02/24 08:13 Fluticasone Propionate 0.05% Na Spr 16 Gm Btl (*Bkc) NASAL DAILY PRN Dryness Guaifenesin 1,200 mg 08/02/24 21:00 08/03/24 09:15 Guaifenesin 12 Hr 600 Mg Tabcr PO 1,200 mg Q12HR HOMAR Administration Sodium Chloride 1,000 mls @ 125 mls/hr 08/02/24 02:35 08/03/24 10:56 Normal Saline Iv IV CONT 125 mls/hr .Q8H HOMAR Administration Azithromycin 500 mg in 250 mls @ 250 mls/hr 08/02/24 12:45 08/03/24 09:15 Zithromax IVPB 250 mls/hr QAM HOMAR Administration Methylprednisolone Sodium Succinate 20 mg 08/02/24 18:00 08/03/24 12:05 Methylprednisolone Sod Succ 40 Mg Vial IV PUSH 20 mg Q6HR HOMAR Administration Mupirocin 1 applic 08/03/24 09:00 08/03/24 09:15 Mupirocin 2% Oint 22 Gm Tube EACH NARE 08/07/24 21:01 1 applic Q12HR HOMAR Administration Nicotine 1 patch 08/02/24 14:40 08/03/24 09:15 Nicotine (*Pbkc) 14 Mg Patch TRANSDERM 1 patch DAILY HOMAR Administration Nitroglycerin 0.4 mg 08/02/24 08:15 Nitroglycerin Sl 0.4 Mg Tablet SUBLINGUAL Q5MIN [facility] Perflutren Lipid Microsphere 0 ml 08/02/24 12:27 Perflutren Lipid Microspheres 1.5 Ml Vial Diluted To 10 Ml Total Volume IV PUSH 08/05/24 12:27 ONCE PRN adequate visualization Protocol Perflutren Lipid Microsphere 0 ml 08/02/24 12:38 Perflutren Lipid Microspheres 1.5 Ml Vial Diluted To 10 Ml Total Volume IV PUSH 08/05/24 12:38 ONCE PRN adequate visualization Protocol Valacyclovir HCl 1,000 mg 08/02/24 08:15 08/03/24 13:34 Valacyclovir Hcl 500 Mg Tablet PO Not Given Q8HR [facility] Radiology Results: ITS Impressions Chest X-Ray 08/01/24 20:17 IMPRESSION: No focal infiltrate or effusion. Chest CTA 08/01/24 21:32 IMPRESSION: No pulmonary embolus. No thoracic aortic dissection. Severe panlobular bullous emphysema, as detailed above. Head CT 08/02/24 10:48 Impression: No significant abnormality seen. Labs Labs: Laboratory Results - last 24 hr 08/02/24 08/02/24 08/02/24 15:33 15:34 17:21 WBC RBC Hgb Hct MCV MCH MCHC RDW Plt Count MPV % Immature Plt Fraction Puncture Site ABG pH ABG pCO2 ABG pO2 ABG PO2/FiO2 Ratio ABG HCO3 ABG O2 Saturation ABG O2 Content ABG Base Excess A-a Gradient Oxyhemoglobin Total Hemoglobin O2 Delivery Device O2 Liters/Min FiO2 Expiratory Pressure Inspiratory Pressure Sodium Potassium Chloride Carbon Dioxide Anion Gap BUN Creatinine Estim Creat Clear Calc Estimated GFR Glucose Calcium Total Bilirubin AST ALT Alkaline Phosphatase Total Protein Albumin Vitamin B12 401.0 Folate 6.9 TSH (Reflex) 0.281 L Free T4 0.91 Total T3 0.80 L Nasal MRSA (PCR) Detected A* Urine Opiates Screen Urine Methadone Screen Ur Barbiturates Screen Ur Phencyclidine Scrn Ur Amphetamine Screen U Benzodiazepines Scrn Urine Cocaine Screen U Cannabinoids Screen Syphilis IgG/IgM Ab Negative HIV 1&2 Ab/P24 Ag 4thGn Negative 08/02/24 08/03/24 08/03/24 22:27 04:56 06:16 WBC 5.2 RBC 3.59 L Hgb 11.0 L Hct 36.4 L MCV 101.4 H MCH 30.6 MCHC 30.2 L RDW 13.7 Plt Count 107 L MPV 12.0 H % Immature Plt Fraction 12.0 H Puncture Site Right brachial ABG pH 7.317 L ABG pCO2 58.5 H ABG pO2 60.2 L ABG PO2/FiO2 Ratio 2.15 ABG HCO3 29.3 H ABG O2 Saturation 88.4 L ABG O2 Content 14.6 L ABG Base Excess 2.1 A-a Gradient 70.4 Oxyhemoglobin 89.9 L Total Hemoglobin 11.5 L O2 Delivery Device Bipap O2 Liters/Min Not Reportable FiO2 28 Expiratory Pressure 5 Inspiratory Pressure Not Reportable Sodium 140 Potassium 3.9 Chloride 103 Carbon Dioxide 32 H Anion Gap 5 BUN 7 Creatinine 0.33 L Estim Creat Clear Calc 123 Estimated GFR > 60 Glucose 121 H Calcium 8.6 Total Bilirubin 0.3 AST 25 ALT 15 Alkaline Phosphatase 54 Total Protein 6.0 L Albumin 3.8 Vitamin B12 Folate TSH (Reflex) Free T4 Total T3 Nasal MRSA (PCR) Urine Opiates Screen Negative Urine Methadone Screen Negative Ur Barbiturates Screen Negative Ur Phencyclidine Scrn Negative Ur Amphetamine Screen Negative U Benzodiazepines Scrn Negative Urine Cocaine Screen Negative U Cannabinoids Screen Negative Syphilis IgG/IgM Ab HIV 1&2 Ab/P24 Ag 4thGn Hospitalist MIPS Advance Care Plan I have confirmed that the patient's Advanced Care Plan is present, code status is documented, or surrogate decision maker is listed in patient medical record.: Yes Medication Reconciliation I have utilized all available resources to obtain, update and review the patients current medications (includes all prescriptions, OTC, herbals, cannabis, and nutritional supplements).: Yes
--- NOTE | 2024-08-03 23:12 | PCRCNOTE ---
Window of time for administration has passed. See next scheduled administration.
[2024-08-03] MEDS: clonazePAM (*CRX) 0.5 MG TABLET 1 MG PO (23:51)
[2024-08-04] VITALS (25 sets, daily range): BP systolic 121–148; BP diastolic 77–86; PULSE 57–106; RESP 12–28; TEMP 36.4–36.7; O2SAT 95–100
[2024-08-04] MEDS: IPRATROPIUM 0.5 MG/ALBUTEROL SULFATE 2.5 MG AMPUL.NEB 3 ML INHALATION ×6 (01:50→23:29)
[2024-08-04] MEDS: SODIUM CHLORIDE 0.9% IV 1,000 ML 125 ML IV CONT ×4 (02:35→19:03)
[2024-08-04 04:33] LABS: Hematocrit 36.3 % (37.0-47.0); Hemoglobin 11.2 g/dL (12.0-15.0); Mean Corpuscular HGB Conc 30.9 g/dl (32-36); Mean Corpuscular Hemoglobin 30.9 pg (26-34); Mean Platelet Volume 12.1 fl (7.4-10.4); Platelet Count Result 119 k/mm3 (150-375); Red Blood Count 3.63 M/mm3 (4.2-5.4); Red Cell Distribution Width 13.9 % (11.5-14.5); White Blood Count 6.8 K/mm3 (4.5-10.0)
[2024-08-04 04:54] LABS: Alanine Aminotransferase 18 U/L (6-35); Albumin Level 3.9 g/dL (3.5-5.1); Alkaline Phosphatase 66 U/L (38-126); Anion Gap 5 mmol/L (4-12); Aspartate Amino Transferase 27 U/L (14-36); Bilirubin,Total 0.2 mg/dL (0.2-1.3); Blood Urea Nitrogen 9 mg/dL (7-17); Calcium 8.7 mg/dL (8.4-10.2); Carbon Dioxide 35 mmol/L (22-30); Chloride 100 mmol/L (98-107); Estimated CRCL calculation 114 ml/min; Estimated Glomerular Filt Rate > 60; Glucose 114 mg/dL (65-110); Potassium 4.2 mmol/L (3.4-5.0); Sodium 140 mmol/L (137-145)
[2024-08-04 05:54] LABS: Alveolar/Arterial O2 Gradient 32.6 mmHg; Base Excess ABG 5.5 mEq/l (+/-2.0); Carboxyhemoglobin 0.4 % THb (0-2.0); Fractional Inspired Oxygen 28 %; HCO3 ABG 32.7 mEq/l (22.0-26.0); Methemoglobin ABG 0.1 %THb (0-1.5); Oxygen Content ABG 15.9 %vol (16.0-22.0); Oxygen Saturation ABG 96.6 % (95.0-100.0); Oxyhemoglobin 96.8 % THb (90.0-100.0); PO2 ABG 94.1 mmHg (80.0-100.0); PO2 FiO2 Ratio Arterial Blood 3.36 %; Reduced Hemoglobin 2.7 %THb (0-5.0); Total Hemoglobin 11.6 g/dL (12.0-18.0); pH ABG 7.342 (7.350-7.450)
[2024-08-04 06:03] LABS: Modified Allen's Test Pass; PCO2 ABG 61.8 mmHg (35.0-45.0); Site Drawn LEFT RADIAL
[2024-08-04 06:04] LABS: Device BIPAP
[2024-08-04] MEDS: methylPREDNISolone SOD SUCC 40 MG VIAL 20 MG IV PUSH ×4 (06:11→22:57)
[2024-08-04] MEDS: NICOTINE (*PBKC) 14 MG PATCH 1 PATCH TRANSDERM (08:40)
[2024-08-04] MEDS: ASPIRIN 81 MG ENTERIC TABLET PO (08:41)
[2024-08-04] MEDS: guaiFENesin 12 HR 600 MG TABCR 1200 MG PO ×2 (08:41→21:05)
[2024-08-04] MEDS: AZITHROMYCIN 500 MG/NS 250 ML 500 MG/250 ML BAG 250 MG IVPB (08:41)
[2024-08-04] MEDS: MUPIROCIN 2% OINT 22 GM TUBE 1 APPLIC EACH NARE ×2 (08:47→21:05)
--- NOTE | 2024-08-04 16:12 | P.PNIM_ITS ---
Progress Note: A&P Assessment and Plan (1) Acute exacerbation of chronic obstructive pulmonary disease: Code(s): J44.1 - Chronic obstructive pulmonary disease with (acute) exacerbation Status: Acute Assessment and Plan: -Last exacerbation May 2023 -CVA comorbid condition -Pulmonology workup with as OP -Home 2L O2 -Chronic Smoking Hx,1PPD -COPD Exacerbation requiring BiPAP at ED -Gold grade 4 group E COPD -ECHO ordered -Started on Azithromycin -Negative for Influenza and COVID -Ordered Nasal MRSA -Methylprednisone 60 mg IV q 6hrs -On Guaifenesin -Methylprednisone 20mg IV q 6HRS -Cornet flutter valve -CT chest: panlobular emphysema (2) Respiratory failure with hypoxia and hypercapnia: Code(s): J96.91 - Respiratory failure, unspecified with hypoxia; J96.92 - Respiratory failure, unspecified with hypercapnia Status: Acute Assessment and Plan: Unable to tolearte BiPAP AVAPS mode and adjusted the settings to come for resulting in a rate of 14, tidal volume 450, EPAP 5, minimal inspiratory pressure 6, maximum inspiratory pressure 25, inspiratory time 1.0, rise of 5 and 28% FiO2. AVAPS settings as above and obtain an ABG prior to removal and an overnight oximetry. 0 08/04: AVAPS setting has been changed due to worsened ABG. Currently AVAP setting respiratory rate 8/tidal volume 400 and repeat ABG tomorrow a (3) Tobacco dependence: Code(s): F17.200 - Nicotine dependence, unspecified, uncomplicated Status: Acute Assessment and Plan: Nicotine patch (4) Metabolic encephalopathy: Code(s): G93.41 - Metabolic encephalopathy Status: Acute Assessment and Plan: Ordered B12, TSH, ammonia, syphilis, HIV Order urine drug screen CT negative Possibly due to hypercapnia Neurochecks q.4 hours Subjective Date/time seen: 08/04/24 16:12 Interval history: Patient is anxious . Discussed with the immigration law specialist. Her ABG is worsen. Dr. Call advised AVAPS with low respiratory rate of 8/tidal volume 400 and repeat ABG tomorrow morning. Review of Systems Review of Systems: All systems reviewed & are unremarkable except as noted in HPI and below Constitutional: Constitutional: Reports no additional constitutional complaints Eyes: Eyes: Reports no additional eye complaints ENT: Reports system reviewed and no additional complaints, except as documented Cardiovascular: Cardiovascular: Reports no additional cardiovascular co mplaints Respiratory: Respiratory: Reports no additional respiratory complaints Gastrointestinal: Gastrointestinal: Reports no additional gastrointestinal complaints Musculoskeletal: Musculoskeletal: Reports no additional musculoskeletal complaints Neurologic: Reports system reviewed and no additional complaints, except as documented Psychiatric: Psychiatric: Reports no additional psychiatric complaints Endocrine: Endocrine: Reports no additional endocrine complaints Hematologic/Lymphatic: Hematologic/Lymphatic: Reports no additional hematologic/lymphatic complaints Allergic/Immunologic: Allergic/Immunologic: Reports no additional allergic/immunologic complaints Exam Narrative: GENERAL: Ill-appearing, well-nourished, non-toxic, in no acute distress. HEAD: Normocephalic, atraumatic. NECK: Supple. No adenopathy, no masses. RESPIRATORY: Airway patent, respirations mildly labored. Wheezing to all lobes, + rales, - rhonchi CARDIOVASCULAR: Regular rate and rhythm without murmurs, rubs, or gallops. Peripheral pulses 2+ and equal bilaterally. ABDOMINAL: Soft, nontender, nondistended, no hepatosplenomegaly. Normoactive BS. MUSCULOSKELETAL: Moves all extremities. Strength/ROM intact without gross deformities. SKIN: Warm, dry, normal color. No rashes. NEURO: A&O X3. Speech clear. Cranial nerves II-XII intact. No ataxic movements. Periods of intermittent confusion. PSYCHIATRIC: Appropriate mood and affect. Normal interaction. Const: General: cooperative, healthy appearing and comfortable Orientation/consciousness: oriented to person, oriented to place and oriented to time Other: no distress HENMT: Head: normal to inspection Ears: hearing grossly normal bilaterally Eyes: General: appearance normal, both eyes and all related structures Neck: Neck: normal visual inspection Chest: Chest palpation & inspection: normal inspection of the chest Resp: Effort & Inspection: normal respiratory effort and able to speak in complete sentences Auscultation: no crackles, no rales, no rhonchi, wheezes and diminished lung sounds Cardio: Jugular venous distension: no JVD GI: Inspection: normal to inspection Skin: General skin exam: normal color Neuro: General: oriented to person, oriented to place and oriented to time Extrem: General: normal to inspection Psych: Appearance: grossly normal Objective Data Vital Signs Vital Signs: Vital Signs - 24 hr 08/03/24 16:16 08/03/24 16:26 08/03/24 18:00 Temperature Pulse Rate 93 95 97 Respiratory Rate 20 20 Blood Pressure Pulse Oximetry Oxygen Delivery Oxygen Flow Rate 08/03/24 19:14 08/03/24 20:00 08/03/24 20:00 Temperature 97.9 F Pulse Rate 92 93 Respiratory Rate 16 Blood Pressure 112/70 Pulse Oximetry 98 98 Oxygen Delivery Nasal Cannula Oxygen Flow Rate 2 08/03/24 22:00 08/03/24 23:51 08/04/24 00:00 Temperature 97.8 F Pulse Rate 84 83 Respiratory Rate 20 Blood Pressure 135/86 Pulse Oximetry 97 97 Oxygen Delivery Nasal Cannula Oxygen Flow Rate 2 08/04/24 00:00 08/04/24 02:00 08/04/24 04:00 Temperature Pulse Rate 77 57 L Respiratory Rate Blood Pressure Pulse Oximetry 97 Oxygen Delivery Nasal Cannula Oxygen Flow Rate 2 08/04/24 04:00 08/04/24 04:00 08/04/24 06:00 Temperature 98.1 F Pulse Rate 72 71 77 Respiratory Rate 22 H Blood Pressure 133/80 Pulse Oximetry 96 Oxygen Delivery Oxygen Flow Rate 08/04/24 07:41 08/04/24 07:41 08/04/24 07:47 Temperature Pulse Rate 78 80 Respiratory Rate 20 20 Blood Pressure Pulse Oximetry 95 Oxygen Delivery Oxygen Flow Rate 3 08/04/24 08:00 08/04/24 08:00 08/04/24 08:00 Temperature 97.6 F Pulse Rate 72 85 Respiratory Rate 12 Blood Pressure 121/84 Pulse Oximetry 100 100 Oxygen Delivery Nasal Cannula Oxygen Flow Rate 2 08/04/24 10:00 08/04/24 11:31 08/04/24 12:00 Temperature 97.6 F Pulse Rate 82 77 Respiratory Rate 16 Blood Pressure 123/86 Pulse Oximetry 99 99 Oxygen Delivery Nasal Cannula Oxygen Flow Rate 2 08/04/24 12:00 08/04/24 13:08 08/04/24 13:16 Temperature Pulse Rate 83 86 89 Respiratory Rate 22 H 22 H Blood Pressure Pulse Oximetry Oxygen Delivery Oxygen Flow Rate 08/04/24 14:00 Temperature Pulse Rate 89 Respiratory Rate Blood Pressure Pulse Oximetry Oxygen Delivery Oxygen Flow Rate Intake/Output Intake/Output: Intake & Output 08/01/24 08/02/24 08/03/24 08/04/24 23:59 23:59 23:59 23:59 Intake Total 1000 4180 3142.9 2490 Output Total 750 1000 900 Balance 1000 3430 2142.9 1590 Meds/Results Medications: Active Medications Generic Name Dose Route Start Last Admin Trade Name Freq PRN Reason Stop Dose Admin Albuterol 1 puff 08/02/24 08:13 Albuterol Sulfate (*Sp) Aerosol 1 Puff INHALATION Q4-6H PRN shortness of breath or wheezing Albuterol/Ipratropium 3 ml 08/02/24 16:00 08/04/24 13:08 Ipratropium 0.5 Mg/Albuterol Sulfate 2.5 Mg Ampul.Neb 3 Ml INHALATION 3 ml Q4HRT HOMAR Administration Aspirin 81 mg 08/02/24 09:00 08/04/24 08:41 Aspirin 81 Mg Enteric Tablet PO 09/01/24 08:59 81 mg DAILY HOMAR Administration Clonazepam 1 mg 08/02/24 08:13 08/03/24 23:51 Clonazepam (*Crx) 0.5 Mg Tablet PO 1 mg DAILY PRN Administration Anxiety Estradiol 1 applic 08/02/24 08:13 Estradiol Vaginal Cream 42.5 Gm VAGINAL PRN PRN Pain Fluticasone Propionate 1 spray 08/02/24 08:13 Fluticasone Propionate 0.05% Na Spr 16 Gm Btl (*Bkc) NASAL DAILY PRN Dryness Guaifenesin 1,200 mg 08/02/24 21:00 08/04/24 08:41 Guaifenesin 12 Hr 600 Mg Tabcr PO 1,200 mg Q12HR HOMAR Administration Sodium Chloride 1,000 mls @ 125 mls/hr 08/02/24 02:35 08/04/24 10:50 Normal Saline Iv IV CONT 125 mls/hr .Q8H HOMAR Administration Azithromycin 500 mg in 250 mls @ 250 mls/hr 08/02/24 12:45 08/04/24 08:41 Zithromax IVPB 250 mls/hr QAM HOMAR Administration Methylprednisolone Sodium Succinate 20 mg 08/02/24 18:00 08/04/24 13:20 Methylprednisolone Sod Succ 40 Mg Vial IV PUSH 20 mg Q6HR HOMAR Administration Mupirocin 1 applic 08/03/24 09:00 08/04/24 08:47 Mupirocin 2% Oint 22 Gm Tube EACH NARE 08/07/24 21:01 1 applic Q12HR HOMAR Administration Nicotine 1 patch 08/02/24 14:40 08/04/24 08:40 Nicotine (*Pbkc) 14 Mg Patch TRANSDERM 1 patch DAILY HOMAR Administration Nitroglycerin 0.4 mg 08/02/24 08:15 Nitroglycerin Sl 0.4 Mg Tablet SUBLINGUAL Q5MIN [facility] Perflutren Lipid Microsphere 0 ml 08/02/24 12:27 Perflutren Lipid Microspheres 1.5 Ml Vial Diluted To 10 Ml Total Volume IV PUSH 08/05/24 12:27 ONCE PRN adequate visualization Protocol Perflutren Lipid Microsphere 0 ml 08/02/24 12:38 Perflutren Lipid Microspheres 1.5 Ml Vial Diluted To 10 Ml Total Volume IV PUSH 08/05/24 12:38 ONCE PRN adequate visualization Protocol Valacyclovir HCl 1,000 mg 08/02/24 08:15 08/04/24 13:20 Valacyclovir Hcl 500 Mg Tablet PO Not Given Q8HR [facility] Radiology Results: ITS Impressions Chest X-Ray 08/01/24 20:17 IMPRESSION: No focal infiltrate or effusion. Chest CTA 08/01/24 21:32 IMPRESSION: No pulmonary embolus. No thoracic aortic dissection. Severe panlobular bullous emphysema, as detailed above. Head CT 08/02/24 10:48 Impression: No significant abnormality seen. Labs Labs: Laboratory Results - last 24 hr 08/04/24 08/04/24 04:21 05:33 WBC 6.8 RBC 3.63 L Hgb 11.2 L Hct 36.3 L MCV 100.0 MCH 30.9 MCHC 30.9 L RDW 13.9 Plt Count 119 L MPV 12.1 H Puncture Site Left radial ABG pH 7.342 L ABG pCO2 61.8 H* ABG pO2 94.1 ABG PO2/FiO2 Ratio 3.36 ABG HCO3 32.7 H ABG O2 Saturation 96.6 ABG O2 Content 15.9 L ABG Base Excess 5.5 A-a Gradient 32.6 Oxyhemoglobin 96.8 Carboxyhemoglobin 0.4 Methemoglobin 0.1 Reduced Hemoglobin 2.7 Total Hemoglobin 11.6 L O2 Delivery Device Bipap O2 Liters/Min Not Reportable FiO2 28 Sodium 140 Potassium 4.2 Chloride 100 Carbon Dioxide 35 H Anion Gap 5 BUN 9 Creatinine 0.36 L Estim Creat Clear Calc 114 Estimated GFR > 60 Glucose 114 H Calcium 8.7 Total Bilirubin 0.2 AST 27 ALT 18 Alkaline Phosphatase 66 Total Protein 6.0 L Albumin 3.9 Hospitalist MIPS Advance Care Plan I have confirmed that the patient's Advanced Care Plan is present, code status is documented, or surrogate decision maker is listed in patient medical record.: Yes Medication Reconciliation I have utilized all available resources to obtain, update and review the patients current medications (includes all prescriptions, OTC, herbals, cannabis, and nutritional supplements).: Yes
[2024-08-04] MEDS: clonazePAM (*CRX) 0.5 MG TABLET 1 MG PO (22:57)
[2024-08-05] VITALS (31 sets, daily range): BP systolic 122–133; BP diastolic 74–94; PULSE 71–105; RESP 14–27; TEMP 35.9–36.9; O2SAT 90–98
[2024-08-05] MEDS: SODIUM CHLORIDE 0.9% IV 1,000 ML 125 ML IV CONT ×3 (02:02→22:31)
[2024-08-05] MEDS: IPRATROPIUM 0.5 MG/ALBUTEROL SULFATE 2.5 MG AMPUL.NEB 3 ML INHALATION ×6 (04:15→23:38)
[2024-08-05 04:24] LABS: Alveolar/Arterial O2 Gradient 119.4 mmHg; Carboxyhemoglobin 0.2 % THb (0-2.0); Fractional Inspired Oxygen 28 %; HCO3 ABG 33.9 mEq/l (22.0-26.0); Methemoglobin ABG 0.1 %THb (0-1.5); Oxygen Content ABG 15.5 %vol (16.0-22.0); Oxygen Saturation ABG 94.8 % (95.0-100.0); Oxyhemoglobin 95.2 % THb (90.0-100.0); PO2 ABG 77.5 mmHg (80.0-100.0); PO2 FiO2 Ratio Arterial Blood 2.77 %; Reduced Hemoglobin 4.5 %THb (0-5.0); Total Hemoglobin 11.5 g/dL (12.0-18.0); pH ABG 7.368 (7.350-7.450)
[2024-08-05 04:32] LABS: Hematocrit 35.1 % (37.0-47.0); Hemoglobin 10.6 g/dL (12.0-15.0); Mean Corpuscular HGB Conc 30.2 g/dl (32-36); Mean Corpuscular Hemoglobin 31.2 pg (26-34); Mean Corpuscular Volume 103.2 fl (80-100); Mean Platelet Volume 12.3 fl (7.4-10.4); Platelet Count Result 113 k/mm3 (150-375); Red Cell Distribution Width 13.7 % (11.5-14.5); White Blood Count 6.6 K/mm3 (4.5-10.0)
[2024-08-05 04:38] LABS: Alanine Aminotransferase 18 U/L (6-35); Albumin Level 3.6 g/dL (3.5-5.1); Alkaline Phosphatase 61 U/L (38-126); Anion Gap 4 mmol/L (4-12); Aspartate Amino Transferase 23 U/L (14-36); Bilirubin,Total 0.3 mg/dL (0.2-1.3); Blood Urea Nitrogen 13 mg/dL (7-17); Calcium 8.6 mg/dL (8.4-10.2); Carbon Dioxide 38 mmol/L (22-30); Chloride 98 mmol/L (98-107); Estimated CRCL calculation 94 ml/min; Estimated Glomerular Filt Rate > 60; Glucose 109 mg/dL (65-110); Potassium 4.1 mmol/L (3.4-5.0); Sodium 140 mmol/L (137-145)
[2024-08-05 04:40] LABS: PCO2 ABG 60.2 mmHg (35.0-45.0)
[2024-08-05 04:41] LABS: Device NON-INVASIVE VENT; Modified Allen's Test Pass; Non-Invasive Expiratory Pressure 5 CMH2O; Non-Invasive Inspiratory Pressure 20 CMH2O; Non-Invasive Vent Rate 20 /MIN; Site Drawn LEFT RADIAL
[2024-08-05] MEDS: methylPREDNISolone SOD SUCC 40 MG VIAL 20 MG IV PUSH (05:25)
--- NOTE | 2024-08-05 07:54 | P.CDI_ITS ---
CDI Query Clarification Request BMI: 21.6 Nutritional Diagnostic Statement: Please refer to the comprehensive nutrition assessment for further information. If you agree with diagnosis of Moderate protein calorie malnutrition related to decreased appetite as evidenced by weight loss 11%/2 months; intakes <75% needs >1 month. Please specify severity if known: * Mild * Moderate * Severe * Other/Unknown <Rhonda Marin RN - Last Filed: 08/05/24 07:55> Clarified Diagnosis Clarified Diagnosis: * Moderate <Kyrie Samayoa MD - Last Filed: 08/05/24 10:03>
[2024-08-05 08:29] LABS: NT Pro B Type Natriuretic Pept 2850 pg/mL (19.9-100)
--- NOTE | 2024-08-05 08:40 | P.PNPL_ITS ---
Progress Note: A&P Assessment and Plan (1) Acute exacerbation of chronic obstructive pulmonary disease: Code(s): J44.1 - Chronic obstructive pulmonary disease with (acute) exacerbation Status: Acute Assessment and Plan: Gold grade 4 group E COPD patient with 76 pack years, quit 05/2024, alpha 1 anti trypsin genotype MM. PFT 07/21/2023: shows very severe obstruction, FEV1 is 0.59 L, 24% predicted. FEV1:FV C raio 28%, TLC is 117% predicted. RV is 2.99 L, 178% predicted. RV/TLC is 56%. DLCO Uncorrected 26%, DLCO corrected for alveolar volume 47%. CT scan of the chest from 02/10/2017 with panlobular emphysema more severe at the apices and CT scan more recently on 08/01/2024 with progression of severe panlobular emphysema worse in the apices. Chronic hypoxemic respiratory failure requiring 2 L nasal cannula at rest and with activity. ABG on room air 05/18/2023 with pH 7.38/50.4/54. 08/02/2024: Patient presented to the hospital with COPD exacerbation with hypoxemic and hypercarbic respiratory failure with a blood gas of 7.30/56/71 and treated with BiPAP, steroids, and bronchodilators. CT angiogram of the chest negative for PE or focal consolidations. No evidence of fluid overload on exam. The patient remains confused. She tells me in spells her last name, knows she is at [facility], tells me it is July 07, 2024, knows Trleydi is the POTUS, name is a pen, cap and hold her correctly. Overall she says that she is breathing about the same as yesterday. Her cough is the same, shortness of breath is the same, minimal phlegm that is white with no blood. She says she is not wheezing. When I enter the room she was on 2 L nasal cannula with saturations 94%. I decreased her to room air and after 11 minutes her saturations were 89% and I returned her to 2 L. Plan: I will continue to treat for COPD exacerbation. She still has wheezing at this time. I will place her on Solu-Medrol 20 mg IV q.6, day 2 of steroids. I will occur increase her DuoNebs to q.4 hours. I will discontinue Anoro Ellipta she is on maximal doses of beta agonist and muscarinic antagonist with the DuoNebs q.4 hours. Patient has difficulty expectorating and I will add guaifenesin 1200 mg p.o. b.i.d. and a Cornet flutter valve. Will add azithromycin to treat possible tracheobronchitis. No evidence of pneumonia on CT scan. Pulmonary inpatient services will resume on 08/05/2024. Call with questions. 08/05/24: The patient tells me her breathing is back to normal. She has no cough, no phlegm no hemoptysis. She is afebrile. Currently she is on 2 L nasal cannula saturations 95%. I decreased her 1 L nasal cannula her saturations 93%. Her white blood cell count is 6.6, creatinine is 0.65. Her BNP is 2850. Plan: today is day 5 of steroids, will discontinue. Continue DuoNebs Q 4. Patient on azithromycin day 4, continue guaifenesin 1200 p.o. b.i.d.. Goal saturation 90-94%. Adjust oxygen accordingly. Discussed with Dr. Samayoa. Will follow with you. (2) Respiratory failure with hypoxia and hypercapnia: Code(s): J96.91 - Respiratory failure, unspecified with hypoxia; J96.92 - Respiratory fa ilure, unspecified with hypercapnia Status: Acute Assessment and Plan: patient with gold grade 4 group E COPD with hypoxic respiratory failure requiring 2 L nasal cannula at night. Patient presented to the hospital 08/02/24 with COPD and blood gas on 2 L 7.30/56/71. Previous ABG 05/18/2023 with pH of 7.38/50/54. Patient has chronic hypercarbic respiratory failure from her COPD. ABG on her home oxygen setting 7.3056/71. Patient would benefit from noninvasive ventilation to prevent further hospitalizations and deterioration. Patient was placed on BiPAP but could not tolerate these settings. I will initiate the process for home noninvasive ventilation with AVAPS mode. 08/02/2024: patient wore BiPAP last night but said it was uncomfortable due to pressures and she could not sleep with the machine on. Her settings were rate of 18, pressures 12/6. The patient could not tolerate BiPAP and I placed her on noninvasive ventilation with the AVAPS mode and adjusted the settings to come for resulting in a rate of 14, tidal volume 450, EPAP 5, minimal inspiratory pressure 6, maximum inspiratory pressure 25, inspiratory time 1.0, rise of 5 and 28% FiO2. Plan: The patient feels she will need the noninvasive ventilation tonight. AVAPS settings as above and obtain an ABG prior to removal and an overnight oximetry. 08/03/24: patient wore hospital AVAPS rate of 14, tidal volume 450, EPAP 5, minimal inspiratory pressure 6, maximum inspiratory pressure 25, inspiratory time 1.0, rise of 5 and 28% FiO2. ABG 7.32/59/60, ApneaLink with adequate oxygenation. 08/04/2024: Patient wore AVAPS rate of 20, tidal volume 500,EPAP 5, minimal inspiratory pressure 6, maximum inspiratory pressure 25, inspiratory time 1.0, rise of 5 and 28% FiO2. ABG 7.34 /62 /94. 08/05/24: The patient tells me her breathing is back to normal. She has no cough, no phlegm no hemoptysis. She is afebrile. Currently she is on 2 L nasal cannula saturations 95%. I decreased her 1 L nasal cannula her saturations 93%. Her white blood cell count is 6.6, creatinine is 0.65. Her BNP is 2850. patient wore Hospital AVAPS rate of 20, tidal volume 500 28% FiO2 despite an order placed for rate of 8 tidal volume 400. patient said she tolerated the settings adequately and was able to get some sleep. ABG prior to removal was 7.37/60/78. Plan: Tonight I will place the patient on hospital AVAPS rate of 8, tidal volume 400, EPAP 5, minimal inspiratory pressure 6, maximal inspiratory pressure 25, inspiratory time 1.0 and a rise of 5 with 28% FiO2. I will check an ABG and an overnight oximetry to determine if her ventilation improves with lower rate and lower tidal volume. I will initiate the process for a home noninvasive ventilation through her [facility] [employer]. (3) Cognitive changes: Code(s): R41.89 - Other symptoms and signs involving cognitive functions and awareness Status: Acute Assessment and Plan: 08/02/24: The patient remains confused. She tells me in spells her last name, knows she is at [facility], tells me it is July 07, 2024, knows Estefany is the POTUS, name is a pen, cap and hold her correctly. the patient also told me she was concerned that somebody was trying to poison her at home. I asked her if she was in physical danger and she told me the doctors may be looking in 1 direction but the danger may be directly behind me. Patient would not elaborate when I asked her for more details. I have asked dilated this conversation to the patient's bedside nurse, charge nurse and manager home healthcare. later in the day patient with a CT scan of the head that was negative. Management per hospitalist team. Subjective Date/time seen: 08/05/24 08:40 Interval history: 08/02/24: this is a new pulmonary consult for COPD exacerbation 53-year-old with a history of DVT 2007, depression, anxiety, polysubstance abuse, hepatitis-C virus cured with treatment, COPD with hypoxemic respiratory failure on 2 L nasal cannula. 09/06/2023: patient followed in the Pulmonary [facility] in last seen on 09/06/2023: she presented with a next empty oxygen tank. She looked amazing, not sick, more coherent in pulmonary rehab for the last month. She is lifting weights and using a treadmill. Feels better using oxygen. using trelegy 100. Usually wears 2 L nasal cannula Tobacco use: 2 packs per day from age 15 to May of 2024, 76 pack year, exposed to secondhand smoke from her mother. Denies vaping, she did snort cocaine for multiple years last use 2007. Denies vaping. Since the last visit, she had PFT 07/21/2023; 07/21/2023 PFT shows extremely severe COPD, FEV1 is 0.59 L, 24% predicted. TLC is 117% predicted. RV is 2.99 L, 178% predicted. RV/TLC is 56%. DLCO 26%. CAT score = 9/40; this is a low score, consistent with few COPD symptoms. She never coughs. She has very minimal sputum production. She has no chest tightness. She is somewhat short of breath walking up hills or flight of stairs. She is just barely limited doing activities around her home. She is confident leaving her home despite her lung condition. She sleeps mostly soundly but wakes with a dry mouth. She has more energy on this visit than she had previously. Plan: Continue trelegy 100 (samples given), Serevent and Anoro will prescribe to because trilogy was denied. Smoked for years, tells me she quit smoking tobacco in early March 2023; Her significant other, Nicholas, smokes tobacco and marijuana, usually outside, not in the house. She needs to avoid all exposure to smoke including second hand smokes as well as particulate matter from smoke. 12/29/2023: completed pulmonary rehab, session 35, exercise 42 minutes on 2 L oxygen with saturations 94%. MTS 4.12 for 30 minutes and 4.25 for 3 minutes on the treadmill. 08/01/2024: Patient presented to the emergency room with altered mental status, shortness of breath, Coughing, wheezing, chest pain. Patient tells me she was exposed to sick grandchildren on July 25, 2024. She had been ill for the last several days and she was sleeping for 3 days straight. Endorsed only using oxygen at night. Blood pressure 130/90, heart rate 90, room air saturation 96%. Mildly labored with wheezing all lobes. Periods of intermittent confusion. White blood cell count 3.3, eosinophils 0%, platelets 124, creatinine 0.42, serum bicarb 33, lactic acid 1.1, troponin negative, COVID, influenza, RSV RT PCR studies negative, urine tox screen positive for benzodiazepines (on clonazepam 1 mg PO Q day PRN). ABG on 2 L nasal cannula 7.30/56/71. CT angiogram of the chest showed no pulmonary embolism, severe panlobular bullous emphysema throughout all lung geller and worse in the apices (progression of emphysema since 01/31/2017). Patient was treated for COPD exacerbation with Solu-Medrol, bronchodilators, and noninvasive ventilation with BiPAP rate of 18, pressures 12/6 and 28% FiO2. 08/02/24: The patient remains confused. She tells me in spells her last name, knows she is at [facility], tells me it is July 07, 2024, knows Trump is the POTUS, name is a pen, cap and hold her correctly. Overall she says that she is breathing about the same as yesterday. Her cough is the same, shortness of breath is the same, minimal phlegm that is white with no blood. She says she is not wheezing. When I enter the room she was on 2 L nasal cannula with sat urations 94%. I decreased her to room air and after 11 minutes her saturations were 89% and I returned her to 2 L. 08/03/24: patient wore hospital AVAPS rate of 14, tidal volume 450, EPAP 5, minimal inspiratory pressure 6, maximum inspiratory pressure 25, inspiratory time 1.0, rise of 5 and 28% FiO2. ABG 7.32/59/60, ApneaLink with adequate oxygenation. 08/04/2024: Patient wore AVAPS rate of 20, tidal volume 500,EPAP 5, minimal inspiratory pressure 6, maximum inspiratory pressure 25, inspiratory time 1.0, rise of 5 and 28% FiO2. ABG 7.34 /62 /94. 08/05/24: The patient tells me her breathing is back to normal. She has no cough, no phlegm no hemoptysis. She is afebrile. Currently she is on 2 L nasal cannula saturations 95%. I decreased her 1 L nasal cannula her saturations 93%. Her white blood cell count is 6.6, creatinine is 0.65. Her BNP is 2850. patient wore Hospital AVAPS rate of 20, tidal volume 500 28% FiO2 despite an order placed for rate of 8 tidal volume 400. patient said she tolerated the settings adequately and was able to get some sleep. ABG prior to removal was 7.37/60/78. DATA: 08/01/24: EXAMINATION: CTA chest PE protocol INDICATION: Shortness of breath COMPARISON: 03/31/2023 FINDINGS/OBSERVATIONS: PULMONARY ARTERIES: No filling defect is identified within the main or proximal pulmonary artery. The main pulmonary artery is not enlarged. THORACIC AORTA: No aneurysmal dilatation or dissection is present. The great vessels are intact LUNGS: Severe panlobular bullous emphysematous disease is identified, consistent with patient's history. MEDIASTINUM: No morphologically suspicious or pathologically enlarged lymph nodes are identified within the mediastinum or bilateral axilla. BONES OF THE CHEST: No acute fracture. No significant degenerative disease. No lytic or blastic lesions. HEART: The heart is of normal size, without pericardial effusion. IMPRESSION: No pulmonary embolus. No thoracic aortic dissection. Severe panlobular bullous emphysema, as detailed above. 07/21/2023 PFT: This is a pulmonary function test with pre and post-bronchodilator spirometry, plethysmography and diffusing capacity. The test was performed and results interpreted in accordance with the 2019 and 2005 ATS/ERS Task Force guidelines respectively using the Global Lung Function Initiative-2012 reference equations. Patient demonstrated good effort and cooperation. Reproducibility criteria were met. The quality of the pre bronchodilator spirometry maneuver was Grade A and post bronchodilator spi rometry maneuver was Grade A. Findings: Spirometry: There is decreased maximal expiratory airflow at all lung volumes with concave expiratory flow tracing. The contour the inspiratory flow tracing is normal. The pre bronchodilator FVC is 2.07 L, 68% predicted. The pre bronchodilator FEV1 is 0.59 L, 24% predicted. The pre bronchodilator FEV1: FVC ratio is 28%. The post bronchodilator FVC is 2.11 L, representing a 2% increase. The post bronchodilator FEV1 is 0.62 L, representing a 5% increase. The post bronchodilator FEV1: FVC ratio is 29%. Plethysmography: The total lung capacity is 5.38 L, 117% predicted. The functional residual capacity is 3.96 L, 115% predicted. The residual volume is 2.99 L, 178% predicted. The residual volume: Total lung capacity ratio is 56%. Diffusing capacity: The diffusing capacity unadjusted for hemoglobin and carboxyhemoglobin is 5.6, 26% predicted. The diffusing capacity adjusted for alveolar volume is 2.32, 49% predicted. Impression: There is a very severe obstructive abnormality. There is no significant improvement after inhaling a single dose of albuterol. The increase in residual volume to total lung volume ratio is consistent with hyperinflation from an obstructive abnormality. The diffusing capacity unadjusted for hemoglobin and carboxyhemoglobin is severely decreased and remains moderately decreased when adjusted for alveolar volume. 05/18/2023: ABG room air 7.38/50.4/53.9. * 06/25/2023 CXR; Bullous emphysema; Mild infiltrate and/or atelectasis in the mid and lower lung zones. Osteopenia * ABG * 06/24/2022 Alpha 1 antitrypsin level was normal 179 and her genotype is PI:MM normal. * 05/09/2022 -echo; Complete two-dimensional, color flow and Doppler transthoracic echocardiogram is performed. 2. Normal left ventricular size and thickness with good contractility of all segments. Ejection fraction 65-70%. No segmental wall motion abnormalities. Normal diastolic function. Left ventricular strain is mildly diminished at -16% consistent with a degree of systolic dysfunction. 3. Mild right ventricular enlargement and hypokinesis. 4. Mild tricuspid regurgitation. 5. Mild pulmonary hypertension, RVSP 49 mmHg. 6. Mildly dilated inferior vena cava consistent with elevated right-sided pressures. 7. Sinus tachycardia. 06/24/2022: Alpha 1 antitrypsin phenotype is MM, with an alpha 1 anti trypsin level of 179, normal. 02/10/2017: EXAMINATION: CTA CHEST (PULMONARY ART) INDICATION: Sudden onset of shortness of breath. History of asthma, COPD. COMPARISON: 01/31/2017 portable AP chest FINDINGS: Diagnostic contrast opacification of the pulmonary arteries. No evidence of pulmonary embolism. No thoracic aortic aneurysm or dissection. No hilar or mediastinal mass lesion or lymphadenopathy. Normal size and homogeneous enhancement of the thyroid gland. Normal heart size. No pericardial or pleural effusion. The adrenal glands and included upper abdominal structures are unremarkable. There is a fat containing foramen of Bochdalek hernia on the right. Emphysematous changes are noted throughout both lungs. There is bilateral dependent lower lobe discoid atelectasis and/or scarring. IMPRESSION: No evidence of pulmonary embolism. Emphysema. Bilateral discoid atelectasis and/or scarring in the dependent lower lobes Review of Systems Constitutional: Constitutional: Reports no additional constitutional complaints Eyes: Eyes: Reports no additional eye complaints ENT: Reports system reviewed and no additional complaints, except as documented Cardiovascular: Cardiovascular: Reports no additional cardiovascular complai nts Respiratory: Respiratory: Reports no additional respiratory complaints Gastrointestinal: Gastrointestinal: Reports no additional gastrointestinal complaints Musculoskeletal: Musculoskeletal: Reports no additional musculoskeletal compl aints Neurologic: Reports system reviewed and no additional complaints, except as documented Psychiatric: Psychiatric: Reports no additional psychiatric complaints Endocrine: Endocrine: Reports no additional endocrine complaints Hematologic/Lymphatic: Hematologic/Lymphatic: Reports no additional hematologic/lymphatic complaints Allergic/Immunologic: Allergic/Immunologic: Reports no additional allergic/immunologic complaints Exam Const: General: cooperative, healthy appearing and comfortable Orientation/consciousness: oriented to person, oriented to place and oriented to time Other: no distress HENMT: Head: normal to inspection Ears: hearing grossly normal bilaterally Eyes: General: appearance normal, both eyes and all related structures Neck: Neck: normal visual inspection Chest: Chest palpation & inspection: normal inspection of the chest Resp: Effort & Inspection: normal respiratory effort and able to speak in complete sentences Auscultation: no crackles, no rales, no rhonchi, no wheezes and diminished lung sounds Cardio: Jugular venous distension: no JVD GI: Inspection: normal to inspection Skin: General skin exam: normal color Neuro: General: oriented to person, oriented to place and oriented to time Extrem: General: normal to inspection Psych: Appearance: grossly normal Objective Data Vital Signs Vital Signs: Vital Signs - 24 hr 08/04/24 10:00 08/04/24 11:31 08/04/24 12:00 Temperature 36.4 C Pulse Rate 82 77 Respiratory Rate 16 Blood Pressure 123/86 Pulse Oximetry 99 99 Oxygen Delivery Nasal Cannula Oxygen Flow Rate 2 08/04/24 12:00 08/04/24 13:08 08/04/24 13:16 Temperature Pulse Rate 83 86 89 Respiratory Rate 22 H 22 H Blood Pressure Pulse Oximetry Oxygen Delivery Oxygen Flow Rate 08/04/24 14:00 08/04/24 16:00 08/04/24 16:00 Temperature 36.6 C Pulse Rate 89 91 Respiratory Rate 16 Blood Pressure 137/77 Pulse Oximetry 100 100 Oxygen Delivery Nasal Cannula Oxygen Flow Rate 2 08/04/24 16:00 08/04/24 16:28 08/04/24 16:34 Temperature Pulse Rate 106 H 91 93 Respiratory Rate 22 H 22 H Blood Pressure Pulse Oximetry Oxygen Delivery Oxygen Flow Rate 08/04/24 18:00 08/04/24 19:15 08/04/24 19:49 Temperature 36.4 C Pulse Rate 85 90 94 Respiratory Rate 24 H 20 Blood Pressure 148/83 H Pulse Oximetry 98 Oxygen Delivery Oxygen Flow Rate 08/04/24 20:00 08/04/24 20:00 08/04/24 20:00 Temperature Pulse Rate 94 94 Respiratory Rate 20 Blood Pressure Pulse Oximetry 97 Oxygen Delivery Nasal Cannula Oxygen Flow Rate 2 08/04/24 22:00 08/04/24 22:59 08/04/24 23:30 Temperature 36.4 C Pulse Rate 106 H 98 94 Respiratory Rate 28 H 20 Blood Pressure 130/82 Pulse Oximetry 98 Oxygen Delivery Oxygen Flow Rate 08/04/24 23:45 08/04/24 23:47 08/05/24 00:00 Temperature Pulse Rate 100 94 Respiratory Rate 25 H 20 Blood Pressure Pulse Oximetry 97 98 Oxygen Delivery BiPAP BiPAP Oxygen Flow Rate 08/05/24 00:00 08/05/24 02:00 08/05/24 02:26 Temperature Pulse Rate 78 81 100 Respiratory Rate 27 H Blood Pressure Pulse Oximetry 97 Oxygen Delivery BiPAP Oxygen Flow Rate 08/05/24 04:00 08/05/24 04:00 08/05/24 04:00 Temperature 35.9 C L Pulse Rate 77 71 Respiratory Rate 24 H Blood Pressure 133/92 H Pulse Oximetry 95 95 Oxygen Delivery BiPAP Oxygen Flow Rate 08/05/24 04:15 08/05/24 04:39 08/05/24 06:00 Temperature Pulse Rate 98 98 71 Respiratory Rate 22 H 22 H Blood Pressure Pulse Oximetry Oxygen Delivery Oxygen Flow Rate 08/05/24 07:54 08/05/24 08:05 08/05/24 08:05 Temperature 36.5 C Pulse Rate 78 76 Respiratory Rate 14 20 Blood Pressure 126/94 H Pulse Oximetry 93 90 Oxygen Delivery Nasal Cannula Oxygen Flow Rate 1 08/05/24 08:16 Temperature Pulse Rate 88 Respiratory Rate 20 Blood Pressure Pulse Oximetry Oxygen Delivery Oxygen Flow Rate Intake/Output Intake/Output: Intake & Output 08/02/24 08/03/24 08/04/24 08/05/24 23:59 23:59 23:59 23:59 Intake Total 4180 3142.9 4150.9 1862.9 Output Total 750 1000 2900 1800 Balance 3430 2142.9 1250.9 62.9 Meds/Results Medications: Active Medications Generic Name Dose Route Start Last Admin Trade Name Freq PRN Reason Stop Dose Admin Albuterol 1 puff 08/02/24 08:13 Albuterol Sulfate (*Sp) Aerosol 1 Puff INHALATION Q4-6H PRN shortness of breath or wheezing Albuterol/Ipratropium 3 ml 08/02/24 16:00 08/05/24 08:04 Ipratropium 0.5 Mg/Albuterol Sulfate 2.5 Mg Ampul.Neb 3 Ml INHALATION 3 ml Q4HRT HOMAR Administration Aspirin 81 mg 08/02/24 09:00 08/04/24 08:41 Aspirin 81 Mg Enteric Tablet PO 09/01/24 08:59 81 mg DAILY HOMAR Administration Clonazepam 1 mg 08/02/24 08:13 08/04/24 22:57 Clonazepam (*Crx) 0.5 Mg Tablet PO 1 mg DAILY PRN Administration Anxiety Estradiol 1 applic 08/02/24 08:13 Estradiol Vaginal Cream 42.5 Gm VAGINAL PRN PRN Pain Fluticasone Propionate 1 spray 08/02/24 08:13 Fluticasone Propionate 0.05% Na Spr 16 Gm Btl (*Bkc) NASAL DAILY PRN Dryness Guaifenesin 1,200 mg 08/02/24 21:00 08/04/24 21:05 Guaifenesin 12 Hr 600 Mg Tabcr PO 1,200 mg Q12HR HOMAR Administration Sodium Chloride 1,000 mls @ 125 mls/hr 08/02/24 02:35 08/05/24 02:02 Normal Saline Iv IV CONT 125 mls/hr .Q8H HOMAR Administration Azithromycin 500 mg in 250 mls @ 250 mls/hr 08/02/24 12:45 08/04/24 08:41 Zithromax IVPB 250 mls/hr QAM HOMAR Administration Methylprednisolone Sodium Succinate 20 mg 08/02/24 18:00 08/05/24 05:25 Methylprednisolone Sod Succ 40 Mg Vial IV PUSH 20 mg Q6HR HOMAR Administration Mupirocin 1 applic 08/03/24 09:00 08/04/24 21:05 Mupirocin 2% Oint 22 Gm Tube EACH NARE 08/07/24 21:01 1 applic Q12HR HOMAR Administration Nicotine 1 patch 08/02/24 14:40 08/04/24 08:40 Nicotine (*Pbkc) 14 Mg Patch TRANSDERM 1 patch DAILY HOMAR Administration Nitroglycerin 0.4 mg 08/02/24 08:15 Nitroglycerin Sl 0.4 Mg Tablet SUBLINGUAL Q5MIN [facility] Perflutren Lipid Microsphere 0 ml 08/02/24 12:27 Perflutren Lipid Microspheres 1.5 Ml Vial Diluted To 10 Ml Total Volume IV PUSH 08/05/24 12:27 ONCE PRN adequate visualization Protocol Perflutren Lipid Microsphere 0 ml 08/02/24 12:38 Perflutren Lipid Microspheres 1.5 Ml Vial Diluted To 10 Ml Total Volume IV PUSH 08/05/24 12:38 ONCE PRN adequate visualization Protocol Valacyclovir HCl 1,000 mg 08/02/24 08:15 08/05/24 04:31 Valacyclovir Hcl 500 Mg Tablet PO Not Given Q8HR [facility] Radiology Results: ITS Impressions Chest X-Ray 08/01/24 20:17 IMPRESSION: No focal infiltrate or effusion. Chest CTA 08/01/24 21:32 IMPRESSION: No pulmonary embolus. No thoracic aortic dissection. Severe panlobular bullous emphysema, as detailed above. Head CT 08/02/24 10:48 Impression: No significant abnormality seen. Labs Labs: Laboratory Results - last 24 hr 08/05/24 08/05/24 03:53 04:21 WBC 6.6 RBC 3.40 L Hgb 10.6 L Hct 35.1 L MCV 103.2 H MCH 31.2 MCHC 30.2 L RDW 13.7 Plt Count 113 L MPV 12.3 H Puncture Site Left radial ABG pH 7.368 ABG pCO2 60.2 H* ABG pO2 77.5 L ABG PO2/FiO2 Ratio 2.77 ABG HCO3 33.9 H ABG O2 Saturation 94.8 L ABG O2 Content 15.5 L ABG Base Excess 7.0 A-a Gradient 119.4 Oxyhemoglobin 95.2 Carboxyhemoglobin 0.2 Methemoglobin 0.1 Reduced Hemoglobin 4.5 Total Hemoglobin 11.5 L O2 Delivery Device Non-invasive vent O2 Liters/Min Not Reportable Vent Rate 20 FiO2 28 Expiratory Pressure 5 Inspiratory Pressure 20 Sodium 140 Potassium 4.1 Chloride 98 Carbon Dioxide 38 H Anion Gap 4 BUN 13 Creatinine 0.45 L Estim Creat Clear Calc 94 Estimated GFR > 60 Glucose 109 Calcium 8.6 Total Bilirubin 0.3 AST 23 ALT 18 Alkaline Phosphatase 61 NT-Pro-B Natriuret Pep 2850 H Total Protein 6.0 L Albumin 3.6
[2024-08-05] MEDS: NICOTINE (*PBKC) 14 MG PATCH 1 PATCH TRANSDERM (09:42)
[2024-08-05] MEDS: AZITHROMYCIN 500 MG/NS 250 ML 500 MG/250 ML BAG 250 MG IVPB (09:42)
[2024-08-05] MEDS: ASPIRIN 81 MG ENTERIC TABLET PO (09:42)
[2024-08-05] MEDS: guaiFENesin 12 HR 600 MG TABCR 1200 MG PO ×2 (09:42→21:02)
[2024-08-05] MEDS: MUPIROCIN 2% OINT 22 GM TUBE 1 APPLIC EACH NARE (09:43)
[2024-08-05] MEDS: FUROSEMIDE INJ 40 MG/4 ML VIAL 20 MG IV PUSH (09:45)
--- NOTE | 2024-08-05 14:43 | P.PNIM_ITS ---
Progress Note: A&P Assessment and Plan (1) Acute exacerbation of chronic obstructive pulmonary disease: Code(s): J44.1 - Chronic obstructive pulmonary disease with (acute) exacerbation Status: Acute Assessment and Plan: CXR no infiltrates 1 liter NC oxygen Continue Steroid, bronchodilators and Azithromycin Cornet flutter valve per pulmonology Counseled about smoking cessation (2) Respiratory failure with hypoxia and hypercapnia: Code(s): J96.91 - Respiratory failure, unspecified with hypoxia; J96.92 - Respiratory failure, unspecified with hypercapnia Status: Acute Assessment and Plan: Unable to tolearte BiPAP AVAPS mode and adjusted the settings to come for resulting in a rate of 14, tidal volume 450, EPAP 5, minimal inspiratory pressure 6, maximum inspiratory pressure 25, inspiratory time 1.0, rise of 5 and 28% FiO2. AVAPS settings as above and obtain an ABG prior to removal and an overnight oximetry. 0 08/04: AVAPS setting has been changed due to worsened ABG. Currently AVAP setting respiratory rate 8/tidal volume 400 and repeat ABG tomorrow a (3) Tobacco dependence: Code(s): F17.200 - Nicotine dependence, unspecified, uncomplicated Status: Acute Assessment and Plan: Nicotine patch Counseled about cessation (4) Metabolic encephalopathy: Code(s): G93.41 - Metabolic encephalopathy Status: Acute Assessment and Plan: resolved duet to hypercapnia Plan DVT prophylaxis on Sq Lovenox Subjective Date/time seen: 08/05/24 14:43 Interval history: Comfortable at bedside although wheezing loudly Review of Systems Review of Systems: All systems reviewed & are unremarkable except as noted in HPI and below Constitutional: Constitutional: Reports no additional constitutional complaints Eyes: Eyes: Reports no additional eye complaints ENT: Reports system reviewed and no additional complaints, except as documented Cardiovascular: Cardiovascular: Reports no additional cardiovascular complaints Respiratory: Respiratory: Reports no additional respiratory complaints Gastrointestinal: Gastrointestinal: Reports no additional gastrointestinal complaints Musculoskeletal: Musculoskeletal: Reports no additional musculoskeletal complaints Neurologic: Reports system reviewed and no additional complaints, except as documented Psychiatric: Psychiatric: Reports no additional psychiatric complaints Endocrine: Endocrine: Reports no additional endocrine complaints Hematologic/Lymphatic: Hematologic/Lymphatic: Reports no additional hematologic/lymphatic complaints Allergic/Immunologic: Allergic/Immunologic: Reports no additional allergic/immunologic complaints Exam Narrative: GENERAL: Ill-appearing, well-nourished, non-toxic, in no acute distress. HEAD: Normocephalic, atraumatic. NECK: Supple. No adenopathy, no masses. RESPIRATORY: Airway patent, respirations mildly labored. Wheezing to all lobes, + rales, - rhonchi CARDIOVASCULAR: Regular rate and rhythm without murmurs, rubs, or gallops. Peripheral pulses 2+ and equal bilaterally. ABDOMINAL: Soft, nontender, nondistended, no hepatosplenomegaly. Normoactive BS. MUSCULOSKELETAL: Moves all extremities. Strength/ROM intact without gross deformities. SKIN: Warm, dry, normal color. No rashes. NEURO: A&O X3. Speech clear. Cranial nerves II-XII intact. No ataxic movements. Periods of intermittent confusion. PSYCHIATRIC: Appropriate mood and affect. Normal interaction. Const: General: cooperative, healthy appearing and comfortable Orientation/consciousness: oriented to person, oriented to place and oriented to time Other: no distress HENMT: Head: normal to inspection Ears: hearing grossly normal bilaterally Eyes: General: appearance normal, both eyes and all related structures Neck: Neck: normal visual inspection Chest: Chest palpation & inspection: normal inspection of the chest Resp: Effort & Inspection: normal respiratory effort and able to speak in complete sentences Auscultation: no crackles, no rales, no rhonchi, wheezes and diminished lung sounds Cardio: Jugular venous distension: no JVD GI: Inspection: normal to inspection Skin: General skin exam: normal color Neuro: General: oriented to person, oriented to place and oriented to time Extrem: General: normal to inspection Psych: Appearance: grossly normal Objective Data Vital Signs Vital Signs: Vital Signs - 24 hr 08/04/24 16:00 08/04/24 16:00 08/04/24 16:00 Temperature 97.8 F Pulse Rate 91 106 H Respiratory Rate 16 Blood Pressure 137/77 Pulse Oximetry 100 100 Oxygen Delivery Nasal Cannula Oxygen Flow Rate 2 08/04/24 16:28 08/04/24 16:34 08/04/24 18:00 Temperature Pulse Rate 91 93 85 Respiratory Rate 22 H 22 H Blood Pressure Pulse Oximetry Oxygen Delivery Oxygen Flow Rate 08/04/24 19:15 08/04/24 19:49 08/04/24 20:00 Temperature 97.6 F Pulse Rate 90 94 94 Respiratory Rate 24 H 20 20 Blood Pressure 148/83 H Pulse Oximetry 98 Oxygen Delivery Oxygen Flow Rate 08/04/24 20:00 08/04/24 20:00 08/04/24 22:00 Temperature Pulse Rate 94 106 H Respiratory Rate Blood Pressure Pulse Oximetry 97 Oxygen Delivery Nasal Cannula Oxygen Flow Rate 2 08/04/24 22:59 08/04/24 23:30 08/04/24 23:45 Temperature 97.6 F Pulse Rate 98 94 100 Respiratory Rate 28 H 20 25 H Blood Pressure 130/82 Pulse Oximetry 98 97 Oxygen Delivery BiPAP Oxygen Flow Rate 08/04/24 23:47 08/05/24 00:00 08/05/24 00:00 Temperature Pulse Rate 94 78 Respiratory Rate 20 Blood Pressure Pulse Oximetry 98 Oxygen Delivery BiPAP Oxygen Flow Rate 08/05/24 02:00 08/05/24 02:26 08/05/24 04:00 Temperature 96.7 F L Pulse Rate 81 100 77 Respiratory Rate 27 H 24 H Blood Pressure 133/92 H Pulse Oximetry 97 95 Oxygen Delivery BiPAP Oxygen Flow Rate 08/05/24 04:00 08/05/24 04:00 08/05/24 04:15 Temperature Pulse Rate 71 98 Respiratory Rate 22 H Blood Pressure Pulse Oximetry 95 Oxygen Delivery BiPAP Oxygen Flow Rate 08/05/24 04:39 08/05/24 06:00 08/05/24 07:54 Temperature 97.7 F Pulse Rate 98 71 78 Respiratory Rate 22 H 14 Blood Pressure 126/94 H Pulse Oximetry 93 Oxygen Delivery Oxygen Flow Rate 08/05/24 08:00 08/05/24 08:00 08/05/24 08:05 Temperature Pulse Rate 83 Respiratory Rate Blood Pressure Pulse Oximetry 95 90 Oxygen Delivery Nasal Cannula Nasal Cannula Oxygen Flow Rate 2 1 08/05/24 08:05 08/05/24 08:16 08/05/24 09:40 Temperature Pulse Rate 76 88 Respiratory Rate 20 20 Blood Pressure Pulse Oximetry Oxygen Delivery Nasal Cannula Oxygen Flow Rate 1.5 08/05/24 09:41 08/05/24 10:00 08/05/24 11:27 Temperature 98.1 F Pulse Rate 87 79 Respiratory Rate 20 Blood Pressure 124/74 Pulse Oximetry 92 Oxygen Delivery Nasal Cannula Oxygen Flow Rate 2 08/05/24 12:00 08/05/24 12:00 08/05/24 12:03 Temperature Pulse Rate 85 Respiratory Rate Blood Pressure Pulse Oximetry 94 94 Oxygen Delivery Nasal Cannula Nasal Cannula Oxygen Flow Rate 2 1 08/05/24 12:03 08/05/24 12:23 Temperature Pulse Rate 86 85 Respiratory Rate 20 20 Blood Pressure Pulse Oximetry Oxygen Delivery Oxygen Flow Rate Intake/Output Intake/Output: Intake & Output 08/02/24 08/03/24 08/04/24 08/05/24 23:59 23:59 23:59 23:59 Intake Total 4180 3142.9 4400.9 3067.5 Output Total 750 1000 2900 3100 Balance 3430 2142.9 1500.9 -32.5 Meds/Results Medications: Active Medications Generic Name Dose Route Start Last Admin Trade Name Freq PRN Reason Stop Dose Admin Albuterol 1 puff 08/02/24 08:13 Albuterol Sulfate (*Sp) Aerosol 1 Puff INHALATION Q4-6H PRN shortness of breath or wheezing Albuterol/Ipratropium 3 ml 08/02/24 16:00 08/05/24 12:02 Ipratropium 0.5 Mg/Albuterol Sulfate 2.5 Mg Ampul.Neb 3 Ml INHALATION 3 ml Q4HRT HOMAR Administration Aspirin 81 mg 08/02/24 09:00 08/05/24 09:42 Aspirin 81 Mg Enteric Tablet PO 09/01/24 08:59 81 mg DAILY HOMAR Administration Azithromycin 500 mg 08/06/24 09:00 Azithromycin 250 Mg Tablet PO 08/06/24 09:01 ONCE ONE Clonazepam 1 mg 08/02/24 08:13 08/04/24 22:57 Clonazepam (*Crx) 0.5 Mg Tablet PO 1 mg DAILY PRN Administration Anxiety Estradiol 1 applic 08/02/24 08:13 Estradiol Vaginal Cream 42.5 Gm VAGINAL PRN PRN Pain Fluticasone Propionate 1 spray 08/02/24 08:13 Fluticasone Propionate 0.05% Na Spr 16 Gm Btl (*Bkc) NASAL DAILY PRN Dryness Guaifenesin 1,200 mg 08/02/24 21:00 08/05/24 09:42 Guaifenesin 12 Hr 600 Mg Tabcr PO 1,200 mg Q12HR HOMAR Administration Sodium Chloride 1,000 mls @ 125 mls/hr 08/02/24 02:35 08/05/24 09:45 Normal Saline Iv IV CONT 125 mls/hr .Q8H HOMAR Administration Mupirocin 1 applic 08/03/24 09:00 08/05/24 09:43 Mupirocin 2% Oint 22 Gm Tube EACH NARE 08/07/24 21:01 1 applic Q12HR HOMAR Administration Nicotine 1 patch 08/02/24 14:40 08/05/24 09:42 Nicotine (*Pbkc) 14 Mg Patch TRANSDERM 1 patch DAILY HOMAR Administration Nitroglycerin 0.4 mg 08/02/24 08:15 Nitroglycerin Sl 0.4 Mg Tablet SUBLINGUAL Q5MIN HOMAR Valacyclovir HCl 1,000 mg 08/02/24 08:15 08/05/24 04:31 Valacyclovir Hcl 500 Mg Tablet PO Not Given Q8HR COUNTS INCLUDE 234 BEDS AT THE [facility] Radiology Results: ITS Impressions Chest CTA 08/01/24 21:32 IMPRESSION: No pulmonary embolus. No thoracic aortic dissection. Severe panlobular bullous emphysema, as detailed above. Head CT 08/02/24 10:48 Impression: No significant abnormality seen. Chest X-Ray 08/05/24 09:41 IMPRESSION: 1. Emphysema Labs Labs: Laboratory Results - last 24 hr 08/05/24 08/05/24 03:53 04:21 WBC 6.6 RBC 3.40 L Hgb 10.6 L Hct 35.1 L MCV 103.2 H MCH 31.2 MCHC 30.2 L RDW 13.7 Plt Count 113 L MPV 12.3 H Puncture Site Left radial ABG pH 7.368 ABG pCO2 60.2 H* ABG pO2 77.5 L ABG PO2/FiO2 Ratio 2.77 ABG HCO3 33.9 H ABG O2 Saturation 94.8 L ABG O2 Content 15.5 L ABG Base Excess 7.0 A-a Gradient 119.4 Oxyhemoglobin 95.2 Carboxyhemoglobin 0.2 Methemoglobin 0.1 Reduced Hemoglobin 4.5 Total Hemoglobin 11.5 L O2 Delivery Device Non-invasive vent O2 Liters/Min Not Reportable Vent Rate 20 FiO2 28 Expiratory Pressure 5 Inspiratory Pressure 20 Sodium 140 Potassium 4.1 Chloride 98 Carbon Dioxide 38 H Anion Gap 4 BUN 13 Creatinine 0.45 L Estim Creat Clear Calc 94 Estimated GFR > 60 Glucose 109 Calcium 8.6 Total Bilirubin 0.3 AST 23 ALT 18 Alkaline Phosphatase 61 NT-Pro-B Natriuret Pep 2850 H Total Protein 6.0 L Albumin 3.6
[2024-08-05] MEDS: clonazePAM (*CRX) 0.5 MG TABLET 1 MG PO (22:27)
[2024-08-06] VITALS (26 sets, daily range): BP systolic 118–150; BP diastolic 70–91; PULSE 68–96; RESP 16–23; TEMP 36.5–37; O2SAT 94–98
[2024-08-06 05:16] LABS: Alveolar/Arterial O2 Gradient 51.7 mmHg; Base Excess ABG 7.1 mEq/l (+/-2.0); Fractional Inspired Oxygen 28 %; HCO3 ABG 34.5 mEq/l (22.0-26.0); Oxygen Content ABG 16.6 %vol (16.0-22.0); Oxygen Saturation ABG 93.9 % (95.0-100.0); Oxyhemoglobin 93.5 % THb (90.0-100.0); PO2 FiO2 Ratio Arterial Blood 2.64 %; Total Hemoglobin 12.6 g/dL (12.0-18.0); pH ABG 7.358 (7.350-7.450)
[2024-08-06] MEDS: SODIUM CHLORIDE 0.9% IV 1,000 ML 125 ML IV CONT (05:50)
[2024-08-06 06:42] LABS: PCO2 ABG 62.7 mmHg (35.0-45.0)
[2024-08-06 06:43] LABS: Device BIPAP; Modified Allen's Test Pass; Site Drawn RIGHT RADIAL
[2024-08-06 06:44] LABS: Inspiratory Pressure 25 cmH2O
[2024-08-06 06:45] LABS: Expiratory Pressure 5 cmH2O
[2024-08-06 06:52] LABS: Hematocrit 35.4 % (37.0-47.0); Hemoglobin 11.1 g/dL (12.0-15.0); Immature Platelet Fraction Pct 8.8 % (0.9-11.2); Mean Corpuscular HGB Conc 31.4 g/dl (32-36); Mean Corpuscular Volume 98.9 fl (80-100); Mean Platelet Volume 11.5 fl (7.4-10.4); Platelet Count Result 123 k/mm3 (150-375); Red Blood Count 3.58 M/mm3 (4.2-5.4); Red Cell Distribution Width 13.6 % (11.5-14.5); White Blood Count 5.4 K/mm3 (4.5-10.0)
[2024-08-06 07:17] LABS: Alanine Aminotransferase 18 U/L (6-35); Albumin Level 3.2 g/dL (3.5-5.1); Alkaline Phosphatase 53 U/L (38-126); Aspartate Amino Transferase 22 U/L (14-36); Bilirubin,Total 0.3 mg/dL (0.2-1.3); Blood Urea Nitrogen 10 mg/dL (7-17); Carbon Dioxide > 40 mmol/L (22-30); Chloride 94 mmol/L (98-107); Estimated CRCL calculation 126 ml/min; Estimated Glomerular Filt Rate > 60; Glucose 82 mg/dL (65-110); Magnesium 1.9 mg/dL (1.6-2.3); Potassium 2.8 mmol/L (3.4-5.0); Sodium 138 mmol/L (137-145)
[2024-08-06 07:24] LABS: Atypical Lymphocytes Present; Band Neutrophils Percent 2 % (0-6); Lymphocytes Absolute Manual 2.32 K/mm3 (1.1-4.5); Lymphocytes Percent Manual 43 % (18-44); Monocytes Absolute Manual 0.16 K/mm3 (0.1-0.90); Monocytes Percent Manual 3 % (3-9); Neutrophils Absolute Manual 2.91 K/mm3 (1.7-7.2); Neutrophils Percent Manual 52 % (46-73); Platelet Estimate Decreased (Adequate); Schistocytes None Seen; Total Cells Counted 100
[2024-08-06] MEDS: IPRATROPIUM 0.5 MG/ALBUTEROL SULFATE 2.5 MG AMPUL.NEB 3 ML INHALATION ×4 (08:10→20:15)
[2024-08-06] MEDS: guaiFENesin 12 HR 600 MG TABCR 1200 MG PO ×2 (08:34→20:38)
[2024-08-06] MEDS: ASPIRIN 81 MG ENTERIC TABLET PO (08:34)
[2024-08-06] MEDS: ENOXAPARIN 40 MG/0.4 ML SYRINGE SUB-Q (08:34)
[2024-08-06] MEDS: POTASSIUM CHLORIDE 20 MEQ ER TABLET 40 MEQ PO (08:34)
[2024-08-06] MEDS: AZITHROMYCIN 250 MG TABLET 500 MG PO (08:34)
[2024-08-06] MEDS: POTASSIUM CHLORIDE INJ 40 MEQ in SODIUM CHLORIDE 0.9% IV 500 ML 130 MEQ IVPB (08:35)
[2024-08-06] MEDS: NICOTINE (*PBKC) 14 MG PATCH 1 PATCH TRANSDERM (08:35)
[2024-08-06 09:07] LABS: Expiratory Pressure 5 cmH2O
[2024-08-06] MEDS: MUPIROCIN 2% OINT 22 GM TUBE 1 APPLIC EACH NARE ×2 (09:42→20:39)
--- NOTE | 2024-08-06 09:56 | PCRCNOTE ---
Addendum entered by Joya Navarro, [employer] 08/06/24 14:35: SPOKE WITH REP FROM [facility], STILL WORKING ON AUTH FOR NIV, SHE IS HOPEFUL IT WILL BE APPROVED TODAY. Original Note: CALLED [facility] FOR STATUS UPDATE ON HOME NIV SETUP, AUTH IS STILL PENDING.
--- NOTE | 2024-08-06 12:05 | PM.IMPN ---
Progress Note: A&P Assessment and Plan (1) Acute exacerbation of chronic obstructive pulmonary disease: Code(s): J44.1 - Chronic obstructive pulmonary disease with (acute) exacerbation Status: Acute Assessment and Plan: CXR no infiltrates 1 liter NC oxygen Continue Steroid, bronchodilators and Azithromycin Cornet flutter valve per pulmonology Counseled about smoking cessation (2) Respiratory failure with hypoxia and hypercapnia: Code(s): J96.91 - Respiratory failure, unspecified with hypoxia; J96.92 - Respiratory failure, unspecified with hypercapnia Status: Acute Assessment and Plan: Unable to tolearte BiPAP AVAPS mode and adjusted the settings to come for resulting in a rate of 14, tidal volume 450, EPAP 5, minimal inspiratory pressure 6, maximum inspiratory pressure 25, inspiratory time 1.0, rise of 5 and 28% FiO2. AVAPS settings as above and obtain an ABG prior to removal and an overnight oximetry. 0 08/04: AVAPS setting has been changed due to worsened ABG. Currently AVAP setting respiratory rate 8/tidal volume 400 and repeat ABG tomorrow a (3) Tobacco dependence: Code(s): F17.200 - Nicotine dependence, unspecified, uncomplicated Status: Acute Assessment and Plan: Nicotine patch Counseled about cessation (4) Metabolic encephalopathy: Code(s): G93.41 - Metabolic encephalopathy Status: Acute Assessment and Plan: resolved duet to hypercapnia Plan DVT prophylaxis on Sq Lovenox Subjective Date/time seen: 08/06/24 12:05 Interval history: Comfortable at bedside wheezing improving Review of Systems Review of Systems: All systems reviewed & are unremarkable except as noted in HPI and below Constitutional: Constitutional: Reports no additional constitutional complaints Eyes: Eyes: Reports no additional eye complaints ENT: Reports system reviewed and no additional complaints, except as documented Cardiovascular: Cardiovascular: Reports no additional cardiovascular complaints Respiratory: Respiratory: Reports no additional respiratory complaints Gastrointestinal: Gastrointestinal: Reports no additional gastrointestinal complaints Musculoskeletal: Musculoskeletal: Reports no additional musculoskeletal complaints Neurologic: Reports system reviewed and no additional complaints, except as documented Psychiatric: Psychiatric: Reports no additional psychiatric complaints Endocrine: Endocrine: Reports no additional endocrine complaints Hematologic/Lymphatic: Hematologic/Lymphatic: Reports no additional hematologic/lymphatic complaints Allergic/Immunologic: Allergic/Immunologic: Reports no additional allergic/immunologic complaints Exam Narrative: GENERAL: Ill-appearing, well-nourished, non-toxic, in no acute distress. HEAD: Normocephalic, atraumatic. NECK: Supple. No adenopathy, no masses. RESPIRATORY: Airway patent, respirations mildly labored. Wheezing to all lobes, + rales, - rhonchi CARDIOVASCULAR: Regular rate and rhythm without murmurs, rubs, or gallops. Peripheral pulses 2+ and equal bilaterally. ABDOMINAL: Soft, nontender, nondistended, no hepatosplenomegaly. Normoactive BS. MUSCULOSKELETAL: Moves all extremities. Strength/ROM intact without gross deformities. SKIN: Warm, dry, normal color. No rashes. NEURO: A&O X3. Speech clear. Cranial nerves II-XII intact. No ataxic movements. Periods of intermittent confusion. PSYCHIATRIC: Appropriate mood and affect. Normal interaction. Const: General: cooperative, healthy appearing and comfortable Orientation/consciousness: oriented to person, oriented to place and oriented to time Other: no distress HENMT: Head: normal to inspection Ears: hearing grossly normal bilaterally Eyes: General: appearance normal, both eyes and all related structures Neck: Neck: normal visual inspection Chest: Chest palpation & inspection: normal inspection of the chest Resp: Effort & Inspection: normal respiratory effort and able to speak in complete sentences Auscultation: no crackles, no rales, no rhonchi, wheezes and diminished lung sounds Cardio: Jugular venous distension: no JVD GI: Inspection: normal to inspection Skin: General skin exam: normal color Neuro: General: oriented to person, oriented to place and oriented to time Extrem: General: normal to inspection Psych: Appearance: grossly normal Objective Data Vital Signs Vital Signs: Vital Signs - 24 hr 08/05/24 12:23 08/05/24 14:00 08/05/24 15:45 Temperature Pulse Rate 85 92 85 Respiratory Rate 20 20 Blood Pressure Pulse Oximetry 94 Oxygen Delivery Nasal Cannula Oxygen Flow Rate 1 Fraction of Inspired Oxygen 08/05/24 15:45 08/05/24 15:48 08/05/24 15:51 Temperature 97.9 F Pulse Rate 85 82 92 Respiratory Rate 20 20 20 Blood Pressure 130/82 Pulse Oximetry 96 Oxygen Delivery Oxygen Flow Rate Fraction of Inspired Oxygen 08/05/24 16:00 08/05/24 16:00 08/05/24 18:00 Temperature Pulse Rate 105 H 81 Respiratory Rate Blood Pressure Pulse Oximetry 94 Oxygen Delivery Nasal Cannula Oxygen Flow Rate 2 Fraction of Inspired Oxygen 08/05/24 19:57 08/05/24 19:57 08/05/24 20:00 Temperature Pulse Rate 86 86 76 Respiratory Rate 18 18 Blood Pressure Pulse Oximetry 96 Oxygen Delivery Nasal Cannula Oxygen Flow Rate 2 Fraction of Inspired Oxygen 08/05/24 20:10 08/05/24 20:37 08/05/24 20:47 Temperature 98.5 F Pulse Rate 90 72 72 Respiratory Rate 18 20 20 Blood Pressure 129/90 Pulse Oximetry 97 97 Oxygen Delivery Nasal Cannula Oxygen Flow Rate 2 Fraction of Inspired Oxygen 08/05/24 21:56 08/05/24 22:40 08/05/24 22:40 Temperature Pulse Rate 85 78 78 Respiratory Rate 20 20 Blood Pressure Pulse Oximetry 97 97 Oxygen Delivery BiPAP Oxygen Flow Rate Fraction of Inspired Oxygen 28 08/05/24 22:44 08/05/24 22:45 08/06/24 00:00 Temperature 97.8 F Pulse Rate 86 86 78 Respiratory Rate 16 16 Blood Pressure 122/88 Pulse Oximetry 95 95 Oxygen Delivery BiPAP Oxygen Flow Rate Fraction of Inspired Oxygen 28 08/06/24 02:00 08/06/24 04:00 08/06/24 05:04 Temperature 98 F Pulse Rate 68 71 75 Respiratory Rate 20 Blood Pressure 126/82 Pulse Oximetry 97 Oxygen Delivery Oxygen Flow Rate Fraction of Inspired Oxygen 08/06/24 05:05 08/06/24 06:00 08/06/24 07:52 Temperature 97.8 F Pulse Rate 89 72 68 Respiratory Rate 23 H 16 Blood Pressure 118/83 Pulse Oximetry 94 98 Oxygen Delivery BiPAP Oxygen Flow Rate Fraction of Inspired Oxygen 08/06/24 08:00 08/06/24 08:00 08/06/24 08:10 Temperature Pulse Rate 72 78 Respiratory Rate 20 Blood Pressure Pulse Oximetry 96 Oxygen Delivery Nasal Cannula Oxygen Flow Rate 2 Fraction of Inspired Oxygen 08/06/24 08:10 08/06/24 10:00 08/06/24 11:33 Temperature 97.7 F Pulse Rate 96 83 Respiratory Rate 20 Blood Pressure 128/74 Pulse Oximetry 97 97 Oxygen Delivery Nasal Cannula Oxygen Flow Rate 2 Fraction of Inspired Oxygen 08/06/24 11:50 Temperature Pulse Rate Respiratory Rate Blood Pressure Pulse Oximetry 97 Oxygen Delivery Nasal Cannula Oxygen Flow Rate 1 Fraction of Inspired Oxygen Intake/Output Intake/Output: Intake & Output 05/1008/04/24 08/05/24 08/06/24 23:59 23:59 23:59 23:59 Intake Total 3142.9 4400.9 4547.5 1650.6 Output Total 1000 2900 3600 1100 Balance 2142.9 1500.9 947.5 550.6 Meds/Results Medications: Active Medications Generic Name Dose Route Start Last Admin Trade Name Freq PRN Reason Stop Dose Admin Albuterol 1 puff 08/02/24 08:13 Albuterol Sulfate (*Sp) Aerosol 1 Puff INHALATION Q4-6H PRN shortness of breath or wheezing Albuterol/Ipratropium 3 ml 08/02/24 16:00 08/06/24 11:59 Ipratropium 0.5 Mg/Albuterol Sulfate 2.5 Mg Ampul.Neb 3 Ml INHALATION 3 ml Q4HRT HOMAR Administration Aspirin 81 mg 08/02/24 09:00 08/06/24 08:34 Aspirin 81 Mg Enteric Tablet PO 09/01/24 08:59 81 mg DAILY HOMAR Administration Clonazepam 1 mg 08/02/24 08:13 08/05/24 22:27 Clonazepam (*Crx) 0.5 Mg Tablet PO 1 mg DAILY PRN Administration Anxiety Enoxaparin Sodium 40 mg 08/06/24 09:00 08/06/24 08:34 Enoxaparin 40 Mg/0.4 Ml Syringe SUB-Q 40 mg DAILY HOMAR Administration Estradiol 1 applic 08/02/24 08:13 Estradiol Vaginal Cream 42.5 Gm VAGINAL PRN PRN Pain Fluticasone Propionate 1 spray 08/02/24 08:13 Fluticasone Propionate 0.05% Na Spr 16 Gm Btl (*Bkc) NASAL DAILY PRN Dryness Guaifenesin 1,200 mg 08/02/24 21:00 08/06/24 08:34 Guaifenesin 12 Hr 600 Mg Tabcr PO 1,200 mg Q12HR HOMAR Administration Sodium Chloride 1,000 mls @ 125 mls/hr 08/02/24 02:35 08/06/24 05:50 Normal Saline Iv IV CONT 125 mls/hr .Q8H HOMAR Administration Mupirocin 1 applic 08/03/24 09:00 08/06/24 09:42 Mupirocin 2% Oint 22 Gm Tube EACH NARE 08/07/24 21:01 1 applic Q12HR HOMAR Administration Nicotine 1 patch 08/02/24 14:40 08/06/24 08:35 Nicotine (*Pbkc) 14 Mg Patch TRANSDERM 1 patch DAILY HOMAR Administration Nitroglycerin 0.4 mg 08/02/24 08:15 Nitroglycerin Sl 0.4 Mg Tablet SUBLINGUAL Q5MIN HOMAR Valacyclovir HCl 1,000 mg 08/02/24 08:15 08/06/24 05:50 Valacyclovir Hcl 500 Mg Tablet PO Not Given Q8HR [facility] Radiology Results: ITS Impressions Chest CTA 08/01/24 21:32 IMPRESSION: No pulmonary embolus. No thoracic aortic dissection. Severe panlobular bullous emphysema, as detailed above. Head CT 08/02/24 10:48 Impression: No significant abnormality seen. Chest X-Ray 08/05/24 09:41 IMPRESSION: 1. Emphysema Labs Labs: Laboratory Results - last 24 hr 08/02/24 08/04/24 08/06/24 13:48 05:33 05:10 WBC RBC Hgb Hct MCV MCH MCHC RDW Plt Count MPV Immature Gran % (Auto) Neut % (Auto) Lymph % (Auto) [place] % (Auto) Eos % (Auto) Baso % (Auto) Lymph # (Auto) [place] # (Auto) Eos # (Auto) Baso # (Auto) Abs Immat Gran (auto) Absolute Neuts (auto) Absolute Nucleated RBC Total Counted Neutrophils % (Manual) Band Neutrophils % Lymphocytes % (Manual) Monocytes % (Manual) Nucleated RBC % Abs Neuts (Manual) Abs Lymphs (Manual) Abs Monocytes (Manual) Atypical Lymphocytes Platelet Estimate % Immature Plt Fraction Schistocytes Puncture Site Right radial ABG pH 7.358 ABG pCO2 62.7 H* ABG pO2 74.0 L ABG PO2/FiO2 Ratio 2.64 ABG HCO3 34.5 H ABG O2 Saturation 93.9 L ABG O2 Content 16.6 ABG Base Excess 7.1 A-a Gradient 51.7 Oxyhemoglobin 93.5 Total Hemoglobin 12.6 O2 Delivery Device Bipap O2 Liters/Min FiO2 28 Expiratory Pressure 5 5 Inspiratory Pressure Not Reportable 25 Sodium Potassium Chloride Carbon Dioxide Anion Gap BUN Creatinine Estim Creat Clear Calc Estimated GFR Glucose Calcium Magnesium Total Bilirubin AST ALT Alkaline Phosphatase Total Protein Albumin SARS-CoV-2 RNA (RT-PCR) Not detected 08/06/24 06:44 WBC 5.4 RBC 3.58 L Hgb 11.1 L Hct 35.4 L MCV 98.9 MCH 31.0 MCHC 31.4 L RDW 13.6 Plt Count 123 L MPV 11.5 H Immature Gran % (Auto) Not Reportable Neut % (Auto) Not Reportable Lymph % (Auto) Not Reportable [place] % (Auto) Not Reportable Eos % (Auto) Not Reportable Baso % (Auto) Not Reportable Lymph # (Auto) Not Reportable [place] # (Auto) Not Reportable Eos # (Auto) Not Reportable Baso # (Auto) Not Reportable Abs Immat Gran (auto) Not Reportable Absolute Neuts (auto) Not Reportable Absolute Nucleated RBC Not Reportable Total Counted 100 Neutrophils % (Manual) 52 Band Neutrophils % 2 Lymphocytes % (Manual) 43 Monocytes % (Manual) 3 Nucleated RBC % Not Reportable Abs Neuts (Manual) 2.91 Abs Lymphs (Manual) 2.32 Abs Monocytes (Manual) 0.16 Atypical Lymphocytes Present Platelet Estimate Decreased % Immature Plt Fraction 8.8 Schistocytes None seen Puncture Site ABG pH ABG pCO2 ABG pO2 ABG PO2/FiO2 Ratio ABG HCO3 ABG O2 Saturation ABG O2 Content ABG Base Excess A-a Gradient Oxyhemoglobin Total Hemoglobin O2 Delivery Device O2 Liters/Min FiO2 Expiratory Pressure Inspiratory Pressure Sodium 138 Potassium 2.8 L* Chloride 94 L Carbon Dioxide > 40 H Anion Gap BUN 10 Creatinine 0.32 L Estim Creat Clear Calc 126 Estimated GFR > 60 Glucose 82 Calcium 8.0 L Magnesium 1.9 Total Bilirubin 0.3 AST 22 ALT 18 Alkaline Phosphatase 53 Total Protein 6.0 L Albumin 3.2 L SARS-CoV-2 RNA (RT-PCR)
--- NOTE | 2024-08-06 12:32 | P.PNPL_ITS ---
Progress Note: A&P Assessment and Plan (1) Acute exacerbation of chronic obstructive pulmonary disease: Code(s): J44.1 - Chronic obstructive pulmonary disease with (acute) exacerbation Status: Acute Assessment and Plan: Gold grade 4 group E COPD patient with 76 pack years, quit 05/2024, alpha 1 anti trypsin genotype MM. PFT 07/21/2023: shows very severe obstruction, FEV1 is 0.59 L, 24% predicted. FEV1:FV C raio 28%, TLC is 117% predicted. RV is 2.99 L, 178% predicted. RV/TLC is 56%. DLCO Uncorrected 26%, DLCO corrected for alveolar volume 47%. CT scan of the chest from 02/10/2017 with panlobular emphysema more severe at the apices and CT scan more recently on 08/01/2024 with progression of severe panlobular emphysema worse in the apices. Chronic hypoxemic respiratory failure requiring 2 L nasal cannula at rest and with activity. ABG on room air 05/18/2023 with pH 7.38/50.4/54. 08/02/2024: Patient presented to the hospital with COPD exacerbation with hypoxemic and hypercarbic respiratory failure with a blood gas of 7.30/56/71 and treated with BiPAP, steroids, and bronchodilators. CT angiogram of the chest negative for PE or focal consolidations. No evidence of fluid overload on exam. The patient remains confused. She tells me in spells her last name, knows she is at [facility], tells me it is July 07, 2024, knows Trleydi is the POTUS, name is a pen, cap and hold her correctly. Overall she says that she is breathing about the same as yesterday. Her cough is the same, shortness of breath is the same, minimal phlegm that is white with no blood. She says she is not wheezing. When I enter the room she was on 2 L nasal cannula with saturations 94%. I decreased her to room air and after 11 minutes her saturations were 89% and I returned her to 2 L. Plan: I will continue to treat for COPD exacerbation. She still has wheezing at this time. I will place her on Solu-Medrol 20 mg IV q.6, day 2 of steroids. I will occur increase her DuoNebs to q.4 hours. I will discontinue Anoro Ellipta she is on maximal doses of beta agonist and muscarinic antagonist with the DuoNebs q.4 hours. Patient has difficulty expectorating and I will add guaifenesin 1200 mg p.o. b.i.d. and a Cornet flutter valve. Will add azithromycin to treat possible tracheobronchitis. No evidence of pneumonia on CT scan. Pulmonary inpatient services will resume on 08/05/2024. Call with questions. 08/05/24: The patient tells me her breathing is back to normal. She has no cough, no phlegm no hemoptysis. She is afebrile. Currently she is on 2 L nasal cannula saturations 95%. I decreased her 1 L nasal cannula her saturations 93%. Her white blood cell count is 6.6, creatinine is 0.65. Her BNP is 2850. Plan: today is day 5 of steroids, will discontinue. Continue DuoNebs Q 4. Patient on azithromycin day 4, continue guaifenesin 1200 p.o. b.i.d.. Goal saturation 90-94%. Adjust oxygen accordingly. 08/06/2024: Currently the patient tells me she is breathing normal. She denies cough, phlegm or hemoptysis. She has no wheezing. She is afebrile. Patient is on 2 L nasal cannula saturations 97%. She is afebrile. White blood cell count 5.4, creatinine 0.32. Cumulative she is +9.4 L since admission. Her weight is 52.8 kg. Plan: patient continues to improve. Patient is on DuoNebs and will decreased Frequency from q.4 hours to q.6 hours. Patient on azithromycin day 5 will discontinue after today's dose. Continue guaifenesin 1200 b.i.d.. Goal saturation 90-94%, adjust accordingly. The patient remains clinically stable and her home noninvasive ventilator can be set up today and she use it overnight without issues anticipate discharge on 08/07/2024. Discussed with Dr. Samayoa. Will follow with you. (2) Respiratory failure with hypoxia and hypercapnia: Code(s): J96.91 - Respiratory failure, unspecified with hypoxia; J96.92 - Respiratory failure, unspecified with hypercapnia Status: Acute Assessment and Plan: patient with gold grade 4 group E COPD with hypoxic respiratory failure requiring 2 L nasal cannula at night. Patient presented to the hospital 08/02/24 with COPD and blood gas on 2 L 7.3056/71. Previous ABG 05/18/2023 with pH of 7.38/50/54. Patient has chronic hypercarbic respiratory failure from her COPD. ABG on her home oxygen setting 7./71. Patient would benefit from noninvasive ventilation to prevent further hospitalizations and deterioration. Patient was placed on BiPAP but could not tolerate these settings. I will initiate the process for home noninvasive ventilation with AVAPS mode. 08/02/2024: patient wore BiPAP last night but said it was uncomfortable due to pressures and she could not sleep with the machine on. Her settings were rate of 18, pressures 12/6. The patient could not tolerate BiPAP and I placed her on noninvasive ventilation with the AVAPS mode and adjusted the settings to come for resulting in a rate of 14, tidal volume 450, EPAP 5, minimal inspiratory pressure 6, maximum inspiratory pressure 25, inspiratory time 1.0, rise of 5 and 28% FiO2. Plan: The patient feels she will need the noninvasive ventilation tonight. AVAPS settings as above and obtain an ABG prior to removal and an overnight oximetry. 08/03/24: patient wore [facility] AVAPS rate of 14, tidal volume 450, EPAP 5, minimal inspiratory pressure 6, maximum inspiratory pressure 25, inspiratory time 1.0, rise of 5 and 28% FiO2. ABG 7.32/59/60, ApneaLink with adequate oxygenation. 08/04/2024: Patient wore AVAPS rate of 20, tidal volume 500,EPAP 5, minimal inspiratory pressure 6, maximum inspiratory pressure 25, inspiratory time 1.0, rise of 5 and 28% FiO2. ABG 7.34 /62 /94. 08/05/24: The patient tells me her breathing is back to normal. She has no cough, no phlegm no hemoptysis. She is afebrile. Currently she is on 2 L nasal cannula saturations 95%. I decreased her 1 L nasal cannula her saturations 93%. Her white blood cell count is 6.6, creatinine is 0.65. Her BNP is 2850. zita garcia wore [facility] AVAPS rate of 20, tidal volume 500 28% FiO2 despite an order placed for rate of 8 tidal volume 400. patient said she tolerated the settings adequately and was able to get some sleep. ABG prior to removal was 7.37/60/78. Plan: [facility] I will place the patient on hospital AVAPS rate of 8, tidal volume 400, EPAP 5, minimal inspiratory pressure 6, maximal inspiratory pressure 25, inspiratory time 1.0 and a rise of 5 with 28% FiO2. I will check an ABG and an overnight oximetry to determine if her ventilation improves with lower rate and lower tidal volume. I will initiate the process for a home noninvasive ventilation through her [employer]. Later in the day filled out I home noninvasive ventilator order form through [employer] with IVAPS-AE. Rate range 8 to 20, tidal volume 450, EPAP minimum 5, maximum EPAP 15. Minimum pressure support 6. Maximum pressure support 25. 2 L bleed in. 08/06/2024: Last night the patient wore the hospital AVAPS set rate 8, tidal volume 400 and 28% FiO2 And said that she is doing better with machine each night she was able to sleep with the mask on and it was somewhat uncomfortable but the air delivery was okay. Patient with the overnight oximetry recording duration of 6 hours and 30 minutes. Average saturation 96%. Time with saturation less than or equal to 88% was 6 minutes, oxygen desaturation index 10.8. Patient had an ABG prior to removal with a pH of 7.36/63/74. Plan: Hopefully home machine can be set up in the hospital [facility] with the above settings. Will obtain an ABG in an overnight oximetry. (3) Cognitive changes: Code(s): R41.89 - Other symptoms and signs involving cognitive functions and awareness Status: Acute Assessment and Plan: 08/02/24: The patient remains confused. She tells me in spells her last name, k nows she is at [facility], tells me it is July 07, 2024, knows Estefany is the POTUS, name is a pen, cap and hold her correctly. the patient also told me she was concerned that somebody was trying to poison her at home. I asked her if she was in physical danger and she told me the doctors may be looking in 1 direction but the danger may be directly behind me. Patient would not elaborate when I asked her for more details. I have asked dilated this conversation to the patient's bedside nurse, charge nurse and child care group leader. later in the day patient with a CT scan of the head that was negative. Management per hospitalist team. Subjective Date/time seen: 08/06/24 12:32 Interval history: 08/02/24: this is a new pulmonary consult for COPD exacerbation 53-year-old with a history of DVT 2007, depression, anxiety, polysubstance abuse, hepatitis-C virus cured with treatment, COPD with hypoxemic respiratory failure on 2 L nasal cannula. 09/06/2023: patient followed in the Pulmonary Clinic in last seen on 09/06/2023: she presented with a next empty oxygen tank. She looked amazing, not sick, more coherent in pulmonary rehab for the last month. She is lifting weights and using a treadmill. Feels better using oxygen. using trelegy 100. Usually wears 2 L nasal cannula Tobacco use: 2 packs per day from age 15 to May of 2024, 76 pack year, exposed to secondhand smoke from her mother. Denies vaping, she did snort cocaine for multiple years last use 2007. Denies vaping. Since the last visit, she had PFT 07/21/2023; 07/21/2023 PFT shows extremely severe COPD, FEV1 is 0.59 L, 24% predicted. TLC is 117% predicted. RV is 2.99 L, 178% predicted. RV/TLC is 56%. DLCO 26%. CAT score = 9/40; this is a low score, consistent with few COPD symptoms. She never coughs. She has very minimal sputum production. She has no chest tightness. She is somewhat short of breath walking up hills or flight of stairs. She is just barely limited doing activities around her home. She is confident leaving her home despite her lung condition. She sleeps mostly soundly but wakes with a dry mouth. She has more energy on this visit than she had previously. Plan: Continue trelegy 100 (samples given), Serevent and Anoro will prescribe to because trilogy was denied. Smoked for years, tells me she quit smoking tobacco in early March 2023; Her significant other, Nicholas, smokes tobacco and marijuana, usually outside, not in the house. She needs to avoid all exposure to smoke including second hand smokes as well as particulate matter from smoke. 12/29/2023: completed pulmonary rehab, session 35, exercise 42 minutes on 2 L oxygen with saturations 94%. MTS 4.12 for 30 minutes and 4.25 for 3 minutes on the treadmill. 08/01/2024: Patient presented to the emergency room with altered mental status, shortness of breath, Coughing, wheezing, chest pain. Patient tells me she was exposed to sick grandchildren on July 25, 2024. She had been ill for the last several days and she was sleeping for 3 days straight. Endorsed only using oxygen at night. Blood pressure 130/90, heart rate 90, room air saturation 96%. Mildly labored with wheezing all lobes. Periods of intermittent confusion. White blood cell count 3.3, eosinophils 0%, platelets 124, creatinine 0.42, serum bicarb 33, lactic acid 1.1, troponin negative, COVID, influenza, RSV RT PCR studies negative, urine tox screen positive for benzodiazepines (on clonazepam 1 mg PO Q day PRN). ABG on 2 L nasal cannula 7.30/56/71. CT angiogram of the chest showed no pulmonary embolism, severe panlobular bullous emphysema throughout all lung geller and worse in the apices (progression of emphysema since 01/31/2017). Patient was treated for COPD exacerbation with Solu-Medrol, bronchodilators, and noninvasive ventilation with BiPAP rate of 18, pressures 12/6 and 28% FiO2. 08/02/24: The patient remains confused. She tells me in spells her last name, knows she is at [facility], tells me it is July 07, 2024, knows Trleydi is the POTUS, name is a pen, cap and hold her correctly. Overall she says that she is breathing about the same as yesterday. Her cough is the same, shortness of breath is the same, minimal phlegm that is white with no blood. She says she is not wheezing. When I enter the room she was on 2 L nasal cannula with saturations 94%. I decreased her to room air and after 11 minutes her saturations were 89% and I returned her to 2 L. 08/03/24: patient wore hospital AVAPS rate of 14, tidal volume 450, EPAP 5, minimal inspiratory pressure 6, maximum inspiratory pressure 25, inspiratory time 1.0, rise of 5 and 28% FiO2. ABG 7.32/59/60, ApneaLink with adequate oxygenation. 08/04/2024: Patient wore AVAPS rate of 20, tidal volume 500,EPAP 5, minimal inspiratory pressure 6, maximum inspiratory pressure 25, inspiratory time 1.0, rise of 5 and 28% FiO2. ABG 7.34 /62 /94. 08/05/24: The patient tells me her breathing is back to normal. She has no cough, no phlegm no hemoptysis. She is afebrile. Currently she is on 2 L nasal cannula saturations 95%. I decreased her 1 L nasal cannula her saturations 93%. Her white blood cell count is 6.6, creatinine is 0.65. Her BNP is 2850. patient wore Hospital AVAPS rate of 20, tidal volume 500 28% FiO2 despite an order placed for rate of 8 tidal volume 400. patient said she tolerated the settings adequately and was able to get some sleep. ABG prior to removal was 7.37/60/78. Later in the day filled out I home noninvasive ventilator order form through [facility] with IVAPS-AE. Rate range 8 to 20, tidal volume 450, EPAP minimum 5, maximum EPAP 15. Minimum pressure support 6. Maximum pressure support 25. 2 L bleed in. 08/06/2024: Currently the patient tells me she is breathing normal. She denies cough, phlegm or hemoptysis. She has no wheezing. She is afebrile. Patient is on 2 L nasal cannula saturations 97%. She is afebrile. White blood cell count 5.4, creatinine 0.32. Cumulative she is +9.4 L since admission. Her weight is 52.8 kg. last night the patient wore the hospital AVAPS set rate 8, tidal volume 400 and 28% FiO2 And said that she is doing better with machine each night she was able to sleep with the mask on and it was somewhat uncomfortable but the air delivery was okay. Patient with the overnight oximetry recording duration of 6 hours and 30 minutes. Average saturation 96%. Time with saturation less than or equal to 88% was 6 minutes, oxygen desaturation index 10.8. Patient had an ABG prior to removal with a pH of 7.36/63/74. DATA: 08/01/24: EXAMINATION: CTA chest PE protocol INDICATION: Shortness of breath COMPARISON: 03/31/2023 FINDINGS/OBSERVATIONS: PULMONARY ARTERIES: No filling defect is identified within the main or proximal pulmonary artery. The main pulmonary artery is not enlarged. THORACIC AORTA: No aneurysmal dilatation or dissection is present. The great vessels are intact LUNGS: Severe panlobular bullous emphysematous disease is identified, consistent with patient's history. MEDIASTINUM: No morphologically suspicious or pathologically enlarged lymph nodes are identified within the mediastinum or bilateral axilla. BONES OF THE CHEST: No acute fracture. No significant degenerative disease. No lytic or blastic lesions. HEART: The heart is of normal size, without pericardial effusion. IMPRESSION: No pulmonary embolus. No thoracic aortic dissection. Severe panlobular bullous emphysema, as detailed above. 07/21/2023 PFT: This is a pulmonary function test with pre and post-bronchodilator spirometry, plethysmography and diffusing capacity. The test was performed and results interpreted in accordance with the 2019 and 2005 ATS/ERS Task Force guidelines respectively using the Global Lung Function Initiative-2012 reference equations. Patient demonstrated good effort and cooperation. Reproducibility criteria were met. The quality of the pre bronchodilator spirometry maneuver was Grade A and post bronchodilator spirometry maneuver was Grade A. Findings: Spirometry: There is decreased maximal expiratory airflow at all lung volumes with concave expiratory flow tracing. The contour the inspiratory flow tracing is normal. The pre bronchodilator FVC is 2.07 L, 68% predicted. The pre bronchodilator FEV1 is 0.59 L, 24% predicted. The pre bronchodilator FEV1: FVC ratio is 28%. The post bronchodilator FVC is 2.11 L, representing a 2% increase. The post bronchodilator FEV1 is 0.62 L, representing a 5% increase. The post bronchodilator FEV1: FVC ratio is 29%. Plethysmography: The total lung capacity is 5.38 L, 117% predicted. The functional residual capacity is 3.96 L, 115% predicted. The residual volume is 2.99 L, 178% predicted. The residual volume: Total lung capacity ratio is 56%. Diffusing capacity: The diffusing capacity unadjusted for hemoglobin and carboxyhemoglobin is 5.6, 26% predicted. The diffusing capacity adjusted for alveolar volume is 2.32, 49% predicted. Impression: There is a very severe obstructive abnormality. There is no significant improvement after inhaling a single dose of albuterol. The increase in residual volume to total lung volume ratio is consistent with hyperinflation from an obstructive abnormality. The diffusing capacity unadjusted for hemoglobin and carboxyhemoglobin is severely decreased and remains moderately decreased when adjusted for alveolar volume. 05/18/2023: ABG room air 7.38/50.4/53.9. * 06/25/2023 CXR; Bullous emphysema; Mild infiltrate and/or atelectasis in the mid and lower lung zones. Osteopenia * ABG * 06/24/2022 Alpha 1 antitrypsin level was normal 179 and her genotype is PI:MM normal. * 05/09/2022 -echo; Complete two-dimensional, color flow and Doppler transthoracic echocardiogram is performed. 2. Normal left ventricular size and thickness with good contractility of all segments. Ejection fraction 65-70%. No segmental wall motion abnormalities. Normal diastolic function. Left ventricular strain is mildly diminished at -16% consistent with a degree of systolic dysfunction. 3. Mild right ventricular enlargement and hypokinesis. 4. Mild tricuspid regurgitation. 5. Mild pulmonary hypertension, RVSP 49 mmHg. 6. Mildly dilated inferior vena cava consistent with elevated right-sided pressures. 7. Sinus tachycardia. 06/24/2022: Alpha 1 antitrypsin phenotype is MM, with an alpha 1 anti trypsin level of 179, normal. 02/10/2017: EXAMINATION: CTA CHEST (PULMONARY ART) INDICATION: Sudden onset of shortness of breath. History of asthma, COPD. COMPARISON: 01/31/2017 portable AP chest FINDINGS: Diagnostic contrast opacification of the pulmonary arteries. No evidence of pulmonary embolism. No thoracic aortic aneurysm or dissection. No hilar or mediastinal mass lesion or lymphadenopathy. Normal size and homogeneous enhancement of the thyroid gland. Normal heart size. No pericardial or pleural effusion. The adrenal glands and included upper abdominal structures are unremarkable. There is a fat containing foramen of Bochdalek hernia on the rig ht. Emphysematous changes are noted throughout both lungs. There is bilateral dependent lower lobe discoid atelectasis and/or scarring. IMPRESSION: No evidence of pulmonary embolism. Emphysema. Bilateral discoid atelectasis and/or scarring in the dependent lower lobes Review of Systems Constitutional: Constitutional: Reports no additional constitutional complaints Eyes: Eyes: Reports no additional eye complaints ENT: Reports system reviewed and no additional complaints, except as documented Cardiovascular: Cardiovascular: Reports no additional cardiovascular complaints Respiratory: Respiratory: Reports no additional respiratory complaints Gastrointestinal: Gastrointestinal: Reports no additional gastrointestinal complaints Musculoskeletal: Musculoskeletal: Reports no additional musculoskeletal complaints Neurologic: Reports system reviewed and no additional complaints, except as documented Psychiatric: Psychiatric: Reports no additional psychiatric complaints Endocrine: Endocrine: Reports no additional endocrine complaints Hematologic/Lymphatic: Hematologic/Lymphatic: Reports no additional hematologic/lymphatic complaints Allergic/Immunologic: Allergic/Immunologic: Reports no additional allergic/immunologic complaints Exam Const: General: cooperative, healthy appearing and comfortable Orientation/consciousness: oriented to person, oriented to place and oriented to time Other: no distress HENMT: Head: normal to inspection Ears: hearing grossly normal bilaterally Eyes: General: appearance normal, both eyes and all related structures Neck: Neck: normal visual inspection Chest: Chest palpation & inspection: normal inspection of the chest Resp: Effort & Inspection: normal respiratory effort and able to speak in complete sentences Auscultation: no crackles, no rales, no rhonchi, no wheezes and diminished lung sounds Cardio: Jugular venous distension: no JVD GI: Inspection: normal to inspection Skin: General skin exam: normal color Neuro: General: oriented to person, oriented to place and oriented to time Extrem: General: normal to inspection Psych: Appearance: grossly normal Objective Data Vital Signs Vital Signs: Vital Signs - 24 hr 08/05/24 14:00 08/05/24 15:45 08/05/24 15:45 Temperature Pulse Rate 92 85 85 Respiratory Rate 20 20 Blood Pressure Pulse Oximetry 94 Oxygen Delivery Nasal Cannula Oxygen Flow Rate 1 Fraction of Inspired Oxygen 08/05/24 15:48 08/05/24 15:51 08/05/24 16:00 Temperature 36.6 C Pulse Rate 82 92 105 H Respiratory Rate 20 20 Blood Pressure 130/82 Pulse Oximetry 96 Oxygen Delivery Oxygen Flow Rate Fraction of Inspired Oxygen 08/05/24 16:00 08/05/24 18:00 08/05/24 19:57 Temperature Pulse Rate 81 86 Respiratory Rate 18 Blood Pressure Pulse Oximetry 94 96 Oxygen Delivery Nasal Cannula Nasal Cannula Oxygen Flow Rate 2 2 Fraction of Inspired Oxygen 08/05/24 19:57 08/05/24 20:00 08/05/24 20:10 Temperature Pulse Rate 86 76 90 Respiratory Rate 18 18 Blood Pressure Pulse Oximetry Oxygen Delivery Oxygen Flow Rate Fraction of Inspired Oxygen 08/05/24 20:37 08/05/24 20:47 08/05/24 21:56 Temperature 36.9 C Pulse Rate 72 72 85 Respiratory Rate 20 20 Blood Pressure 129/90 Pulse Oximetry 97 97 Oxygen Delivery Nasal Cannula Oxygen Flow Rate 2 Fraction of Inspired Oxygen 08/05/24 22:40 08/05/24 22:40 08/05/24 22:44 Temperature 36.6 C Pulse Rate 78 78 86 Respiratory Rate 20 20 16 Blood Pressure 122/88 Pulse Oximetry 97 97 95 Oxygen Delivery BiPAP Oxygen Flow Rate Fraction of Inspired Oxygen 28 08/05/24 22:45 08/06/24 00:00 08/06/24 02:00 Temperature Pulse Rate 86 78 68 Respiratory Rate 16 Blood Pressure Pulse Oximetry 95 Oxygen Delivery BiPAP Oxygen Flow Rate Fraction of Inspired Oxygen 28 08/06/24 04:00 08/06/24 05:04 08/06/24 05:05 Temperature 36.6 C Pulse Rate 71 75 89 Respiratory Rate 20 23 H Blood Pressure 126/82 Pulse Oximetry 97 94 Oxygen Delivery BiPAP Oxygen Flow Rate Fraction of Inspired Oxygen 08/06/24 06:00 08/06/24 07:52 08/06/24 08:00 Temperature 36.6 C Pulse Rate 72 68 Respiratory Rate 16 Blood Pressure 118/83 Pulse Oximetry 98 96 Oxygen Delivery Nasal Cannula Oxygen Flow Rate 2 Fraction of Inspired Oxygen 08/06/24 08:00 08/06/24 08:10 08/06/24 08:10 Temperature Pulse Rate 72 78 Respiratory Rate 20 Blood Pressure Pulse Oximetry 97 Oxygen Delivery Nasal Cannula Oxygen Flow Rate 2 Fraction of Inspired Oxygen 08/06/24 08:20 08/06/24 10:00 08/06/24 11:33 Temperature 36.5 C Pulse Rate 72 96 83 Respiratory Rate 20 20 Blood Pressure 128/74 Pulse Oximetry 97 Oxygen Delivery Oxygen Flow Rate Fraction of Inspired Oxygen 08/06/24 11:50 08/06/24 12:01 08/06/24 12:01 Temperature Pulse Rate 76 Respiratory Rate 20 Blood Pressure Pulse Oximetry 97 97 Oxygen Delivery Nasal Cannula Nasal Cannula Oxygen Flow Rate 1 2 Fraction of Inspired Oxygen 08/06/24 12:15 Temperature Pulse Rate 76 Respiratory Rate 20 Blood Pressure Pulse Oximetry Oxygen Delivery Oxygen Flow Rate Fraction of Inspired Oxygen Intake/Output Intake/Output: Intake & Output 08/03/24 08/04/24 08/05/24 08/06/24 23:59 23:59 23:59 23:59 Intake Total 3142.9 4400.9 4547.5 1650.6 Output Total 1000 2900 3600 1100 Balance 2142.9 1500.9 947.5 550.6 Meds/Results Medications: Active Medications Generic Name Dose Route Start Last Admin Trade Name Freq PRN Reason Stop Dose Admin Albuterol 1 puff 08/02/24 08:13 Albuterol Sulfate (*Sp) Aerosol 1 Puff INHALATION Q4-6H PRN shortness of breath or wheezing Albuterol/Ipratropium 3 ml 08/02/24 16:00 08/06/24 11:59 Ipratropium 0.5 Mg/Albuterol Sulfate 2.5 Mg Ampul.Neb 3 Ml INHALATION 3 ml Q4HRT HOMAR Administration Aspirin 81 mg 08/02/24 09:00 08/06/24 08:34 Aspirin 81 Mg Enteric Tablet PO 09/01/24 08:59 81 mg DAILY HOMAR Administration Clonazepam 1 mg 08/02/24 08:13 08/05/24 22:27 Clonazepam (*Crx) 0.5 Mg Tablet PO 1 mg DAILY PRN Administration Anxiety Enoxaparin Sodium 40 mg 08/06/24 09:00 08/06/24 08:34 Enoxaparin 40 Mg/0.4 Ml Syringe SUB-Q 40 mg DAILY HOMAR Administration Estradiol 1 applic 08/02/24 08:13 Estradiol Vaginal Cream 42.5 Gm VAGINAL PRN PRN Pain Fluticasone Propionate 1 spray 08/02/24 08:13 Fluticasone Propionate 0.05% Na Spr 16 Gm Btl (*Bkc) NASAL DAILY PRN Dryness Guaifenesin 1,200 mg 08/02/24 21:00 08/06/24 08:34 Guaifenesin 12 Hr 600 Mg Tabcr PO 1,200 mg Q12HR HOMAR Administration Mupirocin 1 applic 08/03/24 09:00 08/06/24 09:42 Mupirocin 2% Oint 22 Gm Tube EACH NARE 08/07/24 21:01 1 applic Q12HR HOMAR Administration Nicotine 1 patch 08/02/24 14:40 08/06/24 08:35 Nicotine (*Pbkc) 14 Mg Patch TRANSDERM 1 patch DAILY HOMAR Administration Nitroglycerin 0.4 mg 08/02/24 08:15 Nitroglycerin Sl 0.4 Mg Tablet SUBLINGUAL Q5MIN HOMAR Valacyclovir HCl 1,000 mg 08/02/24 08:15 08/06/24 05:50 Valacyclovir Hcl 500 Mg Tablet PO Not Given Q8HR HOMAR Radiology Results: ITS Impressions Chest CTA 08/01/24 21:32 IMPRESSION: No pulmonary embolus. No thoracic aortic dissection. Severe panlobular bullous emphysema, as detailed above. Head CT 08/02/24 10:48 Impression: No significant abnormality seen. Chest X-Ray 08/05/24 09:41 IMPRESSION: 1. Emphysema Labs Labs: Laboratory Results - last 24 hr 08/02/24 08/04/24 08/06/24 13:48 05:33 05:10 WBC RBC Hgb Hct MCV MCH MCHC RDW Plt Count MPV Immature Gran % (Auto) Neut % (Auto) Lymph % (Auto) Real % (Auto) Eos % (Auto) Baso % (Auto) Lymph # (Auto) Real # (Auto) Eos # (Auto) Baso # (Auto) Abs Immat Gran (auto) Absolute Neuts (auto) Absolute Nucleated RBC Total Counted Neutrophils % (Manual) Band Neutrophils % Lymphocytes % (Manual) Monocytes % (Manual) Nucleated RBC % Abs Neuts (Manual) Abs Lymphs (Manual) Abs Monocytes (Manual) Atypical Lymphocytes Platelet Estimate % Immature Plt Fraction Schistocytes Puncture Site Right radial ABG pH 7.358 ABG pCO2 62.7 H* ABG pO2 74.0 L ABG PO2/FiO2 Ratio 2.64 ABG HCO3 34.5 H ABG O2 Saturation 93.9 L ABG O2 Content 16.6 ABG Base Excess 7.1 A-a Gradient 51.7 Oxyhemoglobin 93.5 Total Hemoglobin 12.6 O2 Delivery Device Bipap O2 Liters/Min FiO2 28 Expiratory Pressure 5 5 Inspiratory Pressure Not Reportable 25 Sodium Potassium Chloride Carbon Dioxide Anion Gap BUN Creatinine Estim Creat Clear Calc Estimated GFR Glucose Calcium Magnesium Total Bilirubin AST ALT Alkaline Phosphatase Total Protein Albumin SARS-CoV-2 RNA (RT-PCR) Not detected 08/06/24 06:44 WBC 5.4 RBC 3.58 L Hgb 11.1 L Hct 35.4 L MCV 98.9 MCH 31.0 MCHC 31.4 L RDW 13.6 Plt Count 123 L MPV 11.5 H Immature Gran % (Auto) Not Reportable Neut % (Auto) Not Reportable Lymph % (Auto) Not Reportable Real % (Auto) Not Reportable Eos % (Auto) Not Reportable Baso % (Auto) Not Reportable Lymph # (Auto) Not Reportable Real # (Auto) Not Reportable Eos # (Auto) Not Reportable Baso # (Auto) Not Reportable Abs Immat Gran (auto) Not Reportable Absolute Neuts (auto) Not Reportable Absolute Nucleated RBC Not Reportable Total Counted 100 Neutrophils % (Manual) 52 Band Neutrophils % 2 Lymphocytes % (Manual) 43 Monocytes % (Manual) 3 Nucleated RBC % Not Reportable Abs Neuts (Manual) 2.91 Abs Lymphs (Manual) 2.32 Abs Monocytes (Manual) 0.16 Atypical Lymphocytes Present Platelet Estimate Decreased % Immature Plt Fraction 8.8 Schistocytes None seen Puncture Site ABG pH ABG pCO2 ABG pO2 ABG PO2/FiO2 Ratio ABG HCO3 ABG O2 Saturation ABG O2 Content ABG Base Excess A-a Gradient Oxyhemoglobin Total Hemoglobin O2 Delivery Device O2 Liters/Min FiO2 Expiratory Pressure Inspiratory Pressure Sodium 138 Potassium 2.8 L* Chloride 94 L Carbon Dioxide > 40 H Anion Gap BUN 10 Creatinine 0.32 L Estim Creat Clear Calc 126 Estimated GFR > 60 Glucose 82 Calcium 8.0 L Magnesium 1.9 Total Bilirubin 0.3 AST 22 ALT 18 Alkaline Phosphatase 53 Total Protein 6.0 L Albumin 3.2 L SARS-CoV-2 RNA (RT-PCR)
[2024-08-06 15:46] LABS: Potassium 3.5 mmol/L (3.4-5.0)
[2024-08-06] MEDS: clonazePAM (*CRX) 0.5 MG TABLET 1 MG PO (22:34)
[2024-08-07] VITALS (12 sets, daily range): BP systolic 126; BP diastolic 65; PULSE 77–110; RESP 16–20; TEMP 36.6; O2SAT 85–98
[2024-08-07 04:47] LABS: Alveolar/Arterial O2 Gradient 82.2 mmHg; Base Excess ABG 7.1 mEq/l (+/-2.0); Fractional Inspired Oxygen 28 %; HCO3 ABG 33.1 mEq/l (22.0-26.0); Oxygen Content ABG 18.1 %vol (16.0-22.0); Oxygen Saturation ABG 89.5 % (95.0-100.0); Oxyhemoglobin 88.9 % THb (90.0-100.0); PCO2 ABG 51.8 mmHg (35.0-45.0); PO2 ABG 56.3 mmHg (80.0-100.0); PO2 FiO2 Ratio Arterial Blood 2.01 %; Total Hemoglobin 14.5 g/dL (12.0-18.0); pH ABG 7.423 (7.350-7.450)
[2024-08-07 04:48] LABS: Site Drawn RIGHT BRACHIAL
[2024-08-07 04:49] LABS: Device OTHER DEVICE
--- NOTE | 2024-08-07 05:24 | PCRCNOTE ---
Pt's 0200 updraft treatment not given due to being on an overnight oximetry study. Treatment to resume @ 0800.
[2024-08-07 07:31] LABS: Basophils Percent Auto 0.3 % (0.2-1.2); Eosinophils Absolute Auto 0.1 K/mm3 (0-0.3); Eosinophils Percent Auto 2.4 % (0-4.4); Hematocrit 44.6 % (37.0-47.0); Immature Granulocyte Absolute 0.28 K/mm3 (0.00-0.031); Immature Granulocyte Percent A 4.8 % (0-0.5); Lymphocytes Percent Auto 24.2 % (18.3-44.2); Mean Corpuscular HGB Conc 31.4 g/dl (32-36); Mean Corpuscular Hemoglobin 30.8 pg (26-34); Mean Corpuscular Volume 98.2 fl (80-100); Mean Platelet Volume 11.4 fl (7.4-10.4); Monocytes Absolute Auto 0.4 K/mm3 (0.1-0.6); Monocytes Percent Auto 7.6 % (2.6-8.5); Neutrophils Absolute Auto 3.5 K/mm3 (1.3-6.7); Neutrophils Percent Auto 60.7 % (45.5-73.1); Platelet Count Result 160 k/mm3 (150-375); Red Blood Count 4.54 M/mm3 (4.2-5.4); Red Cell Distribution Width 13.7 % (11.5-14.5); White Blood Count 5.8 K/mm3 (4.5-10.0)
[2024-08-07 07:45] LABS: Alanine Aminotransferase 20 U/L (6-35); Albumin Level 4.2 g/dL (3.5-5.1); Alkaline Phosphatase 67 U/L (38-126); Aspartate Amino Transferase 24 U/L (14-36); Bilirubin,Total 0.5 mg/dL (0.2-1.3); Blood Urea Nitrogen 9 mg/dL (7-17); Calcium 9.2 mg/dL (8.4-10.2); Carbon Dioxide > 40 mmol/L (22-30); Chloride 91 mmol/L (98-107); Estimated CRCL calculation 87 ml/min; Estimated Glomerular Filt Rate > 60; Glucose 88 mg/dL (65-110); Magnesium 2.1 mg/dL (1.6-2.3); Potassium 3.8 mmol/L (3.4-5.0); Sodium 140 mmol/L (137-145)
[2024-08-07] MEDS: IPRATROPIUM 0.5 MG/ALBUTEROL SULFATE 2.5 MG AMPUL.NEB 3 ML INHALATION (08:16)
--- NOTE | 2024-08-07 08:35 | PM.PNPUL ---
Progress Note: A&P Assessment and Plan (1) Acute exacerbation of chronic obstructive pulmonary disease: Code(s): J44.1 - Chronic obstructive pulmonary disease with (acute) exacerbation Status: Acute Assessment and Plan: Gold grade 4 group E COPD patient with 76 pack years, quit 05/2024, alpha 1 anti trypsin genotype MM. PFT 07/21/2023: shows very severe obstruction, FEV1 is 0.59 L, 24% predicted. FEV1:FVC raio 28%, TLC is 117% predicted. RV is 2.99 L, 178% predicted. RV/TLC is 56%. DLCO Uncorrected 26%, DLCO corrected for alveolar volume 47%. CT scan of the chest from 02/10/2017 with panlobular emphysema more severe at the apices and CT scan more recently on 08/01/2024 with progression of severe panlobular emphysema worse in the apices. Chronic hypoxemic respiratory failure requiring 2 L nasal cannula at rest and with activity. ABG on room air 05/18/2023 with pH 7.38/50.4/54. 06/25/2023 eosinophils 14 per micro L 06/16/2024 eosinophils to 70 per micro L. 08/01/2024 eosinophils 0. 08/02/2024: Patient presented to the hospital with COPD exacerbation with hypoxemic and hypercarbic respiratory failure with a blood gas of 7.30/56/71 and treated with BiPAP, steroids, and bronchodilators. CT angiogram of the chest negative for PE or focal consolidations. No evidence of fluid overload on exam. The patient remains confused. She tells me in spells her last name, knows she is at [facility], tells me it is July 07, 2024, knows Estefany is the POTUS, name is a pen, cap and hold her correctly. Overall she says that she is breathing about the same as yesterday. Her cough is the same, shortness of breath is the same, minimal phlegm that is white with no blood. She says she is not wheezing. When I enter the room she was on 2 L nasal cannula with saturations 94%. I decreased her to room air and after 11 minutes her saturations were 89% and I returned her to 2 L. Plan: I will continue to treat for COPD exacerbation. She still has wheezing at this time. I will place her on Solu-Medrol 20 mg IV q.6, day 2 of steroids. I will occur increase her DuoNebs to q.4 hours. I will discontinue Anoro Ellipta she is on maximal doses of beta agonist and muscarinic antagonist with the DuoNebs q.4 hours. Patient has difficulty expectorating and I will add guaifenesin 1200 mg p.o. b.i.d. and a Cornet flutter valve. Will add azithromycin to treat possible tracheobronchitis. No evidence of pneumonia on CT scan. Pulmonary inpatient services will resume on 08/05/2024. Call with questions. 08/05/24: The patient tells me her breathing is back to normal. She has no cough, no phlegm no hemoptysis. She is afebrile. Currently she is on 2 L nasal cannula saturations 95%. I decreased her 1 L nasal cannula her saturations 93%. Her white blood cell count is 6.6, creatinine is 0.65. Her BNP is 2850. Plan: today is day 5 of steroids, will discontinue. Continue DuoNebs Q 4. Patient on azithromycin day 4, continue guaifenesin 1200 p.o. b.i.d.. Goal saturation 90-94%. Adjust oxygen accordingly. 08/06/2024: Currently the patient tells me she is breathing normal. She denies cough, phlegm or hemoptysis. She has no wheezing. She is afebrile. Patient is on 2 L nasal cannula saturations 97%. She is afebrile. White blood cell count 5.4, creatinine 0.32. Cumulative she is +9.4 L since admission. Her weight is 52.8 kg. Plan: patient continues to improve. Patient is on DuoNebs and will decreased Frequency from q.4 hours to q.6 hours. Patient on azithromycin day 5 will discontinue after today's dose. Continue guaifenesin 1200 b.i.d.. Goal saturation 90-94%, adjust accordingly. The patient remains clinically stable and her home noninvasive ventilator can be set up today and she use it overnight without issues anticipate discharge on 08/07/2024. Later in the day she was set up with her home machine through [employer] with 5 apps AE. 08/08/2023: Patient tells me that she is breathing normal. She denies cough, phlegm or hemoptysis. She is afebrile. Her weight is 52.7 kg. Patient tells me she is ready for discharge today. Smoking cessation counseling was provided and the patient tells me she will never smoke again. from a pulmonary perspective patient can be discharged from the hospital on these pulmonary medications: Anoro Ellipta 62.5-25 at 1 puff q.day Rescue albuterol 2 puffs q.4 hours p.r.n. shortness of breath or wheezing Guaifenesin 600 mg p.o. b.i.d. p.r.n. congestion Oxygen at rest and with activity per formal home O2 assessment which I have ordered. When she naps or sleeps home noninvasive ventilation with the I have apps mode through [employer]:Rate range 8 to 20, tidal volume 450, EPAP minimum 5, maximum EPAP 15. Minimum pressure support 6. Maximum pressure support 25. 4 L bleed in. Follow-up in the Pulmonary Clinic in 4 weeks. I gave her our business card and informed our planner scheduler. Patient will need an outpatient overnight oximetry on her noninvasive ventilator with 4 L bleed in. Patient will need a compliance check. Discussed with Dr. Samayoa. Will sign off, call with questions. (2) Respiratory failure with hypoxia and hypercapnia: Code(s): J96.91 - Respiratory failure, unspecified with hypoxia; J96.92 - Respiratory failure, unspecified with hypercapnia Status: Acute Assessment and Plan: patient with gold grade 4 group E COPD with hypoxic respiratory failure requiring 2 L nasal cannula at night. Patient presented to the hospital 08/02/24 with COPD and blood gas on 2 L 7.. Previous ABG 05/18/2023 with pH of 7.38/50/54. Patient has chronic hypercarbic respiratory failure from her COPD. ABG on her home oxygen setting 7.. Patient would benefit from noninvasive ventilation to prevent further hospitalizations and deterioration. Patient was placed on BiPAP but could not tolerate these settings. I will initiate the process for home noninvasive ventilation with AVAPS mode. 08/02/2024: patient wore BiPAP last night but said it was uncomfortable due to pressures and she could not sleep with the machine on. Her settings were rate of 18, pressures 12/6. The patient could not tolerate BiPAP and I placed her on noninvasive ventilation with the AVAPS mode and adjusted the settings to come for resulting in a rate of 14, tidal volume 450, EPAP 5, minimal inspiratory pressure 6, maximum inspiratory pressure 25, inspiratory time 1.0, rise of 5 and 28% FiO2. Plan: The patient feels she will need the noninvasive ventilation tonight. AVAPS settings as above and obtain an ABG prior to removal and an overnight oximetry. 08/03/24: patient wore hospital AVAPS rate of 14, tidal volume 450, EPAP 5, minimal inspiratory pressure 6, maximum inspiratory pressure 25, inspiratory time 1.0, rise of 5 and 28% FiO2. ABG 7.32/59/60, ApneaLink with adequate oxygenation. 08/04/2024: Patient wore AVAPS rate of 20, tidal volume 500,EPAP 5, minimal inspiratory pressure 6, maximum inspiratory pressure 25, inspiratory time 1.0, rise of 5 and 28% FiO2. ABG 7.34 /62 /94. 08/05/24: The patient tells me her breathing is back to normal. She has no cough, no phlegm no hemoptysis. She is afebrile. Currently she is on 2 L nasal cannula saturations 95%. I decreased her 1 L nasal cannula her saturations 93%. Her white blood cell count is 6.6, creatinine is 0.65. Her BNP is 2850. patient wore Hospital AVAPS rate of 20, tidal volume 500 28% FiO2 despite an order placed for rate of 8 tidal volume 400. patient said she tolerated the settings adequately and was able to get some sleep. ABG prior to removal was 7.37/60/78. Plan: Tonight I will place the patient on hospital AVAPS rate of 8, tidal volume 400, EPAP 5, minimal inspiratory pressure 6, maximal inspiratory pressure 25, inspiratory time 1.0 and a rise of 5 with 28% FiO2. I will check an ABG and an overnight oximetry to determine if her ventilation improves with lower rate and lower tidal volume. I will initiate the process for a home noninvasive ventilation through her [employer] company [employer]. Later in the day filled out I home noninvasive ventilator order form through [employer] with IVAPS-ZACARIAS. Rate range 8 to 20, tidal volume 450, EPAP minimum 5, maximum EPAP 15. Minimum pressure support 6. Maximum pressure support 25. 2 L bleed in. 08/06/2024: Last night the patient wore the hospital AVAPS set rate 8, tidal volume 400 and 28% FiO2 And said that she is doing better with machine each night she was able to sleep with the mask on and it was somewhat uncomfortable but the air delivery was okay. Patient with the overnight oximetry recording duration of 6 hours and 30 minutes. Average saturation 96%. Time with saturation less than or equal to 88% was 6 minutes, oxygen desaturation index 10.8. Patient had an ABG prior to removal with a pH of 7.36/63/74. Plan: Hopefully home machine can be set up in the hospital tonight with the above settings. Will obtain an ABG in an overnight oximetry. 08/08/24: Patient wore the home noninvasive ventilator with the [employer] AE mode with 2 L bleed in and said the machine was comfortable but the mask was somewhat uncomfortable. She got intermittent sleep. Patient had an overnight oximetry on these settings with a recording duration of 6 hours and 19 minutes, average saturation 90%. Low saturation 80%. Time with saturation less than or equal to 88% was 95 minutes, oxygen desaturation index 6.6. Patient had an ABG prior to removal on these settings with a pH of 7.42/52/56. Plan: Current noninvasive ventilation settings provide adequate ventilation. oxygenation is low on 2 L and recommend 4 L bleed in at home. Patient will need an outpatient overnight oximetry on her noninvasive ventilator with 4 L bleed in. (3) Cognitive changes: Code(s): R41.89 - Other symptoms and signs involving cognitive functions and awareness Status: Acute Assessment and Plan: 08/02/24: The patient remains confused. She tells me in spells her last name, knows she is at [facility], tells me it is July 07, 2024, knows sEtefany is the POTUS, name is a pen, cap and hold her correctly. the patient also told me she was concerned that somebody was trying to poison her at home. I asked her if she was in physical danger and she told me the doctors may be looking in 1 direction but the danger may be directly behind me. Patient would not elaborate when I asked her for more details. I have asked dilated this conversation to the patient's bedside nurse, charge nurse and child adolescent care. later in the day patient with a CT scan of the head that was negative. Management per hospitalist team. Subjective Date/time seen: 08/07/24 08:35 Interval history: 08/02/24: this is a new pulmonary consult for COPD exacerbation 53-year-old with a history of DVT 2007, depression, anxiety, polysubstance abuse, hepatitis-C virus cured with treatment, COPD with hypoxemic respiratory failure on 2 L nasal cannula. 09/06/2023: patient followed in the Pulmonary Clinic in last seen on 09/06/2023: she presented with a next empty oxygen tank. She looked amazing, not sick, more coherent in pulmonary rehab for the last month. She is lifting weights and using a treadmill. Feels better using oxygen. using trelegy 100. Usually wears 2 L nasal cannula Tobacco use: 2 packs per day from age 15 to May of 2024, 76 pack year, exposed to secondhand smoke from her mother. Denies vaping, she did snort cocaine for multiple years last use 2007. Denies vaping. Since the last visit, she had PFT 07/21/2023; 07/21/2023 PFT shows extremely severe COPD, FEV1 is 0.59 L, 24% predicted. TLC is 117% predicted. RV is 2.99 L, 178% predicted. RV/TLC is 56%. DLCO 26%. CAT score = 9/40; this is a low score, consistent with few COPD symptoms. She never coughs. She has very minimal sputum production. She has no chest tightness. She is somewhat short of breath walking up hills or flight of stairs. She is just barely limited doing activities around her home. She is confident leaving her home despite her lung condition. She sleeps mostly soundly but wakes with a dry mouth. She has more energy on this visit than she had previously. Plan: Continue trelegy 100 (samples given), Serevent and Anoro will prescribe to because trilogy was denied. Smoked for years, tells me she quit smoking tobacco in early March 2023; Her significant other, Nicholas, smokes tobacco and marijuana, usually outside, not in the house. She needs to avoid all exposure to smoke including second hand smokes as well as particulate matter from smoke. 12/29/2023: completed pulmonary rehab, session 35, exercise 42 minutes on 2 L oxygen with saturations 94%. MTS 4.12 for 30 minutes and 4.25 for 3 minutes on the treadmill. 08/01/2024: Patient presented to the emergency room with altered mental status, shortness of breath, Coughing, wheezing, chest pain. Patient tells me she was exposed to sick grandchildren on July 25, 2024. She had been ill for the last several days and she was sleeping for 3 days straight. Endorsed only using oxygen at night. Blood pressure 130/90, heart rate 90, room air saturation 96%. Mildly labored with wheezing all lobes. Periods of intermittent confusion. White blood cell count 3.3, eosinophils 0%, platelets 124, creatinine 0.42, serum bicarb 33, lactic acid 1.1, troponin negative, COVID, influenza, RSV RT PCR studies negative, urine tox screen positive for benzodiazepines (on clonazepam 1 mg PO Q day PRN). ABG on 2 L nasal cannula 7.30/56/71. CT angiogram of the chest showed no pulmonary embolism, severe panlobular bullous emphysema throughout all lung geller and worse in the apices (progression of emphysema since 01/31/2017). Patient was treated for COPD exacerbation with Solu-Medrol, bronchodilators, and noninvasive ventilation with BiPAP rate of 18, pressures 12/6 and 28% FiO2. 08/02/24: The patient remains confused. She tells me in spells her last name, knows she is at [facility], tells me it is July 07, 2024, knows Estefany is the POTUS, name is a pen, cap and hold her correctly. Overall she says that she is breathing about the same as yesterday. Her cough is the same, shortness of breath is the same, minimal phlegm that is white with no blood. She says she is not wheezing. When I enter the room she was on 2 L nasal cannula with saturations 94%. I decreased her to room air and after 11 minutes her saturations were 89% and I returned her to 2 L. 08/03/24: patient wore hospital AVAPS rate of 14, tidal volume 450, EPAP 5, minimal inspiratory pressure 6, maximum inspiratory pressure 25, inspiratory time 1.0, rise of 5 and 28% FiO2. ABG 7.32/59/60, ApneaLink with adequate oxygenation. 08/04/2024: Patient wore AVAPS rate of 20, tidal volume 500,EPAP 5, minimal inspiratory pressure 6, maximum inspiratory pressure 25, inspiratory time 1.0, rise of 5 and 28% FiO2. ABG 7.34 /62 /94. /03/20: The patient tells me her breathing is back to normal. She has no cough, no phlegm no hemoptysis. She is afebrile. Currently she is on 2 L nasal cannula saturations 95%. I decreased her 1 L nasal cannula her saturations 93%. Her white blood cell count is 6.6, creatinine is 0.65. Her BNP is 2850. patient wore [facility] AVAPS rate of 20, tidal volume 500 28% FiO2 despite an order placed for rate of 8 tidal volume 400. patient said she tolerated the settings adequately and was able to get some sleep. ABG prior to removal was 7.37/60/78. Later in the day filled out I home noninvasive ventilator order form through [facility] with IVAPS-AE. Rate range 8 to 20, tidal volume 450, EPAP minimum 5, maximum EPAP 15. Minimum pressure support 6. Maximum pressure support 25. 2 L bleed in. 08/06/2024: Currently the patient tells me she is breathing normal. She denies cough, phlegm or hemoptysis. She has no wheezing. She is afebrile. Patient is on 2 L nasal cannula saturations 97%. She is afebrile. White blood cell count 5.4, creatinine 0.32. Cumulative she is +9.4 L since admission. Her weight is 52.8 kg. last night the patient wore the hospital AVAPS set rate 8, tidal volume 400 and 28% FiO2 And said that she is doing better with machine each night she was able to sleep with the mask on and it was somewhat uncomfortable but the air delivery was okay. Patient with the overnight oximetry recording duration of 6 hours and 30 minutes. Average saturation 96%. Time with saturation less than or equal to 88% was 6 minutes, oxygen desaturation index 10.8. Patient had an ABG prior to removal with a pH of 7.36/63/74. Later in the day she was set up with her home machine through [employer] with 5 apps AE. 08/08/2023: Patient tells me that she is breathing normal. She denies cough, phlegm or hemoptysis. She is afebrile. Her weight is 52.7 kg. Patient wore the home noninvasive ventilator with the [employer] AE mode with 2 L bleed in and said the machine was comfortable but the mask was somewhat uncomfortable. She got intermittent sleep. Patient had an overnight oximetry on these settings with a recording duration of 6 hours and 19 minutes, average saturation 90%. Low saturation 80%. Time with saturation less than or equal to 88% was 95 minutes, oxygen desaturation index 6.6. Patient had an ABG prior to removal on these settings with a pH of 7.42/52/56. Patient tells me she is ready for discharge today. DATA: 08/01/24: EXAMINATION: CTA chest PE protocol INDICATION: Shortness of breath COMPARISON: 03/31/2023 FINDINGS/OBSERVATIONS: PULMONARY ARTERIES: No filling defect is identified within the main or proximal pulmonary artery. The main pulmonary artery is not enlarged. THORACIC AORTA: No aneurysmal dilatation or dissection is present. The great vessels are intact LUNGS: Severe panlobular bullous emphysematous disease is identified, consistent with patient's history. MEDIASTINUM: No morphologically suspicious or pathologically enlarged lymph nodes are identified within the mediastinum or bilateral axilla. BONES OF THE CHEST: No acute fracture. No significant degenerative disease. No lytic or blastic lesions. HEART: The heart is of normal size, without pericardial effusion. IMPRESSION: No pulmonary embolus. No thoracic aortic dissection. Severe panlobular bullous emphysema, as detailed above. 07/21/2023 PFT: This is a pulmonary function test with pre and post-bronchodilator spirometry, plethysmography and diffusing capacity. The test was performed and results interpreted in accordance with the 2019 and 2005 ATS/ERS Task Force guidelines respectively using the Global Lung Function Initiative-2012 reference equations. Patient demonstrated good effort and cooperation. Reproducibility criteria were met. The quality of the pre bronchodilator spirometry maneuver was Grade A and post bronchodilator spirometry maneuver was Grade A. Findings: Spirometry: There is decreased maximal expiratory airflow at all lung volumes with concave expiratory flow tracing. The contour the inspiratory flow tracing is normal. The pre bronchodilator FVC is 2.07 L, 68% predicted. The pre bronchodilator FEV1 is 0.59 L, 24% predicted. The pre bronchodilator FEV1: FVC ratio is 28%. The post bronchodilator FVC is 2.11 L, representing a 2% increase. The post bronchodilator FEV1 is 0.62 L, representing a 5% increase. The post bronchodilator FEV1: FVC ratio is 29%. Plethysmography: The total lung capacity is 5.38 L, 117% predicted. The functional residual capacity is 3.96 L, 115% predicted. The residual volume is 2.99 L, 178% predicted. The residual volume: Total lung capacity ratio is 56%. Diffusing capacity: The diffusing capacity unadjusted for hemoglobin and carboxyhemoglobin is 5.6, 26% predicted. The diffusing capacity adjusted for alveolar volume is 2.32, 49% predicted. Impression: There is a very severe obstructive abnormality. There is no significant improvement after inhaling a single dose of albuterol. The increase in residual volume to total lung volume ratio is consistent with hyperinflation from an obstructive abnormality. The diffusing capacity unadjusted for hemoglobin and carboxyhemoglobin is severely decreased and remains moderately decreased when adjusted for alveolar volume. 05/18/2023: ABG room air 7.38/50.4/53.9. * 06/25/2023 CXR; Bullous emphysema; Mild infiltrate and/or atelectasis in the mid and lower lung zones. Osteopenia * ABG * 06/24/2022 Alpha 1 antitrypsin level was normal 179 and her genotype is PI:MM normal. * 05/09/2022 -echo; Complete two-dimensional, color flow and Doppler transthoracic echocardiogram is performed. 2. Normal left ventricular size and thickness with good contractility of all segments. Ejection fraction 65-70%. No segmental wall motion abnormalities. Normal diastolic function. Left ventricular strain is mildly diminished at -16% consistent with a degree of systolic dysfunction. 3. Mild right ventricular enlargement and hypokinesis. 4. Mild tricuspid regurgitation. 5. Mild pulmonary hypertension, RVSP 49 mmHg. 6. Mildly dilated inferior vena cava consistent with elevated right-sided pressures. 7. Sinus tachycardia. 06/24/2022: Alpha 1 antitrypsin phenotype is MM, with an alpha 1 anti trypsin level of 179, normal. 02/10/2017: EXAMINATION: CTA CHEST (PULMONARY ART) INDICATION: Sudden onset of shortness of breath. History of asthma, COPD. COMPARISON: 01/31/2017 portable AP chest FINDINGS: Diagnostic contrast opacification of the pulmonary arteries. No evidence of pulmonary embolism. No thoracic aortic aneurysm or dissection. No hilar or mediastinal mass lesion or lymphadenopathy. Normal size and homogeneous enhancement of the thyroid gland. Normal heart size. No pericardial or pleural effusion. The adrenal glands and included upper abdominal structures are unremarkable. There is a fat containing foramen of Bochdalek hernia on the right. Emphysematous changes are noted throughout both lungs. There is bilateral dependent lower lobe discoid atelectasis and/or scarring. IMPRESSION: No evidence of pulmonary embolism. Emphysema. Bilateral discoid atelectasis and/or scarring in the dependent lower lobes Review of Systems Constitutional: Constitutional: Reports no additional constitutional complaints Eyes: Eyes: Reports no additional eye complaints ENT: Reports system reviewed and no additional complaints, except as documented Cardiovascular: Cardiovascular: Reports no additional cardiovascular complaints Respiratory: Respiratory: Reports no additional respiratory complaints Gastrointestinal: Gastrointestinal: Reports no additional gastrointestinal complaints Musculoskeletal: Musculoskeletal: Reports no additional musculoskeletal complaints Neurologic: Reports system reviewed and no additional complaints, except as documented Psychiatric: Psychiatric: Reports no additional psychiatric complaints Endocrine: Endocrine: Reports no additional endocrine complaints Hematologic/Lymphatic: Hematologic/Lymphatic: Reports no additional hematologic/lymphatic complaints Allergic/Immunologic: Allergic/Immunologic: Reports no additional allergic/immunologic complaints Exam Const: General: cooperative, healthy appearing and comfortable Orientation/consciousness: oriented to person, oriented to place and oriented to time Other: no distress HENMT: Head: normal to inspection Ears: hearing grossly normal bilaterally Eyes: General: appearance normal, both eyes and all related structures Neck: Neck: normal visual inspection Chest: Chest palpation & inspection: normal inspection of the chest Resp: Effort & Inspection: normal respiratory effort and able to speak in complete sentences Auscultation: no crackles, no rales, no rhonchi, no wheezes and diminished lung sounds Cardio: Jugular venous distension: no JVD GI: Inspection: normal to inspection Skin: General skin exam: normal color Neuro: General: oriented to person, oriented to place and oriented to time Extrem: General: normal to inspection Psych: Appearance: grossly normal Objective Data Vital Signs Vital Signs: Vital Signs - 24 hr 08/06/24 10:00 08/06/24 11:33 08/06/24 11:50 Temperature 36.5 C Pulse Rate 96 83 Respiratory Rate 20 Blood Pressure 128/74 Pulse Oximetry 97 97 Oxygen Delivery Nasal Cannula Oxygen Flow Rate 1 08/06/24 12:00 08/06/24 12:01 08/06/24 12:01 Temperature Pulse Rate 77 76 Respiratory Rate 20 Blood Pressure Pulse Oximetry 97 Oxygen Delivery Nasal Cannula Oxygen Flow Rate 2 08/06/24 12:15 08/06/24 14:40 08/06/24 14:54 Temperature Pulse Rate 76 86 84 Respiratory Rate 20 20 20 Blood Pressure Pulse Oximetry Oxygen Delivery Oxygen Flow Rate 08/06/24 16:00 08/06/24 16:00 08/06/24 19:47 Temperature 36.8 C 36.9 C Pulse Rate 88 84 91 Respiratory Rate 20 20 Blood Pressure 133/86 150/91 H Pulse Oximetry 96 96 Oxygen Delivery Oxygen Flow Rate 08/06/24 20:00 08/06/24 20:15 08/06/24 20:27 Temperature Pulse Rate 92 86 85 Respiratory Rate 20 20 Blood Pressure Pulse Oximetry Oxygen Delivery Oxygen Flow Rate 08/06/24 20:30 08/06/24 22:28 08/06/24 22:28 Temperature Pulse Rate 85 83 Respiratory Rate 20 Blood Pressure Pulse Oximetry 96 95 95 Oxygen Delivery Nasal Cannula CPAP Oxygen Flow Rate 1 2 08/06/24 22:56 08/07/24 00:00 08/07/24 02:35 Temperature 37.0 C Pulse Rate 84 77 88 Respiratory Rate 20 Blood Pressure 147/70 H Pulse Oximetry 97 90 Oxygen Delivery Oxygen Flow Rate 05/14/25 04:00 08/07/24 07:51 08/07/24 08:16 Temperature 36.6 C Pulse Rate 82 93 Respiratory Rate 16 Blood Pressure 126/65 Pulse Oximetry 98 96 Oxygen Delivery Nasal Cannula Oxygen Flow Rate 2 08/07/24 08:16 Temperature Pulse Rate 86 Respiratory Rate 20 Blood Pressure Pulse Oximetry Oxygen Delivery Oxygen Flow Rate Intake/Output Intake/Output: Intake & Output 08/04/24 08/05/24 08/06/24 08/07/24 23:59 23:59 23:59 23:59 Intake Total 4400.9 4547.5 1890.6 1000 Output Total 2900 3600 2000 550 Balance 1500.9 947.5 -109.4 450 Meds/Results Medications: Active Medications Generic Name Dose Route Start Last Admin Trade Name Freq PRN Reason Stop Dose Admin Albuterol 1 puff 08/02/24 08:13 Albuterol Sulfate (*Sp) Aerosol 1 Puff INHALATION Q4-6H PRN shortness of breath or wheezing Albuterol/Ipratropium 3 ml 08/06/24 14:00 08/07/24 08:16 Ipratropium 0.5 Mg/Albuterol Sulfate 2.5 Mg Ampul.Neb 3 Ml INHALATION 3 ml Q6HRT [facility] Administration Aspirin 81 mg 08/02/24 09:00 08/06/24 08:34 Aspirin 81 Mg Enteric Tablet PO 09/01/24 08:59 81 mg DAILY [facility] Administration Clonazepam 1 mg 08/02/24 08:13 08/06/24 22:34 Clonazepam (*Crx) 0.5 Mg Tablet PO 1 mg DAILY PRN Administration Anxiety Enoxaparin Sodium 40 mg 08/06/24 09:00 08/06/24 08:34 Enoxaparin 40 Mg/0.4 Ml Syringe SUB-Q 40 mg DAILY [facility] Administration Estradiol 1 applic 08/02/24 08:13 Estradiol Vaginal Cream 42.5 Gm VAGINAL PRN PRN Pain Fluticasone Propionate 1 spray 08/02/24 08:13 Fluticasone Propionate 0.05% Na Spr 16 Gm Btl (*Bkc) NASAL DAILY PRN Dryness Guaifenesin 1,200 mg 08/02/24 21:00 08/06/24 20:38 Guaifenesin 12 Hr 600 Mg Tabcr PO 1,200 mg Q12HR [facility] Administration Mupirocin 1 applic 08/03/24 09:00 08/06/24 20:39 Mupirocin 2% Oint 22 Gm Tube EACH NARE 08/07/24 21:01 1 applic Q12HR [facility] Administration Nicotine 1 patch 08/02/24 14:40 08/06/24 08:35 Nicotine (*Pbkc) 14 Mg Patch TRANSDERM 1 patch DAILY [facility] Administration Nitroglycerin 0.4 mg 08/02/24 08:15 Nitroglycerin Sl 0.4 Mg Tablet SUBLINGUAL Q5MIN [facility] Radiology Results: ITS Impressions Chest CTA 08/01/24 21:32 IMPRESSION: No pulmonary embolus. No thoracic aortic dissection. Severe panlobular bullous emphysema, as detailed above. Head CT 08/02/24 10:48 Impression: No significant abnormality seen. Chest X-Ray 08/05/24 09:41 IMPRESSION: 1. Emphysema Labs Labs: Laboratory Results - last 24 hr 08/04/24 08/06/24 08/07/24 05:33 15:30 04:29 WBC RBC Hgb Hct MCV MCH MCHC RDW Plt Count MPV Immature Gran % (Auto) Neut % (Auto) Lymph % (Auto) [place] % (Auto) Eos % (Auto) Baso % (Auto) Lymph # (Auto) [place] # (Auto) Eos # (Auto) Baso # (Auto) Abs Immat Gran (auto) Absolute Neuts (auto) Absolute Nucleated RBC Nucleated RBC % Puncture Site Right brachial ABG pH 7.423 ABG pCO2 51.8 H ABG pO2 56.3 L ABG PO2/FiO2 Ratio 2.01 ABG HCO3 33.1 H ABG O2 Saturation 89.5 L ABG O2 Content 18.1 ABG Base Excess 7.1 A-a Gradient 82.2 Oxyhemoglobin 88.9 L Total Hemoglobin 14.5 O2 Delivery Device Other device O2 Liters/Min 2.0 FiO2 28 Expiratory Pressure 5 Inspiratory Pressure Not Reportable Sodium Potassium 3.5 Chloride Carbon Dioxide Anion Gap BUN Creatinine Estim Creat Clear Calc Estimated GFR Glucose Calcium Magnesium Total Bilirubin AST ALT Alkaline Phosphatase Total Protein Albumin 08/07/24 07:01 WBC 5.8 RBC 4.54 Hgb 14.0 Hct 44.6 MCV 98.2 MCH 30.8 MCHC 31.4 L RDW 13.7 Plt Count 160 MPV 11.4 H Immature Gran % (Auto) 4.8 H Neut % (Auto) 60.7 Lymph % (Auto) 24.2 [place] % (Auto) 7.6 Eos % (Auto) 2.4 Baso % (Auto) 0.3 Lymph # (Auto) 1.40 [place] # (Auto) 0.4 Eos # (Auto) 0.1 Baso # (Auto) 0.0 Abs Immat Gran (auto) 0.28 H Absolute Neuts (auto) 3.5 Absolute Nucleated RBC 0.000 Nucleated RBC % 0.0 Puncture Site ABG pH ABG pCO2 ABG pO2 ABG PO2/FiO2 Ratio ABG HCO3 ABG O2 Saturation ABG O2 Content ABG Base Excess A-a Gradient Oxyhemoglobin Total Hemoglobin O2 Delivery Device O2 Liters/Min FiO2 Expiratory Pressure Inspiratory Pressure Sodium 140 Potassium 3.8 Chloride 91 L Carbon Dioxide > 40 H Anion Gap BUN 9 Creatinine 0.49 L Estim Creat Clear Calc 87 Estimated GFR > 60 Glucose 88 Calcium 9.2 Magnesium 2.1 Total Bilirubin 0.5 AST 24 ALT 20 Alkaline Phosphatase 67 Total Protein 7.0 Albumin 4.2
[2024-08-07] MEDS: guaiFENesin 12 HR 600 MG TABCR 1200 MG PO (09:26)
[2024-08-07] MEDS: ASPIRIN 81 MG ENTERIC TABLET PO (09:27)
[2024-08-07] MEDS: ENOXAPARIN 40 MG/0.4 ML SYRINGE SUB-Q (09:27)
[2024-08-07] MEDS: NICOTINE (*PBKC) 14 MG PATCH 1 PATCH TRANSDERM (09:27)
[2024-08-07] MEDS: MUPIROCIN 2% OINT 22 GM TUBE 1 APPLIC EACH NARE (09:27)
--- NOTE | 2024-08-07 11:18 | HOMEO2EVAL ---
Evaluation was performed at [facility] Home Oxygen Evaluation RC: Home Oxygen (O2) Evaluation Start: 08/07/24 08:38 Freq: ONCE Status: Active Protocol: RPE Activity Type Activity Date Activity User E-sign Co-sign Detail Recorded Client Recorded Date Recorded By Document 08/07/24 10:40 [email or web address] 08/07/24 11:17 DJO Document 08/07/24 10:45 [email or web address] 08/07/24 11:17 DJO Document 08/07/24 10:50 [email or web address] 08/07/24 11:17 DJO Document 08/07/24 10:55 [email or web address] 08/07/24 11:17 DJO Document 08/07/24 11:15 [email or web address] 08/07/24 11:17 DJO 08/07/24 08/07/24 08/07/24 10:40 10:45 10:50 Home O2 Evaluation [Oxygen] -Test Phase Resting Resting Resting -Oxygen Delivery Room Air Nasal Cannula Nasal Cannula -Oxygen Flow Rate (L/min) 1 2 [Pulse Oximetry] -Pulse Oximetry (90-100 %) 85 L 88 L 92 [Pulse Rate] -Pulse Rate (60-100 beats/min) 91 89 87 [Evaluation] -Activity Tolerance [Exercise] -Ambulation Distance (feet) -Ambulation Distance (meters) [Charges] -Evaluation Charges O2 Evaluation by Pulmonary 08/07/24 08/07/24 10:55 11:15 Home O2 Evaluation [Oxygen] -Test Phase Exercise Resting -Oxygen Delivery Nasal Cannula Nasal Cannula -Oxygen Flow Rate (L/min) 2 2 [Pulse Oximetry] -Pulse Oximetry (90-100 %) 92 92 [Pulse Rate] -Pulse Rate (60-100 beats/min) 110 H 91 [Evaluation] -Activity Tolerance Fair [Exercise] -Ambulation Distance (feet) 150 -Ambulation Distance (meters) 45.71 [Charges] -Evaluation Charges
--- NOTE | 2024-08-07 11:18 | PCNFU ---
Nutrition Follow-Up Complete: Moderate protein calorie malnutrition related to decreased appetite as evidenced by weight loss 11%/2 months; intakes <75% needs >1 month PO intake <75% meals and supplements - Progressing with goal with intakes 25-100%, Continue with same goal Goal: Pt current nutrition is Regular diet, Ensure BID (350 kcal, 20 g protein). Nutrition recommendation: No new recommendations. Continue current nutrition care plan and orders. Agree with orders Last recorded weight is 52.7 kg. Bowel Motility: +1 BM 08/05/24 Labs Reviewed: Cre 0.49 Meds Noted: Nicoderm Skin: No skin issues Additional Notes: Intakes are improved to 25-100% . Likely to discharge soon. Continue current care plan and orders Monitoring intakes, weights, labs, supplement tolerance, plan of care Follow up in 5 days
--- NOTE | 2024-08-07 11:19 | PCRCNOTE ---
HOME O2 EVAL COMPLETE, 2L REST AND ACTIVITY. PT HAS HOME O2 WITH [facility] AND HAS A TANK IN ROOM FOR DISCHARGE.
--- NOTE | 2024-08-07 12:44 | P.DS_ITS ---
DS: Admitting Diagnosis Discharge Date 08/07/24 Admitting Diagnosis Shortness of breath DS: Discharge Diagnosis Discharge Diagnosis (1) COPD exacerbation: Code(s): J44.1 - Chronic obstructive pulmonary disease with (acute) exacerbation Status: Acute (2) Acute hypoxic respiratory failure: Code(s): J96.01 - Acute respiratory failure with hypoxia Status: Acute (3) Narcotic abuse in remission: Code(s): F11.11 - Opioid abuse, in remission Status: Acute DS: Summary Hospital Course Hospital Course: a 53-year-old female with a past medical history of COPD,CVA, anxiety, spoke chronic smoker yesterday here due to shortness of breath and altered mental status for past couple of days. Patient is a poor historian. Initially patient reported she is not a smoker and quit smoking last year May 2023 due to prolonged hospitalization due to COPD exacerbation. Later patient confessed to smoking few cigarettes daily. Patient also has a past medical history of CVA. Pertinent ED labs: WBC 3.3, hemoglobin 14, hematocrit 44.7, platelet 124, sodium 137, potassium 3.7, chloride 96, her med dioxide 33, creatinine 0.4, GFR greater than 60 ABG: PH is 7.3, CO2 56, O2 71, HC03 27.2 Chest CTA: No pulmonary embolus. No thoracic aortic dissection. Severe panlobular bullous emphysema Head CT:No significant abnormality seen As mentioned above patient is a poor historian. Metabolic encephalopathy possibly due to CO2 retention. Order Vitamin B12,TSH,ammonia,Syphilis and HIV to rule out infectious and other metabolic causes. Patient reports she use 2L O2 baseline. In regards to pulmonary medication patient unable to verify the medication. Pulmonology was consulted. Patient was placed on bronchodilators and nighttime NIV. today patient is nwo at baseline oxygen and discharged on Tripple inhaler , rescue inhlaters and Guaifenesin , and 4 days of prednisone . F/u with PCP in 3-5 days F/u with ortho as instructed. Time Spent with Patient Time attestation: Total time spent providing and/or coordinating discharge services: DS: Data Data Completed and Pending Labs on day of discharge: Labs from last 24 hours 08/07/24 08/07/24 08/06/24 07:01 04:29 15:30 WBC 5.8 RBC 4.54 Hgb 14.0 Hct 44.6 MCV 98.2 MCH 30.8 MCHC 31.4 L RDW 13.7 Plt Count 160 MPV 11.4 H Immature Gran % (Auto) 4.8 H Neut % (Auto) 60.7 Lymph % (Auto) 24.2 [place] % (Auto) 7.6 Eos % (Auto) 2.4 Baso % (Auto) 0.3 Lymph # (Auto) 1.40 [place] # (Auto) 0.4 Eos # (Auto) 0.1 Baso # (Auto) 0.0 Abs Immat Gran (auto) 0.28 H Absolute Neuts (auto) 3.5 Absolute Nucleated RBC 0.000 Nucleated RBC % 0.0 Puncture Site Right brachial ABG pH 7.423 ABG pCO2 51.8 H ABG pO2 56.3 L ABG PO2/FiO2 Ratio 2.01 ABG HCO3 33.1 H ABG O2 Saturation 89.5 L ABG O2 Content 18.1 ABG Base Excess 7.1 A-a Gradient 82.2 Oxyhemoglobin 88.9 L Total Hemoglobin 14.5 O2 Delivery Device Other device O2 Liters/Min 2.0 FiO2 28 Sodium 140 Potassium 3.8 3.5 Chloride 91 L Carbon Dioxide > 40 H Anion Gap BUN 9 Creatinine 0.49 L Estim Creat Clear Calc 87 Estimated GFR > 60 Glucose 88 Calcium 9.2 Magnesium 2.1 Total Bilirubin 0.5 AST 24 ALT 20 Alkaline Phosphatase 67 Total Protein 7.0 Albumin 4.2 Discharge Plan Discharge Attending physician on discharge: Kyrie Samayoa Consulting providers: Vj Call Discharging Clinician: Kyrie Samayoa Anticipated Discharge Date/Time: 08/07/24 12:31 Patient Disposition: Home Activity: as tolerated Diet: as tolerated and heart healthy Patient Instructions: Antibiotic Form, COPD (Chronic Obstructive Pulmonary Disease) (DC) Patient Language: German Stand Alone Forms: General Discharge Information Follow-up/Referrals: Aroldo Salvador MD [Primary Care Provider] - (F/u with PCP in 3 - 5 days ) Vj Call MD [Physician] - (F/u with Pulm as instructed ) Discharge Medications: New guaifenesin 600 mg tablet extended release 12hr 600 mg PO Q12H PRN (Reason: cough) 14 Days Qty: 14 0RF prednisone 10 mg tablet 40 mg PO DAILY 4 Days Qty: 16 0RF Continued fluticasone fur. 100 mcg-umeclid 62.5 mcg-vilant 25 mcg inhalat.powder 100-62.5-25 mcg blister with device 0RF Patient Comments: Patient took it when Dr. Mancuso gave it to her and said it worked well. Can't afford to fill it or having an insurance issue. aspirin 81 mg Capsule 81 mg PO DAILY albuterol sulfate 90 mcg/actuation aero powdr breath act w/sensor 1 inh inhalation Q4-6H PRN (Reason: shortness of breath or wheezing) Qty: 1 0RF nitroglycerin 0.4 mg tablet, sublingual 0.4 mg sublingual Q5MIN MDD 3 fluticasone propionate 50 mcg/actuation [place],Suspension 1 spray INTRANASAL DAILY PRN (Reason: Dryness) clonazepam 1 mg tablet 1 mg PO DAILY PRN (Reason: Anxiety) Qty: 7 0RF valacyclovir [Valtrex] 1 gram tablet 1,000 mg PO Q8H Qty: 21 0RF Patient Comments: Given for shingles Anoro Ellipta 62.5-25 mcg/actuation blister with device 1 inh inhalation Q24H 30 Days Qty: 60 5RF estradiol 0.01 % (0.1 mg/gram) cream 1 g vaginal 2XW PRN (Reason: Pain) Qty: 42.5 0RF Date of admission: 08/02/24 02:35 Primary Care Provider: Aroldo Salvador Admitting Provider: Shruti Zuñiga Attending physician on admission: Kyrie Samayoa Condition: Serious
[2024-08-08 01:38] LABS: Adenovirus DNA Not Detected (Not Detected); Chlamydophila pneumoniae Not Detected (Not Detected); Coronavirus 229E Not Detected (Not Detected); Coronavirus HKU1 Not Detected (Not Detected); Coronavirus NL63 Not Detected (Not Detected); Coronavirus OC43 Not Detected (Not Detected); Human Metapneumovirus Not Detected (Not Detected); Human Parainfluenza Virus 1 Not Detected (Not Detected); Human Parainfluenza Virus 2 Not Detected (Not Detected); Human Parainfluenza Virus 3 Detected (Not Detected); Human Parainfluenza Virus 4 Not Detected (Not Detected); Human RSV B Not Detected (Not Detected); Influenza A Not Detected (Not Detected); Influenza B Not Detected (Not Detected); Mycoplasma pneumoniae Not Detected (Not Detected); Rhinovirus/Enterovirus Not Detected (Not Detected)
== END 2024-08-07 13:01 | disposition home or self-care (01) | DRG 140 ==
LOC: ANHED 08-02 02:34 → ANHIMU 08-02 03:39
PROVIDERS: General Practice; Internal Medicine Pulmonary Disease; Admitting Provider Internal Medicine; Emergency Provider Registered Nurse; PCP Internal Medicine; Visit Provider Internal Medicine
DX: J44.1 Chronic obstructive pulmonary disease with (acute) exacerbation (principal); J96.21 Acute and chronic respiratory failure with hypoxia; J96.22 Acute and chronic respiratory failure with hypercapnia; E44.0 Moderate protein-calorie malnutrition; G93.41 Metabolic encephalopathy; F40.00 Agoraphobia, unspecified; F10.21 Alcohol dependence, in remission; J43.1 Panlobular emphysema; F11.11 Opioid abuse, in remission; F41.9 Anxiety disorder, unspecified; F32.A Depression, unspecified; F17.210 Nicotine dependence, cigarettes, uncomplicated; Z68.21 Body mass index [BMI] 21.0-21.9, adult; Z20.822 Contact with and (suspected) exposure to COVID-19; Z79.82 Long term (current) use of aspirin; Z79.899 Other long term (current) drug therapy; Z99.81 Dependence on supplemental oxygen; Z86.73 Personal history of transient ischemic attack (TIA), and cerebral infarction without residual deficits; Z86.718 Personal history of other venous thrombosis and embolism
CPT/HCPCS: 36415; 36600; 70450; 71045; 71046; 71275; 80053; 80307; 81003; 82140; 82375; 82550; 82607; 82746; 82805; 83050; 83605; 83735; 83880; 84132; 84439; 84443; 84480; 84484; 85018; 85025; 85027; 85055; 85380; 85610; 85730; 86593; 86703; 87633; 87637; 87641; 93005; 93306; 94002; 94003; 94618; 94640; 94667; 94668; 94762; 96361; 96374; 97110; 97161; 97165; 97530; 99285; A9270; G0432; J0456; J1650; J1938; J2919; J3480; J7030; J7040; P9047; Q9967

== ENCOUNTER 2024-12-24 16:02 | Emergency (ER) | payer OTHER, SELFPAY ==
--- OUTSIDE RECORDS SUMMARY | 2024-09-04 06:20 | XMS_ITS ---
Author Organization [facility] Address [address] [place] [address] Care Team Providers Care Community Engagement Leader Name Role Phone Aroldo Salvador Primary Care Provider Kandace Godinezbo Arias [phone] REASON FOR VISIT r/s Social History Sex Assigned At : Social History Observation Description Sex Assigned At Female Encounters Encounter Location Date Provider Diagnosis [address] [place] [address] 09/04/2024 Aroldo Salvador Plan Of Treatment No Information Progress Notes * Joya BALDERRAMA ADOB:[birth year] (54 yo F)Acc No.[id number]:09/04/2024 UNLOCKED PROGRESS NOTE Progress Notes Patient: Stephanie JAYberly Anival Provider: Eliza Salvador :1970 A ge:53 Y S ex:Female Date:09/04/2024 Address:[facility] Subjective: * Chief Complaints: * 1 . R/s. * Medical History: Objective: * Vitals: Assessment: Plan: * Treatment: * * Electronic signature of Maureen Salvador , [id number] on 12/24/2024 at 04:05 PM CDT Sign off status: Pending * Provider: Eliza Salvador Date: 0 09/04/2024 Generated for Cong shepard/Chloe/eTransmitting on: 0 12/24/2024 04:05 PM CDT
--- NOTE | ~2024-12-24 | CT_ITS ---
EXAMINATION: CT brain wo saloni, 12/24/2024 17:11 CDT HISTORY: worst headache of my life COMPARISON: No comparisons available. TECHNIQUE: CT scan of the abdomen and pelvis was performed without and with contrast. Isovue 300, 92cc injected IV. One or more of the following dose reduction techniques were used: automated exposure control, adjustment of the mA and/or kV according to patient size, use of iterative reconstruction technique. Unless otherwise stated, incidental findings do not require dedicated follow up imaging FINDINGS: CT abdomen: LUNG BASES: The lung bases are clear. The visualized portions of the heart and pericardium are unremarkable. LIVER: Unremarkable, liver contours intact, no lesions. SPLEEN: Unremarkable, no splenomegaly. KIDNEYS: Right Kidney: Unremarkable. No calculi. No hydronephrosis. Left Kidney: Unremarkable. No calculi. No hydronephrosis ADRENAL GLANDS: Unremarkable. PANCREAS: Unremarkable. GALLBLADDER/BILIARY: Unremarkable. No biliary dilatation. STOMACH AND ESOPHAGUS: Visualized stomach and esophagus within normal limits. BOWEL/MESENTERY: Bowel is within normal limits, no colitis or diverticulitis. ADENOPATHY/RETROPERITONEUM: No lymphadenopathy. AORTA/VASCULATURE: Normal caliber aorta. FREE FLUID OR FREE AIR: None. CT pelvis: SOLID ORGANS/REPRODUCTIVE: Unremarkable. BLADDER: Within normal limits. OSSEOUS STRUCTURES: No acute osseous abnormality.No suspicious lesions. OVERLYING SOFT TISSUES: Unremarkable. IMPRESSION: 1. No etiology identified to explain the patient's symptoms. Follow-up suggested if symptoms persist. Reviewed, dictated and finalized at location P. IMPRESSION: 1. No etiology identified to explain the patient's symptoms. Follow-up suggeste d if symptoms persist.
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
--- OUTSIDE RECORDS SUMMARY | 2024-12-24 16:05 | XMS_ITS | Patient Health Record ---
[facility] Organization [facility] Address [address] [place] [address] Care Team Providers Care Machine Puller And Laster Name Role Phone Bertram Galindo Unavailable [phone] Reason For Referral No Information Medications Medication SIG (Take, Route, Fr equency, Duration) Notes Start Date End Date Status [place] 5-325mg take 1 tablet by ora ORAL 06/30/2014 Active KlonoPIN 0.5mg take 1 Tablet by ora ORAL 5 Active Problems Problem Type SNOMED Code ICD Code Onset Dates Problem Status W/U Status Risk Notes Problem Viral hepatitis type C (25174315) Unspecified viral hepatitis C without hepatic coma (070.70) 0 confirmed [place] Problem Alcohol dependence (disorder) (13093833) Other and unspecified alcohol dependence, unspecified drunkenness (303.90) 0 confirmed [place] Problem Drug abuse (73292819) Other, mixed, or unspecified nondependent drug abuse, unspecified (305.90) 0 confirmed [place] Problem Exposure to sexually transmissible disorder (event) (759801428) Contact with or exposure to venereal diseases (V01.6) 0 confirmed [place] Plan Of Treatment No Information Insurance Providers Payer Name Payer Address Payer Phone Subscriber Number Group Number Insured Name Patient Relationship to Insured Coverage Start Date Coverage End Date [facility] [address] [phone] [id number] Joya De Leon Self - patient is the insured
[2024-12-24 16:15] VITALS: BP 132/81; PULSE 83; RESP 18; TEMP 36.8; O2SAT 93
--- NOTE | 2024-12-24 16:32 | ED_ITS ---
HPI - General Adult General Chief complaint: Unspecified <Catrina Bhat APRN - Last Filed: 12/24/24 16:34> Stated complaint: requesting head CT <Catrina Bhat APRN - Last Filed: 12/24/24 16:34> Time Seen by Provider: 12/24/24 16:32 <Catrina Bhat APRN - Last Filed: 12/24/24 16:34> Focused HPI: Patient is a 54-year-old female who presents to the ER with a headache. She reports 2 days ago, around 9:30 p.m., patient woke up with a severe left-sided headache. Patient reports she was sweating so she took ibuprofen. She reports that ibuprofen did not help relieve her pain so she took Suboxone and Klonopin. Patient reports this morning she woke up with the same symptoms so she repeated the medications. She reports the pain has radiated to different parts of her head. Patient denies any nausea, vomiting, sore throat, congestion or recent fevers. GENERAL: Well-appearing, well-nourished, and in no acute distress. HEAD: Normocephalic, atraumatic. CHEST: Clear to auscultation. ?No respiratory distress. HEART: Regular rate and rhythm.? NEURO: ?Alert and oriented x3. Patient screened in triage and initial orders placed.? ?Additional care and disposition to be based upon?diagnostic testing and treatment. <Catrina Bhat APRN - Last Filed: 12/24/24 16:34> Related Data Home medications: Home Medications ?Medication ?Instructions ?Recorded ?Confirmed ?Last Taken ?Type aspirin 81 mg capsule 81 mg PO DAILY 06/21/22 05/12/1908/01/24 History fluticasone propionate 50 1 spray intranasal DAILY PRN 03/28/23 08/02/24 03/28/23 History mcg/actuation nasal Dryness spray,suspension nitroglycerin 0.4 mg sublingual 0.4 mg sublingual Q5MI N 03/28/23 08/02/24 Unknown History tablet <Catrina Bhat APRN - Last Filed: 12/24/24 16:34> Allergies/adverse reactions: Allergies Allergy/AdvReac Type Severity Reaction Status Date / Time bee venom protein (honey bee) Allergy Intermediate BREATHING Verified 12/24/24 16:20 DIFFICULTY <Catrina Bhat APRN - Last Filed: 12/24/24 16:34> Review of Systems Review of Systems: All systems reviewed & are unremarkable except as noted in HPI and below <Rhoda Bautista PA-C - Last Filed: 12/24/24 18:13> [facility] Past Medical History Medical History: Medical History Tobacco dependence Deep venous thrombosis (2007) Polysubstance abuse Hepatitis C virus infection cured after antiviral drug therapy Emphysematous COPD Agoraphobia Depression Anxiety <Catrina Bhat APRN - Last Filed: 12/24/24 16:34> Surgical History Surgical History: Surgical History History of section <Catrina Bhat APRN - Last Filed: 12/24/24 16:34> Family History Family History: Family History (Updated 08/02/24 @ 04:36 by Keon Tidwell RN) Mother Congestive heart failure Cystic fibrosis COPD (chronic obstructive pulmonary disease) Father Acute myocardial infarction Congestive heart failure <Catrina Bhat APRN - Last Filed: 12/24/24 16:34> Social History Social History: Social History Social History: Currently staying with her boyfriend in a trailer. She has 2 children, a son and daughter. Not currently working. She smoked a pack of cigarettes a day since she was a teenager and quit lastly. She is recovering alcoholic but has not drank heavily since her late 20s. She has a history of IV drug use many years ago but has been sober since April 2022. Surrogate decision maker: Marielena Hannah (daughter). Code status: Full code Smoking packs per day: 2 Smoking cigarettes per day: 40.0 Years smoked: 39 Smoking pack-years: 78.00 Smoking status: Former smoker Tobacco type: cigarettes Second hand tobacco smoke exposure: Yes (significant other) Smoking end date: 04/28/22 Alcohol intake: never Substance use: never Substance use type: does not use Other substance usage details: fentanyl Do You Feel Safe in your Home?: Yes Lack of Transportation: No Lack of Food: Sometimes True Current Housing: I Have Housing Concerned About Future Housing: No Difficulty Paying Gas/Electric Bills: YES Difficulty Paying for Meds: YES Currently Unemployed: No Education: Grade School Difficulty w/ Childcare or Family Care: No Living arrangements: other Additional living arrangements comments: significant other Occupation/Education: unemployed Spiritual care concerns: No <Catrina Bhat APRN - Last Filed: 12/24/24 16:34> Exam Narrative: GENERAL: Well-appearing, well-nourished, and in no acute distress. HEAD: Normocephalic, atraumatic. EYES: PERRLA and EOMI. ENT: Nares clear, no rhinorrhea or epistaxis. Mucous membranes moist. Oropharynx without tonsillar hypertrophy exudate or other lesions. Bilateral TMs pearly stiles non-bulging NECK: Supple. No adenopathy or masses. CHEST: Clear to auscultation. No respiratory distress. No wheezes rales or rhonchi HEART: Regular rate and rhythm. No murmur heard. Normal peripheral pulses. EXTREMITIES: Normal range of motion. No edema. Strength equal in bilateral upper and lower extremities (5/5) SKIN: Warm, dry, no rash. NEURO: No focal deficits. Alert and oriented x3. Cranial nerves 2-12 grossly intact PSYCH: Normal mood and affect <Rhoda Bautista PA-C - Last Filed: 12/24/24 18:13> Course Course Emergency Course: Patient updated on her workup thus far. No symptoms currently. We talked about further evaluation with blood work, CTA. She would like to follow up outpatient with her PCP for this <Rhoda Bautista PA-C - Last Filed: 12/24/24 18:13> Vital Signs Vital signs: Vital Signs Temperature 98.3 F 12/24/24 16:15 Pulse Rate 83 12/24/24 16:15 Respiratory Rate 18 12/24/24 16:15 Blood Pressure 132/81 12/24/24 16:15 Pulse Oximetry 93 12/24/24 16:15 Oxygen Delivery Room Air 12/24/24 16:15 Temperature 98.3 F 12/24/24 16:15 Pulse Rate 83 12/24/24 16:15 Respiratory Rate 18 12/24/24 16:15 Blood Pressure 132/81 12/24/24 16:15 Pulse Oximetry 93 12/24/24 16:15 Oxygen Delivery Room Air 12/24/24 16:15 <Catrina Bhat, IRRIGATOR OVERHEAD - Last Filed: 12/24/24 16:34> Vital Signs Temperature 98.3 F 12/24/24 16:15 Pulse Rate 83 12/24/24 16:15 Respiratory Rate 18 12/24/24 16:15 Blood Pressure 132/81 12/24/24 16:15 Pulse Oximetry 93 12/24/24 16:15 Oxygen Delivery Room Air 12/24/24 16:15 Temperature 98.3 F 12/24/24 16:15 Pulse Rate 83 12/24/24 16:15 Respiratory Rate 18 12/24/24 16:15 Blood Pressure 132/81 12/24/24 16:15 Pulse Oximetry 93 12/24/24 16:15 Oxygen Delivery Room Air 12/24/24 16:15 <Rhoda Bautista PA-C - Last Filed: 12/24/24 18:13> Medical Decision Making MDM Narrative Medical decision making narrative: Patient presents to the emergency department for headaches ongoing over the last couple of days. She is afebrile and nontoxic appearing. Her vitals are stable. CT brain is normal. No headache currently. Reports family history of aneurysms. She does also report history of cluster headaches, but had not had one recently. Patient updated on her workup thus far. No symptoms currently. We talked about further evaluation with blood work, CTA. She would like to follow up outpatient with her PCP for this. She was given warnings to return to the ER <Rhoda Bautista PA-C - Last Filed: 12/24/24 18:13> Vital Signs Vital Signs: Vital Signs Temperature 98.3 F 12/24/24 16:15 Pulse Rate 83 12/24/24 16:15 Respiratory Rate 18 12/24/24 16:15 Blood Pressure 132/81 12/24/24 16:15 Pulse Oximetry 93 12/24/24 16:15 Oxygen Delivery Room Air 12/24/24 16:15 Temperature 98.3 F 12/24/24 16:15 Pulse Rate 83 12/24/24 16:15 Respiratory Rate 18 12/24/24 16:15 Blood Pressure 132/81 12/24/24 16:15 Pulse Oximetry 93 12/24/24 16:15 Oxygen Delivery Room Air 12/24/24 16:15 <Catrina Bhat APRN - Last Filed: 12/24/24 16:34> Vital Signs Temperature 98.3 F 12/24/24 16:15 Pulse Rate 83 12/24/24 16:15 Respiratory Rate 18 12/24/24 16:15 Blood Pressure 132/81 12/24/24 16:15 Pulse Oximetry 93 12/24/24 16:15 Oxygen Delivery Room Air 12/24/24 16:15 Temperature 98.3 F 12/24/24 16:15 Pulse Rate 83 12/24/24 16:15 Respiratory Rate 18 12/24/24 16:15 Blood Pressure 132/81 12/24/24 16:15 Pulse Oximetry 93 12/24/24 16:15 Oxygen Delivery Room Air 12/24/24 16:15 <Rhoda Bautista PA-C - Last Filed: 12/24/24 18:13> Imaging Data Radiologist's impression: ITS Impressions Head CT 12/24/24 17:30 IMPRESSION: 1. No etiology identified to explain the patient's symptoms. Follow-up suggested if symptoms persist. Findings: No acute infarct or parenchymal hemorrhage. No abnormal mass or mass effect. No midline shift. No extra-axial fluid collections. No hydrocephalus. Mastoid air cells unremarkable. Sinuses and orbits unremarkable. No acute fracture. No significant facial or scalp soft tissue swelling evident. No radiopaque foreign body is seen. Impression: 1.No acute intracranial abnormality. <Rhoda Bautista PA-C - Last Filed: 12/24/24 18:13> Critical Care Time Critical Care Time Critical Care Time: No <AKHIL Ward Last Filed: 12/24/24 18:13> Discharge Plan Discharge Clinical Impression: Headache Qualifiers: Headache type: unspecified Headache chronicity pattern: acute headache Intractability: not intractable Qualified Code(s): R51.9 - Headache, unspecified <Catrina Bhat, NENITA - Last Filed: 12/24/24 16:34> Patient Disposition: Home <Catrina Yari Bhat APRN - Last Filed: 12/24/24 16:34> Condition: Stable <Catrinalucie Bhat APRN - Last Filed: 12/24/24 16:34> Instructions: Acute Headache (ED) <Catrina Bhat APRN - Last Filed: 12/24/24 16:34> Additional Instructions: Return to the emergency department if you experience fever, vision changes, vomiting, weakness, numbness, or any other symptoms that are concerning to you. Rest. Remain well hydrated. Over the counter pain medication as needed Follow up with neurology for further evaluation of your headaches The CT scan of your brain is normal today. For further evaluation outpatient a CTA takes a better look at the vasculature in your brain. Follow up with your primary to have this arranged <Catrina Bhat APRN - Last Filed: 12/24/24 16:34> Patient Language: Chinese <Catrina Bhat APRN - Last Filed: 12/24/24 16:34> Prescriptions: New metoclopramide HCl 5 mg tablet 5 mg PO Q6H PRN (Reason: nausea and vomiting) Qty: 10 0RF acetaminophen 500 mg tablet 1,000 mg PO Q6H PRN (Reason: pain) Qty: 14 0RF No Action fluticasone fur. 100 mcg-umeclid 62.5 mcg-vilant 25 mcg inhalat.powder 100-62.5-25 mcg blister with device 0RF Patient Comments: Patient took it when Dr. Mancuso gave it to her and said it worked well. Can't afford to fill it or having an insurance issue. aspirin 81 mg Capsule 81 mg PO DAILY albuterol sulfate 90 mcg/actuation aero powdr breath act w/sensor 1 inh inhalation Q4-6H PRN (Reason: shortness of breath or wheezing) Qty: 1 0RF guaifenesin 600 mg tablet extended release 12hr 600 mg PO Q12H PRN (Reason: cough) 14 Days Qty: 14 0RF prednisone 10 mg tablet 40 mg PO DAILY 4 Days Qty: 16 0RF nitroglycerin 0.4 mg tablet, sublingual 0.4 mg sublingual Q5MIN MDD 3 fluticasone propionate 50 mcg/actuation [place],Suspension 1 spray INTRANASAL DAILY PRN (Reason: Dryness) clonazepam 1 mg tablet 1 mg PO DAILY PRN (Reason: Anxiety) Qty: 7 0RF valacyclovir [Valtrex] 1 gram tablet 1,000 mg PO Q8H Qty: 21 0RF Patient Comments: Given for shingles Anoro Ellipta 62.5-25 mcg/actuation blister with device 1 inh inhalation Q24H 30 Days Qty: 60 5RF estradiol 0.01 % (0.1 mg/gram) cream 1 g vaginal 2XW PRN (Reason: Pain) Qty: 42.5 0RF <Catrina Bhat, IRRIGATOR OVERHEAD - Last Filed: 12/24/24 16:34> Follow-up/Referrals: Aroldo Salvador MD [Primary Care Provider, Hospitalist] Les Benson MD [Physician, Neurology] <Catrina Bhat, NENITA - Last Filed: 12/24/24 16:34>
== END 2024-12-24 18:21 | disposition home or self-care (01) ==
PROVIDERS: Emergency Provider Physician Assistant; PCP Internal Medicine
DX: R51.9 Headache, unspecified (principal); Z79.1 Long term (current) use of non-steroidal anti-inflammatories (NSAID); Z87.891 Personal history of nicotine dependence
CPT/HCPCS: 70450; 99284